=== PATIENT | male | born 1960 | race Two or more races ===

== ENCOUNTER 2020-07-19 00:40 | Inpatient (IN) | payer BC ==
[~2020-07-19] VITALS: Ht 182.9 cm; Wt 126.1 kg
[2020-07-19] VITALS (7 sets, daily range): BP systolic 131–151; BP diastolic 59–80
[2020-07-19] MEDS ORDERED: ONDANSETRON PF 4 MG/2 ML VIAL. IVP PRN (01:30)
[2020-07-19] MEDS ORDERED: DEXTROSE 50% 25 GM / 50ML DISP.SYRIN. IV PRN (01:30)
[2020-07-19] MEDS ORDERED: VANCOMYCIN PER PHARMACY MC PRN (01:30)
--- NOTE | 2020-07-19 01:30 | NUR ---
Pt to room 664 from [facility] via EMS at 0025. Pt alert and oriented but very forgetful and poor historian. Wound to left third toe pictured and dressed. Pt oriented to room, call light in reach, bed alarm set. Dr Moore paged for admission orders. Spoke with pt's daughter Samia ([phone]) and son German who answered admission questions and reviewed pt's home meds. Will continue with plan of care.
[2020-07-19] MEDS ORDERED: DIPH25TA64 PO (01:54)
[2020-07-19] MEDS ORDERED: METF10007 PO (01:54)
[2020-07-19] MEDS ORDERED: INSU100I13 SQ (01:54)
[2020-07-19] MEDS ORDERED: LOSA-73 PO (01:54)
[2020-07-19] MEDS ORDERED: CALC-515 PO (01:54)
[2020-07-19] MEDS ORDERED: LEVO100T5 PO (01:54)
[2020-07-19] MEDS ORDERED: PRED1TAB3 PO (01:54)
[2020-07-19] MEDS ORDERED: ATOR10TA60 PO (01:54)
[2020-07-19] MEDS ORDERED: DOXA2TAB PO (01:54)
[2020-07-19] MEDS ORDERED: LIRA0.6P2 SQ (01:54)
[2020-07-19] MEDS: IV NORMAL SALINE 1000ML BAG 1,000 ML IV SCH ×4 (02:07→21:26)
--- NOTE | 2020-07-19 03:43 | NUR ---
Pharmacy Vancomycin Dosing Note S:Consulted to monitor and dose vancomycin started 07/18/20. O:DASHAWN GOMEZ is a 60 year old M with Sepsis . Height: 6 feet, 0 inches Weight: 126.8 kg [place] Body Weight: 77.60 Adjusted Body Weight: 97.28 Dosing Weight: Actual Other Antibiotics: CEFTRIAXONE 1 GM Q24 LABS: Last BUN: 38 Last Creatinine: 2.1 Creatinine Clearance: 51 mL/min Last WBC: 18.7 Last Procalcitonin: Tmax (past 24 hours): Microbiology: I/O: Drug Levels: Last level: on at Last dose given 07/18/20 at 2130 Vancomycin Dosing: Loading Dose: 2000 mg x1 Dosing Weight: Actual Target Trough: 15-20 A: Based on: WT AND CRCL P: 1. Begin Vancomycin 2000 mg IV q24h 2. Follow up Trough level on 07/20/20 at 2030 3. Pharmacy will continue to monitor, follow and adjust therapy as needed. KATJA TENA RPH, 07/19/20 0343 Signed: 07/19/20 at 342 by KATJA TENA RPH PHA
[2020-07-19 04:55] LABS: BASO % 0 % (0-3); EOS % 0 % (0-3); HEMATOCRIT 31.9 % (39.0-53.0); HEMOGLOBIN 11.2 g/dL (13.0-17.5); LYMPH # 0.8 x10^3/uL (1.0-4.8); LYMPH % 5 % (24-48); MEAN CORPUSCULAR HEMOGLOBIN 32 pg (25-35); MEAN CORPUSCULAR HGB CONC 35 g/dL (31-37); MEAN CORPUSCULAR VOLUME 91 fL (79-100); MONO # 1.5 x10^3/uL (0.0-1.1); MONO % 9 % (0-9); NEUT # 13.7 x10^3/uL (1.8-7.7); NEUT % 86 % (31-73); PLATELET COUNT 330 x10^3/uL (140-400); RED BLOOD COUNT 3.49 x10^6/uL (4.30-5.70); RED CELL DISTRIBUTION WIDTH 12.5 % (11.5-14.5); WHITE BLOOD COUNT 15.9 x10^3/uL (4.0-11.0)
[2020-07-19 05:47] LABS: ALBUMIN 1.8 g/dL (3.4-5.0); ALBUMIN/GLOBULIN RATIO 0.4 (1.0-1.7); C-REACTIVE PROTEIN 191.4 mg/L (0-3.3); CALCIUM 8.7 mg/dL (8.5-10.1); CREATININE 1.7 mg/dL (0.7-1.3); GFR 41.2; TOTAL BILIRUBIN 0.5 mg/dL (0.2-1.0); TOTAL PROTEIN 6.5 g/dL (6.4-8.2)
[2020-07-19] MEDS: INSULIN LISPRO 300 UNITS/3 ML VIAL. SQ SCH ×5 (08:00→16:41)
--- NOTE | 2020-07-19 08:18 | NUR ---
Pt's morning FSBS 348 Addendum: 07/19/20 at 0820 by FARHEEN SWIFT RN Correction to previous: Pt's morning FSBS 386. Dr. Moore notified by telephone. Orders to give 20 units Humalog one time.
[2020-07-19] MEDS ORDERED: INSULIN LISPRO 300 UNITS/3 ML VIAL. SQ ONE (08:30)
[2020-07-19 10:26] LABS: % BANDS 18 % (0-9); % LYMPHS 10 % (24-48); % MONOS 7 % (0-10); % SEGS 65 % (35-66); PLT ESTIMATE ADEQUATE (ADEQUATE); TOXIC GRANULATION SLIGHT
[2020-07-19] MEDS ORDERED: diphenhydrAMINE HCL 25 MG CAPSULE PO PRN (10:45)
[2020-07-19] MEDS ORDERED: CALCIUM CARBONATE 500 MG TAB.CHEW PO PRN (10:45)
--- NOTE | 2020-07-19 10:55 | PDOC ---
Infectious Disease Note Vital Signs: Vital Signs Vital Signs Date Time Temp Pulse Resp B/P (MAP) Pulse Ox O2 Delivery O2 Flow Rate FiO2 07/19/20 08:30 Room Air 07/19/20 07:00 99.3 104 18 136/65 (88) 96 99.3 Medications: Inpatient Meds: Medications reviewed. Labs: Lab Laboratory Tests Test 07/19/20 02:45 07/19/20 04:15 07/19/20 07:23 Lactic Acid Level 1.5 mmol/L (0.4-2.0) White Blood Count 15.9 x10^3/uL (4.0-11.0) Red Blood Count 3.49 x10^6/uL (4.30-5.70) Hemoglobin 11.2 g/dL (13.0-17.5) Hematocrit 31.9 % (39.0-53.0) Mean Corpuscular Volume 91 fL (79-100) Mean Corpuscular Hemoglobin 32 pg (25-35) Mean Corpuscular Hemoglobin Concent 35 g/dL (31-37) Red Cell Distribution Width 12.5 % (11.5-14.5) Platelet Count 330 x10^3/uL (140-400) Neutrophils (%) (Auto) 86 % (31-73) Lymphocytes (%) (Auto) 5 % (24-48) Monocytes (%) (Auto) 9 % (0-9) Eosinophils (%) (Auto) 0 % (0-3) Basophils (%) (Auto) 0 % (0-3) Neutrophils # (Auto) 13.7 x10^3/uL (1.8-7.7) Lymphocytes # (Auto) 0.8 x10^3/uL (1.0-4.8) Monocytes # (Auto) 1.5 x10^3/uL (0.0-1.1) Eosinophils # (Auto) 0.0 x10^3/uL (0.0-0.7) Basophils # (Auto) 0.0 x10^3/uL (0.0-0.2) Segmented Neutrophils % 65 % (35-66) Band Neutrophils % 18 % (0-9) Lymphocytes % 10 % (24-48) Monocytes % 7 % (0-10) Toxic Granulation Slight Platelet Estimate Adequate (ADEQUATE) Sodium Level 124 mmol/L (136-145) Potassium Level 4.0 mmol/L (3.5-5.1) Chloride Level 92 mmol/L (98-107) Carbon Dioxide Level 22 mmol/L (21-32) Anion Gap 10 (6-14) Blood Urea Nitrogen 37 mg/dL (8-26) Creatinine 1.7 mg/dL (0.7-1.3) Estimated GFR (Cockcroft-Gault) 41.2 BUN/Creatinine Ratio 22 (6-20) Glucose Level 403 mg/dL (70-99) Calcium Level 8.7 mg/dL (8.5-10.1) Total Bilirubin 0.5 mg/dL (0.2-1.0) Aspartate Amino Transf (AST/SGOT) 32 U/L (15-37) Alanine Aminotransferase (ALT/SGPT) 24 U/L (16-63) Alkaline Phosphatase 84 U/L (46-116) C-Reactive Protein, Quantitative 191.4 mg/L (0-3.3) Total Protein 6.5 g/dL (6.4-8.2) Albumin 1.8 g/dL (3.4-5.0) Albumin/Globulin Ratio 0.4 (1.0-1.7) Glucose (Fingerstick) 386 mg/dL (70-99) Objective: Assessment: Pt seen and examined ID consult to follow Plan: Plan of Care see orders ortho consulted wound team consulted Thank you JAMA HERNANDEZ MD July 19, 2020 10:55
--- NOTE | 2020-07-19 11:03 | NUR ---
SW following. Discussed with RN, pt from home with son, room air, ada diet. ID following. RN advised no SW needs at this time. SW will continue to follow.
[2020-07-19] MEDS: LOSARTAN POTASSIUM 50 MG TABLET. PO SCH (12:34)
[2020-07-19] MEDS: predniSONE 1 MG TABLET PO SCH (12:35)
[2020-07-19] MEDS: DOXAZOSIN MESYLATE 1 MG TABLET. PO SCH (12:35)
[2020-07-19] MEDS: DAPTOmycin (GENERIC) IVPB 600 MG in IV NORMAL SALINE 50ML 50 ML IV SCH (12:36)
--- NOTE | 2020-07-19 13:00 | HP ---
ADMIT DATE: 07/19/2020 HISTORY OF PRESENT ILLNESS: The patient is a 60-year-old male patient who presented to the emergency room with altered mental status. Apparently, he has had an infection of his left middle toe. Apparently he was advised to be admitted, but he refused. However, his family apparently brought him to the emergency room where he was extensively evaluated. Apparently, his blood sugar was too high to measure at home and has left foot diabetic ulcer. He also having right foot pain and swelling. The patient was seen by Dr. Marcano who wanted him to be admitted earlier, he refused at that time. The son brought him last night because he was more confused and with markedly elevated blood sugar. Has had a history of elevated uric acid. His sed rate was 339 and his creatinine has risen from 1.3-[address] Dennis's report. The patient has history of noncompliance with diet and medication, has been a longstanding diabetic and had had also peripheral neuropathy. The patient was extensively investigated in the emergency room and has had lab work and imaging studies: White cell count was high at 18,700. His blood gases showed that he is not in diabetic ketoacidosis. In fact, his pH was 7.46, pCO2 of 26. His chemistry showed that he has lactic acidosis and blood sugar was extremely high to 512 on arrival. His toxic screen was positive for cannabinoid and opiate. The x-ray of his foot showed that there is no acute fracture, alignment is normal. There is joint space narrowing with subchondral cysts at the second transmetatarsal joint and navicular cuneiform joint. There is diffuse soft tissue swelling, probable ulcer at the tip of the third distal phalanx with possible cortical indistinction in the distal phalanx tuft. His right foot showed there is severe degenerative joint disease of the great toe metatarsophalangeal joint and subchondral cyst. There is degenerative joint disease throughout the mid foot with dorsal osteophytes. No acute fracture. Alignment is normal. There is no definite osseous junction. There is diffuse soft tissue swelling greater along the dorsum of the midfoot with the impression is that the patient had soft tissue ulcer at the tip of the third distal phalanx with possible erosion in the underlying distal phalanx, which could indicate osteomyelitis. MRI could be obtained for further evaluation and therefore, the patient was treated with IV antibiotic in the form of vancomycin as well as ceftriaxone and was transferred to [facility] for further evaluation and to consult Infectious Disease as well as the orthopedic surgeon. PAST MEDICAL HISTORY: Significant for hypertension, hyperlipidemia, type 2 diabetes mellitus with diabetic peripheral neuropathy. He is known to have hypothyroidism. He apparently was seen by the vascular surgeon about 3 weeks ago at [facility]. Arterial Doppler ultrasound showed no evidence of any significant peripheral vascular disease. PAST SURGICAL HISTORY: According to him, his past surgical history is significant for tonsillectomy. He apparently has also esophageal stricture that was dilated about 2 years ago. He has underwent esophagogastroduodenoscopy as well as colonoscopy. ALLERGIES: He has no known drug allergies. MEDICATIONS: He is currently on the following medication: He is on diphenhydramine 25 mg daily as needed, atorvastatin calcium 10 mg at bedtime, doxazosin for Cardura 2 mg daily, losartan potassium 50 mg daily, calcium carbonate with magnesium hydroxide one tablet daily as needed for heartburn, prednisone 4 mg daily, metformin 1000 mg twice a day, Victoza 1.8 mg subq daily. He is on Lantus insulin 25 units subQ at bedtime and levothyroxine sodium 300 mcg daily. FAMILY HISTORY: Has one brother in 1990 of AIDS. Another brother is still alive and has thyroid disease. Has one older and one younger sister, both alive and both have thyroid disease. His father at age of 93 due to mouth cancer. His mother at the age of 98. SOCIAL HISTORY: He is , has 3 daughters and 1 son. He claimed that he has never smoked; however, he admitted to the ER physician at [facility] that he is a smoker and also smokes marijuana. He stated he does not drink any alcohol or use any drugs. 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 REVIEW OF SYSTEMS: The patient denied any blurring of vision, cataracts, glaucoma or macular degeneration. Denied any earache, tinnitus or sensory deafness. Denied nosebleed, stuffy nose or postnasal drip. Denied any sore throat, sore tongue, toothache, hoarseness of voice or difficulty swallowing. Denied any nausea, vomiting, diarrhea or constipation. Denied any hematemesis, melena or hematochezia. Denies any dysuria, frequency or hematuria. Denied any chest pain, shortness of breath, orthopnea, paroxysmal nocturnal dyspnea. Denied any cough, phlegm or hemoptysis. PHYSICAL EXAMINATION: GENERAL: On arrival to the emergency room, he looked well and was clearly in no apparent respiratory distress. No pallor, jaundice, cyanosis, or thyromegaly. No jugular distention. No lower limb edema. VITAL SIGNS: His heart rate was 116, blood pressure is 129/80, temperature was 98.7, respiratory rate was 34 and oxygen saturation was 94% on room air. HEAD, EYES, EARS, NOSE AND THROAT: Showed normocephalic, atraumatic. NECK: Supple. HEART: Showed normal first and second heart sounds. No gallop or murmur. CHEST: Clear to auscultation. No crepitation or rhonchi. ABDOMEN: Distended, soft, nontender. NEUROLOGIC: He is awake, alert, responding appropriately. All his cranial nerves are intact. He moves extremities without difficulty. He has definitely soft tissue swelling and tenderness in both right and left foot. He has an ulcer on the tip of the left third toe, covered with dressing. The dorsalis pedis in both feet is easily palpable. LABORATORY DATA: His lab work on arrival showed a white cell count of 18,700, hemoglobin 12, hematocrit 36, MCV 94 and platelet count of 389,000 with normal manual differential showed 84% polymorphs, 6% lymphocytes and 10% monocytes. His chemistry showed that his serum sodium is down to 124, potassium 4.5, chloride 88, bicarbonate 21, anion gap of 15, BUN 38, creatinine 2.1. Estimated GFR was 32 mL per minute. His glucose was 512, calcium was 9.2, magnesium was 1.7. CK was 360 and beta natriuretic peptide was 1481. His prothrombin time/INR and APTT are normal. Blood gases showed a pH of 7.46, pCO2 of 26, pO2 of 91, bicarbonate 19 and oxygen saturation was 98% on FiO2 of 21%. His urinalysis showed the urine was yellow, clear with a pH of 5.5, specific gravity of 1.015. There is large amount of protein, large amount of glucose, trace of ketones, large amount of blood, small amount of bilirubin, leukocyte esterase was negative. Has 11-20 rbc's, rare wbc's and no bacteria. His toxic screen was positive for opiates and cannabinoids. His chest x-ray showed the heart and mediastinum are normal. Lungs are hyperexpanded. No consolidation, pleural effusion, or pneumothorax. Pulmonary vascularity is normal. The thoracic skeleton is intact. CT scan of the head without contrast showed no intracranial hemorrhage, acute infarct or mass lesion. The ventricles and sulci are moderately enlarged. Teresa-white matter differentiation is maintained. The calvarium is intact. Visualized paranasal sinuses and mastoid air cells are clear. Globes and orbits are intact. X-ray of his left foot showed that no acute fracture. Alignment is normal. There is joint space narrowing with subchondral cyst at the second transmetatarsal joint. He has also dorsal osteophyte at the transmetatarsal joint and navicular cuneiform joint. There is diffuse soft tissue swelling, probable ulcer at the tip of the third distal phalanx with possible cortical indistinctness in the distal phalanx tuft. His right foot showed severe degenerative joint disease of the great toe metatarsophalangeal joint with subchondral cyst. There is degenerative joint disease throughout the mid foot and dorsal osteophytes. No acute fracture. Alignment is normal. There is no definite osseous junction. There is diffuse soft tissue swelling, greatest along the dorsum of the midfoot. Therefore, the patient was transferred to [facility] and was treated with IV vancomycin as well as Rocephin. We did consult the Infectious Disease specialist as well as the orthopedic surgeon. We did reconcile all his medication. We will monitor his blood sugar and adjust his insulin as needed. KENIA/LUCIA/NICKOLAS DR: Sarahy TID: [id number]
[2020-07-19] MEDS: PIPERACILLIN/TAZOBACTAM 3.375 GM in IV NORMAL SALINE 50ML 50 ML IV SCH ×3 (13:21→23:32)
--- NOTE | 2020-07-19 15:33 | NUR ---
IV fluids nonadministered by this RN, previous bag still infusing. Refer to EMAR for further details.
--- NOTE | 2020-07-19 16:00 | NUR ---
Wound Care Wound Type/Assessment: Pt seen for wound care consultation re: L 3rd toe DFU. Pt's daughter stated pt has been getting treatment for this wound in [place] for almost 1 year, and has not had any infection in the toe that they know of. Pt also has a R dorsolateral foot serous filled, intact blister, measurements and photo taken at this time. Per pt's daughter, blister has increased in size just since this morning. Bilateral dorsal feet are bright red and hot to the touch, no fluctuance noted, but pt's daughter did say pt is being treated for gout with steroids. Treatment Recommendations/Plan: Recommend Iodoflex john to L 3rd toe until pt is seen by Dr. Vazquez, then per his recommendations. R dorsal foot blister covered with a foam dressing for protection, and [employer]el[employer] boots ordered for off-loading, as pt is restless and tossing/turning constantly. Education provided: to pt's family re: POC. Offloading surface/device: [employer] boots, pillows Recommended Referrals/Tests: Defer to Dr. Vazquez Discharge Recommendations for dressings: will continue to follow for changes.
--- NOTE | 2020-07-19 16:30 | RAD ---
EXAMINATION: CT LOWER EXTREMITY WITHOUT CONTRAST, 07/19/2020 11:50 AM CLINICAL INDICATION: Bilateral lower extremity deep tissue infection COMPARISON: Bilateral foot radiograph 07/18/2020 TECHNIQUE: Helical CT imaging performed of the bilateral feet without the use of intravenous contrast . Sagittal and coronal reformats were obtained. One or more of the following individualized dose reduction techniques were utilized for this examinat ion: 1. Automated exposure control 2. Adjustment of the mA and/or kV according to patient size 3. Use of iterative reconstruction technique. FINDINGS: Exam is limited by motion artifact. The tip of the first through third toes and lateral asp ect of the fifth toe and fifth metatarsal in the left but are incompletely imaged. Almost the entire fifth metatarsal and fifth toe in the right foot are incompletely imaged. Left foot: There is diffuse subcutaneous edema. There is a small amount of fluid and scattered gas al kandi the dorsum of the midfoot at the TMT joints and extensor tendons. Additional soft tissue gas and fluid extending throughout the first intermetatarsal space. There is multifocal degenerative joint di sease with subchondral cysts and osteophytes, greatest at the second MTP joint, and second and third TMT joints. No definite osseous destruction to suggest osteomyelitis although the first through third distal phalanges and part of the fifth toe and metatarsal are incompletely imaged. Right foot: There is diffuse subcutaneous edema. There is a fluid collection with some foci of gas al kandi the dorsal lateral mid foot at the level of the cuboid. This measures approximately 2.2 x 1.7 x 3 .8 cm. No definite other fluid collection. There is degenerative joint disease of the great toe MTP j oint with subchondral cysts and osteophytes. There are subchondral cysts versus erosions at the secon d MTP joint with fragmentation of the medial cuneiform, which could be degenerative although septic a rthritis/osteomyelitis is possible. There is degenerative joint disease of the third MTP joint with s mall subchondral cysts. IMPRESSION: 1. Limited exam due to patient difficulty holding still resulting in extensive motion artifact and in complete imaging of the feet. Specifically, the left first through third distal phalanges, left fifth metatarsal and fifth toe are incompletely imaged. The right right fifth metatarsal and fifth toe are almost entirely excluded from the [id number]. 2. Left foot: Diffuse subcutaneous edema with small amount of fluid and gas along the dorsal midfoot, greatest along the TMT joints and extensor tendons, and in the first intermetatarsal space. There is no large fluid collection or definite osteomyelitis. 3. Right foot: Diffuse subcutaneous edema with a 3.8 cm fluid collection and foci of gas along the do rsal lateral aspect of the cuboid. Cystic changes at the second MTP joint with fragmentation of the m edial cuneiform could be degenerative although septic arthritis/osteomyelitis is possible. 4. Recommend MRI of the feet to further evaluate if possible. Electronically signed by: Ernestine Chung MD (07/19/2020 4:28 PM) [id number]
[2020-07-19] MEDS: metFORMIN 500 MG TABLET PO SCH (16:41)
[2020-07-19] MEDS: fentaNYL PF VIAL 100 MCG/2 ML VIAL IVP PRN (18:11)
[2020-07-19] MEDS ORDERED: VANCOMYCIN 2 GM in IV NORMAL SALINE 500ML BAG 500 ML IV SCH (21:00)
[2020-07-19] MEDS ORDERED: cefTRIAXone IV Push 1 GM VIAL. IVP SCH (21:00)
[2020-07-19] MEDS: ATORVASTATIN CALCIUM 10 MG TABLET. PO SCH (21:26)
[2020-07-19] MEDS: INSULIN GLARGINE SYRINGE. SQ SCH (21:29)
--- NOTE | 2020-07-19 22:46 | NUR ---
At start of shift - pt confused as to time - thought it was morning despite RN telling him several times it was 8 pm. Seeming to have difficulty comprehending directions as well. Pt up to bedside to use urinal. Voided all down front of self and on floor despite urinal being right in front. Pt refused to let pants be changed - RN encouraged it three times. 20g started LFA with one attempt - good blood return, flushed easily. RN informed pt bed alarm on to remind him to call before going to bathroom. Pt verbalized understanding.
[2020-07-19] MEDS ORDERED: ACETAMINOPHEN 500 MG TABLET PO PRN (23:45)
--- NOTE | 2020-07-20 01:30 | CONS ---
DATE OF CONSULTATION: 07/19/2020 REFERRING PHYSICIAN: Candida Moore MD REASON FOR CONSULTATION: Left toe osteomyelitis, antibiotic management. HISTORY OF PRESENT ILLNESS: A 60-year-old male with history of diabetes with neuropathy with nonhealing left foot diabetic ulcer for about six weeks, presented to [facility] on 07/18/2020 after he was brought in by his son as he was confused. The patient also had swelling over both the lower extremities, which is going on for a couple of days prior to admission. The patient is not a good historian. Son is at bedside who filled up most of the information. The patient was more confused. He was found to have elevated white count, glucose, creatinine of 2.0. The patient has been noncompliant with his diet and medication. He was told to be admitted to the hospital by his primary care physician, but the patient has refused at that time. The patient has history of smoking tobacco and marijuana. His white count was elevated at 18,000 with a lactic acidosis, STEVE, hyponatremia. He was started on vancomycin and ceftriaxone. CK was 360. Ammonia 14. Uric acid of 6.1. BNP of 1461. The patient was transferred to [facility] for evaluation by orthopedics. He is currently on IV vancomycin and ceftriaxone and today says he feels a little better though his both lower extremities feel like they are on" fire." PAST MEDICAL HISTORY: Diabetes, hypertension, neuropathy, chronic nonhealing left third toe wound, possible osteo, history of noncompliance. CURRENT MEDICATIONS: IV vancomycin, ceftriaxone, also got tetanus shot at [facility]. ALLERGIES: No known drug allergies. SOCIAL HISTORY: Positive for smoking. Also, marijuana use. No IVDU. No alcohol. 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 Son at bedside. , lives at home. PHYSICAL EXAMINATION: VITAL SIGNS: Temperature 99.3, pulse 104, respiratory rate 18, blood pressure 136/65, oxygen saturation 96% on room air. GENERAL: Sleepy, but arousable male, answers few questions, appears comfortable. HEENT: Normocephalic, atraumatic. Anicteric. No thrush. NECK: Supple. No JVD. LUNGS: Clear bilaterally. HEART: S1, S2 heard. No murmurs. ABDOMEN: Soft, obese. Bowel sounds present. GENITOURINARY: No Santana, Briefs in place. EXTREMITIES: Bilateral lower extremity erythema; swelling present over the dorsum of both feet; left third toe ulcer, nonhealing; blister formation over the dorsum of the right foot. NEUROLOGIC: Sleepy, but arousable, moves all 4 extremities. PSYCHIATRIC: Calm and cooperative. PIV looks clean. LABORATORY DATA: WBC 15.9, hemoglobin 11.2, hematocrit 31.9, platelets 330. Sodium 124, potassium 4.0, chloride 92, bicarbonate 22, BUN 37, creatinine 1.7, glucose 403. Lactate 1.5, was 2.9. CRP 191.4, albumin 1.8, bands 18. DIAGNOSTIC DATA: X-ray of the foot noted from outside hospital. IMPRESSION: 1. Febrile illness. Source BLE deep tissue infection 2. Leukocytosis and lactic acidosis. 3. Bilateral lower extremity cellulitis,deep tissue infection of both feet. 4. Left toe osteomyelitis, chronic nonhealing diabetic toe ulcer. 5. Diabetes with neuropathy, poorly controlled. 6. Noncompliance. 7. Acute kidney injury. High CPK 8. Hematuria. 9. Hyponatremia. 10. Hypertension. 11. Bandemia. 12. Encephalopathy, likely metabolic. RECOMMENDATIONS: 1. Discontinue ceftriaxone, start Zosyn may need renal dosing. 2. Start daptomycin. Monitor CPK closely 3. Check CK. 4. Obtain MRI of both lower extremities. 5. Orthopedics has been consulted. 6. Wound team has been consulted. 7. Follow up labs and cultures. 8. Continue supportive care. 9. Continue wound care as directed. 10. Maintain aspiration precautions Thank you Dr. Moore for allowing me to participate in this patient's care. If you have any questions, do not hesitate to contact me. Discussed with son at bedside ROLAND/BRANDON/DOMINIQUE DR: My TID: [id number] MTDD
[2020-07-20 03:00] VITALS: BP 146/81
[2020-07-20] MEDS: PIPERACILLIN/TAZOBACTAM 3.375 GM in IV NORMAL SALINE 50ML 50 ML IV SCH ×3 (05:57→17:30)
[2020-07-20] MEDS: IV NORMAL SALINE 1000ML BAG 1,000 ML IV SCH ×4 (05:59→21:42)
[2020-07-20 06:43] LABS: BASO % 0 % (0-3); EOS % 0 % (0-3); HEMATOCRIT 31.6 % (39.0-53.0); HEMOGLOBIN 10.8 g/dL (13.0-17.5); LYMPH # 0.9 x10^3/uL (1.0-4.8); LYMPH % 4 % (24-48); MEAN CORPUSCULAR HEMOGLOBIN 32 pg (25-35); MEAN CORPUSCULAR HGB CONC 34 g/dL (31-37); MEAN CORPUSCULAR VOLUME 92 fL (79-100); MONO # 1.3 x10^3/uL (0.0-1.1); MONO % 6 % (0-9); NEUT # 18.9 x10^3/uL (1.8-7.7); NEUT % 89 % (31-73); PLATELET COUNT 366 x10^3/uL (140-400); RED BLOOD COUNT 3.43 x10^6/uL (4.30-5.70); RED CELL DISTRIBUTION WIDTH 12.5 % (11.5-14.5); WHITE BLOOD COUNT 21.2 x10^3/uL (4.0-11.0)
[2020-07-20 06:58] LABS: CALCIUM 8.8 mg/dL (8.5-10.1); CREATININE 1.5 mg/dL (0.7-1.3); GFR 47.6; POTASSIUM 3.6 mmol/L (3.5-5.1)
[2020-07-20 07:13] LABS: C-REACTIVE PROTEIN 291.2 mg/L (0-3.3)
[2020-07-20 07:15] VITALS: BP 136/71
[2020-07-20] MEDS: metFORMIN 500 MG TABLET PO SCH ×2 (07:53→17:12)
[2020-07-20] MEDS: LEVOTHYROXINE 100 MCG TABLET PO SCH (07:53)
[2020-07-20] MEDS: INSULIN LISPRO 300 UNITS/3 ML VIAL. SQ SCH ×6 (07:59→17:15)
[2020-07-20] MEDS: LOSARTAN POTASSIUM 50 MG TABLET. PO SCH (09:14)
[2020-07-20] MEDS: DOXAZOSIN MESYLATE 1 MG TABLET. PO SCH (09:15)
[2020-07-20] MEDS: predniSONE 1 MG TABLET PO SCH (09:15)
--- NOTE | 2020-07-20 09:25 | NUR ---
RN notified of +bc
--- NOTE | 2020-07-20 09:44 | PDOC ---
Infectious Disease Note Subjective: Subjective Patient sleepy but arousable Daughter at bedside Continues to have pain redness and swelling in both lower extremities right greater than left Denies any fever, chills, nausea, vomiting, diarrhea, abdominal pain or symptoms Vital Signs: Vital Signs Vital Signs Date Time Temp Pulse Resp B/P (MAP) Pulse Ox O2 Delivery O2 Flow Rate FiO2 07/20/20 09:15 90 136/71 07/20/20 08:09 Room Air 07/20/20 07:15 98.6 20 97 98.6 Physical Exam: PHYSICAL EXAM GENERAL: Sleepy, but arousable male, answers few questions, appears comfortable. HEENT: Normocephalic, atraumatic. Anicteric. No thrush. NECK: Supple. No JVD. LUNGS: Clear bilaterally. HEART: S1, S2 heard. No murmurs. ABDOMEN: Soft, obese. Bowel sounds present. GENITOURINARY: No Santana, Briefs in place. EXTREMITIES: Bilateral lower extremity erythema; swelling present over the dorsum of both feet; left third toe ulcer, nonhealing; blister formation over the dorsum of the right foot. Induration present, tender NEUROLOGIC: Sleepy, but arousable, moves all 4 extremities. PSYCHIATRIC: Calm and cooperative. PIV looks clean. Medications: Inpatient Meds: Medications reviewed. Labs: Lab Laboratory Tests Test 07/19/20 11:51 07/19/20 16:36 07/19/20 21:12 07/20/20 05:50 Glucose (Fingerstick) 295 mg/dL (70-99) 126 mg/dL (70-99) 312 mg/dL (70-99) Sodium Level 131 mmol/L (136-145) Potassium Level 3.6 mmol/L (3.5-5.1) Chloride Level 99 mmol/L (98-107) Carbon Dioxide Level 25 mmol/L (21-32) Anion Gap 7 (6-14) Blood Urea Nitrogen 28 mg/dL (8-26) Creatinine 1.5 mg/dL (0.7-1.3) Estimated GFR (Cockcroft-Gault) 47.6 Glucose Level 296 mg/dL (70-99) Calcium Level 8.8 mg/dL (8.5-10.1) Creatine Kinase 309 U/L (39-308) C-Reactive Protein, Quantitative 291.2 mg/L (0-3.3) Test 07/20/20 05:55 07/20/20 07:26 White Blood Count 21.2 x10^3/uL (4.0-11.0) Red Blood Count 3.43 x10^6/uL (4.30-5.70) Hemoglobin 10.8 g/dL (13.0-17.5) Hematocrit 31.6 % (39.0-53.0) Mean Corpuscular Volume 92 fL (79-100) Mean Corpuscular Hemoglobin 32 pg (25-35) Mean Corpuscular Hemoglobin Concent 34 g/dL (31-37) Red Cell Distribution Width 12.5 % (11.5-14.5) Platelet Count 366 x10^3/uL (140-400) Neutrophils (%) (Auto) 89 % (31-73) Lymphocytes (%) (Auto) 4 % (24-48) Monocytes (%) (Auto) 6 % (0-9) Eosinophils (%) (Auto) 0 % (0-3) Basophils (%) (Auto) 0 % (0-3) Neutrophils # (Auto) 18.9 x10^3/uL (1.8-7.7) Lymphocytes # (Auto) 0.9 x10^3/uL (1.0-4.8) Monocytes # (Auto) 1.3 x10^3/uL (0.0-1.1) Eosinophils # (Auto) 0.0 x10^3/uL (0.0-0.7) Basophils # (Auto) 0.0 x10^3/uL (0.0-0.2) Erythrocyte Sedimentation Rate 136 (0-15) Glucose (Fingerstick) 275 mg/dL (70-99) Micro RUN DATE: 07/20/20 [facility] LAB *LIVE* PAGE 1 RUN TIME: 922 Specimen Inquiry PATIENT: DASHAWN GOMEZ ACCT: [id number] LOC: SIOBHAN U: [id number] AGE/SX: 60/M ROOM: RE07/18/[address]: CAROLEE ZHOU MD : 1960 BED: DIS: STATUS: IVORY MCCANN TLOC: SPEC #: [id number] SANDOR: 07/18/20 STATUS: COMP REQ #: [id number] RECD: 07/18/[address]: CAROLEE ZHOU MD SOURCE: BLOOD ENTR: 07/18/20-[address]: JERONIMO KO MD SPDESC: ORDERED: BCULT Procedure Result BLOOD CULTURE Final GRAM POSITVE COCC IN CLUSTERS, SUGGESTIVE OF STAPH, IN 2 OF 4 BOTTLES, TWO SETS DRAWN, BOTH SETS ARE POSITIVE. [facility]SFERR[facility] FROM [facility] TO [facility] ROOM 664. CALLED TO KATHLEEN COELHO RN ON AT 15:10 ON 07/19/20 DW MT SENT TO [facility] FOR FURTHER WORKUP. GRAM POSITIVE COCCI IN 4 OF 4 BOTTLES OF 2 SETS PATIENT TRANSFERRED TO [facility], CALLED TO ROBERT THOMPSON 07-20-20 AT 0900 BY [facility], CULTURES SENT TO [facility] FOR FURTHER WORKUP Objective: Assessment: Sepsis from gram-positive bacteremia Gram-positive cocci bacteremia 4 out of 4 bottles at [facility] 1. Febrile illness. Source BLE deep tissue infection 2. Leukocytosis and lactic acidosis. 3. Bilateral lower extremity cellulitis,deep tissue infection of both feet. Right greater than left 4. Left toe osteomyelitis, chronic nonhealing diabetic toe ulcer. CRP 291.2 ESR 136 5. Diabetes with neuropathy, poorly controlled. 6. Noncompliance. 7. Acute kidney injury. High CPK 8. Hematuria. 9. Hyponatremia. 10. Hypertension. 11. Bandemia. 12. Encephalopathy, likely metabolic. Plan: Plan of Care Continue daptomycin and Zosyn. Monitor CPK closely, improved since yesterday Follow-up blood culture from [facility] Obtain blood cultures today Lab pending from this a.m. Orthopedics has been consulted.Will likely need surgical intervention May need MRI Wound team has been consulted. Follow up labs and cultures. Continue wound care as directed. Maintain aspiration precautions Continue supportive care Discussed with daughter, girlfriend, sister, [id number] at bedside JAMA HERNANDEZ MD July 20, 2020 09:44
--- NOTE | 2020-07-20 10:39 | NUR ---
SW following. Discussed with RN, pt from home with son, room air, ada diet. ID following - currently on IV abx. Ortho consulted. RN advised no SW needs at this time. SW will continue to follow.
[2020-07-20 11:22] VITALS: BP 129/78
[2020-07-20] MEDS: oxyCODONE IR 5 MG TABLET PO PRN (11:22)
--- NOTE | 2020-07-20 12:01 | NUR ---
IV fluids nonadministered by this RN. Previous bag still infusing. Refer to EMAR for further details.
[2020-07-20] MEDS: DAPTOmycin (GENERIC) IVPB 600 MG in IV NORMAL SALINE 50ML 50 ML IV SCH (13:33)
[2020-07-20 15:01] VITALS: BP 131/62
--- NOTE | 2020-07-20 15:20 | NUR ---
Wound Care Pt seen to reassess redness to bilateral dorsal feet. Redness has slightly improved and areas are not as hot as yesterday. Pt would benefit from bedside debridement of L 3rd toe callused wound, as possibly deroofing of R foot blister, pt amenable to Wound physician evaluating pt tomorrow. Will f/u with JAMES Young tomorrow afternoon.
[2020-07-20 19:43] VITALS: BP 158/67
[2020-07-20] MEDS: ATORVASTATIN CALCIUM 10 MG TABLET. PO SCH (21:41)
[2020-07-20] MEDS: INSULIN GLARGINE SYRINGE. SQ SCH (21:46)
--- NOTE | 2020-07-20 22:57 | PN ---
DATE: 07/20/2020 SUBJECTIVE: The patient is sitting at the edge of the bed, eating his lunch comfortably in no apparent distress, complaining of pain in his right shoulder and denied any other complaint. PHYSICAL EXAMINATION: GENERAL: When I examined him, he looked well and was clearly in no apparent respiratory distress. No pallor, jaundice, cyanosis or thyromegaly. No jugular venous distention. No lower limb edema. VITAL SIGNS: His heart rate was 87, blood pressure is 129/78, temperature was 98, respiratory rate was 20, and oxygen saturation was 95%. The rest of the examination is stable. ASSESSMENT: Sepsis, gram-positive bacteremia, the patient has bilateral lower extremity cellulitis, deep tissue infection of both feet, right greater than left, left middle toe osteomyelitis, chronic nonhealing diabetic toe ulcer, diabetes with diabetic peripheral neuropathy, poorly controlled; acute kidney injury; hematuria; hyponatremia; hypertension; encephalopathy. PLAN: To continue with IV antibiotic in the form of daptomycin and Zosyn. Orthopedic surgeon was consulted as he will likely need a surgical intervention. Continue with pain management. ELTON/DOMINIQUE DR: KENIA/sherley TID: [id number]
[2020-07-20 23:54] VITALS: BP 176/78
[2020-07-21] VITALS (13 sets, daily range): BP systolic 111–168; BP diastolic 63–109
[2020-07-21] MEDS ORDERED: ACETAMINOPHEN 325 MG TABLET. PO PRN
[2020-07-21] MEDS: PIPERACILLIN/TAZOBACTAM 3.375 GM in IV NORMAL SALINE 50ML 50 ML IV SCH ×4 (00:24→17:15)
[2020-07-21] MEDS: IV NORMAL SALINE 1000ML BAG 1,000 ML IV SCH ×3 (05:49→22:15)
[2020-07-21 07:03] LABS: BASO % 0 % (0-3); EOS # 0.2 x10^3/uL (0.0-0.7); EOS % 1 % (0-3); HEMATOCRIT 31.9 % (39.0-53.0); HEMOGLOBIN 10.9 g/dL (13.0-17.5); LYMPH # 1.5 x10^3/uL (1.0-4.8); LYMPH % 7 % (24-48); MEAN CORPUSCULAR HEMOGLOBIN 32 pg (25-35); MEAN CORPUSCULAR HGB CONC 34 g/dL (31-37); MEAN CORPUSCULAR VOLUME 93 fL (79-100); MONO # 1.5 x10^3/uL (0.0-1.1); MONO % 7 % (0-9); NEUT % 85 % (31-73); PLATELET COUNT 409 x10^3/uL (140-400); RED BLOOD COUNT 3.44 x10^6/uL (4.30-5.70); RED CELL DISTRIBUTION WIDTH 12.7 % (11.5-14.5); WHITE BLOOD COUNT 22.2 x10^3/uL (4.0-11.0)
[2020-07-21 07:28] LABS: ALBUMIN 1.5 g/dL (3.4-5.0); ALBUMIN/GLOBULIN RATIO 0.3 (1.0-1.7); CALCIUM 9.1 mg/dL (8.5-10.1); CREATININE 1.5 mg/dL (0.7-1.3); GFR 47.6; POTASSIUM 3.6 mmol/L (3.5-5.1); TOTAL BILIRUBIN 0.4 mg/dL (0.2-1.0); TOTAL PROTEIN 6.5 g/dL (6.4-8.2)
[2020-07-21] MEDS: INSULIN LISPRO 300 UNITS/3 ML VIAL. SQ SCH ×6 (08:00→17:25)
[2020-07-21] MEDS: LEVOTHYROXINE 100 MCG TABLET PO SCH (08:22)
[2020-07-21] MEDS: LOSARTAN POTASSIUM 50 MG TABLET. PO SCH (08:23)
[2020-07-21] MEDS: metFORMIN 500 MG TABLET PO SCH ×2 (08:23→17:15)
[2020-07-21] MEDS: DOXAZOSIN MESYLATE 1 MG TABLET. PO SCH (08:23)
--- NOTE | 2020-07-21 08:40 | PDOC ---
Infectious Disease Note Subjective: Subjective Patient cont to remain febrile Daughter at bedside Continues to have pain redness and swelling in both lower extremities right greater than left Denies any fever, chills, nausea, vomiting, diarrhea, abdominal pain or symptoms Vital Signs: Vital Signs Vital Signs Date Time Temp Pulse Resp B/P (MAP) Pulse Ox O2 Delivery O2 Flow Rate FiO2 07/21/20 08:23 79 160/82 07/21/20 07:00 98.4 17 96 Room Air 98.4 Physical Exam: PHYSICAL EXAM GENERAL: Sleepy, but arousable male, answers few questions, appears comfortable. HEENT: Normocephalic, atraumatic. Anicteric. No thrush. NECK: Supple. No JVD. LUNGS: Clear bilaterally. HEART: S1, S2 heard. No murmurs. ABDOMEN: Soft, obese. Bowel sounds present. GENITOURINARY: No Santana, Briefs in place. EXTREMITIES: Bilateral lower extremity erythema; swelling present over the dorsum of both feet; left third toe ulcer, no bone exposure, blister formation over the dorsum of the right foot. Induration and possible fluctuation present, tender NEUROLOGIC: Sleepy, but arousable, moves all 4 extremities. PSYCHIATRIC: Calm and cooperative. PIV looks clean. Medications: Inpatient Meds: Medications reviewed. Labs: Lab Laboratory Tests Test 07/20/20 11:29 07/20/20 16:54 07/20/20 20:03 07/21/20 06:10 Glucose (Fingerstick) 176 mg/dL (70-99) 121 mg/dL (70-99) 106 mg/dL (70-99) White Blood Count 22.2 x10^3/uL (4.0-11.0) Red Blood Count 3.44 x10^6/uL (4.30-5.70) Hemoglobin 10.9 g/dL (13.0-17.5) Hematocrit 31.9 % (39.0-53.0) Mean Corpuscular Volume 93 fL (79-100) Mean Corpuscular Hemoglobin 32 pg (25-35) Mean Corpuscular Hemoglobin Concent 34 g/dL (31-37) Red Cell Distribution Width 12.7 % (11.5-14.5) Platelet Count 409 x10^3/uL (140-400) Neutrophils (%) (Auto) 85 % (31-73) Lymphocytes (%) (Auto) 7 % (24-48) Monocytes (%) (Auto) 7 % (0-9) Eosinophils (%) (Auto) 1 % (0-3) Basophils (%) (Auto) 0 % (0-3) Neutrophils # (Auto) 19.0 x10^3/uL (1.8-7.7) Lymphocytes # (Auto) 1.5 x10^3/uL (1.0-4.8) Monocytes # (Auto) 1.5 x10^3/uL (0.0-1.1) Eosinophils # (Auto) 0.2 x10^3/uL (0.0-0.7) Basophils # (Auto) 0.0 x10^3/uL (0.0-0.2) Sodium Level 136 mmol/L (136-145) Potassium Level 3.6 mmol/L (3.5-5.1) Chloride Level 102 mmol/L (98-107) Carbon Dioxide Level 26 mmol/L (21-32) Anion Gap 8 (6-14) Blood Urea Nitrogen 24 mg/dL (8-26) Creatinine 1.5 mg/dL (0.7-1.3) Estimated GFR (Cockcroft-Gault) 47.6 BUN/Creatinine Ratio 16 (6-20) Glucose Level 158 mg/dL (70-99) Calcium Level 9.1 mg/dL (8.5-10.1) Total Bilirubin 0.4 mg/dL (0.2-1.0) Aspartate Amino Transf (AST/SGOT) 48 U/L (15-37) Alanine Aminotransferase (ALT/SGPT) 30 U/L (16-63) Alkaline Phosphatase 122 U/L (46-116) Creatine Kinase 203 U/L (39-308) Total Protein 6.5 g/dL (6.4-8.2) Albumin 1.5 g/dL (3.4-5.0) Albumin/Globulin Ratio 0.3 (1.0-1.7) Test 07/21/20 07:20 Glucose (Fingerstick) 162 mg/dL (70-99) Micro RUN DATE: 07/20/20 [facility] LAB *LIVE* PAGE 1 RUN TIME: 922 Specimen Inquiry PATIENT: DASHAWN GOMEZ ACCT: [id number] LOC: SIOBHAN U: [id number] AGE/SX: 60/M ROOM: RE07/18/[address]: CAROLEE ZHOU MD : 1960 BED: DIS: STATUS: DEP SIOBHAN TLOC: SPEC #: [id number] SANDOR: 07/18/20 STATUS: COMP REQ #: [id number] RECD: 07/18/[address]: CAROLEE ZHOU MD SOURCE: BLOOD ENTR: 07/18/20-[address] [facility] [address]: JERONIMO KO MD [facility]: ORDERED: BCULT -------- ---- Procedure Result BLOOD CULTURE Final GRAM POSITVE COCC IN CLUSTERS, SUGGESTIVE OF STAPH, IN 2 OF 4 BOTTLES, TWO SETS DRAWN, BOTH SETS ARE POSITIVE. TRANSFERRED FROM [facility] TO [facility] ROOM 664. CALLED TO KATHLEEN COELHO RN ON AT 15:10 ON 07/19/20 DW MT SENT TO [facility] FOR FURTHER WORKUP. GRAM POSITIVE COCCI IN 4 OF 4 BOTTLES OF 2 SETS PATIENT TRANSFERRED TO [facility], CALLED TO ROBERT THOMPSON 07-20-20 AT 0900 BY [facility], CULTURES SENT TO [facility] FOR FURTHER WORKUP Objective: Assessment: Severe sepsis from gram-positive bacteremia Gram-positive cocci bacteremia 4 out of 4 bottles at [facility] Gram-positive bacteremia here July 20, 2020 1. Fever Source BLE deep tissue infection 2. Leukocytosis and lactic acidosis.Bandemia. 3. Bilateral lower extremity cellulitis,deep tissue infection of both feet. Right greater than left CRP 291.2 ESR 136 4. 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 Possible osteo 5. Diabetes with neuropathy, poorly controlled. 6. Noncompliance. 7. Acute kidney injury. High CPK 8. Hematuria. 9. Hyponatremia. 10. Hypertension. 11. Encephalopathy, likely metabolic. Plan: Plan of Care Continue daptomycin and Zosyn. Monitor CPK closely, improved since yesterday Add Zyvox Follow-up blood culture from [facility] and here Repeat blood cultures in a.m. Orthopedics has been consulted.Will likely need surgical intervention, evaluation still pending.... May need MRI, Agree with vascular team consultation Wound team has been consulted. Follow up labs and cultures. Continue wound care as directed. Maintain aspiration precautions Continue supportive care Discussed with daughter, girlfriend, sister at bedside Discussed with Dr. Moore D/W vascular team JAMA HERNANDEZ MD July 21, 2020 08:40
[2020-07-21] MEDS: predniSONE 1 MG TABLET PO SCH (09:18)
[2020-07-21] MEDS: DAPTOMYCIN IV SCH (11:12)
[2020-07-21] MEDS: NORMAL SALINE IV SCH (11:12)
[2020-07-21] MEDS ORDERED: PROPOFOL 10 MG/ML (20ML) VIAL. IV ONE (11:16)
[2020-07-21] MEDS ORDERED: DEXAMETHASONE SOD PHOS 20 MG/5 ML VIAL. ONE (11:16)
[2020-07-21] MEDS ORDERED: LIDOCAINE 2% PF 5 ML VIAL. ONE ×2 (11:16→13:16)
[2020-07-21] MEDS ORDERED: ONDANSETRON PF 4 MG/2 ML VIAL. ONE ×2 (11:17→13:00)
--- NOTE | 2020-07-21 11:48 | PDOC2 ---
CONSULT Date of Service Date of Service DATE: 07/21/20 TIME: 11:38 Reason for Consult Reason for Consult: Bilateral lower extremity cellulitis, left third toe ulcer. Referring Physician Referring Physician: Dr. Moore Identification/Chief Complaint Chief Complaint Altered mental status Source Source: Chart review, Patient History of Present Illness Reason for Visit: This is a 60-year-old male who presented to the emergency room at [facility] with altered mental status on 07/18/2020 he was transferred to [facility] on 07/19/2020. According to the family the patient has been treated for a non-healing diabetic ulceration on his left third toe for several weeks. The rafa benítez is not a good historian and his family is at bedside providing information. According to the chart the patient has a history of noncompliance with diet and medication with longstanding diabetes and peripheral neuropathy. His white blood cell count is 22,000, he has positive blood cultures. There is diffuse soft tissue swelling in the dorsum of both feet with a large fluid collection on the lateral aspect of his right foot. He does have a small ulceration with callus on the tip of his left third toe. The erythema in his feet extend up into his calves. He has palpable distal pulses. Intravenous antibiotics have been initiated. Patient complains of fever and chills. CT scan: Left foot: Diffuse subcutaneous edema with small amount of fluid and gas along the dorsal midfoot, greatest along the TMT joints and extensor tendons, and in the first intermetatarsal space. There is no large fluid collection or definite osteomyelitis. Right foot: Diffuse subcutaneous edema with a 3.8 cm fluid collection and foci of gas along the dorsal lateral aspect of the cuboid. Cystic changes at the second MTP joint with fragmentation of the medial cuneiform could be degenerative although septic arthritis/osteomyelitis is possible. X-ray of left foot at [facility] suggests Left foot soft tissue ulcer at the tip of the third distal phalanx with possible erosion in the underlying distal phalanx, which could indicate osteomyelitis. According to chart records patient was seen at 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 Current Medications Current Medications Current Medications Insulin Human Lispro (HumaLOG) 0-9 UNITS TIDWMEALS SQ Last administered on 07/20/20at 11:51; Start 07/19/20 at 08:00 Dextrose (Dextrose 50%-Water Syringe) 12.5 gm PRN Q15MIN PRN IV SEE COMMENTS; Start 07/19/20 at 01:30 Sodium Chloride 1,000 ml @ 150 mls/hr Q6H40M IV Last administered on 07/21/20at 05:49; Start 07/19/20 at 02:00 Fentanyl Citrate (Fentanyl 2ml Vial) 50 mcg PRN Q3HRS PRN IVP SEVERE PAIN 7-10 Last administered on 07/19/20at 18:11; Start 07/19/20 at 01:30 Ondansetron HCl (Zofran) 4 mg PRN Q6HRS PRN IVP NAUSEA/VOMITING 1ST CHOICE; Start 07/19/20 at 01:30 Vancomycin HCl (Vanco Per Pharmacy) 1 each PRN DAILY PRN MC SEE COMMENTS Last administered on 07/19/20at 03:43; Start 07/19/20 at 01:30; Stop 07/19/20 at 10:57; Status DC Ceftriaxone Sodium (Rocephin) 1 gm Q24H IVP ; Start 07/19/20 at 21:00; Stop 07/19/20 at 10:56; Status DC Vancomycin HCl 2 gm/Sodium Chloride 500 ml @ 250 mls/hr Q24H IV ; Start 07/19/20 at 21:00; Stop 07/19/20 at 10:57; Status DC Vancomycin HCl (Vancomycin Trough Level) 1 each 1X ONCE MC ; Start 07/20/20 at 20:30; Stop 07/19/20 at 10:57; Status DC Insulin Human Lispro (HumaLOG) 20 units 1X ONCE SQ Last administered on 07/19/20at 08:49; Start 07/19/20 at 08:30; Stop 07/19/20 at 08:31; Status DC Atorvastatin Calcium (Lipitor) 10 mg HS PO Last administered on 07/20/20at 21:41; Start 07/19/20 at 21:00 Levothyroxine Sodium (Synthroid) 300 mcg DAILYAC PO Last administered on 07/21/20 08:22; Start 07/20/20 at 07:30 Losartan Potassium (Cozaar) 50 mg DAILY PO Last administered on 07/21/20 08:23; Start 07/19/20 at 11:00 Prednisone (Prednisone) 4 mg DAILY PO Last administered on 07/21/20at 09:18; Start 07/19/20 at 11:00 Calcium Carbonate/ Glycine (Tums) 500 mg PRN AFTMEALHC PRN PO INDIGESTION; Start 07/19/20 at 10:45 Diphenhydramine HCl (Benadryl) 25 mg PRN DAILY PRN PO ITCHING; Start 07/19/20 at 10:45 Doxazosin Mesylate (Cardura) 2 mg DAILY PO Last administered on 07/21/20at 08:23; Start 07/19/20 at 11:00 Insulin Glargine (Lantus Syringe) 25 unit QHS SQ Last administered on 07/20/20at 21:46; Start 07/19/20 at 21:00 Metformin HCl (Glucophage) 1,000 mg BIDWMEALS PO Last administered on 07/21/20at 08:23; Start 07/19/20 at 17:00 Insulin Human Lispro (HumaLOG) 20 units TIDAC SQ Last administered on 07/21/20at 08:33; Start 07/19/20 at 11:30 Piperacillin Sod/ Tazobactam Sod 3.375 gm/Sodium Chloride 50 ml @ 100 mls/hr Q6HRS IV Last administered on 07/21/20at 05:50; Start 07/19/20 at 12:00 Daptomycin 600 mg/ Sodium Chloride 50 ml @ 100 mls/hr Q24H IV Last administered on 07/20/20at 13:33; Start 07/19/20 at 11:00; Stop 07/21/20 at 10:39; Status DC Acetaminophen (Tylenol) 650 mg PRN Q4HRS PRN PO MILD PAIN / TEMP > 100.3'F; Start 07/19/20 at 23:45; Status Cancel Oxycodone HCl (Roxicodone) 5 mg PRN Q4HRS PRN PO PAIN Last administered on 07/20/20at 11:22; Start 07/20/20 at 11:30 Acetaminophen (Tylenol) 650 mg PRN Q4HRS PRN PO MILD PAIN / TEMP > 100.3'F Last administered on 07/21/20at 00:23; Start 07/21/20 at 00:00 Linezolid/Dextrose 300 ml @ 300 mls/hr Q12HR IV ; Start 07/21/20 at 12:00 Daptomycin 970 mg/ Sodium Chloride 50 ml @ 100 mls/hr Q24H IV Last administered on 07/21/20at 11:12; Start 07/21/20 at 12:00 Active Scripts Active Reported Prednisone 1 Mg Tablet 4 Mg PO DAILY Benadryl Allergy (Diphenhydramine Hcl) 25 Mg Tablet 25 Mg PO PRN DAILY PRN Rolaids Chewable Tablet (Calcium Carb/Magnesium Hydrox) 1 Each Tab.chew 1 Each PO PRN PRN Cardura (Doxazosin Mesylate) 2 Mg Tablet 2 Mg PO DAILY Levothyroxine Sodium 100 Mcg Tablet 300 Mcg PO DAILYAC Victoza 3-Mundo (Liraglutide) 0.6 Mg/0.1 Ml Pen.injctr 1.8 Mg SQ DAILY Lantus Solostar (Insulin Glargine,Hum.rec.anlog) 100 Unit/1 Ml Insuln.pen 25 Unit SQ HS Losartan Potassium 50 Mg Tablet 50 Mg PO DAILY Atorvastatin Calcium 10 Mg Tablet 10 Mg PO HS Allergies Allergies: Coded Allergies: No Known Drug Allergies (Unverified , 07/19/20) ROS Review of System Constitutional: Positive for fever and chills Eyes: Denies any visual disturbances HENT: Denies nasal congestion or sore throat Respiratory: Denies cough or shortness of breath Cardiovascular: Denies any palpitations or chest pain GI: Denies abdominal pain, nausea, vomiting, bloody stools or diarrhea : Denies dysuria or hematuria Musculoskeletal: As per HPI Integument: As per HPI Neurologic: No gross deficits, peripheral neuropathy Endocrine: Diabetes Physical Exam Physical Exam General: Alert and oriented X3 HEENT: Atraumatic, Pupils equal, round. Mucous membranes moist. Neck: Supple, no lymphadenopathy Cardiac: Heart rate regular. Normal carotid pulses. Lungs: CTA, non-labored respirations. Abdomen: Obese, Soft, nontender, nondistended, no palpable masses. Extremities: 2+ palpable DP pulses, 2+ radial pulses Musculoskeletal: Moving all extremities Skin: Bilateral lower extremity erythema; swelling present over the dorsum of both feet; left third toe ulcer, no bone exposure, blister formation over the dorsum of the right foot. Induration and possible fluctuation present, tender Neurological: Motor and sensation intact. Psychiatry: No depression or anxiety Vitals VITALS Vital Signs Date Time Temp Pulse Resp B/P (MAP) Pulse Ox O2 Delivery O2 Flow Rate FiO2 07/21/20 08:23 79 160/82 07/21/20 07:00 98.4 17 96 Room Air 98.4 Labs Labs Laboratory Tests Test 07/19/20 11:51 07/19/20 16:36 07/19/20 21:12 07/20/20 05:50 Glucose (Fingerstick) 295 mg/dL (70-99) 126 mg/dL (70-99) 312 mg/dL (70-99) Sodium Level 131 mmol/L (136-145) Potassium Level 3.6 mmol/L (3.5-5.1) Chloride Level 99 mmol/L (98-107) Carbon Dioxide Level 25 mmol/L (21-32) Anion Gap 7 (6-14) Blood Urea Nitrogen 28 mg/dL (8-26) Creatinine 1.5 mg/dL (0.7-1.3) Estimated GFR (Cockcroft-Gault) 47.6 Glucose Level 296 mg/dL (70-99) Calcium Level 8.8 mg/dL (8.5-10.1) Creatine Kinase 309 U/L (39-308) C-Reactive Protein, Quantitative 291.2 mg/L (0-3.3) Test 07/20/20 05:55 07/20/20 07:26 07/20/20 11:29 07/20/20 16:54 White Blood Count 21.2 x10^3/uL (4.0-11.0) Red Blood Count 3.43 x10^6/uL (4.30-5.70) Hemoglobin 10.8 g/dL (13.0-17.5) Hematocrit 31.6 % (39.0-53.0) Mean Corpuscular Volume 92 fL (79-100) Mean Corpuscular Hemoglobin 32 pg (25-35) Mean Corpuscular Hemoglobin Concent 34 g/dL (31-37) Red Cell Distribution Width 12.5 % (11.5-14.5) Platelet Count 366 x10^3/uL (140-400) Neutrophils (%) (Auto) 89 % (31-73) Lymphocytes (%) (Auto) 4 % (24-48) Monocytes (%) (Auto) 6 % (0-9) Eosinophils (%) (Auto) 0 % (0-3) Basophils (%) (Auto) 0 % (0-3) Neutrophils # (Auto) 18.9 x10^3/uL (1.8-7.7) Lymphocytes # (Auto) 0.9 x10^3/uL (1.0-4.8) Monocytes # (Auto) 1.3 x10^3/uL (0.0-1.1) Eosinophils # (Auto) 0.0 x10^3/uL (0.0-0.7) Basophils # (Auto) 0.0 x10^3/uL (0.0-0.2) Erythrocyte Sedimentation Rate 136 (0-15) Glucose (Fingerstick) 275 mg/dL (70-99) 176 mg/dL (70-99) 121 mg/dL (70-99) Test 07/20/20 20:03 07/21/20 06:10 07/21/20 07:20 Glucose (Fingerstick) 106 mg/dL (70-99) 162 mg/dL (70-99) White Blood Count 22.2 x10^3/uL (4.0-11.0) Red Blood Count 3.44 x10^6/uL (4.30-5.70) Hemoglobin 10.9 g/dL (13.0-17.5) Hematocrit 31.9 % (39.0-53.0) Mean Corpuscular Volume 93 fL (79-100) Mean Corpuscular Hemoglobin 32 pg (25-35) Mean Corpuscular Hemoglobin Concent 34 g/dL (31-37) Red Cell Distribution Width 12.7 % (11.5-14.5) Platelet Count 409 x10^3/uL (140-400) Neutrophils (%) (Auto) 85 % (31-73) Lymphocytes (%) (Auto) 7 % (24-48) Monocytes (%) (Auto) 7 % (0-9) Eosinophils (%) (Auto) 1 % (0-3) Basophils (%) (Auto) 0 % (0-3) Neutrophils # (Auto) 19.0 x10^3/uL (1.8-7.7) Lymphocytes # (Auto) 1.5 x10^3/uL (1.0-4.8) Monocytes # (Auto) 1.5 x10^3/uL (0.0-1.1) Eosinophils # (Auto) 0.2 x10^3/uL (0.0-0.7) Basophils # (Auto) 0.0 x10^3/uL (0.0-0.2) Sodium Level 136 mmol/L (136-145) Potassium Level 3.6 mmol/L (3.5-5.1) Chloride Level 102 mmol/L (98-107) Carbon Dioxide Level 26 mmol/L (21-32) Anion Gap 8 (6-14) Blood Urea Nitrogen 24 mg/dL (8-26) Creatinine 1.5 mg/dL (0.7-1.3) Estimated GFR (Cockcroft-Gault) 47.6 BUN/Creatinine Ratio 16 (6-20) Glucose Level 158 mg/dL (70-99) Calcium Level 9.1 mg/dL (8.5-10.1) Total Bilirubin 0.4 mg/dL (0.2-1.0) Aspartate Amino Transf (AST/SGOT) 48 U/L (15-37) Alanine Aminotransferase (ALT/SGPT) 30 U/L (16-63) Alkaline Phosphatase 122 U/L (46-116) Creatine Kinase 203 U/L (39-308) Total Protein 6.5 g/dL (6.4-8.2) Albumin 1.5 g/dL (3.4-5.0) Albumin/Globulin Ratio 0.3 (1.0-1.7) Laboratory Tests Test 07/20/20 16:54 07/20/20 20:03 07/21/20 06:10 07/21/20 07:20 Glucose (Fingerstick) 121 mg/dL (70-99) 106 mg/dL (70-99) 162 mg/dL (70-99) White Blood Count 22.2 x10^3/uL (4.0-11.0) Red Blood Count 3.44 x10^6/uL (4.30-5.70) Hemoglobin 10.9 g/dL (13.0-17.5) Hematocrit 31.9 % (39.0-53.0) Mean Corpuscular Volume 93 fL (79-100) Mean Corpuscular Hemoglobin 32 pg (25-35) Mean Corpuscular Hemoglobin Concent 34 g/dL (31-37) Red Cell Distribution Width 12.7 % (11.5-14.5) Platelet Count 409 x10^3/uL (140-400) Neutrophils (%) (Auto) 85 % (31-73) Lymphocytes (%) (Auto) 7 % (24-48) Monocytes (%) (Auto) 7 % (0-9) Eosinophils (%) (Auto) 1 % (0-3) Basophils (%) (Auto) 0 % (0-3) Neutrophils # (Auto) 19.0 x10^3/uL (1.8-7.7) Lymphocytes # (Auto) 1.5 x10^3/uL (1.0-4.8) Monocytes # (Auto) 1.5 x10^3/uL (0.0-1.1) Eosinophils # (Auto) 0.2 x10^3/uL (0.0-0.7) Basophils # (Auto) 0.0 x10^3/uL (0.0-0.2) Sodium Level 136 mmol/L (136-145) Potassium Level 3.6 mmol/L (3.5-5.1) Chloride Level 102 mmol/L (98-107) Carbon Dioxide Level 26 mmol/L (21-32) Anion Gap 8 (6-14) Blood Urea Nitrogen 24 mg/dL (8-26) Creatinine 1.5 mg/dL (0.7-1.3) Estimated GFR (Cockcroft-Gault) 47.6 BUN/Creatinine Ratio 16 (6-20) Glucose Level 158 mg/dL (70-99) Calcium Level 9.1 mg/dL (8.5-10.1) Total Bilirubin 0.4 mg/dL (0.2-1.0) Aspartate Amino Transf (AST/SGOT) 48 U/L (15-37) Alanine Aminotransferase (ALT/SGPT) 30 U/L (16-63) Alkaline Phosphatase 122 U/L (46-116) Creatine Kinase 203 U/L (39-308) Total Protein 6.5 g/dL (6.4-8.2) Albumin 1.5 g/dL (3.4-5.0) Albumin/Globulin Ratio 0.3 (1.0-1.7) Assessment/Plan Assessment/Plan 60-year-old with sepsis and bacteremia. Bilateral lower extremity cellulitis with possible right foot abscess. Left third toe ulceration, questionable osteomyelitis. Recommend emergent incision and drainage of right foot abscess, possible left foot debridement and possible left 3rd toe debridement. Patient did eat breakfast earlier this morning but due to the patient's clinical status recommend urgent intervention. Discussed history physical examination with Dr. Heard will plan emergent surgery. Recommend continued antibiotics. Discussed plan of care with the patient and he is agreeable to proceed with surgery. 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 Patient will need aggressive diabetes management, recommend Endocrine and Nutritional consultation. ABBI ELLINGTON MANAGER DIGITAL July 21, 2020 11:48
[2020-07-21] MEDS ORDERED: SEVOFLURANE 31 TO 60 MINUTES. IH ONE (11:51)
[2020-07-21] MEDS ORDERED: SUCCINYLCHOLINE 200 MG/10 ML VIAL. ONE (11:51)
[2020-07-21] MEDS ORDERED: ETOMIDATE 20 MG/10 ML VIAL. IV ONE (11:53)
[2020-07-21] MEDS ORDERED: HYDROmorphone 2 MG/ML VIAL IVP PRN (12:15)
[2020-07-21] MEDS ORDERED: fentaNYL PF VIAL 100 MCG/2 ML VIAL IVP PRN ×2 (12:15)
[2020-07-21] MEDS ORDERED: IV RINGERS,LACTATED 1000ML 1,000 ML IV SCH (12:15)
[2020-07-21] MEDS ORDERED: MORPHINE SULFATE 2 MG/ML VIAL. IVP PRN (12:15)
[2020-07-21] MEDS ORDERED: PROCHLORPERAZINE 10 MG/2 ML VIAL. IVP PRN (12:15)
--- NOTE | 2020-07-21 12:16 | NUR ---
SS following up with discharge planning. SS reviewed pt chart and discussed with pt RN. Pt is currently on room air. Pt is currently on IV Zyvox, IV Zosyn, and IV Daptomycin. Pt having debridement of bilateral feet today. SS will continue to follow for discharge planning.
[2020-07-21] MEDS ORDERED: LIDOCAINE 1% Multi-Dose 20 ML VIAL. ONE (12:25)
[2020-07-21] MEDS ORDERED: BUPIVACAINE MPF 0.25% 30 ML VIAL. ONE (12:25)
[2020-07-21] MEDS ORDERED: silver sulfADIAZINE 1% CREAM 25GM TUBE. TP ONE (12:25)
[2020-07-21] MEDS ORDERED: ROCURONIUM 50 MG/5 ML VIAL. ONE (12:54)
[2020-07-21] MEDS ORDERED: DEXAMETHASONE SOD PHOS 4 MG/ML VIAL ONE (13:00)
[2020-07-21] MEDS ORDERED: fentaNYL PF VIAL 100 MCG/2 ML VIAL ONE (13:16)
[2020-07-21] MEDS ORDERED: PHENYLEPHRINE in 0.9% NACL PF 1 MG/10 ML SYRINGE. IV ONE (13:23)
--- NOTE | 2020-07-21 13:47 | PDOC ---
BRIEF OPERATIVE NOTE Date: July 21, 2020 Pre-Op Diagnosis Sepsis, bilateral lower extremity cellulitis Right foot abscess Left 3rd toe ulceration Post-Op Diagnosis same Procedure Performed Left 3rd toe partial amputation, closed Right lateral foot incision and drainage Surgeon Dr. [facility] Case Manager Abbi Ellington NP Anesthesia Type: General Blood Loss minimal Specimens Obtained cultures left 3rd toe and right foot Findings purulent drainage right foot Complications none Operative Note see dictated note ABBI ELLINGTON CAR LOT ATTENDANT July 21, 2020 13:47
[2020-07-21] MEDS: oxyCODONE/APAP 5/325 1 TAB TABLET PO PRN ×2 (15:47→20:20)
--- NOTE | 2020-07-21 15:50 | OP ---
DATE OF SURGERY: 07/21/2020 PREOPERATIVE DIAGNOSES: 1. Right dorsal foot abscess. 2. Ulcer of the left third toe tip with probable osteomyelitis of the distal phalanx. 3. Diabetes. 4. Obesity. POSTOPERATIVE DIAGNOSES: 1. Right dorsal foot abscess. 2. Ulcer of the left third toe tip with probable osteomyelitis of the distal phalanx. 3. Diabetes. 4. Obesity. OPERATIONS PERFORMED: 1. Partial amputation of the left third toe with primary closure. 2. Incision and drainage with cultures and packing of right dorsal foot abscess measuring 7 cm. SURGEON: Josesito Alcantara MD. LOSS PREVENTION MANAGER: Darby Cantor NP. ANESTHESIA: General. INDICATIONS FOR SURGERY: This is a 60-year-old diabetic who presents to the hospital with complaints of pain, redness and swelling of the right foot. The patient underwent studies, which demonstrate a probable abscess on the dorsum of the right foot with gas. He has excellent pulses. He has ulceration of the left third toe tip with probable osteomyelitis of that as well. There is some erythema involving the dorsum of the left foot, which may be related. DESCRIPTION OF PROCEDURE: The patient was placed in the supine position and a general anesthetic was administered by Anesthesia. A time-out was called and the correct patient, correct operation and correct operative site were all verified. The eschar was removed from the tip of the left third toe and it appeared that the distal phalanx was probably involved in the wound. For this reason, a fishmouth incision was made at the distal phalanx and amputation of the distal phalanx and a portion of the proximal phalanx was done. Bleeding was excellent. A portion of the proximal phalanx was sent for culture. The wound was irrigated and closed primarily with 4-0 nylon. Next, an incision was made along the dorsal aspect of the right foot overlying the fluctuant abscess. A large amount of copious purulent material was obtained. A hemostat was placed within the wound and all undermining was unroofed with a scalpel. Bleeding was excellent. A large amount of pus was extracted from the wound with manual compression surrounding the incision. It did not appear to involve the deep dorsal or plantar space. Wound was then irrigated with full-strength peroxide and then packed with peroxide moistened strip gauze. A padded dressing was applied. The patient tolerated all procedures well and was taken to the recovery room in satisfactory condition. All sponge and needle counts were reported as correct. AMERICO/MINA/FRANSISCO DR: AMERICO/sherley TID: [id number]
--- NOTE | 2020-07-21 17:07 | PN ---
DATE: 07/21/2020 SUBJECTIVE: The patient is resting, slightly propped up in bed, in no apparent respiratory distress. The patient continued to spike his temperature up to 101.2, complaining of pain in his left foot. PHYSICAL EXAMINATION: GENERAL: When I examined him, he looked pale, but no jaundice, cyanosis or thyromegaly. No jugular venous distention, no lower limb edema. VITAL SIGNS: His heart rate was 79, blood pressure is 160/82, temperature was 98.4, respiratory rate was 17 and oxygen saturation was 96%. HEAD, EYES, EARS, NOSE AND THROAT: Normocephalic, atraumatic. NECK: Supple. HEART: Showed normal first and second sounds. No gallop or murmur. CHEST: Clear to auscultation. No crepitation or rhonchi. ABDOMEN: Distended, soft, nontender. NEUROLOGIC: He is awake, alert, responding appropriately. Cranial nerves intact. He moves extremities without difficulty. His intake over the last 24 hours was 4068, output was 1175. LABORATORY DATA: This morning showed a white cell count 22,000, hemoglobin 11, hematocrit 32, MCV 93 and platelet count 409,000. His sedimentation rate was 136 mmHg. C-reactive protein was 6.5 mg/dL. His white cell count was 22,000, hemoglobin 11, hematocrit 32, MCV 93 and platelet count 409,000. His chemistry showed a serum sodium 136, potassium 3.6, chloride 102, bicarbonate 26, anion gap of 8, BUN 24, creatinine 1.5. Estimated GFR was 47 mL per minute. His glucose 158, calcium 9.1. Total bilirubin, AST, ALT, alkaline phosphatase slightly elevated. CK was 203. Total protein 6.5, albumin was 1.5. ASSESSMENT: Bilateral lower extremity cellulitis, deep tissue infection, right greater than left toe osteomyelitis and chronic nonhealing diabetic toe ulcer, type 2 diabetes mellitus with diabetic peripheral neuropathy; acute kidney injury, resolved; hyponatremia, resolved; hypertension. I did consult the Vascular surgeon as well as Orthopedic surgeon. Meanwhile, we will continue to monitor the blood sugar and adjust insulin as needed. Continue with Zosyn and daptomycin. GILL DR: Sarahy TID: [id number]
[2020-07-21] MEDS: ATORVASTATIN CALCIUM 10 MG TABLET. PO SCH (20:19)
[2020-07-21] MEDS: INSULIN GLARGINE SYRINGE. SQ SCH (20:27)
[2020-07-22] MEDS: PIPERACILLIN/TAZOBACTAM 3.375 GM in IV NORMAL SALINE 50ML 50 ML IV SCH ×4 (00:57→17:42)
[2020-07-22 03:00] VITALS: BP 169/94
[2020-07-22] MEDS: oxyCODONE/APAP 5/325 1 TAB TABLET PO PRN ×3 (03:46→19:20)
[2020-07-22] MEDS: IV NORMAL SALINE 1000ML BAG 1,000 ML IV SCH ×4 (03:46→23:20)
[2020-07-22 05:17] LABS: BASO % 0 % (0-3); EOS % 0 % (0-3); HEMATOCRIT 35.7 % (39.0-53.0); HEMOGLOBIN 11.9 g/dL (13.0-17.5); LYMPH # 0.9 x10^3/uL (1.0-4.8); LYMPH % 5 % (24-48); MEAN CORPUSCULAR HEMOGLOBIN 32 pg (25-35); MEAN CORPUSCULAR HGB CONC 33 g/dL (31-37); MEAN CORPUSCULAR VOLUME 95 fL (79-100); MONO # 0.9 x10^3/uL (0.0-1.1); MONO % 5 % (0-9); NEUT # 17.2 x10^3/uL (1.8-7.7); NEUT % 90 % (31-73); PLATELET COUNT 401 x10^3/uL (140-400); RED BLOOD COUNT 3.78 x10^6/uL (4.30-5.70); RED CELL DISTRIBUTION WIDTH 12.6 % (11.5-14.5); WHITE BLOOD COUNT 19.1 x10^3/uL (4.0-11.0)
[2020-07-22 05:45] LABS: ALBUMIN 1.5 g/dL (3.4-5.0); ALBUMIN/GLOBULIN RATIO 0.3 (1.0-1.7); CALCIUM 9.2 mg/dL (8.5-10.1); CREATININE 1.3 mg/dL (0.7-1.3); GFR 56.1; POTASSIUM 3.7 mmol/L (3.5-5.1); TOTAL BILIRUBIN 0.3 mg/dL (0.2-1.0); TOTAL PROTEIN 6.7 g/dL (6.4-8.2)
[2020-07-22] MEDS: LEVOTHYROXINE 100 MCG TABLET PO SCH (06:18)
[2020-07-22] MEDS: predniSONE 1 MG TABLET PO SCH (08:25)
[2020-07-22] MEDS: metFORMIN 500 MG TABLET PO SCH ×2 (08:25→17:42)
[2020-07-22] MEDS: LOSARTAN POTASSIUM 50 MG TABLET. PO SCH (08:28)
[2020-07-22] MEDS: DOXAZOSIN MESYLATE 1 MG TABLET. PO SCH (08:29)
--- NOTE | 2020-07-22 08:30 | PDOC ---
Infectious Disease Note Subjective: Subjective Patient feels better Underwent surgery yesterday Postop pain is under control Daughter and son at bedside Denies any fever, chills, nausea, vomiting, diarrhea, abdominal pain or symptoms Vital Signs: Vital Signs Vital Signs Date Time Temp Pulse Resp B/P (MAP) Pulse Ox O2 Delivery O2 Flow Rate FiO2 07/22/20 06:26 97.4 97.4 07/22/20 03:46 20 98 Room Air 07/22/20 03:00 57 169/94 (119) 07/21/20 14:00 6 Physical Exam: PHYSICAL EXAM GENERAL: Alert awake oriented x3 male in no acute distress HEENT: Normocephalic, atraumatic. Anicteric. No thrush. NECK: Supple. No JVD. LUNGS: Clear bilaterally. HEART: S1, S2 heard. No murmurs. ABDOMEN: Soft, obese. Bowel sounds present. GENITOURINARY: No Santana, Briefs in place. EXTREMITIES: Right foot dressing in place not taken down, left third toe dressing in place with sutures Erythema on the left lower extremity improving NEUROLOGIC: Alert oriented x3 moves all 4 extremities. PSYCHIATRIC: Calm and cooperative. PIV looks clean. Medications: Inpatient Meds: Medications reviewed. Labs: Lab Laboratory Tests Test 07/21/20 11:08 07/21/20 11:41 07/21/20 13:57 07/21/20 16:56 SARS-CoV-2 Antigen (Rapid) Negative (NEGATIVE) Glucose (Fingerstick) 177 mg/dL (70-99) 124 mg/dL (70-99) 208 mg/dL (70-99) Test 07/21/20 20:23 07/22/20 04:30 07/22/20 07:32 Glucose (Fingerstick) 163 mg/dL (70-99) 236 mg/dL (70-99) White Blood Count 19.1 x10^3/uL (4.0-11.0) Red Blood Count 3.78 x10^6/uL (4.30-5.70) Hemoglobin 11.9 g/dL (13.0-17.5) Hematocrit 35.7 % (39.0-53.0) Mean Corpuscular Volume 95 fL (79-100) Mean Corpuscular Hemoglobin 32 pg (25-35) Mean Corpuscular Hemoglobin Concent 33 g/dL (31-37) Red Cell Distribution Width 12.6 % (11.5-14.5) Platelet Count 401 x10^3/uL (140-400) Neutrophils (%) (Auto) 90 % (31-73) Lymphocytes (%) (Auto) 5 % (24-48) Monocytes (%) (Auto) 5 % (0-9) Eosinophils (%) (Auto) 0 % (0-3) Basophils (%) (Auto) 0 % (0-3) Neutrophils # (Auto) 17.2 x10^3/uL (1.8-7.7) Lymphocytes # (Auto) 0.9 x10^3/uL (1.0-4.8) Monocytes # (Auto) 0.9 x10^3/uL (0.0-1.1) Eosinophils # (Auto) 0.0 x10^3/uL (0.0-0.7) Basophils # (Auto) 0.0 x10^3/uL (0.0-0.2) Sodium Level 140 mmol/L (136-145) Potassium Level 3.7 mmol/L (3.5-5.1) Chloride Level 105 mmol/L (98-107) Carbon Dioxide Level 25 mmol/L (21-32) Anion Gap 10 (6-14) Blood Urea Nitrogen 22 mg/dL (8-26) Creatinine 1.3 mg/dL (0.7-1.3) Estimated GFR (Cockcroft-Gault) 56.1 BUN/Creatinine Ratio 17 (6-20) Glucose Level 227 mg/dL (70-99) Calcium Level 9.2 mg/dL (8.5-10.1) Total Bilirubin 0.3 mg/dL (0.2-1.0) Aspartate Amino Transf (AST/SGOT) 46 U/L (15-37) Alanine Aminotransferase (ALT/SGPT) 35 U/L (16-63) Alkaline Phosphatase 116 U/L (46-116) Creatine Kinase 140 U/L (39-308) Total Protein 6.7 g/dL (6.4-8.2) Albumin 1.5 g/dL (3.4-5.0) Albumin/Globulin Ratio 0.3 (1.0-1.7) Micro --- --------- RUN DATE: 07/20/20 [facility] LAB *LIVE* PAGE 1 RUN TIME: 922 Specimen Inquiry PATIENT: DASHAWN GOMEZ ACCT: [id number] LOC: SIOBHAN U: [id number] AGE/SX: 60/M ROOM: RE07/18/[address]: CAROLEE ZHOU MD : 1960 BED: DIS: STATUS: DEP ER TLOC: SPEC #: [id number] SANDOR: 07/18/20 STATUS: COMP REQ #: [id number] RECD: 07/18/[address]: CAROLEE ZHOU MD SOURCE: BLOOD ENTR: 07/18/20-[address]: JERONIMO KO [facility] ORDERED: BCULT Procedure Result BLOOD CULTURE Final GRAM POSITVE COCC IN CLUSTERS, SUGGESTIVE OF STAPH, IN 2 OF 4 BOTTLES, TWO SETS DRAWN, BOTH SETS ARE POSITIVE. TRANSFERRED FROM [facility] TO [facility] ROOM 664. CALLED TO KATHLEEN COELHO RN ON AT 15:10 ON 07/19/20 DW MT SENT TO [facility] FOR FURTHER WORKUP. GRAM POSITIVE COCCI IN 4 OF 4 BOTTLES OF 2 SETS PATIENT TRANSFERRED TO [facility], CALLED TO ROBERT THOMPSON 07-20-20 AT 0900 BY MOSES, CULTURES SENT TO [facility] FOR FURTHER WORKUP Objective: Assessment: Severe sepsis from Staph aureus bacteremia present on admission at [facility] Staph aureus bacteremia 4 out of 4 bottles at [facility] 07/18/20 Gram-positive bacteremia here July 20, 2020 1. Fever Source Rt foot dorsal abscess 2. Leukocytosis and lactic acidosis.Bandemia. 3. Bilateral lower extremity cellulitis,deep tissue infection of both feet. Right greater than left with abscess. s/p I and D on 07/22 CRP 291.2 ESR 136 4. 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 Diabetes with neuropathy, poorly controlled. 6. Noncompliance. 7. Acute kidney injury. Rhabdo 8. Hematuria. 9. Hyponatremia. 10. Hypertension. 11. Encephalopathy, likely metabolic. Plan: Plan of Care Continue daptomycin and Zosyn. CPK, down to 140 Cont Zyvox 07/21 for now Will need BRYAN Follow-up blood culture from [facility] and here f/u Repeat blood cultures 07/22 Local wound care as directed Follow up labs and cultures. Maintain aspiration precautions Continue supportive care Probiotics Discussed at length with son and daughter at bedside Discussed with JAMA LAU MD July 22, 2020 08:30
[2020-07-22] MEDS: INSULIN LISPRO 300 UNITS/3 ML VIAL. SQ SCH ×6 (08:36→17:00)
[2020-07-22 08:45] VITALS: BP 121/67
[2020-07-22 11:00] VITALS: BP 118/68
--- NOTE | 2020-07-22 11:46 | NUR ---
SS following up with discharge planning. SS reviewed pt chart and discussed with pt RN. Pt is currently on room air. Pt is currently on IV Zyvox, IV Zosyn, and IV Daptomycin. Pt had debridement of bilateral feet on 07/21/2020. Dr. Moore requesting referral be sent to LTACH for jail IV antibiotics and wound care. SS met with pt and daughter in room to discuss LTACH and discharge planning. Options for LTACH discussed. Pt reporting that he wants benefits run for in home infusions and would prefer to return to home with home healthcare. Pt reporting that he has strong family support. Pt's daughter requested benefits for in home infusions be ran as well. SS phoned and faxed demographics and ID note to [facility], ; fax [phone]. SS will continue to follow for discharge planning.
[2020-07-22] MEDS: ENOXAPARIN 40 MG/0.4 ML SYRINGE. SQ SCH (11:48)
--- NOTE | 2020-07-22 12:37 | PN ---
DATE: 07/22/2020 SUBJECTIVE: The patient is resting slightly propped up in bed, in no apparent respiratory distress. On questioning him, he denied any complaint. He apparently underwent incision and drainage of his right dorsal foot abscess and therefore, he underwent partial amputation of the left third toe with primary closure and incision and drainage, culture and packing of the right dorsal foot abscess. PHYSICAL EXAMINATION: GENERAL: When I examined him this morning, he looked well and was clearly in no apparent respiratory distress. No pallor, jaundice, cyanosis or thyromegaly. No Jugular venous distention or limb edema. VITAL SIGNS: Heart rate was 87, blood pressure was 121/67, temperature 97.4, respiratory rate was 17, and oxygen saturation 100% on room air. HEAD, EYES, EARS, NOSE AND THROAT: Normocephalic, atraumatic. NECK: Supple. HEART: Showed normal first and second heart sounds, no gallop, rub or murmur. CHEST: Clear to auscultation, no crepitation or rhonchi. ABDOMEN: Distended, soft, nontender. NEUROLOGIC: He was grossly intact. EXTREMITIES: His surgical wound on the dorsal aspect of the right foot is covered with dressing that is dry and intact. His intake was 2900, output was 3100. LABORATORY DATA: This morning showed a serum sodium 140, potassium 3.7, chloride 105, bicarbonate 25, anion gap of 10, BUN 22, creatinine 1.3, estimated GFR was 56 mL per minute. His glucose was 227, calcium was 9.2. Total bilirubin, AST, ALT, alkaline phosphatase were normal. CK was 140, total protein 6.7, albumin was 1.5. His white cell count is down to 19,000, hemoglobin 12, hematocrit 36, MCV 95 and platelet count of 401,000. ASSESSMENT: 1. Bilateral lower extremity cellulitis. 2. Abscess in the dorsum of the right foot. 3. Nonhealing diabetic toe ulcer. 4. Left third toe osteomyelitis. 5. Type 2 diabetes mellitus, diabetic peripheral neuropathy. 6. Acute kidney injury, is improving. 7. Hyponatremia, resolved. 8. Hypertension. The patient was seen yesterday by the vascular surgeon and underwent incision and drainage of the right foot dorsal abscess and partial amputation of the left third toe. PLAN: To continue obviously with IV antibiotic in the form of daptomycin, linezolid and Zosyn. Continue with pain management. Continue with wound care. I will start him on Lovenox for DVT prophylaxis. [facility] DR: Sarahy TID: [id number]
[2020-07-22] MEDS: DAPTOMYCIN IV SCH (13:32)
[2020-07-22] MEDS: NORMAL SALINE IV SCH (13:32)
--- NOTE | 2020-07-22 14:35 | PDOC ---
Provider Note Date of Service: DATE: 07/22/20 TIME: 14:27 Provider Note Provider Note Vascular surgery S: Patient seen in room, daughter bedside. He has no specific complaints. WBC improved at 19. Pt reports he had ASTRID's and US of legs done 1-2 weeks ago at [facility] and he was told his circulation was normal. O: Vital signs stable, afebrile Awake, alert, no apparent distress Respirations nonlabored, room air Right foot dressing intact toes warm Left foot dressing removed, toe amputation incision clean, dry, intact without drainage. His foot has mild erythema diffusely, there is a small area in the dorsal midfoot with minimal fluctuance, no crepitus, no wounds over this area. A/P: Sepsis, bilateral lower extremity cellulitis Right foot abscess Left 3rd toe ulceration Postop day 1 of right foot incision and drainage, debridement, left partial third toe amputation, closed - Pt doing well post operatively - We will need to watch the left dorsal midfoot, localized swelling vs fluid collection, no urgent indications for I&D at this time. Will monitor. - continue dressing changes per Darby Sanchezs order. TID on right foot with saline moistened Nugauze. Dry dressings to left. Discussed with nurse. - post op shoe for left foot. No weight bearing restrictions - Cont abx per ID, Or cultures taken, pending Justicifation of Admission Dx: Justifications for Admission: Justification of Admission Dx: Yes Comments: post operative, foot infections NABIL MCGHEE July 22, 2020 14:35
[2020-07-22 15:00] VITALS: BP 141/85
--- NOTE | 2020-07-22 17:05 | NUR ---
Wound Care: Dressings changed by pt's nurse prior to attempted assessment. Will reevaluate on 07/26/20
[2020-07-22 19:00] VITALS: BP 168/90
[2020-07-22] MEDS: ATORVASTATIN CALCIUM 10 MG TABLET. PO SCH (20:22)
[2020-07-22] MEDS: oxyCODONE IR 5 MG TABLET PO PRN (20:23)
[2020-07-22] MEDS: INSULIN GLARGINE SYRINGE. SQ SCH (20:32)
[2020-07-22] MEDS: LACTOBACILLUS RHAMNOSUS GG 1 CAPSULE. PO SCH (21:00)
[2020-07-22 23:00] VITALS: BP 144/81
[2020-07-23] MEDS: PIPERACILLIN/TAZOBACTAM 3.375 GM in IV NORMAL SALINE 50ML 50 ML IV SCH ×2 (00:01→05:58)
[2020-07-23] MEDS: oxyCODONE/APAP 5/325 1 TAB TABLET PO PRN (00:10)
[2020-07-23] MEDS: oxyCODONE IR 5 MG TABLET PO PRN ×3 (00:10→18:39)
[2020-07-23 03:25] VITALS: BP 160/90
[2020-07-23] MEDS: IV NORMAL SALINE 1000ML BAG 1,000 ML IV SCH ×3 (03:50→20:23)
[2020-07-23 04:23] LABS: HEMATOCRIT 32.7 % (39.0-53.0); HEMOGLOBIN 10.9 g/dL (13.0-17.5); RED BLOOD COUNT 3.45 x10^6/uL (4.30-5.70); RED CELL DISTRIBUTION WIDTH 13.1 % (11.5-14.5); WHITE BLOOD COUNT 16.2 x10^3/uL (4.0-11.0)
[2020-07-23 04:38] LABS: CALCIUM 8.1 mg/dL (8.5-10.1); CREATININE 1.4 mg/dL (0.7-1.3); GFR 51.5; POTASSIUM 3.3 mmol/L (3.5-5.1)
[2020-07-23 07:00] VITALS: BP 168/48
--- NOTE | 2020-07-23 07:35 | PDOC ---
Infectious Disease Note Subjective: Subjective Patient feels better Postop pain is under control Girlfriend and friend at bedside Denies any fever, chills, nausea, vomiting, diarrhea, abdominal pain or symp toms Vital Signs: Vital Signs Vital Signs Date Time Temp Pulse Resp B/P (MAP) Pulse Ox O2 Delivery O2 Flow Rate FiO2 07/23/20 03:25 97.5 79 20 160/90 (113) 96 Room Air 97.5 07/22/20 11:00 6.0 Physical Exam: PHYSICAL EXAM GENERAL: Alert awake oriented x3 male in no acute distress HEENT: Normocephalic, atraumatic. Anicteric. No thrush. NECK: Supple. No JVD. LUNGS: Clear bilaterally. HEART: S1, S2 heard. No murmurs. ABDOMEN: Soft, obese. Bowel sounds present. GENITOURINARY: No Santana, Briefs in place. EXTREMITIES: Right foot dressing in place not taken down, left foot dressing in place dry not taken NEUROLOGIC: Alert oriented x3 moves all 4 extremities. PSYCHIATRIC: Calm and cooperative. PIV looks clean. Medications: Inpatient Meds: Medications reviewed. Labs: Lab Laboratory Tests Test 07/22/20 11:48 07/22/20 16:58 07/22/20 20:28 07/23/20 03:40 Glucose (Fingerstick) 209 mg/dL (70-99) 106 mg/dL (70-99) 177 mg/dL (70-99) White Blood Count 16.2 x10^3/uL (4.0-11.0) Red Blood Count 3.45 x10^6/uL (4.30-5.70) Hemoglobin 10.9 g/dL (13.0-17.5) Hematocrit 32.7 % (39.0-53.0) Mean Corpuscular Volume 95 fL (79-100) Mean Corpuscular Hemoglobin 32 pg (25-35) Mean Corpuscular Hemoglobin Concent 34 g/dL (31-37) Red Cell Distribution Width 13.1 % (11.5-14.5) Platelet Count 426 x10^3/uL (140-400) Sodium Level 140 mmol/L (136-145) Potassium Level 3.3 mmol/L (3.5-5.1) Chloride Level 107 mmol/L (98-107) Carbon Dioxide Level 27 mmol/L (21-32) Anion Gap 6 (6-14) Blood Urea Nitrogen 22 mg/dL (8-26) Creatinine 1.4 mg/dL (0.7-1.3) Estimated GFR (Cockcroft-Gault) 51.5 Glucose Level 218 mg/dL (70-99) Calcium Level 8.1 mg/dL (8.5-10.1) Micro RUN DATE: 07/22/20 [facility] LAB *LIVE* PAGE 1 RUN TIME: 929 Specimen Inquiry ------ ------ PATIENT: DASHAWN GOMEZ Sheri ACCT: [id number] LOC: SIOBHAN U: [id number] AGE/SX: 60/M ROOM: RE07/18/[address]: CAROLEE ZHOU MD : 1960 BED: DIS: STATUS: IVORY MCCANN TLOC: SPEC #: [id number] SANDOR: 07/18/20 STATUS: CUCA SPEAR #: [id number] RECD: 07/18/20 [facility] DR: CAROLEE ZHOU MD SOURCE: BLOOD ENTR: 07/19/20 [facility] DR: JERONIMO KO MD [facility]: ORDERED: BLOOD CULT-LC Procedure Result BLOOD CULTURE LC Final Final GROWTH OF GRAM POSITIVE COCCI FINAL ID= [STAPHYLOCOCCUS AUREUS] STAPHYLOCOCCUS AUREUS ANTIMICROBIAL SUSCEPTIBILITY Final Comment POS PRESTON TYPE 38 STAPHYLOCOCCUS AUREUS ANTIBIOTIC RESULT INTERPRETATION AZITHROMYCIN <=2 S CLINDAMYCIN <=0.25 S CEFOXITIN SCREEN <=4 NEG CIPROFLOXACIN <=1 S CEFTAROLINE <=0.5 S DAPTOMYCIN <=0.5 S ERYTHROMYCIN <=0.25 S GENTAMICIN <=4 S LINEZOLID <=1 S LEVOFLOXACIN <=1 S OXACILLIN 0.5 S PENICILLIN >2 Anton RIFAMPIN <=1 S TRIMETHOPRIM/SULFAMETHOXAZOLE <=0.5/9.5 S TETRACYCLINE <=4 S VANCOMYCIN 1 S Unless otherwise specified, Testing Performed by: [address] [address] For Inquires, the Physician may contact the Microbiology department at [phone] BC staph aureus here wound cult gpc Objective: Assessment: Severe sepsis from Staph aureus bacteremia present on admission at [facility] Methicillin Staph aureus bacteremia 4 out of 4 bottles at [facility] 07/18/20 Staph aureus bacteremia here July 20, 2020 1. Fever Source Rt foot dorsal abscess 2. Leukocytosis and lactic acidosis.Bandemia. 3. Bilateral lower extremity cellulitis,deep tissue infection of both feet. Right greater than left with Rt foot abscess. s/p I and D on 07/22 CRP 291.2 ESR 136 Cult gpc 4. 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 Diabetes with neuropathy, poorly controlled. 6. Noncompliance. 7. Acute kidney injury. Rhabdo 8. Hematuria. 9. Hyponatremia. 10. Hypertension. 11. Encephalopathy, likely metabolic. Plan: Plan of Care Continue daptomycin and Zyvox for now pending BC results CPK, down to 140 DC Zosyn Will need BRYAN f/u Repeat blood cultures 07/22 Local wound care as directed Follow up labs and cultures. Probiotics Continue supportive care Discussed with JAMA LAU MD July 23, 2020 07:35
[2020-07-23] MEDS: LEVOTHYROXINE 100 MCG TABLET PO SCH (08:16)
[2020-07-23] MEDS: ENOXAPARIN 40 MG/0.4 ML SYRINGE. SQ SCH (08:16)
[2020-07-23] MEDS: predniSONE 1 MG TABLET PO SCH (08:16)
[2020-07-23] MEDS: LACTOBACILLUS RHAMNOSUS GG 1 CAPSULE. PO SCH ×2 (08:17→20:21)
[2020-07-23] MEDS: metFORMIN 500 MG TABLET PO SCH ×2 (08:17→16:19)
[2020-07-23] MEDS: DOXAZOSIN MESYLATE 1 MG TABLET. PO SCH (08:17)
[2020-07-23] MEDS: LOSARTAN POTASSIUM 50 MG TABLET. PO SCH (08:17)
[2020-07-23] MEDS: fentaNYL PF VIAL 100 MCG/2 ML VIAL IVP PRN ×3 (08:20→20:49)
[2020-07-23] MEDS: INSULIN LISPRO 300 UNITS/3 ML VIAL. SQ SCH ×6 (08:29→16:19)
--- NOTE | 2020-07-23 09:28 | PN ---
DATE: 07/23/2020 SUBJECTIVE: The patient is resting, slightly propped up in bed, in no apparent respiratory distress. He is sleepy, but arousable. On questioning him, he said that his pain was not well controlled. PHYSICAL EXAMINATION: GENERAL: When I examined him, he looked pale, but no jaundice, cyanosis or thyromegaly. No jugular venous distention, no lower limb edema. VITAL SIGNS: His heart rate was 87, blood pressure is 168/48, temperature 97.7, respiratory rate was 20 and oxygen saturation was 96%. HEAD, EYES, EARS, NOSE AND THROAT: Normocephalic, atraumatic. NECK: Supple. HEART: Showed normal first and second heart sounds, no gallop, murmur. CHEST: Clear to auscultation, no crepitation or rhonchi. ABDOMEN: Distended, soft, nontender. NEUROLOGIC: He is awake, alert, responding appropriately. All his cranial nerves are intact. He moves extremities without difficulty. He has wounds on the dorsal aspect of the right foot in the left third toe. His intake over the last 24 hours was 1350, output was 2000. LABORATORY DATA: His lab work this morning showed a serum sodium 140, potassium 3.3, chloride 107, bicarbonate 27, anion gap of 6, BUN of 22, creatinine 1.4. Estimated GFR was 51 mL per minute. His glucose was 218 and calcium was 8.1. His white cell count was 16,000, hemoglobin 11, hematocrit 33, MCV 95 and platelet count 426,000. ASSESSMENT: 1. Bilateral lower extremity cellulitis. 2. Abscess of the dorsum of the right foot, status post incision and drainage. 3. Nonhealing diabetic third toe ulcer. 4. Left third toe osteomyelitis. 5. Type 2 diabetes mellitus, diabetic peripheral neuropathy. 6. Acute kidney injury, improving. 7. Hyponatremia, resolved. 8. Hypertension. PLAN: To continue with IV antibiotic in the form of daptomycin, linezolid. His blood culture has grown methicillin-sensitive Staphylococcus aureus and his Zosyn was discontinued. The patient apparently will need transesophageal echocardiogram. Continue with Wound Care. HOLLIS DR: Sarahy TID: [id number]
[2020-07-23 10:41] VITALS: BP 178/87
[2020-07-23] MEDS ORDERED: [UNRECOGNIZED DRUG - OTHER] IRR ONE (10:45)
[2020-07-23] MEDS ORDERED: BUPIVACAINE-EPI 0.25%-1:200000 MPF 30 ML VIAL. INJ ONE (11:00)
--- NOTE | 2020-07-23 11:23 | PDOC ---
PROGRESS NOTES Date of Service DATE: 07/23/20 TIME: 11:21 Subjective Subjective Pt seen and examined, labs and imaging reviewed His CT scan was concerning for some inflammation on the LEFT dorsum of the foot. this area did bertha and had some fluctuance on palpation but no clear fluid collection / no obviously an abscess I gave local anesthetic to top of foot and attempted to aspirate several areas with an 18g needle -- no purulent drainage given this would not I&D further at this time -- will perform exam, follow WBC, perhaps MRI if does not improve remainder of the feet look good Objective Objective Vital Signs Date Time Temp Pulse Resp B/P (MAP) Pulse Ox O2 Delivery O2 Flow Rate FiO2 07/23/20 10:41 97.7 87 20 178/87 (117) 98 Room Air 97.7 07/22/20 11:00 6.0 Intake and Output 07/23/20 07:00 Intake Total 2255 ml Output Total 500 ml Balance 1755 ml Intake Oral 900 ml IV Total 1355 ml Output Urine Total 500 ml # Voids 1 Comment Review of Relevant I have reviewed the following items stefan (where applicable) has been applied. Labs Laboratory Tests Test 07/21/20 11:41 07/21/20 13:57 07/21/20 16:56 07/21/20 20:23 Glucose (Fingerstick) 177 mg/dL (70-99) 124 mg/dL (70-99) 208 mg/dL (70-99) 163 mg/dL (70-99) Test 07/22/20 04:30 07/22/20 07:32 07/22/20 11:48 07/22/20 16:58 White Blood Count 19.1 x10^3/uL (4.0-11.0) Red Blood Count 3.78 x10^6/uL (4.30-5.70) Hemoglobin 11.9 g/dL (13.0-17.5) Hematocrit 35.7 % (39.0-53.0) Mean Corpuscular Volume 95 fL (79-100) Mean Corpuscular Hemoglobin 32 pg (25-35) Mean Corpuscular Hemoglobin Concent 33 g/dL (31-37) Red Cell Distribution Width 12.6 % (11.5-14.5) Platelet Count 401 x10^3/uL (140-400) Neutrophils (%) (Auto) 90 % (31-73) Lymphocytes (%) (Auto) 5 % (24-48) Monocytes (%) (Auto) 5 % (0-9) Eosinophils (%) (Auto) 0 % (0-3) Basophils (%) (Auto) 0 % (0-3) Neutrophils # (Auto) 17.2 x10^3/uL (1.8-7.7) Lymphocytes # (Auto) 0.9 x10^3/uL (1.0-4.8) Monocytes # (Auto) 0.9 x10^3/uL (0.0-1.1) Eosinophils # (Auto) 0.0 x10^3/uL (0.0-0.7) Basophils # (Auto) 0.0 x10^3/uL (0.0-0.2) Sodium Level 140 mmol/L (136-145) Potassium Level 3.7 mmol/L (3.5-5.1) Chloride Level 105 mmol/L (98-107) Carbon Dioxide Level 25 mmol/L (21-32) Anion Gap 10 (6-14) Blood Urea Nitrogen 22 mg/dL (8-26) Creatinine 1.3 mg/dL (0.7-1.3) Estimated GFR (Cockcroft-Gault) 56.1 BUN/Creatinine Ratio 17 (6-20) Glucose Level 227 mg/dL (70-99) Calcium Level 9.2 mg/dL (8.5-10.1) Total Bilirubin 0.3 mg/dL (0.2-1.0) Aspartate Amino Transf (AST/SGOT) 46 U/L (15-37) Alanine Aminotransferase (ALT/SGPT) 35 U/L (16-63) Alkaline Phosphatase 116 U/L (46-116) Creatine Kinase 140 U/L (39-308) Total Protein 6.7 g/dL (6.4-8.2) Albumin 1.5 g/dL (3.4-5.0) Albumin/Globulin Ratio 0.3 (1.0-1.7) Glucose (Fingerstick) 236 mg/dL (70-99) 209 mg/dL (70-99) 106 mg/dL (70-99) Test 07/22/20 20:28 07/23/20 03:40 07/23/20 07:46 07/23/20 10:36 Glucose (Fingerstick) 177 mg/dL (70-99) 171 mg/dL (70-99) 145 mg/dL (70-99) White Blood Count 16.2 x10^3/uL (4.0-11.0) Red Blood Count 3.45 x10^6/uL (4.30-5.70) Hemoglobin 10.9 g/dL (13.0-17.5) Hematocrit 32.7 % (39.0-53.0) Mean Corpuscular Volume 95 fL (79-100) Mean Corpuscular Hemoglobin 32 pg (25-35) Mean Corpuscular Hemoglobin Concent 34 g/dL (31-37) Red Cell Distribution Width 13.1 % (11.5-14.5) Platelet Count 426 x10^3/uL (140-400) Sodium Level 140 mmol/L (136-145) Potassium Level 3.3 mmol/L (3.5-5.1) Chloride Level 107 mmol/L (98-107) Carbon Dioxide Level 27 mmol/L (21-32) Anion Gap 6 (6-14) Blood Urea Nitrogen 22 mg/dL (8-26) Creatinine 1.4 mg/dL (0.7-1.3) Estimated GFR (Cockcroft-Gault) 51.5 Glucose Level 218 mg/dL (70-99) Calcium Level 8.1 mg/dL (8.5-10.1) Laboratory Tests Test 07/22/20 11:48 07/22/20 16:58 07/22/20 20:28 07/23/20 03:40 Glucose (Fingerstick) 209 mg/dL (70-99) 106 mg/dL (70-99) 177 mg/dL (70-99) White Blood Count 16.2 x10^3/uL (4.0-11.0) Red Blood Count 3.45 x10^6/uL (4.30-5.70) Hemoglobin 10.9 g/dL (13.0-17.5) Hematocrit 32.7 % (39.0-53.0) Mean Corpuscular Volume 95 fL (79-100) Mean Corpuscular Hemoglobin 32 pg (25-35) Mean Corpuscular Hemoglobin Concent 34 g/dL (31-37) Red Cell Distribution Width 13.1 % (11.5-14.5) Platelet Count 426 x10^3/uL (140-400) Sodium Level 140 mmol/L (136-145) Potassium Level 3.3 mmol/L (3.5-5.1) Chloride Level 107 mmol/L (98-107) Carbon Dioxide Level 27 mmol/L (21-32) Anion Gap 6 (6-14) Blood Urea Nitrogen 22 mg/dL (8-26) Creatinine 1.4 mg/dL (0.7-1.3) Estimated GFR (Cockcroft-Gault) 51.5 Glucose Level 218 mg/dL (70-99) Calcium Level 8.1 mg/dL (8.5-10.1) Test 07/23/20 07:46 07/23/20 10:36 Glucose (Fingerstick) 171 mg/dL (70-99) 145 mg/dL (70-99) Microbiology 07/21/20 Gram Stain - Final, Resulted 07/21/20 Aerobic and Anaerobic Culture, Resulted Pending 07/20/20 Blood Culture - Final, Complete Medications Current Medications Insulin Human Lispro (HumaLOG) 0-9 UNITS TIDWMEALS SQ Last administered on 07/23/20at 08:29; Start 07/19/20 at 08:00 Dextrose (Dextrose 50%-Water Syringe) 12.5 gm PRN Q15MIN PRN IV SEE COMMENTS; Start 07/19/20 at 01:30 Sodium Chloride 1,000 ml @ 150 mls/hr Q6H40M IV Last administered on 07/23/20at 03:50; Start 07/19/20 at 02:00 Fentanyl Citrate (Fentanyl 2ml Vial) 50 mcg PRN Q3HRS PRN IVP SEVERE PAIN 7-10 Last administered on 07/23/20at 08:20; Start 07/19/20 at 01:30 Ondansetron HCl (Zofran) 4 mg PRN Q6HRS PRN IVP NAUSEA/VOMITING 1ST CHOICE; Start 07/19/20 at 01:30 Vancomycin HCl (Vanco Per Pharmacy) 1 each PRN DAILY PRN MC SEE COMMENTS Last administered on 07/19/20at 03:43; Start 07/19/20 at 01:30; Stop 07/19/20 at 10:57; Status DC Ceftriaxone Sodium (Rocephin) 1 gm Q24H IVP ; Start 07/19/20 at 21:00; Stop 07/19/20 at 10:56; Status DC Vancomycin HCl 2 gm/Sodium Chloride 500 ml @ 250 mls/hr Q24H IV ; Start 07/19/20 at 21:00; Stop 07/19/20 at 10:57; Status DC Vancomycin HCl (Vancomycin Trough Level) 1 each 1X ONCE MC ; Start 07/20/20 at 20:30; Stop 07/19/20 at 10:57; Status DC Insulin Human Lispro (HumaLOG) 20 units 1X ONCE SQ Last administered on 07/19/20at 08:49; Start 07/19/20 at 08:30; Stop 07/19/20 at 08:31; Status DC Atorvastatin Calcium (Lipitor) 10 mg HS PO Last administered on 07/22/20at 20:22; Start 07/19/20 at 21:00 Levothyroxine Sodium (Synthroid) 300 mcg DAILYAC PO Last administered on 07/23/20at 08:16; Start 07/20/20 at 07:30 Losartan Potassium (Cozaar) 50 mg DAILY PO Last administered on 07/23/20at 08:17; Start 07/19/20 at 11:00 Prednisone (Prednisone) 4 mg DAILY PO Last administered on 07/23/20at 08:16; Start 07/19/20 at 11:00 Calcium Carbonate/ Glycine (Tums) 500 mg PRN AFTMEALHC PRN PO INDIGESTION; Start 07/19/20 at 10:45 Diphenhydramine HCl (Benadryl) 25 mg PRN DAILY PRN PO ITCHING; Start 07/19/20 at 10:45 Doxazosin Mesylate (Cardura) 2 mg DAILY PO Last administered on 07/23/20at 08:17; Start 07/19/20 at 11:00 Insulin Glargine (Lantus Syringe) 25 unit QHS SQ Last administered on 07/22/20at 20:32; Start 07/19/20 at 21:00 Metformin HCl (Glucophage) 1,000 mg BIDWMEALS PO Last administered on 07/23/20at 08:17; Start 07/19/20 at 17:00 Insulin Human Lispro (HumaLOG) 20 units TIDAC SQ Last administered on 07/23/20at 08:29; Start 07/19/20 at 11:30 Piperacillin Sod/ Tazobactam Sod 3.375 gm/Sodium Chloride 50 ml @ 100 mls/hr Q6HRS IV Last administered on 07/23/20at 05:58; Start 07/19/20 at 12:00; Stop 07/23/20 at 07:44; Status DC Daptomycin 600 mg/ Sodium Chloride 50 ml @ 100 mls/hr Q24H IV Last adminis tered on 07/20/20at 13:33; Start 07/19/20 at 11:00; Stop 07/21/20 at 10:39; Status DC Acetaminophen (Tylenol) 650 mg PRN Q4HRS PRN PO MILD PAIN / TEMP > 100.3'F; Start 07/19/20 at 23:45; Status Cancel Oxycodone HCl (Roxicodone) 5 mg PRN Q4HRS PRN PO BREAKTHROUGH PAIN Last administered on 07/23/20at 00:10; Start 07/20/20 at 11:30; Stop 07/23/20 at 09:06; Status DC Acetaminophen (Tylenol) 650 mg PRN Q4HRS PRN PO MILD PAIN / TEMP > 100.3'F Last administered on 07/21/20at 00:23; Start 07/21/20 at 00:00 Linezolid/Dextrose 300 ml @ 300 mls/hr Q12HR IV Last administered on 07/23/20at 08:17; Start 07/21/20 at 12:00; Stop 07/23/20 at 09:38; Status DC Daptomycin 970 mg/ Sodium Chloride 50 ml @ 100 mls/hr Q24H IV Last administered on 07/22/20at 13:32; Start 07/21/20 at 12:00; Stop 07/23/20 at 09:38; Status DC Fentanyl Citrate (Fentanyl 2ml Vial) 25 mcg PRN Q5MIN PRN IVP MILD PAIN 1-3; Start 07/21/20 at 12:15; Stop 07/21/20 at 16:01; Status DC Fentanyl Citrate (Fentanyl 2ml Vial) 50 mcg PRN Q5MIN PRN IVP MODERATE PAIN 4- 6; Start 07/21/20 at 12:15; Stop 07/21/20 at 16:01; Status DC Morphine Sulfate (Morphine Sulfate) 1 mg PRN Q10MIN PRN IVP SEVERE PAIN 7-10; Start 07/21/20 at 12:15; Stop 07/21/20 at 16:01; Status DC Ringer's Solution 1,000 ml @ 30 mls/hr Q24H IV Last administered on 07/21/20at 14:08; Start 07/21/20 at 12:15; Stop 07/22/20 at 00:14; Status DC Hydromorphone HCl (Dilaudid) 0.5 mg PRN Q10MIN PRN IVP SEVERE PAIN 7-10, 2nd CHOICE; Start 07/21/20 at 12:15; Stop 07/21/20 at 16:01; Status DC Prochlorperazine Edisylate (Compazine) 5 mg PACU PRN PRN IVP NAUSEA, MRX1; Start 07/21/20 at 12:15; Stop 07/21/20 at 16:01; Status DC Oxycodone/ Acetaminophen (Percocet 5/325) 1 tab PRN Q4HRS PRN PO MODERATE- SEVERE PAIN Last administered on 07/23/20at 00:10; Start 07/21/20 at 14:00; Stop 07/23/20 at 09:06; Status DC Propofol (Diprivan) 200 mg STK-MED ONCE IV ; Start 07/21/20 at 11:16; Stop 07/21/20 at 19:12; Status DC Lidocaine HCl (Lidocaine Pf 2% Vial) 5 ml STK-MED ONCE .ROUTE ; Start 07/21/20 at 11:16; Stop 07/21/20 at 19:12; Status DC Dexamethasone Sodium Phosphate (Decadron) 20 mg STK-MED ONCE .ROUTE ; Start 07/21/20 at 11:16; Stop 07/21/20 at 19:12; Status DC Ondansetron HCl (Zofran) 4 mg STK-MED ONCE .ROUTE ; Start 07/21/20 at 11:17; Stop 07/21/20 at 19:12; Status DC Succinylcholine Chloride (Anectine) 200 mg STK-MED ONCE .ROUTE ; Start 07/21/20 at 11:51; Stop 07/21/20 at 19:12; Status DC Sevoflurane (Ultane) 30 ml STK-MED ONCE IH ; Start 07/21/20 at 11:51; Stop 07/21/20 at 19:12; Status DC Etomidate (Amidate) 20 mg STK-MED ONCE IV ; Start 07/21/20 at 11:53; Stop 07/21/20 at 19:12; Status DC Lidocaine HCl (Lidocaine 1% 20ml Vial) 20 ml STK-MED ONCE .ROUTE ; Start 07/21/20 at 12:25; Stop 07/21/20 at 19:13; Status DC Silver Sulfadiazine (Silvadene) 25 milton STK-MED ONCE TP ; Start 07/21/20 at 12:25; Stop 07/21/20 at 19:13; Status DC Bupivacaine HCl (Sensorcaine Mpf 0.25%) 30 ml STK-MED ONCE .ROUTE ; Start 07/21/20 at 12:25; Stop 07/21/20 at 19:13; Status DC Rocuronium [place] (Zemuron) 50 mg STK-MED ONCE .ROUTE ; Start 07/21/20 at 12:54; Stop 07/21/20 at 19:13; Status DC Dexamethasone Sodium Phosphate (Decadron) 4 mg STK-MED ONCE .ROUTE ; Start 07/21/20 at 13:00; Stop 07/21/20 at 19:13; Status DC Ondansetron HCl (Zofran) 4 mg STK-MED ONCE .ROUTE ; Start 07/21/20 at 13:00; Stop 07/21/20 at 19:13; Status DC Lidocaine HCl (Lidocaine Pf 2% Vial) 5 ml STK-MED ONCE .ROUTE ; Start 07/21/20 at 13:16; Stop 07/21/20 at 19:13; Status DC Fentanyl Citrate (Fentanyl 2ml Vial) 100 mcg STK-MED ONCE .ROUTE ; Start at 13:16; Stop 07/21/20 at 19:13; Status DC Phenylephrine HCl (PHENYLEPHRINE in 0.9% NACL PF) 1 mg STK-MED ONCE IV ; Start 07/21/20 at 13:23; Stop 07/21/20 at 19:13; Status DC Enoxaparin Sodium (Lovenox 40mg Syringe) 40 mg Q24H SQ Last administered on 07/23/20at 08:16; Start 07/22/20 at 10:00 Lactobacillus Rhamnosus (Culturelle) 1 cap BID PO Last administered on 07/23/20at 08:17; Start 07/22/20 at 21:00 Oxycodone HCl (Roxicodone) 10 mg PRN Q4HRS PRN PO BREAKTHROUGH PAIN Last administered on 07/23/20at 09:43; Start 07/23/20 at 09:15 Nafcillin Sodium 2 gm/Dextrose 100 ml @ 200 mls/hr Q4HRS IV ; Start 07/23/20 at 12:00 Bupivacaine HCl/ Epinephrine Bitart 50 ml/ Sodium Chloride 250 ml @ 0 mls/hr 1X ONCE IRR ; Start 07/23/20 at 10:45; Stop 07/23/20 at 10:46; Status UNV Bupivacaine HCl/ Epinephrine Bitart (Sensorcaine-Epi 0.25%-1:[id number] Mpf) 30 ml 1X ONCE INJ ; Start 07/23/20 at 11:00; Stop 07/23/20 at 11:01; Status DC Active Scripts Active Reported Prednisone 1 Mg Tablet 4 Mg PO DAILY Benadryl Allergy (Diphenhydramine Hcl) 25 Mg Tablet 25 Mg PO PRN DAILY PRN Rolaids Chewable Tablet (Calcium Carb/Magnesium Hydrox) 1 Each Tab.chew 1 Each PO PRN PRN Cardura (Doxazosin Mesylate) 2 Mg Tablet 2 Mg PO DAILY Levothyroxine Sodium 100 Mcg Tablet 300 Mcg PO DAILYAC Victoza 3-Mundo (Liraglutide) 0.6 Mg/0.1 Ml Pen.injctr 1.8 Mg SQ DAILY Lantus Solostar (Insulin Glargine,Hum.rec.anlog) 100 Unit/1 Ml Insuln.pen 25 Unit SQ HS Losartan Potassium 50 Mg Tablet 50 Mg PO DAILY Atorvastatin Calcium 10 Mg Tablet 10 Mg PO HS Vitals/I & O Vital Sign - Last 24 Hours 07/22/20 07/22/20 07/22/20 07/22/20 15:00 19:00 21:25 23:00 Temp 96.8 97.9 97.5 96.8 97.9 97.5 Pulse 65 68 57 Resp 17 20 18 B/P (MAP) 141/85 (103) 168/90 (116) 144/81 (102) Pulse Ox 100 99 98 O2 Delivery Room Air Room Air Room Air Room Air 07/23/20 07/23/20 07/23/20 07/23/20 03:25 07:00 08:17 08:17 Temp 97.5 97.7 97.5 97.7 Pulse 79 87 87 87 Resp 20 20 B/P (MAP) 160/90 (113) 168/48 (88) 168/48 168/48 Pulse Ox 96 96 O2 Delivery Room Air Room Air 07/23/20 07/23/20 07/23/20 07/23/20 08:20 09:27 09:43 10:41 Temp 97.7 97.7 Pulse 87 Resp 20 B/P (MAP) 178/87 (117) Pulse Ox 98 O2 Delivery Room Air Room Air Room Air Room Air Intake and Output 07/22/20 07/22/20 07/23/20 15:00 23:00 07:00 Intake Total 600 ml 600 ml 1055 ml Output Total 500 ml Balance 600 ml 600 ml 555 ml Justifications for Admission Other Justification RAVIN,POLO Lopez MD July 23, 2020 11:23
[2020-07-23] MEDS: NAFCILLIN 2 GM in IV DEXTROSE 5% 100ML 100 ML IV SCH ×3 (12:12→20:22)
[2020-07-23 15:10] VITALS: BP 115/47
[2020-07-23] MEDS: ATORVASTATIN CALCIUM 10 MG TABLET. PO SCH (20:21)
[2020-07-23 20:40] VITALS: BP 176/88
[2020-07-23] MEDS: INSULIN GLARGINE SYRINGE. SQ SCH (21:00)
[2020-07-23 23:22] VITALS: BP 173/86
[2020-07-24] VITALS (7 sets, daily range): BP systolic 147–188; BP diastolic 75–99
[2020-07-24] MEDS: oxyCODONE IR 5 MG TABLET PO PRN ×5 (00:55→19:33)
[2020-07-24] MEDS: NAFCILLIN 2 GM in IV DEXTROSE 5% 100ML 100 ML IV SCH ×6 (00:56→21:30)
[2020-07-24] MEDS: fentaNYL PF VIAL 100 MCG/2 ML VIAL IVP PRN ×4 (04:40→21:31)
[2020-07-24] MEDS: IV NORMAL SALINE 1000ML BAG 1,000 ML IV SCH (04:40)
[2020-07-24 04:50] LABS: HEMATOCRIT 29.7 % (39.0-53.0); HEMOGLOBIN 10.1 g/dL (13.0-17.5); RED BLOOD COUNT 3.16 x10^6/uL (4.30-5.70); RED CELL DISTRIBUTION WIDTH 13.1 % (11.5-14.5); WHITE BLOOD COUNT 16.3 x10^3/uL (4.0-11.0)
[2020-07-24 05:04] LABS: ALBUMIN 1.4 g/dL (3.4-5.0); ALBUMIN/GLOBULIN RATIO 0.3 (1.0-1.7); CALCIUM 8.5 mg/dL (8.5-10.1); CREATININE 1.1 mg/dL (0.7-1.3); GFR 68.1; TOTAL BILIRUBIN 0.4 mg/dL (0.2-1.0); TOTAL PROTEIN 5.7 g/dL (6.4-8.2)
[2020-07-24 05:26] LABS: POTASSIUM 2.7 mmol/L (3.5-5.1)
[2020-07-24] MEDS ORDERED: POTASSIUM BICARB 10 MEQ EFFERVESCENT TABLET. PO ONE (05:45)
[2020-07-24] MEDS ORDERED: POTASSIUM CHLORIDE 20 MEQ TABLET.ER. PO ONE ×4 (06:00→17:00)
[2020-07-24] MEDS ORDERED: POTASSIUM BICARB 20 MEQ EFFERVESCENT TABLET. PO ONE ×2 (06:00→07:45)
[2020-07-24] MEDS: INSULIN LISPRO 300 UNITS/3 ML VIAL. SQ SCH ×6 (08:00→17:12)
[2020-07-24] MEDS: LEVOTHYROXINE 100 MCG TABLET PO SCH (08:15)
[2020-07-24] MEDS: predniSONE 1 MG TABLET PO SCH (08:16)
[2020-07-24] MEDS: ENOXAPARIN 40 MG/0.4 ML SYRINGE. SQ SCH (08:16)
[2020-07-24] MEDS: DOXAZOSIN MESYLATE 1 MG TABLET. PO SCH (08:17)
[2020-07-24] MEDS: LOSARTAN POTASSIUM 50 MG TABLET. PO SCH (08:17)
[2020-07-24] MEDS: metFORMIN 500 MG TABLET PO SCH ×2 (08:18→17:07)
[2020-07-24] MEDS: LACTOBACILLUS RHAMNOSUS GG 1 CAPSULE. PO SCH ×2 (08:18→21:30)
--- NOTE | 2020-07-24 08:34 | PDOC ---
Infectious Disease Note Subjective: Subjective Patient feels better Postop pain is under control Denies any fever, chills, nausea, vomiting, diarrhea, abdominal pain or symptoms Vital Signs: Vital Signs Vital Signs Date Time Temp Pulse Resp B/P (MAP) Pulse Ox O2 Delivery O2 Flow Rate FiO2 07/24/20 08:17 79 188/99 07/24/20 07:30 Room Air 07/24/20 05:15 20 07/24/20 04:40 97 6.0 07/24/20 02:46 98.8 98.8 Physical Exam: PHYSICAL EXAM GENERAL: Alert awake oriented x3 male in no acute distress HEENT: Normocephalic, atraumatic. Anicteric. No thrush. NECK: Supple. No JVD. LUNGS: Clear bilaterally. HEART: S1, S2 heard. No murmurs. ABDOMEN: Soft, obese. Bowel sounds present. GENITOURINARY: No Santana, Briefs in place. EXTREMITIES: Bilateral foot dressing taken down, deep wound right dorsal foot, there is no gross purulence; left foot dorsal swelling, erythema, new swelling on the left lateral foot NEUROLOGIC: Alert oriented x3 moves all 4 extremities. PSYCHIATRIC: Calm and cooperative. PIV looks clean. Medications: Inpatient Meds: Medications reviewed. Labs: Lab Laboratory Tests Test 07/23/20 10:36 07/23/20 16:13 07/23/20 16:43 07/23/20 17:10 Glucose (Fingerstick) 145 mg/dL (70-99) 52 mg/dL (70-99) 64 mg/dL (70-99) 117 mg/dL (70-99) Test 07/23/20 19:08 07/24/20 04:00 07/24/20 04:21 07/24/20 08:02 Glucose (Fingerstick) 92 mg/dL (70-99) 103 mg/dL (70-99) 137 mg/dL (70-99) White Blood Count 16.3 x10^3/uL (4.0-11.0) Red Blood Count 3.16 x10^6/uL (4.30-5.70) Hemoglobin 10.1 g/dL (13.0-17.5) Hematocrit 29.7 % (39.0-53.0) Mean Corpuscular Volume 94 fL (79-100) Mean Corpuscular Hemoglobin 32 pg (25-35) Mean Corpuscular Hemoglobin Concent 34 g/dL (31-37) Red Cell Distribution Width 13.1 % (11.5-14.5) Platelet Count 411 x10^3/uL (140-400) Sodium Level 142 mmol/L (136-145) Potassium Level 2.7 mmol/L (3.5-5.1) Chloride Level 108 mmol/L (98-107) Carbon Dioxide Level 27 mmol/L (21-32) Anion Gap 7 (6-14) Blood Urea Nitrogen 12 mg/dL (8-26) Creatinine 1.1 mg/dL (0.7-1.3) Estimated GFR (Cockcroft-Gault) 68.1 BUN/Creatinine Ratio 11 (6-20) Glucose Level 106 mg/dL (70-99) Calcium Level 8.5 mg/dL (8.5-10.1) Total Bilirubin 0.4 mg/dL (0.2-1.0) Aspartate Amino Transf (AST/SGOT) 26 U/L (15-37) Alanine Aminotransferase (ALT/SGPT) 24 U/L (16-63) Alkaline Phosphatase 84 U/L (46-116) Creatine Kinase 70 U/L (39-308) Total Protein 5.7 g/dL (6.4-8.2) Albumin 1.4 g/dL (3.4-5.0) Albumin/Globulin Ratio 0.3 (1.0-1.7) Micro RUN DATE: 07/22/20 [facility] *LIVE* PAGE 1 RUN TIME: 929 Specimen Inquiry PATIENT: DASHAWN GOMEZ ACCT: [id number] LOC: SIOBHAN U: [id number] AGE/SX: 60/M ROOM: RE07/18/[address]: CAROLEE ZHOU MD : 1960 BED: DIS: STATUS: DEP ER TLOC: SPEC #: [id number] SANDOR: 07/18/20 STATUS: COMP REQ #: [id number] RECD: 07/18/20 [facility] DR: CAROLEE ZHOU MD SOURCE: BLOOD ENTR: 07/19/20-15[address] [facility] DR: JERONIMO KO [facility] ORDERED: BLOOD CULT-LC Procedure Result BLOOD CULTURE LC Final Final GROWTH OF GRAM POSITIVE COCCI FINAL ID= [STAPHYLOCOCCUS AUREUS] STAPHYLOCOCCUS AUREUS ANTIMICROBIAL SUSCEPTIBILITY Final Comment POS PRESTON TYPE 38 STAPHYLOCOCCUS AUREUS ANTIBIOTIC RESULT INTERPRETATION AZITHROMYCIN <=2 S CLINDAMYCIN <=0.25 S CEFOXITIN SCREEN <=4 NEG CIPROFLOXACIN <=1 S CEFTAROLINE <=0.5 S DAPTOMYCIN <=0.5 S ERYTHROMYCIN <=0.25 S GENTAMICIN <=4 S LINEZOLID <=1 S LEVOFLOXACIN <=1 S OXACILLIN 0.5 S PENICILLIN >2 Anton RIFAMPIN <=1 S TRIMETHOPRIM/SULFAMETHOXAZOLE <=0.5/9.5 S TETRACYCLINE <=4 S VANCOMYCIN 1 S Unless otherwise specified, Testing Performed by: [address] [address] For Inquires, the Physician may contact the Microbiology department at [phone] ------- ----- RUN DATE: 07/23/20 [facility] *LIVE* PAGE 1 RUN TIME: 6838 Specimen Inquiry PATIENT: DASHAWN GOMEZ ACCT: [id number] LOC: [address] [place] [address] U: [id number] AGE/SX: 60/M ROOM: 664 RE07/19/[address]: JOESPH BIRMINGHAM MD : 1960 BED: 1 DIS: STATUS: ADM IN TLOC: SPEC #: [id number] SANDRO: 07/20/20 STATUS: COMP REQ #: [id number] RECD: 07/20/[address]: JAMA HERNANDEZ MD SOURCE: BLOOD ENTR: 07/21/20 [facility] [address]: JERONIMO KO MD [facility]: CRISTIAN NG AHMED M MD MONAHAN, TIMOTHY J MD ORDERED: BRII CULT - LC Procedure Result BLOOD CULTURE LC Final Final GRAM POSITIVE COCCI FINAL ID= [STAPHYLOCOCCUS AUREUS] STAPHYLOCOCCUS AUREUS ANTIMICROBIAL SUSCEPTIBILITY Final Comment POS PRESTON TYPE 38 STAPHYLOCOCCUS AUREUS ANTIBIOTIC RESULT INTERPRETATION AZITHROMYCIN <=2 S CLINDAMYCIN <=0.25 S CEFOXITIN SCREEN <=4 NEG CIPROFLOXACIN <=1 S CEFTAROLINE <=0.5 S DAPTOMYCIN <=0.5 S ERYTHROMYCIN <=0.25 S GENTAMICIN <=4 S LINEZOLID <=1 S LEVOFLOXACIN <=1 S OXACILLIN 0.5 S PENICILLIN >2 Anton RIFAMPIN <=1 S TRIMETHOPRIM/SULFAMETHOXAZOLE <=0.5/9.5 S TETRACYCLINE <=4 S VANCOMYCIN 1 S Unless otherwise specified, Testing Performed by: [address] [address] For Inquires, the Physician may contact the Microbiology department at [phone] wound cult Staph aureus Objective: Assessment: Severe sepsis from Staph aureus bacteremia present on admission at [facility] Methicillin Staph aureus bacteremia 4 out of 4 bottles at [facility] 07/18/20 Staph aureus bacteremia here July 20, 2020 1. Fever Source Rt foot dorsal abscess 2. Leukocytosis and lactic acidosis.Bandemia. 3. Bilateral lower extremity cellulitis,deep tissue infection of both feet. Right greater than left with Rt foot abscess. s/p I and D on 07/22 CRP 291.2 ESR 136 Cult gpc 4. 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 Diabetes with neuropathy, poorly controlled. 6. Noncompliance. 7. Acute kidney injury. Rhabdo 8. Hematuria. 9. Hyponatremia. 10. Hypertension. 11. Encephalopathy, likely metabolic. Plan: Plan of Care Continue Nafcillin Restart daptomycin BRYAN on 07/26 f/u Repeat blood cultures 07/22 neg so far F/U Wound cult Local wound care as directed Follow up labs Vascular surgery attempted aspiration of the left dorsal foot swelling, no purulence May need MRI Probiotics Continue supportive care Discussed with JAMA LAU MD July 24, 2020 08:34
--- NOTE | 2020-07-24 09:14 | PN ---
DATE: 07/24/2020 SUBJECTIVE: The patient is resting flat in bed, in no apparent distress. He denied any complaint except that he has had some wheezing last night. His pain is well controlled. His lab work however, this morning showed his potassium is low at 2.7 mEq/L. PHYSICAL EXAMINATION: GENERAL: When I examined him, he looked pale, not jaundiced, cyanosed or thyromegaly. No jugular venous distention. Mild bilateral lower limb edema. VITAL SIGNS: His heart rate was 82, blood pressure was 168/89, temperature was 98.8, respiratory rate 20, and oxygen saturation was 97% on room air. HEAD, EYES, EARS, NOSE AND THROAT: Normocephalic, atraumatic. NECK: Supple. HEART: Showed normal first and second heart sounds. No gallop or murmur. CHEST: Clear to auscultation. No crepitation or rhonchi. ABDOMEN: Distended, soft, nontender. NEUROLOGIC: He is awake, alert, responding appropriately. All cranial nerves intact. He moves extremities without difficulty. Has wounds on the dorsal aspect of his right foot and left third toe covered with dressing. His intake over the last 24 hours was 2250, output was 500. LABORATORY DATA: As of this morning, his white cell count was 16,300, hemoglobin 10, hematocrit 30, MCV 94 and platelet count of 411,000. His chemistry this morning showed a serum sodium 142, potassium 2.7, chloride 108, bicarbonate 27, anion gap of 7, BUN 12, creatinine 1.1. Estimated GFR was 68 mL per minute. His glucose 106, calcium was 8.5. Total bilirubin, AST, ALT, alkaline phosphatase were normal. His CK was 7. Total protein 5.7, albumin was 1.4. ASSESSMENT: 1. Bilateral lower extremity cellulitis. 2. Abscess of the dorsum of the right foot, status post incision and drainage. 3. Nonhealing diabetic third toe ulcer. 4. Left third toe osteomyelitis. 5. Type 2 diabetes mellitus with diabetic peripheral neuropathy. 6. Acute kidney injury, improving. His creatinine is down to 1.1. 7. Hyponatremia, resolved. 8. Hypokalemia with a potassium 2.7. 9. Hypertension. PLAN: To continue with IV antibiotic in the form of daptomycin and linezolid. His blood culture has grown methicillin-sensitive Staphylococcus aureus. His Zosyn was discontinued. We will discontinue the IV fluid, replenish the potassium. Continue with wound care. The patient will need a BRYAN. LEEANNA DR: Sarahy TID: [id number]
[2020-07-24] MEDS ORDERED: LOSARTAN POTASSIUM 50 MG TABLET. PO ONE (10:00)
[2020-07-24] MEDS: DAPTOmycin (GENERIC) IVPB 580 MG in IV NORMAL SALINE 50ML 50 ML IV SCH (11:00)
[2020-07-24] MEDS: IPRATRPIUM/ALBUTEROL 0.5/2.5MG 3 ML NEBU. NEB SCH ×3 (12:10→20:00)
--- NOTE | 2020-07-24 12:35 | PDOC ---
PROGRESS NOTES Date of Service DATE: 07/24/20 TIME: 12:34 Subjective Subjective Pt seen and examined foot does not appear any different to me -- ID apparently concerned about increased edema WBC unchaged about 16k no fluid on aspiration yesterday will order MRI foot to better define if drainage needed Objective Objective Vital Signs Date Time Temp Pulse Resp B/P (MAP) Pulse Ox O2 Delivery O2 Flow Rate FiO2 07/24/20 12:11 97 Room Air 07/24/20 10:54 98.5 83 18 147/75 (99) 98.5 07/24/20 04:40 6.0 Intake and Output 07/24/20 07:00 Intake Total 1070 ml Output Total 3100 ml Balance -2030 ml Intake Oral 1070 ml Output Urine Total 3100 ml Comment Review of Relevant I have reviewed the following items stefan (where applicable) has been applied. Labs Laboratory Tests Test 07/22/20 16:58 07/22/20 20:28 07/23/20 03:40 07/23/20 07:46 Glucose (Fingerstick) 106 mg/dL (70-99) 177 mg/dL (70-99) 171 mg/dL (70-99) White Blood Count 16.2 x10^3/uL (4.0-11.0) Red Blood Count 3.45 x10^6/uL (4.30-5.70) Hemoglobin 10.9 g/dL (13.0-17.5) Hematocrit 32.7 % (39.0-53.0) Mean Corpuscular Volume 95 fL (79-100) Mean Corpuscular Hemoglobin 32 pg (25-35) Mean Corpuscular Hemoglobin Concent 34 g/dL (31-37) Red Cell Distribution Width 13.1 % (11.5-14.5) Platelet Count 426 x10^3/uL (140-400) Sodium Level 140 mmol/L (136-145) Potassium Level 3.3 mmol/L (3.5-5.1) Chloride Level 107 mmol/L (98-107) Carbon Dioxide Level 27 mmol/L (21-32) Anion Gap 6 (6-14) Blood Urea Nitrogen 22 mg/dL (8-26) Creatinine 1.4 mg/dL (0.7-1.3) Estimated GFR (Cockcroft-Gault) 51.5 Glucose Level 218 mg/dL (70-99) Calcium Level 8.1 mg/dL (8.5-10.1) Test 07/23/20 10:36 07/23/20 16:13 07/23/20 16:43 07/23/20 17:10 Glucose (Fingerstick) 145 mg/dL (70-99) 52 mg/dL (70-99) 64 mg/dL (70-99) 117 mg/dL (70-99) Test 07/23/20 19:08 07/24/20 04:00 07/24/20 04:21 07/24/20 08:02 Glucose (Fingerstick) 92 mg/dL (70-99) 103 mg/dL (70-99) 137 mg/dL (70-99) White Blood Count 16.3 x10^3/uL (4.0-11.0) Red Blood Count 3.16 x10^6/uL (4.30-5.70) Hemoglobin 10.1 g/dL (13.0-17.5) Hematocrit 29.7 % (39.0-53.0) Mean Corpuscular Volume 94 fL (79-100) Mean Corpuscular Hemoglobin 32 pg (25-35) Mean Corpuscular Hemoglobin Concent 34 g/dL (31-37) Red Cell Distribution Width 13.1 % (11.5-14.5) Platelet Count 411 x10^3/uL (140-400) Sodium Level 142 mmol/L (136-145) Potassium Level 2.7 mmol/L (3.5-5.1) Chloride Level 108 mmol/L (98-107) Carbon Dioxide Level 27 mmol/L (21-32) Anion Gap 7 (6-14) Blood Urea Nitrogen 12 mg/dL (8-26) Creatinine 1.1 mg/dL (0.7-1.3) Estimated GFR (Cockcroft-Gault) 68.1 BUN/Creatinine Ratio 11 (6-20) Glucose Level 106 mg/dL (70-99) Calcium Level 8.5 mg/dL (8.5-10.1) Total Bilirubin 0.4 mg/dL (0.2-1.0) Aspartate Amino Transf (AST/SGOT) 26 U/L (15-37) Alanine Aminotransferase (ALT/SGPT) 24 U/L (16-63) Alkaline Phosphatase 84 U/L (46-116) Creatine Kinase 70 U/L (39-308) Total Protein 5.7 g/dL (6.4-8.2) Albumin 1.4 g/dL (3.4-5.0) Albumin/Globulin Ratio 0.3 (1.0-1.7) Test 07/24/20 11:49 Glucose (Fingerstick) 75 mg/dL (70-99) Laboratory Tests Test 07/23/20 16:13 07/23/20 16:43 07/23/20 17:10 07/23/20 19:08 Glucose (Fingerstick) 52 mg/dL (70-99) 64 mg/dL (70-99) 117 mg/dL (70-99) 92 mg/dL (70-99) Test 07/24/20 04:00 07/24/20 04:21 07/24/20 08:02 07/24/20 11:49 White Blood Count 16.3 x10^3/uL (4.0-11.0) Red Blood Count 3.16 x10^6/uL (4.30-5.70) Hemoglobin 10.1 g/dL (13.0-17.5) Hematocrit 29.7 % (39.0-53.0) Mean Corpuscular Volume 94 fL (79-100) Mean Corpuscular Hemoglobin 32 pg (25-35) Mean Corpuscular Hemoglobin Concent 34 g/dL (31-37) Red Cell Distribution Width 13.1 % (11.5-14.5) Platelet Count 411 x10^3/uL (140-400) Sodium Level 142 mmol/L (136-145) Potassium Level 2.7 mmol/L (3.5-5.1) Chloride Level 108 mmol/L (98-107) Carbon Dioxide Level 27 mmol/L (21-32) Anion Gap 7 (6-14) Blood Urea Nitrogen 12 mg/dL (8-26) Creatinine 1.1 mg/dL (0.7-1.3) Estimated GFR (Cockcroft-Gault) 68.1 BUN/Creatinine Ratio 11 (6-20) Glucose Level 106 mg/dL (70-99) Calcium Level 8.5 mg/dL (8.5-10.1) Total Bilirubin 0.4 mg/dL (0.2-1.0) Aspartate Amino Transf (AST/SGOT) 26 U/L (15-37) Alanine Aminotransferase (ALT/SGPT) 24 U/L (16-63) Alkaline Phosphatase 84 U/L (46-116) Creatine Kinase 70 U/L (39-308) Total Protein 5.7 g/dL (6.4-8.2) Albumin 1.4 g/dL (3.4-5.0) Albumin/Globulin Ratio 0.3 (1.0-1.7) Glucose (Fingerstick) 103 mg/dL (70-99) 137 mg/dL (70-99) 75 mg/dL (70-99) Microbiology 07/23/20 Blood Culture - Preliminary, Resulted NO GROWTH AFTER 1 DAY 07/21/20 Gram Stain - Final, Resulted 07/21/20 Aerobic and Anaerobic Culture - Preliminary, Resulted 07/21/20 Antimicrobic Susceptibility - Preliminary, Resulted Medications Current Medications Insulin Human Lispro (HumaLOG) 0-9 UNITS TIDWMEALS SQ Last administered on 07/23/20at 08:29; Start 07/19/20 at 08:00 Dextrose (Dextrose 50%-Water Syringe) 12.5 gm PRN Q15MIN PRN IV SEE COMMENTS Last administered on 07/23/20at 16:44; Start 07/19/20 at 01:30 Sodium Chloride 1,000 ml @ 150 mls/hr Q6H40M IV Last administered on 07/24/20at 04:40; Start 07/19/20 at 02:00; Stop 07/24/20 at 08:32; Status DC Fentanyl Citrate (Fentanyl 2ml Vial) 50 mcg PRN Q3HRS PRN IVP SEVERE PAIN 7-10 Last administered on 07/24/20at 09:00; Start 07/19/20 at 01:30 Ondansetron HCl (Zofran) 4 mg PRN Q6HRS PRN IVP NAUSEA/VOMITING 1ST CHOICE; Start 07/19/20 at 01:30 Vancomycin HCl (Vanco Per Pharmacy) 1 each PRN DAILY PRN MC SEE COMMENTS Last administered on 07/19/20at 03:43; Start 07/19/20 at 01:30; Stop 07/19/20 at 10:57; Status DC Ceftriaxone Sodium (Rocephin) 1 gm Q24H IVP ; Start 07/19/20 at 21:00; Stop 07/19/20 at 10:56; Status DC Vancomycin HCl 2 gm/Sodium Chloride 500 ml @ 250 mls/hr Q24H IV ; Start 07/19/20 at 21:00; Stop 07/19/20 at 10:57; Status DC Vancomycin HCl (Vancomycin Trough Level) 1 each 1X ONCE MC ; Start 07/20/20 at 20:30; Stop 07/19/20 at 10:57; Status DC Insulin Human Lispro (HumaLOG) 20 units 1X ONCE SQ Last administered on 07/19/20at 08:49; Start 07/19/20 at 08:30; Stop 07/19/20 at 08:31; Status DC Atorvastatin Calcium (Lipitor) 10 mg HS PO Last administered on 07/23/20at 20:21; Start 07/19/20 at 21:00 Levothyroxine Sodium (Synthroid) 300 mcg DAILYAC PO Last administered on 07/24/20at 08:15; Start 07/20/20 at 07:30 Losartan Potassium (Cozaar) 50 mg DAILY PO Last administered on 07/24/20at 08:17; Start 07/19/20 at 11:00; Stop 07/24/20 at 09:23; Status DC Prednisone (Prednisone) 4 mg DAILY PO Last administered on 07/24/20at 08:16; Start 07/19/20 at 11:00 Calcium Carbonate/ Glycine (Tums) 500 mg PRN AFTMEALHC PRN PO INDIGESTION; Start 07/19/20 at 10:45 Diphenhydramine HCl (Benadryl) 25 mg PRN DAILY PRN PO ITCHING; Start 07/19/20 at 10:45 Doxazosin Mesylate (Cardura) 2 mg DAILY PO Last administered on 07/24/20at 08:17; Start 07/19/20 at 11:00 Insulin Glargine (Lantus Syringe) 25 unit QHS SQ Last administered on 07/22/20at 20:32; Start 07/19/20 at 21:00 Metformin HCl (Glucophage) 1,000 mg BIDWMEALS PO Last administered on 07/24/20at 08:18; Start 07/19/20 at 17:00 Insulin Human Lispro (HumaLOG) 20 units TIDAC SQ Last administered on 07/24/20at 08:26; Start 07/19/20 at 11:30 Piperacillin Sod/ Tazobactam Sod 3.375 gm/Sodium Chloride 50 ml @ 100 mls/hr Q6HRS IV Last administered on 07/23/20at 05:58; Start 07/19/20 at 12:00; Stop 07/23/20 at 07:44; Status DC Daptomycin 600 mg/ Sodium Chloride 50 ml @ 100 mls/hr Q24H IV Last administered on 07/20/20at 13:33; Start 07/19/20 at 11:00; Stop 07/21/20 at 10:39; Status DC Acetaminophen (Tylenol) 650 mg PRN Q4HRS PRN PO MILD PAIN / TEMP > 100.3'F; Start 07/19/20 at 23:45; Status Cancel Oxycodone HCl (Roxicodone) 5 mg PRN Q4HRS PRN PO BREAKTHROUGH PAIN Last administered on 07/23/20at 00:10; Start 07/20/20 at 11:30; Stop 07/23/20 at 09:06; Status DC Acetaminophen (Tylenol) 650 mg PRN Q4HRS PRN PO MILD PAIN / TEMP > 100.3'F Last administered on 07/21/20at 00:23; Start 07/21/20 at 00:00 Linezolid/Dextrose 300 ml @ 300 mls/hr Q12HR IV Last administered on 07/23/20at 08:17; Start 07/21/20 at 12:00; Stop 07/23/20 at 09:38; Status DC Daptomycin 970 mg/ Sodium Chloride 50 ml @ 100 mls/hr Q24H IV Last administered on 07/22/20at 13:32; Start 07/21/20 at 12:00; Stop 07/23/20 at 09:38; Status DC Fentanyl Citrate (Fentanyl 2ml Vial) 25 mcg PRN Q5MIN PRN IVP MILD PAIN 1-3; Start 07/21/20 at 12:15; Stop 07/21/20 at 16:01; Status DC Fentanyl Citrate (Fentanyl 2ml Vial) 50 mcg PRN Q5MIN PRN IVP MODERATE PAIN 4- 6; Start 07/21/20 at 12:15; Stop 07/21/20 at 16:01; Status DC Morphine Sulfate (Morphine Sulfate) 1 mg PRN Q10MIN PRN IVP SEVERE PAIN 7-10; Start 07/21/20 at 12:15; Stop 07/21/20 at 16:01; Status DC Ringer's Solution 1,000 ml @ 30 mls/hr Q24H IV Last administered on 07/21/20at 14:08; Start 07/21/20 at 12:15; Stop 07/22/20 at 00:14; Status DC Hydromorphone HCl (Dilaudid) 0.5 mg PRN Q10MIN PRN IVP SEVERE PAIN 7-10, 2nd CHOICE; Start 07/21/20 at 12:15; Stop 07/21/20 at 16:01; Status DC Prochlorperazine Edisylate (Compazine) 5 mg PACU PRN PRN IVP NAUSEA, MRX1; Start 07/21/20 at 12:15; Stop 07/21/20 at 16:01; Status DC Oxycodone/ Acetaminophen (Percocet 5/325) 1 tab PRN Q4HRS PRN PO MODERATE- SEVERE PAIN Last administered on 07/23/20at 00:10; Start 07/21/20 at 14:00; Stop 07/23/20 at 09:06; Status DC Propofol (Diprivan) 200 mg STK-MED ONCE IV ; Start 07/21/20 at 11:16; Stop 07/21/20 at 19:12; Status DC Lidocaine HCl (Lidocaine Pf 2% Vial) 5 ml STK-MED ONCE .ROUTE ; Start 07/21/20 at 11:16; Stop 07/21/20 at 19:12; Status DC Dexamethasone Sodium Phosphate (Decadron) 20 mg STK-MED ONCE .ROUTE ; Start 07/21/20 at 11:16; Stop 07/21/20 at 19:12; Status DC Ondansetron HCl (Zofran) 4 mg STK-MED ONCE .ROUTE ; Start 07/21/20 at 11:17; Stop 07/21/20 at 19:12; Status DC Succinylcholine Chloride (Anectine) 200 mg STK-MED ONCE .ROUTE ; Start 07/21/20 at 11:51; Stop 07/21/20 at 19:12; Status DC Sevoflurane (Ultane) 30 ml STK-MED ONCE IH ; Start 07/21/20 at 11:51; Stop 07/21/20 at 19:12; Status DC Etomidate (Amidate) 20 mg STK-MED ONCE IV ; Start 07/21/20 at 11:53; Stop 07/21/20 at 19:12; Status DC Lidocaine HCl (Lidocaine 1% 20ml Vial) 20 ml STK-MED ONCE .ROUTE ; Start 07/21/20 at 12:25; Stop 07/21/20 at 19:13; Status DC Silver Sulfadiazine (Silvadene) 25 milton STK-MED ONCE TP ; Start 07/21/20 at 12:25; Stop 07/21/20 at 19:13; Status DC Bupivacaine HCl (Sensorcaine Mpf 0.25%) 30 ml STK-MED ONCE .ROUTE ; Start 07/21/20 at 12:25; Stop 07/21/20 at 19:13; Status DC Rocuronium Merkel (Zemuron) 50 mg STK-MED ONCE .ROUTE ; Start 07/21/20 at 12:54; Stop 07/21/20 at 19:13; Status DC Dexamethasone Sodium Phosphate (Decadron) 4 mg STK-MED ONCE .ROUTE ; Start 07/21/20 at 13:00; Stop 07/21/20 at 19:13; Status DC Ondansetron HCl (Zofran) 4 mg STK-MED ONCE .ROUTE ; Start 07/21/20 at 13:00; Stop 07/21/20 at 19:13; Status DC Lidocaine HCl (Lidocaine Pf 2% Vial) 5 ml STK-MED ONCE .ROUTE ; Start 07/21/20 at 13:16; Stop 07/21/20 at 19:13; Status DC Fentanyl Citrate (Fentanyl 2ml Vial) 100 mcg STK-MED ONCE .ROUTE ; Start 1 at 13:16; Stop 07/21/20 at 19:13; Status DC Phenylephrine HCl (PHENYLEPHRINE in 0.9% NACL PF) 1 mg STK-MED ONCE IV ; Start 07/21/20 at 13:23; Stop 07/21/20 at 19:13; Status DC Enoxaparin Sodium (Lovenox 40mg Syringe) 40 mg Q24H SQ Last administered on 07/24/20at 08:16; Start 07/22/20 at 10:00 Lactobacillus Rhamnosus (Culturelle) 1 cap BID PO Last administered on 07/24/20at 08:18; Start 07/22/20 at 21:00 Oxycodone HCl (Roxicodone) 10 mg PRN Q4HRS PRN PO BREAKTHROUGH PAIN Last administered on 07/24/20at 11:01; Start 07/23/20 at 09:15 Nafcillin Sodium 2 gm/Dextrose 100 ml @ 200 mls/hr Q4HRS IV Last administered on 07/24/20at 11:51; Start 07/23/20 at 12:00 Bupivacaine HCl/ Epinephrine Bitart 50 ml/ Sodium Chloride 250 ml @ 0 mls/hr 1X ONCE IRR ; Start 07/23/20 at 10:45; Stop 07/23/20 at 10:46; Status UNV Bupivacaine HCl/ Epinephrine Bitart (Sensorcaine-Epi 0.25%-1:[id number] Mpf) 30 ml 1X ONCE INJ Last administered on 07/23/20at 11:15; Start 07/23/20 at 11:00; Stop 07/23/20 at 11:01; Status DC Potassium Bicarbonate (Potassium Effervescent Tablet) 40 meq 1X ONCE PO ; Start 07/24/20 at 05:45; Stop 07/24/20 at 05:46; Status Cancel Potassium Chloride (Klor-Con) 40 meq 1X ONCE PO Last administered on 07/24/20at 08:17; Start 07/24/20 at 06:45; Stop 07/24/20 at 06:46; Status DC Potassium Bicarbonate (Potassium Effervescent Tablet) 40 meq 1X ONCE PO ; Start 07/24/20 at 07:45; Stop 07/24/20 at 07:46; Status Cancel Potassium Bicarbonate (Potassium Effervescent Tablet) 40 meq 1X ONCE PO ; Start 07/24/20 at 06:00; Stop 07/24/20 at 06:01; Status Cancel Potassium Chloride (Klor-Con) 40 meq 1X ONCE PO Last administered on 07/24/20at 06:15; Start 07/24/20 at 06:00; Stop 07/24/20 at 06:08; Status DC Potassium Chloride (Klor-Con) 40 meq 1X ONCE PO Last administered on 07/24/20at 09:55; Start 07/24/20 at 07:45; Stop 07/24/20 at 07:46; Status DC Albuterol/ Ipratropium (Duoneb) 3 ml RTQID NEB Last administered on 07/24/20at 12:10; Start 07/24/20 at 12:00 Daptomycin 580 mg/ Sodium Chloride 50 ml @ 100 mls/hr Q24H IV Last administered on 07/24/20at 11:00; Start 07/24/20 at 10:00 Losartan Potassium (Cozaar) 100 mg DAILY PO ; Start 07/25/20 at 09:00 Losartan Potassium (Cozaar) 50 mg 1X ONCE PO Last administered on 07/24/20at 09:55; Start 07/24/20 at 10:00; Stop 07/24/20 at 10:01; Status DC Active Scripts Active Reported Prednisone 1 Mg Tablet 4 Mg PO DAILY Benadryl Allergy (Diphenhydramine Hcl) 25 Mg Tablet 25 Mg PO PRN DAILY PRN Rolaids Chewable Tablet (Calcium Carb/Magnesium Hydrox) 1 Each Tab.chew 1 Each PO PRN PRN Cardura (Doxazosin Mesylate) 2 Mg Tablet 2 Mg PO DAILY Levothyroxine Sodium 100 Mcg Tablet 300 Mcg PO DAILYAC Victoza 3-Mundo (Liraglutide) 0.6 Mg/0.1 Ml Pen.injctr 1.8 Mg SQ DAILY Lantus Solostar (Insulin Glargine,Hum.rec.anlog) 100 Unit/1 Ml Insuln.pen 25 Unit SQ HS Losartan Potassium 50 Mg Tablet 50 Mg PO DAILY Atorvastatin Calcium 10 Mg Tablet 10 Mg PO HS Vitals/I & O Vital Sign - Last 24 Hours 07/23/20 07/23/20 07/23/20 07/23/20 15:10 16:51 17:25 18:39 Temp 97.7 97.7 Pulse 80 Resp 20 B/P (MAP) 115/47 (69) Pulse Ox 97 O2 Delivery Room Air Room Air Room Air Room Air 07/23/20 07/23/20 07/23/20 07/23/20 19:00 19:32 20:00 20:40 Temp 98.3 98.8 98.3 98.8 Pulse 71 97 Resp 18 20 B/P (MAP) 176/88 (117) Pulse Ox 97 97 O2 Delivery Room Air Room Air Room Air O2 Flow Rate 6.0 07/23/20 07/23/20 07/23/20 07/24/20 20:49 21:19 23:22 00:55 Temp 98.0 98.0 Pulse 74 Resp 20 18 B/P (MAP) 173/86 (115) Pulse Ox 96 96 O2 Delivery Room Air Room Air Room Air O2 Flow Rate 6.0 07/24/20 07/24/20 07/24/20 07/24/20 01:25 02:46 04:40 05:15 Temp 98.8 98.8 Pulse 77 82 Resp 18 20 B/P (MAP) 178/92 (120) 168/89 (115) Pulse Ox 96 97 97 O2 Delivery Room Air Room Air Room Air O2 Flow Rate 6.0 6.0 07/24/20 07/24/20 07/24/20 07/24/20 07:00 07:30 07:30 07:50 Temp 98.8 98.8 Pulse 79 Resp 18 B/P (MAP) 188/99 (128) Pulse Ox 97 O2 Delivery Room Air Room Air Room Air Room Air 07/24/20 07/24/20 07/24/20 07/24/20 08:17 08:17 09:00 09:45 Pulse 79 79 B/P (MAP) 188/99 188/99 O2 Delivery Room Air Room Air 07/24/20 07/24/20 07/24/20 07/24/20 09:55 10:54 11:01 11:54 Temp 98.5 98.5 Pulse 79 83 Resp 18 B/P (MAP) 188/99 147/75 (99) Pulse Ox 98 O2 Delivery Room Air Room Air Room Air 07/24/20 12:11 Pulse Ox 97 O2 Delivery Room Air Intake and Output 07/23/20 07/23/20 07/24/20 15:00 23:00 07:00 Intake Total 450 ml 420 ml 200 ml Output Total 1000 ml 1600 ml 500 ml Balance -550 ml -1180 ml -300 ml Justifications for Admission Other Justification POLO ALICIA MD July 24, 2020 12:35
[2020-07-24] MEDS: INSULIN GLARGINE SYRINGE. SQ SCH (21:00)
[2020-07-24] MEDS: ATORVASTATIN CALCIUM 10 MG TABLET. PO SCH (21:30)
[2020-07-25] MEDS: NAFCILLIN 2 GM in IV DEXTROSE 5% 100ML 100 ML IV SCH ×7 (00:50→23:44)
[2020-07-25] MEDS: fentaNYL PF VIAL 100 MCG/2 ML VIAL IVP PRN ×7 (00:54→23:44)
[2020-07-25] MEDS: oxyCODONE IR 5 MG TABLET PO PRN ×3 (01:57→15:41)
[2020-07-25 02:36] VITALS: BP 182/91
[2020-07-25 06:38] LABS: BASO # 0.1 x10^3/uL (0.0-0.2); BASO % 0 % (0-3); EOS # 0.3 x10^3/uL (0.0-0.7); EOS % 2 % (0-3); HEMATOCRIT 30.6 % (39.0-53.0); HEMOGLOBIN 10.3 g/dL (13.0-17.5); LYMPH # 1.7 x10^3/uL (1.0-4.8); LYMPH % 10 % (24-48); MEAN CORPUSCULAR HEMOGLOBIN 31 pg (25-35); MEAN CORPUSCULAR HGB CONC 34 g/dL (31-37); MEAN CORPUSCULAR VOLUME 93 fL (79-100); MONO # 0.7 x10^3/uL (0.0-1.1); MONO % 5 % (0-9); NEUT # 13.6 x10^3/uL (1.8-7.7); NEUT % 83 % (31-73); PLATELET COUNT 433 x10^3/uL (140-400); RED CELL DISTRIBUTION WIDTH 12.8 % (11.5-14.5); WHITE BLOOD COUNT 16.3 x10^3/uL (4.0-11.0)
[2020-07-25 06:51] LABS: POTASSIUM 3.5 mmol/L (3.5-5.1)
[2020-07-25 07:00] VITALS: BP 174/82
--- NOTE | 2020-07-25 07:35 | NUR ---
Pt wanted dressing change but not really because in too much pain and didn't want me to touch when dressing change attempted. Pain meds given back to back. Dr. Moore was called for elevated Blood pressures and Hydralazine 50 mg ordered TID. Will continue to monitor.
[2020-07-25] MEDS: IPRATRPIUM/ALBUTEROL 0.5/2.5MG 3 ML NEBU. NEB SCH ×4 (07:48→20:00)
[2020-07-25] MEDS: LEVOTHYROXINE 100 MCG TABLET PO SCH (08:01)
[2020-07-25] MEDS: metFORMIN 500 MG TABLET PO SCH ×2 (08:03→16:49)
[2020-07-25] MEDS: POTASSIUM CHLORIDE 20 MEQ TABLET.ER. PO SCH ×3 (08:04→16:49)
--- NOTE | 2020-07-25 08:08 | PDOC ---
PROGRESS NOTES Date of Service DATE: 07/25/20 TIME: 08:07 Subjective Subjective MRI foot pending (ordered yesterday) further recommendations once this is done continue Abx Objective Objective Vital Signs Date Time Temp Pulse Resp B/P (MAP) Pulse Ox O2 Delivery O2 Flow Rate FiO2 07/25/20 07:48 98 Room Air 07/25/20 02:36 98.6 84 18 182/91 (121) 98.6 07/24/20 22:01 6.0 Intake and Output 07/25/20 07:00 Intake Total 830 ml Output Total 2600 ml Balance -1770 ml Intake Oral 580 ml IV Total 250 ml Output Urine Total 2600 ml # Bowel Movements 1 Comment Review of Relevant I have reviewed the following items stefan (where applicable) has been applied. Labs Laboratory Tests Test 07/23/20 10:36 07/23/20 16:13 07/23/20 16:43 07/23/20 17:10 Glucose (Fingerstick) 145 mg/dL (70-99) 52 mg/dL (70-99) 64 mg/dL (70-99) 117 mg/dL (70-99) Test 07/23/20 19:08 07/24/20 04:00 07/24/20 04:21 07/24/20 08:02 Glucose (Fingerstick) 92 mg/dL (70-99) 103 mg/dL (70-99) 137 mg/dL (70-99) White Blood Count 16.3 x10^3/uL (4.0-11.0) Red Blood Count 3.16 x10^6/uL (4.30-5.70) Hemoglobin 10.1 g/dL (13.0-17.5) Hematocrit 29.7 % (39.0-53.0) Mean Corpuscular Volume 94 fL (79-100) Mean Corpuscular Hemoglobin 32 pg (25-35) Mean Corpuscular Hemoglobin Concent 34 g/dL (31-37) Red Cell Distribution Width 13.1 % (11.5-14.5) Platelet Count 411 x10^3/uL (140-400) Sodium Level 142 mmol/L (136-145) Potassium Level 2.7 mmol/L (3.5-5.1) Chloride Level 108 mmol/L (98-107) Carbon Dioxide Level 27 mmol/L (21-32) Anion Gap 7 (6-14) Blood Urea Nitrogen 12 mg/dL (8-26) Creatinine 1.1 mg/dL (0.7-1.3) Estimated GFR (Cockcroft-Gault) 68.1 BUN/Creatinine Ratio 11 (6-20) Glucose Level 106 mg/dL (70-99) Calcium Level 8.5 mg/dL (8.5-10.1) Total Bilirubin 0.4 mg/dL (0.2-1.0) Aspartate Amino Transf (AST/SGOT) 26 U/L (15-37) Alanine Aminotransferase (ALT/SGPT) 24 U/L (16-63) Alkaline Phosphatase 84 U/L (46-116) Creatine Kinase 70 U/L (39-308) Total Protein 5.7 g/dL (6.4-8.2) Albumin 1.4 g/dL (3.4-5.0) Albumin/Globulin Ratio 0.3 (1.0-1.7) Test 07/24/20 11:30 07/24/20 11:49 07/24/20 16:37 07/24/20 19:42 Potassium Level 3.3 mmol/L (3.5-5.1) Glucose (Fingerstick) 75 mg/dL (70-99) 131 mg/dL (70-99) 101 mg/dL (70-99) Test 07/25/20 06:00 07/25/20 07:44 White Blood Count 16.3 x10^3/uL (4.0-11.0) Red Blood Count 3.30 x10^6/uL (4.30-5.70) Hemoglobin 10.3 g/dL (13.0-17.5) Hematocrit 30.6 % (39.0-53.0) Mean Corpuscular Volume 93 fL (79-100) Mean Corpuscular Hemoglobin 31 pg (25-35) Mean Corpuscular Hemoglobin Concent 34 g/dL (31-37) Red Cell Distribution Width 12.8 % (11.5-14.5) Platelet Count 433 x10^3/uL (140-400) Neutrophils (%) (Auto) 83 % (31-73) Lymphocytes (%) (Auto) 10 % (24-48) Monocytes (%) (Auto) 5 % (0-9) Eosinophils (%) (Auto) 2 % (0-3) Basophils (%) (Auto) 0 % (0-3) Neutrophils # (Auto) 13.6 x10^3/uL (1.8-7.7) Lymphocytes # (Auto) 1.7 x10^3/uL (1.0-4.8) Monocytes # (Auto) 0.7 x10^3/uL (0.0-1.1) Eosinophils # (Auto) 0.3 x10^3/uL (0.0-0.7) Basophils # (Auto) 0.1 x10^3/uL (0.0-0.2) Sodium Level 138 mmol/L (136-145) Potassium Level 3.5 mmol/L (3.5-5.1) Chloride Level 104 mmol/L (98-107) Carbon Dioxide Level 28 mmol/L (21-32) Anion Gap 6 (6-14) Blood Urea Nitrogen 10 mg/dL (8-26) Creatinine 1.0 mg/dL (0.7-1.3) Estimated GFR (Cockcroft-Gault) 76.0 Glucose Level 149 mg/dL (70-99) Calcium Level 9.0 mg/dL (8.5-10.1) Glucose (Fingerstick) 153 mg/dL (70-99) Laboratory Tests Test 07/24/20 11:30 07/24/20 11:49 07/24/20 16:37 07/24/20 19:42 Potassium Level 3.3 mmol/L (3.5-5.1) Glucose (Fingerstick) 75 mg/dL (70-99) 131 mg/dL (70-99) 101 mg/dL (70-99) Test 07/25/20 06:00 07/25/20 07:44 White Blood Count 16.3 x10^3/uL (4.0-11.0) Red Blood Count 3.30 x10^6/uL (4.30-5.70) Hemoglobin 10.3 g/dL (13.0-17.5) Hematocrit 30.6 % (39.0-53.0) Mean Corpuscular Volume 93 fL (79-100) Mean Corpuscular Hemoglobin 31 pg (25-35) Mean Corpuscular Hemoglobin Concent 34 g/dL (31-37) Red Cell Distribution Width 12.8 % (11.5-14.5) Platelet Count 433 x10^3/uL (140-400) Neutrophils (%) (Auto) 83 % (31-73) Lymphocytes (%) (Auto) 10 % (24-48) Monocytes (%) (Auto) 5 % (0-9) Eosinophils (%) (Auto) 2 % (0-3) Basophils (%) (Auto) 0 % (0-3) Neutrophils # (Auto) 13.6 x10^3/uL (1.8-7.7) Lymphocytes # (Auto) 1.7 x10^3/uL (1.0-4.8) Monocytes # (Auto) 0.7 x10^3/uL (0.0-1.1) Eosinophils # (Auto) 0.3 x10^3/uL (0.0-0.7) Basophils # (Auto) 0.1 x10^3/uL (0.0-0.2) Sodium Level 138 mmol/L (136-145) Potassium Level 3.5 mmol/L (3.5-5.1) Chloride Level 104 mmol/L (98-107) Carbon Dioxide Level 28 mmol/L (21-32) Anion Gap 6 (6-14) Blood Urea Nitrogen 10 mg/dL (8-26) Creatinine 1.0 mg/dL (0.7-1.3) Estimated GFR (Cockcroft-Gault) 76.0 Glucose Level 149 mg/dL (70-99) Calcium Level 9.0 mg/dL (8.5-10.1) Glucose (Fingerstick) 153 mg/dL (70-99) Microbiology 07/23/20 Blood Culture - Preliminary, Resulted NO GROWTH AFTER 2 DAYS 07/21/20 Gram Stain - Final, Resulted 07/21/20 Aerobic and Anaerobic Culture - Preliminary, Resulted 07/21/20 Antimicrobic Susceptibility - Preliminary, Resulted Medications Current Medications Insulin Human Lispro (HumaLOG) 0-9 UNITS TIDWMEALS SQ Last administered on 07/23/20at 08:29; Start 07/19/20 at 08:00 Dextrose (Dextrose 50%-Water Syringe) 12.5 gm PRN Q15MIN PRN IV SEE COMMENTS Last administered on 07/23/20at 16:44; Start 07/19/20 at 01:30 Sodium Chloride 1,000 ml @ 150 mls/hr Q6H40M IV Last administered on 07/24/20at 04:40; Start 07/19/20 at 02:00; Stop 07/24/20 at 08:32; Status DC Fentanyl Citrate (Fentanyl 2ml Vial) 50 mcg PRN Q3HRS PRN IVP SEVERE PAIN 7-10 Last administered on 07/25/20at 04:41; Start 07/19/20 at 01:30 Ondansetron HCl (Zofran) 4 mg PRN Q6HRS PRN IVP NAUSEA/VOMITING 1ST CHOICE; Start 07/19/20 at 01:30 Vancomycin HCl (Vanco Per Pharmacy) 1 each PRN DAILY PRN MC SEE COMMENTS Last administered on 07/19/20at 03:43; Start 07/19/20 at 01:30; Stop 07/19/20 at 10:57; Status DC Ceftriaxone Sodium (Rocephin) 1 gm Q24H IVP ; Start 07/19/20 at 21:00; Stop 07/19/20 at 10:56; Status DC Vancomycin HCl 2 gm/Sodium Chloride 500 ml @ 250 mls/hr Q24H IV ; Start 07/19/20 at 21:00; Stop 07/19/20 at 10:57; Status DC Vancomycin HCl (Vancomycin Trough Level) 1 each 1X ONCE MC ; Start 07/20/20 at 20:30; Stop 07/19/20 at 10:57; Status DC Insulin Human Lispro (HumaLOG) 20 units 1X ONCE SQ Last administered on 07/19/20at 08:49; Start 07/19/20 at 08:30; Stop 07/19/20 at 08:31; Status DC Atorvastatin Calcium (Lipitor) 10 mg HS PO Last administered on 07/24/20at 21:30; Start 07/19/20 at 21:00 Levothyroxine Sodium (Synthroid) 300 mcg DAILYAC PO Last administered on 07/25/20at 08:01; Start 07/20/20 at 07:30 Losartan Potassium (Cozaar) 50 mg DAILY PO Last administered on 07/24/20at 08:17; Start 07/19/20 at 11:00; Stop 07/24/20 at 09:23; Status DC Prednisone (Prednisone) 4 mg DAILY PO Last administered on 07/24/20at 08:16; Start 07/19/20 at 11:00 Calcium Carbonate/ Glycine (Tums) 500 mg PRN AFTMEALHC PRN PO INDIGESTION; Start 07/19/20 at 10:45 Diphenhydramine HCl (Benadryl) 25 mg PRN DAILY PRN PO ITCHING; Start 07/19/20 at 10:45 Doxazosin Mesylate (Cardura) 2 mg DAILY PO Last administered on 07/24/20at 08:17; Start 07/19/20 at 11:00 Insulin Glargine (Lantus Syringe) 25 unit QHS SQ Last administered on 07/22/20at 20:32; Start 07/19/20 at 21:00 Metformin HCl (Glucophage) 1,000 mg BIDWMEALS PO Last administered on 07/25/20at 08:03; Start 07/19/20 at 17:00 Insulin Human Lispro (HumaLOG) 20 units TIDAC SQ Last administered on 07/24/20at 17:12; Start 07/19/20 at 11:30 Piperacillin Sod/ Tazobactam Sod 3.375 gm/Sodium Chloride 50 ml @ 100 mls/hr Q6HRS IV Last administered on 07/23/20at 05:58; Start 07/19/20 at 12:00; Stop 07/23/20 at 07:44; Status DC Daptomycin 600 mg/ Sodium Chloride 50 ml @ 100 mls/hr Q24H IV Last administered on 07/20/20at 13:33; Start 07/19/20 at 11:00; Stop 07/21/20 at 10:39; Status DC Acetaminophen (Tylenol) 650 mg PRN Q4HRS PRN PO MILD PAIN / TEMP > 100.3'F; Start 07/19/20 at 23:45; Status Cancel Oxycodone HCl (Roxicodone) 5 mg PRN Q4HRS PRN PO BREAKTHROUGH PAIN Last administered on 07/23/20at 00:10; Start 07/20/20 at 11:30; Stop 07/23/20 at 09:06; Status DC Acetaminophen (Tylenol) 650 mg PRN Q4HRS PRN PO MILD PAIN / TEMP > 100.3'F Last administered on 07/21/20at 00:23; Start 07/21/20 at 00:00 Linezolid/Dextrose 300 ml @ 300 mls/hr Q12HR IV Last administered on 07/23/20at 08:17; Start 07/21/20 at 12:00; Stop 07/23/20 at 09:38; Status DC Daptomycin 970 mg/ Sodium Chloride 50 ml @ 100 mls/hr Q24H IV Last administered on 07/22/20at 13:32; Start 07/21/20 at 12:00; Stop 07/23/20 at 09:38; Status DC Fentanyl Citrate (Fentanyl 2ml Vial) 25 mcg PRN Q5MIN PRN IVP MILD PAIN 1-3; Start 07/21/20 at 12:15; Stop 07/21/20 at 16:01; Status DC Fentanyl Citrate (Fentanyl 2ml Vial) 50 mcg PRN Q5MIN PRN IVP MODERATE PAIN 4- 6; Start 07/21/20 at 12:15; Stop 07/21/20 at 16:01; Status DC Morphine Sulfate (Morphine Sulfate) 1 mg PRN Q10MIN PRN IVP SEVERE PAIN 7-10; Start 07/21/20 at 12:15; Stop 07/21/20 at 16:01; Status DC Ringer's Solution 1,000 ml @ 30 mls/hr Q24H IV Last administered on 07/21/20at 14:08; Start 07/21/20 at 12:15; Stop 07/22/20 at 00:14; Status DC Hydromorphone HCl (Dilaudid) 0.5 mg PRN Q10MIN PRN IVP SEVERE PAIN 7-10, 2nd CHOICE; Start 07/21/20 at 12:15; Stop 07/21/20 at 16:01; Status DC Prochlorperazine Edisylate (Compazine) 5 mg PACU PRN PRN IVP NAUSEA, MRX1; Start 07/21/20 at 12:15; Stop 07/21/20 at 16:01; Status DC Oxycodone/ Acetaminophen (Percocet 5/325) 1 tab PRN Q4HRS PRN PO MODERATE- SEVERE PAIN Last administered on 07/23/20at 00:10; Start 07/21/20 at 14:00; Stop 07/23/20 at 09:06; Status DC Propofol (Diprivan) 200 mg STK-MED ONCE IV ; Start 07/21/20 at 11:16; Stop 07/21/20 at 19:12; Status DC Lidocaine HCl (Lidocaine Pf 2% Vial) 5 ml STK-MED ONCE .ROUTE ; Start 07/21/20 at 11:16; Stop 07/21/20 at 19:12; Status DC Dexamethasone Sodium Phosphate (Decadron) 20 mg STK-MED ONCE .ROUTE ; Start 07/21/20 at 11:16; Stop 07/21/20 at 19:12; Status DC Ondansetron HCl (Zofran) 4 mg STK-MED ONCE .ROUTE ; Start 07/21/20 at 11:17; Stop 07/21/20 at 19:12; Status DC Succinylcholine Chloride (Anectine) 200 mg STK-MED ONCE .ROUTE ; Start 07/21/20 at 11:51; Stop 07/21/20 at 19:12; Status DC Sevoflurane (Ultane) 30 ml STK-MED ONCE IH ; Start 07/21/20 at 11:51; Stop 07/21/20 at 19:12; Status DC Etomidate (Amidate) 20 mg STK-MED ONCE IV ; Start 07/21/20 at 11:53; Stop 07/21/20 at 19:12; Status DC Lidocaine HCl (Lidocaine 1% 20ml Vial) 20 ml STK-MED ONCE .ROUTE ; Start 07/21/20 at 12:25; Stop 07/21/20 at 19:13; Status DC Silver Sulfadiazine (Silvadene) 25 [place] STK-MED ONCE TP ; Start 07/21/20 at 12:25; Stop 07/21/20 at 19:13; Status DC Bupivacaine HCl (Sensorcaine Mpf 0.25%) 30 ml STK-MED ONCE .ROUTE ; Start 07/21/20 at 12:25; Stop 07/21/20 at 19:13; Status DC Rocuronium [place] (Zemuron) 50 mg STK-MED ONCE .ROUTE ; Start 07/21/20 at 12:54; Stop 07/21/20 at 19:13; Status DC Dexamethasone Sodium Phosphate (Decadron) 4 mg STK-MED ONCE .ROUTE ; Start 07/21/20 at 13:00; Stop 07/21/20 at 19:13; Status DC Ondansetron HCl (Zofran) 4 mg STK-MED ONCE .ROUTE ; Start 07/21/20 at 13:00; Stop 07/21/20 at 19:13; Status DC Lidocaine HCl (Lidocaine Pf 2% Vial) 5 ml STK-MED ONCE .ROUTE ; Start 07/21/20 at 13:16; Stop 07/21/20 at 19:13; Status DC Fentanyl Citrate (Fentanyl 2ml Vial) 100 mcg STK-MED ONCE .ROUTE ; Start 07/21/20 at 13:16; Stop 07/21/20 at 19:13; Status DC Phenylephrine HCl (PHENYLEPHRINE in 0.9% NACL PF) 1 mg STK-MED ONCE IV ; Start 07/21/20 at 13:23; Stop 07/21/20 at 19:13; Status DC Enoxaparin Sodium (Lovenox 40mg Syringe) 40 mg Q24H SQ Last administered on 07/24/20at 08:16; Start 07/22/20 at 10:00 Lactobacillus Rhamnosus (Culturelle) 1 cap BID PO Last administered on 07/24/20at 21:30; Start 07/22/20 at 21:00 Oxycodone HCl (Roxicodone) 10 mg PRN Q4HRS PRN PO BREAKTHROUGH PAIN Last administered on 07/25/20at 06:01; Start 07/23/20 at 09:15 Nafcillin Sodium 2 gm/Dextrose 100 ml @ 200 mls/hr Q4HRS IV Last administered on 07/25/20at 08:03; Start 07/23/20 at 12:00 Bupivacaine HCl/ Epinephrine Bitart 50 ml/ Sodium Chloride 250 ml @ 0 mls/hr 1X ONCE IRR ; Start 07/23/20 at 10:45; Stop 07/23/20 at 10:46; Status UNV Bupivacaine HCl/ Epinephrine Bitart (Sensorcaine-Epi 0.25%-1:[id number] Mpf) 30 ml 1X ONCE INJ Last administered on 07/23/20at 11:15; Start 07/23/20 at 11:00; Stop 07/23/20 at 11:01; Status DC Potassium Bicarbonate (Potassium Effervescent Tablet) 40 meq 1X ONCE PO ; Start 07/24/20 at 05:45; Stop 07/24/20 at 05:46; Status Cancel Potassium Chloride (Klor-Con) 40 meq 1X ONCE PO Last administered on 07/24/20at 08:17; Start 07/24/20 at 06:45; Stop 07/24/20 at 06:46; Status DC Potassium Bicarbonate (Potassium Effervescent Tablet) 40 meq 1X ONCE PO ; Start 07/24/20 at 07:45; Stop 07/24/20 at 07:46; Status Cancel Potassium Bicarbonate (Potassium Effervescent Tablet) 40 meq 1X ONCE PO ; Start 07/24/20 at 06:00; Stop 07/24/20 at 06:01; Status Cancel Potassium Chloride (Klor-Con) 40 meq 1X ONCE PO Last administered on 07/24/20at 06:15; Start 07/24/20 at 06:00; Stop 07/24/20 at 06:08; Status DC Potassium Chloride (Klor-Con) 40 meq 1X ONCE PO Last administered on 07/24/20at 09:55; Start 07/24/20 at 07:45; Stop 07/24/20 at 07:46; Status DC Albuterol/ Ipratropium (Duoneb) 3 ml RTQID NEB Last administered on 07/25/20at 07:48; Start 07/24/20 at 12:00 Daptomycin 580 mg/ Sodium Chloride 50 ml @ 100 mls/hr Q24H IV Last administered on 07/24/20at 11:00; Start 07/24/20 at 10:00 Losartan Potassium (Cozaar) 100 mg DAILY PO ; Start 07/25/20 at 09:00 Losartan Potassium (Cozaar) 50 mg 1X ONCE PO Last administered on 07/24/20at 09:55; Start 07/24/20 at 10:00; Stop 07/24/20 at 10:01; Status DC Potassium Chloride (Klor-Con) 40 meq 1X ONCE PO Last administered on 07/24/20at 17:07; Start 07/24/20 at 17:00; Stop 07/24/20 at 17:01; Status DC Potassium Chloride (Klor-Con) 20 meq TIDWMEALS PO Last administered on 07/25/20at 08:04; Start 07/25/20 at 08:00 Hydralazine HCl (Apresoline) 50 mg TID PO Last administered on 07/24/20at 21:29; Start 07/24/20 at 21:15 Active Scripts Active Reported Prednisone 1 Mg Tablet 4 Mg PO DAILY Benadryl Allergy (Diphenhydramine Hcl) 25 Mg Tablet 25 Mg PO PRN DAILY PRN Rolaids Chewable Tablet (Calcium Carb/Magnesium Hydrox) 1 Each Tab.chew 1 Each PO PRN PRN Cardura (Doxazosin Mesylate) 2 Mg Tablet 2 Mg PO DAILY Levothyroxine Sodium 100 Mcg Tablet 300 Mcg PO DAILYAC Victoza 3-Mundo (Liraglutide) 0.6 Mg/0.1 Ml Pen.injctr 1.8 Mg SQ DAILY Lantus Solostar (Insulin Glargine,Hum.rec.anlog) 100 Unit/1 Ml Insuln.pen 25 Unit SQ HS Losartan Potassium 50 Mg Tablet 50 Mg PO DAILY Atorvastatin Calcium 10 Mg Tablet 10 Mg PO HS Vitals/I & O Vital Sign - Last 24 Hours 07/24/20 07/24/20 07/24/20 07/24/20 08:17 08:17 09:00 09:45 Pulse 79 79 B/P (MAP) 188/99 188/99 O2 Delivery Room Air Room Air 07/24/20 07/24/20 07/24/20 07/24/20 09:55 10:54 11:01 11:54 Temp 98.5 98.5 Pulse 79 83 Resp 18 B/P (MAP) 188/99 147/75 (99) Pulse Ox 98 O2 Delivery Room Air Room Air Room Air 07/24/20 07/24/20 07/24/20 07/24/20 12:11 15:00 15:15 16:23 Temp 98.3 98.3 Pulse 85 Resp 18 B/P (MAP) 185/96 (125) Pulse Ox 97 97 O2 Delivery Room Air Room Air Room Air Room Air 07/24/20 07/24/20 07/24/20 07/24/20 16:23 17:07 19:00 20:03 Temp 98.8 98.8 Pulse 93 Resp 20 B/P (MAP) 176/93 (120) Pulse Ox 95 95 O2 Delivery Room Air Room Air Room Air Room Air O2 Flow Rate 6.0 07/24/20 07/24/20 07/24/20 07/24/20 20:11 21:29 22:01 22:44 Temp 99.7 99.7 Pulse 93 92 Resp 20 B/P (MAP) 176/93 164/80 (108) Pulse Ox 95 96 O2 Delivery Room Air Room Air Room Air O2 Flow Rate 6.0 07/25/20 07/25/20 07/25/20 07/25/20 01:57 02:36 04:41 07:48 Temp 98.6 98.6 Pulse 84 Resp 18 B/P (MAP) 182/91 (121) Pulse Ox 97 98 O2 Delivery Room Air Room Air Room Air Room Air Intake and Output 07/24/20 07/24/20 07/25/20 15:00 23:00 07:00 Intake Total 250 ml 480 ml 100 ml Output Total 600 ml 1400 ml 600 ml Balance -350 ml -920 ml -500 ml Justifications for Admission Other Justification POLO ALICIA MD July 25, 2020 08:08
[2020-07-25] MEDS: INSULIN LISPRO 300 UNITS/3 ML VIAL. SQ SCH ×6 (08:10→16:53)
--- NOTE | 2020-07-25 08:38 | PDOC ---
Infectious Disease Note Subjective: Subjective Patient feels the same Lt foot pain and swelling unchanged Denies any fever, chills, nausea, vomiting, diarrhea, abdominal pain or symptoms Vital Signs: Vital Signs Vital Signs Date Time Temp Pulse Resp B/P (MAP) Pulse Ox O2 Delivery O2 Flow Rate FiO2 07/25/20 08:22 Room Air 07/25/20 07:48 98 07/25/20 02:36 98.6 84 18 182/91 (121) 98.6 07/24/20 22:01 6.0 Physical Exam: PHYSICAL EXAM GENERAL: Alert awake oriented x3 male in no acute distress HEENT: Normocephalic, atraumatic. Anicteric. No thrush. NECK: Supple. No JVD. LUNGS: Clear bilaterally. HEART: S1, S2 heard. No murmurs. ABDOMEN: Soft, obese. Bowel sounds present. GENITOURINARY: No Santana, Briefs in place. EXTREMITIES: Bilateral foot dressing taken down, deep wound right dorsal foot, there is no gross purulence; left foot dorsal swelling, erythema, new swelling on the left lateral foot NEUROLOGIC: Alert oriented x3 moves all 4 extremities. PSYCHIATRIC: Calm and cooperative. PIV looks clean. Medications: Inpatient Meds: Medications reviewed. Labs: Lab Laboratory Tests Test 07/24/20 11:30 07/24/20 11:49 07/24/20 16:37 07/24/20 19:42 Potassium Level 3.3 mmol/L (3.5-5.1) Glucose (Fingerstick) 75 mg/dL (70-99) 131 mg/dL (70-99) 101 mg/dL (70-99) Test 07/25/20 06:00 07/25/20 07:44 White Blood Count 16.3 x10^3/uL (4.0-11.0) Red Blood Count 3.30 x10^6/uL (4.30-5.70) Hemoglobin 10.3 g/dL (13.0-17.5) Hematocrit 30.6 % (39.0-53.0) Mean Corpuscular Volume 93 fL (79-100) Mean Corpuscular Hemoglobin 31 pg (25-35) Mean Corpuscular Hemoglobin Concent 34 g/dL (31-37) Red Cell Distribution Width 12.8 % (11.5-14.5) Platelet Count 433 x10^3/uL (140-400) Neutrophils (%) (Auto) 83 % (31-73) Lymphocytes (%) (Auto) 10 % (24-48) Monocytes (%) (Auto) 5 % (0-9) Eosinophils (%) (Auto) 2 % (0-3) Basophils (%) (Auto) 0 % (0-3) Neutrophils # (Auto) 13.6 x10^3/uL (1.8-7.7) Lymphocytes # (Auto) 1.7 x10^3/uL (1.0-4.8) Monocytes # (Auto) 0.7 x10^3/uL (0.0-1.1) Eosinophils # (Auto) 0.3 x10^3/uL (0.0-0.7) Basophils # (Auto) 0.1 x10^3/uL (0.0-0.2) Sodium Level 138 mmol/L (136-145) Potassium Level 3.5 mmol/L (3.5-5.1) Chloride Level 104 mmol/L (98-107) Carbon Dioxide Level 28 mmol/L (21-32) Anion Gap 6 (6-14) Blood Urea Nitrogen 10 mg/dL (8-26) Creatinine 1.0 mg/dL (0.7-1.3) Estimated GFR (Cockcroft-Gault) 76.0 Glucose Level 149 mg/dL (70-99) Calcium Level 9.0 mg/dL (8.5-10.1) Glucose (Fingerstick) 153 mg/dL (70-99) Micro RUN DATE: 07/22/20 [facility] *LIVE* PAGE 1 RUN TIME: 0930 Specimen Inquiry PATIENT: DASHAWN GOMEZ ACCT: [id number] LOC: [facility] U: [id number] AGE/SX: 60/M ROOM: RE07/18/[address]: CAROLEE ZHOU MD : 1960 BED: DIS: STATUS: DEP ER TLOC: SPEC #: [id number] SANDOR: 07/18/20 STATUS: COMP REQ #: [id number] RECD: 07/18/[address]: CAROLEE ZHOU MD SOURCE: BLOOD ENTR: 07/19/20-[address]: [facility] ORDERED: BLOOD CULT-LC Procedure Result BLOOD CULTURE LC Final Final GROWTH OF GRAM POSITIVE COCCI FINAL ID= [STAPHYLOCOCCUS AUREUS] STAPHYLOCOCCUS AUREUS ANTIMICROBIAL SUSCEPTIBILITY Final Comment POS PRESTON TYPE 38 STAPHYLOCOCCUS AUREUS ANTIBIOTIC RESULT INTERPRETATION AZITHROMYCIN <=2 S CLINDAMYCIN <=0.25 S CEFOXITIN SCREEN <=4 NEG CIPROFLOXACIN <=1 S CEFTAROLINE <=0.5 S DAPTOMYCIN <=0.5 S ERYTHROMYCIN <=0.25 S GENTAMICIN <=4 S LINEZOLID <=1 S LEVOFLOXACIN <=1 S OXACILLIN 0.5 S PENICILLIN >2 Anton RIFAMPIN <=1 S TRIMETHOPRIM/SULFAMETHOXAZOLE <=0.5/9.5 S TETRACYCLINE <=4 S VANCOMYCIN 1 S Unless otherwise specified, Testing Performed by: [address] [id number] For Inquires, the Physician may contact the Microbiology department at [phone] RUN DATE: 07/23/20 [facility] *LIVE* PAGE 1 RUN TIME: 0851 Specimen Inquiry PATIENT: DASHAWN GOMEZ ACCT: [id number] LOC: [address] [place] [address] U: [id number] AGE/SX: 60/M ROOM: 4 RE07/19/[address]: JOESPH BIRMINGHAM MD : 1960 BED: 1 DIS: STATUS: ADM IN TLOC: SPEC #: [id number] SANDOR: 07/20/20 STATUS: COMP REQ #: [id number] RECD: 07/20/[address]: JAMA HERNANDEZ MD SOURCE: BLOOD ENTR: 07/21/[address] [facility] [address]: [facility]ER[facility]IMO KO [facility] CRISTIAN NG AHMED M MD MONAHAN, TIMOTHY J MD ORDERED: BLD CULT - LC Procedure Result BLOOD CULTURE LC Final Final GRAM POSITIVE COCCI FINAL ID= [STAPHYLOCOCCUS AUREUS] STAPHYLOCOCCUS AUREUS ANTIMICROBIAL SUSCEPTIBILITY Final Comment POS PRESTON TYPE 38 STAPHYLOCOCCUS AUREUS ANTIBIOTIC RESULT INTERPRETATION AZITHROMYCIN <=2 S CLINDAMYCIN <=0.25 S CEFOXITIN SCREEN <=4 NEG CIPROFLOXACIN <=1 S CEFTAROLINE <=0.5 S DAPTOMYCIN <=0.5 S ERYTHROMYCIN <=0.25 S GENTAMICIN <=4 S LINEZOLID <=1 S LEVOFLOXACIN <=1 S OXACILLIN 0.5 S PENICILLIN >2 Anton RIFAMPIN <=1 S TRIMETHOPRIM/SULFAMETHOXAZOLE <=0.5/9.5 S TETRACYCLINE <=4 S VANCOMYCIN 1 S Unless otherwise specified, Testing Performed by: [address] [id number] For Inquires, the Physician may contact the Microbiology department at [phone] wound cult Staph aureus Objective: Assessment: Severe sepsis from Staph aureus bacteremia present on admission at [facility] Methicillin Staph aureus bacteremia 4 out of 4 bottles at [facility] 07/18/20 Staph aureus bacteremia here July 20, 2020 1. Fever Source Rt foot dorsal abscess 2. Leukocytosis and lactic acidosis.Bandemia. 3. Bilateral lower extremity cellulitis,deep tissue infection of both feet. Right greater than left with Rt foot abscess. s/p I and D on 07/22 CRP 291.2 ESR 136 Cult gpc 4. 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 Diabetes with neuropathy, poorly controlled. 6. Noncompliance. 7. Acute kidney injury. Rhabdo 8. Hematuria. 9. Hyponatremia. 10. Hypertension. 11. Encephalopathy, likely metabolic. Plan: Plan of Care Continue Nafcillin Cont daptomycin 07/24 BRYAN on 07/26, cardiology consulted f/u Repeat blood cultures 07/22 neg so far F/U Wound cult Local wound care as directed Follow up labs Vascular surgery attempted aspiration of the left dorsal foot swelling, no purulence Follow-up MRI Probiotics Continue supportive care Discussed with JAMA LAU MD July 25, 2020 08:38
[2020-07-25] MEDS: predniSONE 1 MG TABLET PO SCH (08:57)
[2020-07-25] MEDS: LACTOBACILLUS RHAMNOSUS GG 1 CAPSULE. PO SCH ×2 (08:57→20:37)
[2020-07-25] MEDS: DOXAZOSIN MESYLATE 1 MG TABLET. PO SCH (08:57)
[2020-07-25] MEDS: LOSARTAN POTASSIUM 50 MG TABLET. PO SCH (08:58)
--- NOTE | 2020-07-25 09:40 | PN ---
DATE: 07/25/2020 SUBJECTIVE: The patient is resting, slightly propped up in bed, in no apparent distress. He is complaining of pain in his left foot. His blood culture has grown methicillin-sensitive Staphylococcus aureus. He is scheduled for MRI of his left foot, but still pending at time of this dictation. OBJECTIVE: GENERAL: When I examined him, he looked pale. No jaundice, cyanosis or thyromegaly. No jugular venous distention. No limb edema. VITAL SIGNS: His heart rate was 84, blood pressure was 182/91, temperature was 98.6, respiratory rate was 18 and oxygen saturation was 98% on room air. HEAD, EYES, EARS, NOSE AND THROAT: Showed normocephalic, atraumatic. NECK: Supple. HEART: Normal first and second heart sounds. No gallop, rub or murmur. CHEST: Clear to auscultation. No crepitation or rhonchi. ABDOMEN: Distended, soft, nontender. NEUROLOGIC: He is awake, alert, responding appropriately. All his cranial nerves intact. He moves extremities without difficulty. SKIN: Has wounds on the dorsal aspect of the right foot, covered with dressing. Has also wounds in the left third toe. His intake over the last 24 hours was 1070, output was 3100. LABORATORY DATA: As of this morning, his serum sodium was 138, potassium 3.5, chloride 104, bicarbonate 28, anion gap of 6, BUN 10, creatinine 1, estimated GFR was 76 mL per minute. His glucose was 149, calcium was 9. ASSESSMENT: 1. Bilateral lower extremity cellulitis. 2. Abscess of the dorsum of the right foot, status post incision and drainage. 3. Nonhealing diabetic third toe ulcer. 4. Left third toe osteomyelitis. 5. Type 2 diabetes mellitus, diabetic peripheral neuropathy. 6. Acute on chronic kidney injury, improving. His creatinine is 1 mg/dL. 7. Hyponatremia, resolved. 8. Hypokalemia, resolved. His potassium is up to 3.5. 9. Hypertension, suboptimally controlled. I increased losartan to 100 mg and hydralazine 50 mg 3 times a day. 10. Methicillin-sensitive Staphylococcus aureus bacteremia, for which he is on nafcillin 2 grams IV every 4 hours and daptomycin 6 mg/kg IV once a day. PLAN: Obviously to continue with IV antibiotic. Continue with DVT prophylaxis. Continue to monitor his blood sugar and adjust the insulin as needed. Continue with pain management. Continue with wound care. Await the MRI for further evaluation. ALEXANDRE DR: Sarahy TID: [id number]
[2020-07-25] MEDS: DAPTOmycin (GENERIC) IVPB 580 MG in IV NORMAL SALINE 50ML 50 ML IV SCH (09:57)
[2020-07-25] MEDS: ENOXAPARIN 40 MG/0.4 ML SYRINGE. SQ SCH (09:58)
[2020-07-25 11:00] VITALS: BP 177/90
[2020-07-25 15:00] VITALS: BP 183/79
--- NOTE | 2020-07-25 15:42 | PDOC ---
Date of Service: DATE: 07/25/20 TIME: 15:41 Progress Note: The patient was seen and examined. We have been requested to perform a BRYAN tomorrow to exclude endocarditis in the patient's clinical setting. The procedure was discussed and explained to the patient. Risk and benefits were discussed. He has agreed to proceed. We will schedule a BRYAN tomorrow. Thank you for allowing us to participate in the care of your patient. Justifications for Admission Other Justification ALAN CRUZ MD July 25, 2020 15:42
[2020-07-25 19:00] VITALS: BP 158/80
[2020-07-25] MEDS: ATORVASTATIN CALCIUM 10 MG TABLET. PO SCH (20:38)
[2020-07-25] MEDS: INSULIN GLARGINE SYRINGE. SQ SCH (20:51)
[2020-07-25 22:52] VITALS: BP 180/95
[2020-07-26] VITALS (12 sets, daily range): BP systolic 149–195; BP diastolic 71–99
[2020-07-26] MEDS ORDERED: ALBUTEROL SULFATE 2.5 MG/3 ML NEBU. NEB PRN (00:30)
[2020-07-26] MEDS: NAFCILLIN 2 GM in IV DEXTROSE 5% 100ML 100 ML IV SCH ×5 (03:32→20:32)
[2020-07-26] MEDS: fentaNYL PF VIAL 100 MCG/2 ML VIAL IVP PRN ×6 (03:32→20:33)
[2020-07-26 07:11] LABS: HEMATOCRIT 31.3 % (39.0-53.0); HEMOGLOBIN 10.6 g/dL (13.0-17.5); RED BLOOD COUNT 3.36 x10^6/uL (4.30-5.70); RED CELL DISTRIBUTION WIDTH 12.8 % (11.5-14.5); WHITE BLOOD COUNT 13.4 x10^3/uL (4.0-11.0)
[2020-07-26 07:28] LABS: CALCIUM 9.6 mg/dL (8.5-10.1); CREATININE 1.1 mg/dL (0.7-1.3); GFR 68.1; POTASSIUM 3.3 mmol/L (3.5-5.1)
[2020-07-26] MEDS: INSULIN LISPRO 300 UNITS/3 ML VIAL. SQ SCH ×6 (07:30→17:10)
[2020-07-26] MEDS: LEVOTHYROXINE 100 MCG TABLET PO SCH (07:30)
[2020-07-26] MEDS: metFORMIN 500 MG TABLET PO SCH ×2 (08:00→16:17)
[2020-07-26] MEDS: POTASSIUM CHLORIDE 20 MEQ TABLET.ER. PO SCH ×3 (08:00→16:17)
[2020-07-26] MEDS: LACTOBACILLUS RHAMNOSUS GG 1 CAPSULE. PO SCH ×2 (09:00→20:30)
[2020-07-26] MEDS: LOSARTAN POTASSIUM 50 MG TABLET. PO SCH (09:00)
[2020-07-26] MEDS: DOXAZOSIN MESYLATE 1 MG TABLET. PO SCH (09:00)
[2020-07-26] MEDS: predniSONE 1 MG TABLET PO SCH (09:00)
--- NOTE | 2020-07-26 09:42 | PDOC ---
Infectious Disease Note Subjective: Subjective Patient feels the same Lt foot pain and swelling unchanged Awaiting MRI of the left foot Awaiting BRYAN today Denies any fever, chills, nausea, vomiting, diarrhea, abdominal pain or symptoms Vital Signs: Vital Signs Vital Signs Date Time Temp Pulse Resp B/P (MAP) Pulse Ox O2 Delivery O2 Flow Rate FiO2 07/26/20 08:13 96 Room Air 6.0 07/26/20 07:00 98.5 71 18 195/99 (131) 98.5 Physical Exam: PHYSICAL EXAM GENERAL: Alert awake oriented x3 male in no acute distress HEENT: Normocephalic, atraumatic. Anicteric. No thrush. NECK: Supple. No JVD. LUNGS: Clear bilaterally. HEART: S1, S2 heard. No murmurs. ABDOMEN: Soft, obese. Bowel sounds present. GENITOURINARY: No Santana, Briefs in place. EXTREMITIES: Bilateral foot dressing taken down, deep wound right dorsal foot, there is no gross purulence; left foot dorsal swelling, erythema, new swelling on the left lateral foot NEUROLOGIC: Alert oriented x3 moves all 4 extremities. PSYCHIATRIC: Calm and cooperative. PIV looks clean. Medications: Inpatient Meds: Medications reviewed. Labs: Lab Laboratory Tests Test 07/25/20 11:13 07/25/20 16:26 07/25/20 18:43 07/26/20 06:00 Glucose (Fingerstick) 77 mg/dL (70-99) 182 mg/dL (70-99) 144 mg/dL (70-99) White Blood Count 13.4 x10^3/uL (4.0-11.0) Red Blood Count 3.36 x10^6/uL (4.30-5.70) Hemoglobin 10.6 g/dL (13.0-17.5) Hematocrit 31.3 % (39.0-53.0) Mean Corpuscular Volume 93 fL (79-100) Mean Corpuscular Hemoglobin 32 pg (25-35) Mean Corpuscular Hemoglobin Concent 34 g/dL (31-37) Red Cell Distribution Width 12.8 % (11.5-14.5) Platelet Count 477 x10^3/uL (140-400) Sodium Level 138 mmol/L (136-145) Potassium Level 3.3 mmol/L (3.5-5.1) Chloride Level 102 mmol/L (98-107) Carbon Dioxide Level 33 mmol/L (21-32) Anion Gap 3 (6-14) Blood Urea Nitrogen 9 mg/dL (8-26) Creatinine 1.1 mg/dL (0.7-1.3) Estimated GFR (Cockcroft-Gault) 68.1 Glucose Level 117 mg/dL (70-99) Calcium Level 9.6 mg/dL (8.5-10.1) Test 07/26/20 07:06 Glucose (Fingerstick) 117 mg/dL (70-99) Micro RUN DATE: 07/22/20 [facility] LAB *LIVE* PAGE 1 RUN TIME: 929 Specimen Inquiry PATIENT: DASHAWN GOMEZ ACCT: [id number] LOC: SIOBHAN U: [id number] AGE/SX: 60/M ROOM: RE07/18/[address]: CAROLEE ZHOU MD : 1960 BED: DIS: STATUS: IVORY MCCANN TLOC: SPEC #: :[id number] SANDOR: 07/18/20 STATUS: COMP REQ #: [id number] RECD: 07/18/[address] [facility] [address]: CAROLEE ZHOU MD SOURCE: BLOOD ENTR: 07/19/20-151 [facility] [address]: JERONIMO KO MD [facility]: ORDERED: BLOOD CULT-LC Procedure Result BLOOD CULTURE LC Final Final GROWTH OF GRAM POSITIVE COCCI FINAL ID= [STAPHYLOCOCCUS AUREUS] STAPHYLOCOCCUS AUREUS ANTIMICROBIAL SUSCEPTIBILITY Final Comment POS PRESTON TYPE 38 STAPHYLOCOCCUS AUREUS ANTIBIOTIC RESULT INTERPRETATION AZITHROMYCIN <=2 S CLINDAMYCIN <=0.25 S CEFOXITIN SCREEN <=4 NEG CIPROFLOXACIN <=1 S CEFTAROLINE <=0.5 S DAPTOMYCIN <=0.5 S ERYTHROMYCIN <=0.25 S GENTAMICIN <=4 S LINEZOLID <=1 S LEVOFLOXACIN <=1 S OXACILLIN 0.5 S PENICILLIN >2 Anton RIFAMPIN <=1 S TRIMETHOPRIM/SULFAMETHOXAZOLE <=0.5/9.5 S TETRACYCLINE <=4 S VANCOMYCIN 1 S Unless otherwise specified, Testing Performed by: [address] [address] For Inquires, the Physician may contact the Microbiology department at [phone] --- --------- RUN DATE: 07/23/20 [facility] LAB *LIVE* PAGE 1 RUN TIME: 850 Specimen Inquiry PATIENT: DASHAWN GOMEZ Sheri ACCT: [id number] LOC: [address] [place] [address] U: [id number] AGE/SX: 60/M ROOM: [facility] RE07/19/[address]: JOESPH BIRMINGHAM MD : 1960 BED: 1 DIS: STATUS: ADM IN TLOC: SPEC #: [id number] SANDOR: 07/20/20 STATUS: COMP REQ #: [id number] RECD: 07/20/[address]: JAMA HERNANDEZ MD SOURCE: BLOOD ENTR: 07/21/20 [facility] [address]: JERONIMO KO MD [facility]: CRISTIAN NG AHMED M MD MONAHAN, TIMOTHY J MD ORDERED: BRII CULT - LC Procedure Result BLOOD CULTURE LC Final Final GRAM POSITIVE COCCI FINAL ID= [STAPHYLOCOCCUS AUREUS] STAPHYLOCOCCUS AUREUS ANTIMICROBIAL SUSCEPTIBILITY Final Comment POS PRESTON TYPE 38 STAPHYLOCOCCUS AUREUS ANTIBIOTIC RESULT INTERPRETATION AZITHROMYCIN <=2 S CLINDAMYCIN <=0.25 S CEFOXITIN SCREEN <=4 NEG CIPROFLOXACIN <=1 S CEFTAROLINE <=0.5 S DAPTOMYCIN <=0.5 S ERYTHROMYCIN <=0.25 S GENTAMICIN <=4 S LINEZOLID <=1 S LEVOFLOXACIN <=1 S OXACILLIN 0.5 S PENICILLIN >2 Anton RIFAMPIN <=1 S TRIMETHOPRIM/SULFAMETHOXAZOLE <=0.5/9.5 S TETRACYCLINE <=4 S VANCOMYCIN 1 S Unless otherwise specified, Testing Performed by: [address] [address] For Inquires, the Physician may contact the Microbiology department at [phone] wound cult Staph aureus Objective: Assessment: Severe sepsis from Staph aureus bacteremia present on admission at [facility] Methicillin Staph aureus bacteremia 4 out of 4 bottles at [facility] 07/18/20 Staph aureus bacteremia here July 20, 2020 1. Fever Source Rt foot dorsal abscess 2. Leukocytosis and lactic acidosis.Bandemia. 3. Bilateral lower extremity cellulitis,deep tissue infection of both feet. Right greater than left Rt foot abscess. s/p I and D on 07/22 CRP 291.2 ESR 136 Cult MSSA 4. 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 Diabetes with neuropathy, poorly controlled. 6. Noncompliance. 7. Acute kidney injury. Rhabdo 8. Hematuria. 9. Hyponatremia. 10. Hypertension. 11. Encephalopathy, likely metabolic. Plan: Plan of Care Awaiting MRI Lt foot Continue Nafcillin Cont daptomycin 07/24 BRYAN on 07/26, cardiology consulted f/u Repeat blood cultures 07/22 neg so far F/U Wound cult Local wound care as directed Follow up labs Vascular surgery attempted aspiration of the left dorsal foot swelling, no purulence Probiotics Continue supportive care Avoid placing PICC line until repeat blood cultures are negative for at least 48 to 72 hours Discussed with daughter at bedside Discussed with JAMA LUA MD Jul 26, 2020 09:42
[2020-07-26] MEDS: ENOXAPARIN 40 MG/0.4 ML SYRINGE. SQ SCH (10:00)
[2020-07-26] MEDS: DAPTOmycin (GENERIC) IVPB 580 MG in IV NORMAL SALINE 50ML 50 ML IV SCH (10:26)
[2020-07-26] MEDS ORDERED: LIDOCAINE 2% TOPICAL JELLY 30GM TUBE. TP ONE (11:15)
[2020-07-26] MEDS ORDERED: LIDOCAINE 2% VISCOUS 15 ML SOLUTION. SWSW ONE (11:15)
[2020-07-26] MEDS ORDERED: BENZOCAINE ONE 20% MUCOSAL SPRAY. MM (11:15)
[2020-07-26] MEDS ORDERED: LIDOCAINE 2% PF 5 ML VIAL. ONE (11:44)
[2020-07-26] MEDS ORDERED: PROPOFOL 10 MG/ML (20ML) VIAL. IV ONE (11:44)
[2020-07-26] MEDS ORDERED: INSULIN LISPRO 100 UNIT/ML 3ML VIAL for OP,RR ONLY. SQ PRN (12:15)
[2020-07-26] MEDS: IV RINGERS,LACTATED 1000ML 1,000 ML IV SCH (12:21)
--- NOTE | 2020-07-26 14:29 | PN ---
DATE: 07/26/2020 SUBJECTIVE: The patient is resting, slightly propped up in his recliner in no apparent distress, awake, alert and questioning. He continued to complain of pain. He is apparently scheduled for an MRI of his feet and also transesophageal echocardiogram to rule out possibility of Endocarditis. OBJECTIVE: GENERAL: When I saw him this morning, he looked pale, but no jaundice or cyanosis. No lymphadenopathy, no thyromegaly, no jugular venous distention, no lower limb edema. VITAL SIGNS: His heart rate was 71, blood pressure was 195/99, temperature was 98.5, respiratory rate was 18 and oxygen saturation was 96% on 6 liters of oxygen. HEAD, EYES, EARS, NOSE AND THROAT: Normocephalic, atraumatic. NECK: Supple. HEART: Normal first and second heart sounds. No gallop or murmur. CHEST: Clear to auscultation, no crepitation or rhonchi. ABDOMEN: Distended, soft, nontender, no guarding or rigidity. No organomegaly. All hernial orifice intact. Bowel sounds normal. NEUROLOGIC: He was grossly intact. EXTREMITIES: He has wounds at the dorsum aspect of his right foot and also the left third toe was covered with dressing. His intake was 830, output was 2600. LABORATORY DATA: His serum sodium this morning was 138, potassium 3.3, chloride 102, bicarbonate 33, anion gap of 3, BUN 9, creatinine 1.1. Estimated GFR was 68 mL per minute. His glucose was 117 and calcium was 9.6. His white cell count is down to 13,400, hemoglobin 11, hematocrit 31, MCV 93 and platelet count of 477,000. ASSESSMENT: 1. Bilateral lower extremity cellulitis. 2. Abscess of the dorsum of the right foot, status post incision and drainage. 3. Nonhealing diabetic third toe ulcer. 4. Left third toe osteomyelitis. 5. Type 2 diabetes mellitus, diabetic peripheral neuropathy. 6. Acute on chronic kidney injury, improving. His creatinine is down to 1.1. 7. Hyponatremia, resolved. 8. Hypokalemia, continues despite supplementation. His potassium is 3.3 this morning. 9. Hypertension, suboptimally controlled. Increase his losartan to 100 mg and hydralazine to 50 mg 3 times a day. 10. Methicillin-sensitive Staphylococcus aureus bacteremia, for which he is on nafcillin 2 grams IV q.4 hours as well as daptomycin 6 mg IV once a day. PLAN: To obviously continue with IV antibiotic. Continue with DVT prophylaxis. Continue monitoring his blood sugar and adjust insulin as needed. He is apparently scheduled for BRYAN and MRI today. GILL DR: Sarahy TID: [id number]
--- NOTE | 2020-07-26 14:44 | NUR ---
SW following. Discussed with RN, pt from home with family, room air. SW met with pt RE Dr. Moore recommending LTAC. Katie (SS) ran benefits for home infusion last week - pt would be responsible for approx $400 per day. SW met with pt and pt's family at bedside - he still wants to go home, but abx have changed so would like to check benefits again. Pt reported he follows at the [place] wound clinic and would like to continue to follow there. SW requested new benefits from [facility]. RN notified. SW will continue to follow.
--- NOTE | 2020-07-26 15:24 | CARD ---
MR#: [id number] Date of Study: 07/26/2020 Ordering Physician: JAMA HERNANDEZ, Referring Physician: JAMA HERNANDEZ, Tech: Kay Branham [facility] APPROVED REPORT EXAM: Transesophageal echocardiogram with color flow Doppler. INDICATION RISK FACTORS Hypertension Obesity Reason For Test : Rule out endocarditis. PROCEDURE Type of Sedation : General Anesthesia Sedation was achieved with Propofol 130mg intravenously. The BRYAN was performed without complications. Throughout the procedure, the blood pressure, pulse oximetry, cardiac rhythm, and rate were monitored . LEFT VENTRICLE The left ventricle is normal size. There is normal left ventricular wall thickness. The left ventricu lar systolic function is normal. Estimated ejection fraction 55-60%. There is normal LV segmental wa ll motion. RIGHT VENTRICLE The right ventricle is normal size. There is normal right ventricular wall thickness. The right ventr icular systolic function is normal. ATRIA The left atrium size is normal. The right atrium size is normal. Prominent chiari network is visualiz ed. The interatrial septum is intact with no evidence for an atrial septal defect or patent foramen o asad as noted on 2-D or Doppler imaging. AORTIC VALVE The aortic valve is normal in structure and function. Doppler and Color Flow revealed no significant aortic regurgitation. There is no significant aortic valvular stenosis. MITRAL VALVE The mitral valve is normal in structure and function. There is no evidence of mitral valve prolapse. There is no mitral valve stenosis. Doppler and Color-flow revealed mild mitral regurgitation. TRICUSPID VALVE The tricuspid valve is normal in structure and function. Doppler and Color Flow revealed trace tricus pid valve regurgitation. There is no tricuspid valve stenosis. PULMONIC VALVE The pulmonary valve is normal in structure and function. Doppler and Color Flow revealed no pulmonic valvular regurgitation. GREAT VESSELS The aortic root is normal in size. The ascending aorta is normal in size. PERICARDIAL EFFUSION There is no evidence of significant pericardial effusion. <Conclusion> The left ventricular systolic function is normal. Estimated ejection fraction 55-60%. There is normal LV segmental wall motion. Mild mitral regurgitation. Trace tricuspid valve regurgitation. There is no evidence of significant pericardial effusion. No intracardiac vegetation or thrombus. Signed by : Gildardo Humphreys, Electronically Approved : 07/26/2020 15:24:15
--- NOTE | 2020-07-26 16:15 | NUR ---
Wound Care Wound Type/Assessment: Pt seen for wound care follow up for L 3rd toe partial amputation and R lateral/dorsal foot wound. Left toe amp site well approximated, sutures intact, incision line cleaned and photographed. R foot wound is slough covered, with minimal pink tissue present in the base, periwound pink and edematous, pt would benefit from Vac Veraflo, will ask Vascular. Treatment Recommendations/Plan: L 3rd toe incision redressed with dry gauze and tape, per Vascular order. R foot wound redressed with Xeroform gauze and ABD, kerlix temporarily until Vascular returns call re: Vac order. Education provided: to pt and family re: wound vac and dressing changes. Offloading surface/device: Heelmedix boots ordered but pt has not been wearing them, defer to Vascular re: weightbearing status. Recommended Referrals/Tests: n/a Discharge Recommendations for dressings: will continue to follow for any changes. Requested to place wound vac on R foot wound, spoke with JOHNNA Shukla with Vascular. She would like us to hold off until they assess wound in the morning, will f/u after hearing back from Vascular.
[2020-07-26] MEDS: oxyCODONE IR 5 MG TABLET PO PRN ×2 (16:16→22:05)
[2020-07-26] MEDS: ATORVASTATIN CALCIUM 10 MG TABLET. PO SCH (20:30)
[2020-07-26] MEDS: INSULIN GLARGINE SYRINGE. SQ SCH (20:44)
[2020-07-27] VITALS (15 sets, daily range): BP systolic 110–182; BP diastolic 68–95
[2020-07-27] MEDS: NAFCILLIN 2 GM in IV DEXTROSE 5% 100ML 100 ML IV SCH ×6 (00:58→20:14)
[2020-07-27] MEDS: IV RINGERS,LACTATED 1000ML 1,000 ML IV SCH ×2 (01:35→14:55)
[2020-07-27] MEDS: fentaNYL PF VIAL 100 MCG/2 ML VIAL IVP PRN ×6 (03:31→20:13)
[2020-07-27] MEDS: oxyCODONE IR 5 MG TABLET PO PRN ×4 (05:23→22:06)
[2020-07-27 07:25] LABS: CALCIUM 9.5 mg/dL (8.5-10.1); CREATININE 1.1 mg/dL (0.7-1.3); GFR 68.1; POTASSIUM 3.2 mmol/L (3.5-5.1)
[2020-07-27] MEDS: INSULIN LISPRO 300 UNITS/3 ML VIAL. SQ SCH ×6 (07:30→17:00)
[2020-07-27] MEDS: predniSONE 1 MG TABLET PO SCH (07:40)
[2020-07-27] MEDS: metFORMIN 500 MG TABLET PO SCH ×2 (07:40→17:36)
[2020-07-27] MEDS: LACTOBACILLUS RHAMNOSUS GG 1 CAPSULE. PO SCH ×2 (07:40→20:14)
[2020-07-27] MEDS: LEVOTHYROXINE 100 MCG TABLET PO SCH (07:42)
[2020-07-27] MEDS: LOSARTAN POTASSIUM 50 MG TABLET. PO SCH (07:43)
[2020-07-27] MEDS: POTASSIUM CHLORIDE 20 MEQ TABLET.ER. PO SCH ×3 (07:43→17:36)
[2020-07-27] MEDS: DOXAZOSIN MESYLATE 1 MG TABLET. PO SCH (07:45)
--- NOTE | 2020-07-27 08:44 | PDOC ---
Infectious Disease Note Subjective: Subjective Patient feels the same T max 99.6 Cont to have Lt foot pain and swelling no n/v/d/sob or cough Irate as MRI foot results are not available when I saw the pt this am Vital Signs: Vital Signs Vital Signs Date Time Temp Pulse Resp B/P (MAP) Pulse Ox O2 Delivery O2 Flow Rate FiO2 07/27/20 07:55 Room Air 07/27/20 07:45 75 182/79 07/27/20 07:45 92 07/27/20 07:00 98.5 17 98.5 07/27/20 05:53 2.0 Physical Exam: PHYSICAL EXAM GENERAL: Alert awake oriented x3 male in no acute distress HEENT: Normocephalic, atraumatic. Anicteric. No thrush. NECK: Supple. No JVD. LUNGS: Clear bilaterally. HEART: S1, S2 heard. No murmurs. ABDOMEN: Soft, obese. Bowel sounds present. GENITOURINARY: No Santana, Briefs in place. EXTREMITIES: Bilateral foot dressing present, rt foot not taken down, left foot dorsal swelling, erythema, new swelling on the left lateral foot indurated, appears clinically as abscess NEUROLOGIC: Alert oriented x3 moves all 4 extremities. PSYCHIATRIC: Calm and cooperative. PIV looks clean. Medications: Inpatient Meds: Medications reviewed. Labs: Lab Laboratory Tests Test 07/26/20 12:17 07/26/20 16:37 07/26/20 19:56 07/27/20 06:15 Glucose (Fingerstick) 136 mg/dL (70-99) 188 mg/dL (70-99) 209 mg/dL (70-99) Sodium Level 136 mmol/L (136-145) Potassium Level 3.2 mmol/L (3.5-5.1) Chloride Level 100 mmol/L (98-107) Carbon Dioxide Level 33 mmol/L (21-32) Anion Gap 3 (6-14) Blood Urea Nitrogen 10 mg/dL (8-26) Creatinine 1.1 mg/dL (0.7-1.3) Estimated GFR (Cockcroft-Gault) 68.1 Glucose Level 151 mg/dL (70-99) Calcium Level 9.5 mg/dL (8.5-10.1) Test 07/27/20 07:38 Glucose (Fingerstick) 150 mg/dL (70-99) Micro RUN DATE: 07/22/20 [facility] LAB *LIVE* PAGE 1 RUN TIME: 929 Specimen Inquiry PATIENT: DASHAWN GOMEZ ACCT: [id number] LOC: SIOBHAN U: [id number] AGE/SX: 60/M ROOM: RE07/18/[address]: CAROLEE ZHOU MD : 1960 BED: DIS: STATUS: IVORY MCCANN TLOC: SPEC #: [id number] SANDOR: 07/18/20 STATUS: COMP REQ #: [id number] RECD: 07/18/[address]: CAROLEE ZHOU MD SOURCE: BLOOD ENTR: 07/19/20-1513 [facility] DR: JERONIMO KO MD SPDC: ORDERED: BLOOD CULT-LC Procedure Result BLOOD CULTURE LC Final Final GROWTH OF GRAM POSITIVE COCCI FINAL ID= [STAPHYLOCOCCUS AUREUS] STAPHYLOCOCCUS AUREUS ANTIMICROBIAL SUSCEPTIBILITY Final Comment POS PRESTON TYPE 38 STAPHYLOCOCCUS AUREUS ANTIBIOTIC RESULT INTERPRETATION AZITHROMYCIN <=2 S CLINDAMYCIN <=0.25 S CEFOXITIN SCREEN <=4 NEG CIPROFLOXACIN <=1 S CEFTAROLINE <=0.5 S DAPTOMYCIN <=0.5 S ERYTHROMYCIN <=0.25 S GENTAMICIN <=4 S LINEZOLID <=1 S LEVOFLOXACIN <=1 S OXACILLIN 0.5 S PENICILLIN >2 Anton RIFAMPIN <=1 S TRIMETHOPRIM/SULFAMETHOXAZOLE <=0.5/9.5 S TETRACYCLINE <=4 S VANCOMYCIN 1 S Unless otherwise specified, Testing Performed by: [address] [address] For Inquires, the Physician may contact the Microbiology department at [phone] RUN DATE: 07/23/20 [facility] LAB *LIVE* PAGE 1 RUN TIME: 850 Specimen Inquiry ------ ------ PATIENT: DASHAWN GOMEZ ACCT: [id number] LOC: [address] [place] [address] U: [id number] AGE/SX: 60/M ROOM: [facility] RE07/19/[address]: JOESPH BIRMINGHAM MD : 1960 BED: 1 DIS: STATUS: ADM IN TLOC: SPEC #: [id number] SANDOR: 07/20/20 STATUS: COMP REQ #: [id number] RECD: 07/20/20 [facility] DR: JAMA HERNANDEZ MD SOURCE: BLOOD ENTR: 07/21/20 [facility] DR: JERONIMO KO MD SPDC: CRISTIAN NG AHMED M MD MONAHAN, TIMOTHY J MD ORDERED: BRII MALONE - LC Procedure Result BLOOD CULTURE LC Final Final GRAM POSITIVE COCCI FINAL ID= [STAPHYLOCOCCUS AUREUS] STAPHYLOCOCCUS AUREUS ANTIMICROBIAL SUSCEPTIBILITY Final Comment POS PRESTON TYPE 38 STAPHYLOCOCCUS AUREUS ANTIBIOTIC RESULT INTERPRETATION AZITHROMYCIN <=2 S CLINDAMYCIN <=0.25 S CEFOXITIN SCREEN <=4 NEG CIPROFLOXACIN <=1 S CEFTAROLINE <=0.5 S DAPTOMYCIN <=0.5 S ERYTHROMYCIN <=0.25 S GENTAMICIN <=4 S LINEZOLID <=1 S LEVOFLOXACIN <=1 S OXACILLIN 0.5 S PENICILLIN >2 Anton RIFAMPIN <=1 S TRIMETHOPRIM/SULFAMETHOXAZOLE <=0.5/9.5 S TETRACYCLINE <=4 S VANCOMYCIN 1 S Unless otherwise specified, Testing Performed by: [address] [address] For Inquires, the Physician may contact the Microbiology department at [phone] wound cult Staph aureus Objective: Assessment: Severe sepsis from Staph aureus bacteremia present on admission at [facility] Methicillin Staph aureus bacteremia 4 out of 4 bottles at [facility] 07/18/20 Staph aureus bacteremia here July 20, 2020 Fever Source Rt foot dorsal abscess Leukocytosis and lactic acidosis.Bandemia. Bilateral lower extremity cellulitis,deep tissue infection of both feet. Rt foot abscess. s/p I and D on 07/22 CRP 291.2 ESR 136 Cult MSSA Now with LLE abscess Left toe chronic nonhealing diabetic toe ulcer. s/p amputation Diabetes with neuropathy, poorly controlled. Noncompliance. Acute kidney injury. Rhabdo Hematuria. Hyponatremia. Hypertension. Encephalopathy, likely metabolic.Resolved Plan: Plan of Care F/U MRI Lt foot results,Vascular following will likely need surgery as clinically he is not improving Continue Nafcillin Cont Daptomycin BRYAN on 07/26, negative for vegetations f/u Repeat blood cultures 07/23 neg so far Local wound care as directed Follow up labs Vascular surgery attempted aspiration of the left dorsal foot swelling, no purulence Probiotics Continue supportive care Discussed with daughter and girlfriend at bedside Discussed with JAMA LAU MD Jul 27, 2020 08:44
--- NOTE | 2020-07-27 09:11 | PATHOLOGY ---
[facility] Accession Number: [id number] . 01 Material submitted: . toe - DISTAL PHALANX LEFT THIRD TOE. Modifiers: DISTAL PHALANX, left, third . 01 Clinical history: . SEPTIC FEVER BILATERAL FOOT DEBRIDEMENT SEPSIS HYPERGLYCEMIA . 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 (HOLLISM:vince; 07/26/2020) [facility] 07/26/20208 Local . 02 Comment: There is no evidence of an acute osteomyelitis. (JPM:vince; 07/26/2020) . 02 Electronically signed: . Cody Moreno MD, Pathologist NPI- [id number] . 01 Gross description: . Received in formalin labeled "Sarthak Harrington, distal phalanx left third toe" is a toe disarticulation specimen measuring 2.5 x 2.5 x 1.7 cm. The proximal margin is smooth and consistent with a surgical margin and the proximal bone is a concave cartilage covered disarticulation. The margin is inked blue. The distal aspect of the specimen displays a singleton-white nail measuring 1.4 x 0.8 x 0.3 cm. Beneath the nail is an ulcerated singleton-brown lesion measuring 1.7 x 1.5 x 0.1 cm, which is located 0.1 cm from the resection margin and 1.2 cm from the bone disarticulation. The specimen is decalcified, serially sectioned, and submitted entirely in cassettes A1-A4. ([facility]; 07/23/2020) [facility] 07/23/2020 [facility] . 02 Pathologist provided ICD-10: L85.8, L08.9, M89.8X7 . 02 CPT . 413914, 151362 Specimen Comment: A courtesy copy of this report has been sent to [phone], [phone] Specimen Comment: [id number] Specimen Comment: Report sent to / DR BIRMINGHAM Specimen Comment: A duplicate report has been generated due to demographic updates. Performed at: 01 [facility] [address] [id number] MD Maninder Tirado MD Phone: [phone] Performed at: 02 [facility] [address] [place], [place] [id number] MD Cody Moreno MD Phone: [phone]
[2020-07-27] MEDS: ENOXAPARIN 40 MG/0.4 ML SYRINGE. SQ SCH (09:57)
[2020-07-27] MEDS: DAPTOmycin (GENERIC) IVPB 580 MG in IV NORMAL SALINE 50ML 50 ML IV SCH (09:58)
--- NOTE | 2020-07-27 10:10 | RAD ---
EXAMINATION: MRI LEFT LOWER EXTREMITY W/O INDICATIONS: Left foot and swelling, possible infection. TECHNIQUE: Multiplanar multisequence MRI of the left foot was obtained without contrast. COMPARISON: CT bilateral lower extremity 07/19/2020 FINDINGS: BONES AND CARTILAGE: There is marrow edema with associated low T1 signal throughout the cuneiforms, n avicular, and distal cuboid. There is also marrow edema and low T1 signal throughout the second and t hird metatarsals, proximal fourth and fifth metatarsals, and to a lesser extent in the proximal first metatarsal. There are small joint effusions in at the TMT joints. There is either destructive change s or subchondral cysts at the second TMT joint and to lesser extent third TMT joint. Additional cysti c versus destructive changes of the second MTP joint where there is also a joint effusion and marrow edema in the proximal phalanx. LIGAMENTS: Lisfranc ligament is not well visualized dorsally but rest of the ligament is at least par tially intact. TENDONS: There is moderate tendinopathy of the flexor hallucis longus tendon. Remaining flexor tendon s are intact. Extensor and peroneal tendons are intact. There is fluid extending along the tendons. OTHER:There are multiple fluid collections in the midfoot and visualized forefoot. A fluid collection extending from the dorsal aspect of the cuneiforms to at least the metatarsal heads measures approxi mately 7.8 x 1.9 x 7.2 cm (image 14, series 9). This may communicate with a fluid collection along th e more lateral aspect of the midfoot at the level of the cuneiforms measuring 4.6 x 2.3 x 8.2 cm (ede ge 6, series 9). There is large fluid collection extending between the first and second metatarsals m easuring 6.9 x 3.5 x 2.4 cm. There is diffuse intramuscular edema and atrophy. IMPRESSION: Marrow edema with associated low T1 signal in the midfoot and metatarsals, and base of the second pro ximal phalanx. Cystic or destructive changes at the second and third TMT joints and second MTP joint. Small joint effusions and multiple fluid collections in the midfoot and forefoot. Findings may be se en with neuropathic joint or septic arthritis/osteomyelitis and soft tissue infection. Electronically signed by: Ernestine Chung MD (07/27/2020 10:07 AM) [id number]
[2020-07-27] MEDS: oxyCODONE ER 10 MG TAB.ER.12H PO SCH ×2 (11:06→20:14)
--- NOTE | 2020-07-27 12:12 | PN ---
DATE: 07/27/2020 SUBJECTIVE: The patient is resting, slightly propped up in bed, in no apparent respiratory distress. He continued to complain of pain in his feet; however, he has been afebrile, has had transesophageal echocardiogram which showed no evidence of intracardiac vegetation or thrombi. He has had an MRI of the left foot which showed the patient has marrow edema with associated low T1 signal in the mid foot and metatarsal and the base of the second proximal phalanx cystic and destructive changes at the second and third transmetatarsal joint and second metatarsophalangeal joint, small joint effusion, multiple fluid collections in the mid foot and forefoot. Finding may be seen with neuropathic joint, septic arthritis, osteomyelitis and soft tissue infection. His blood cultures at [facility] showed growth of methicillin-sensitive Staphylococcus aureus. His blood cultures in [place] showed the same bacteria and the culture from the wound grew the same bacteria and he is already on nafcillin and daptomycin. PHYSICAL EXAMINATION: GENERAL: I examined him this morning, he looked pale, no jaundice, cyanosis or thyromegaly. No jugular venous distention. No lower limb edema. VITAL SIGNS: His heart rate was 75, blood pressure is 182/79. His temperature was 98.5, respiratory rate was 17 and oxygen saturation was 92% on 2 liters of oxygen. HEAD, EYES, EARS, NOSE AND THROAT: Normocephalic, atraumatic. The rest of the exam stable. Both feet are swollen and erythematous. The wounds are covered with dressing. His intake was 770, output was 3800. LABORATORY DATA: His lab work as of yesterday showed a white cell count of 13,000, hemoglobin 11, hematocrit 31, MCV 93 and platelet count 477,000. His serum sodium was 136, potassium 3.2, chloride 100, bicarbonate 33, anion gap of 3, BUN 10, creatinine 1.1. His estimated GFR was 68 mL per minute. His glucose is 151, calcium was 9.5. ASSESSMENT: 1. Bilateral lower extremity cellulitis. 2. Abscess of the dorsum of the right foot, status post incision and drainage. 3. Nonhealing diabetic third toe ulcer. 4. Left third toe osteomyelitis. 5. Type 2 diabetes mellitus, diabetic peripheral neuropathy. 6. Acute on chronic kidney injury. Creatinine has improved down to 1.1. 7. Hypokalemia. I did increase potassium to 40 mEq 3 times a day. 8. Hypertension, suboptimally controlled. I have increased losartan to 100 mg, hydralazine to 100 mg 3 times a day. The patient has grown methicillin-sensitive Staphylococcus aureus in the blood from the wounds. He is now on daptomycin as well as nafcillin. PLAN: Obviously to continue with IV antibiotic. Continue with DVT prophylaxis. Continue with monitoring blood sugar and adjust insulin as needed. Await the evaluation by the vascular surgeon to see whether he is a candidate for any surgical intervention. HOLLIS DR: Sarahy TID: [id number]
--- NOTE | 2020-07-27 13:31 | NUR ---
BRYCE following. Discussed with RN, pt having an I&D later today. BRYCE notified pt of out of pocket max $6350, has met $1700 prior to this admission. Per Adryan with [facility] - pt will likely have meet his out of pocket max during this hospitalization and then would be covered at 100% for home infusion. BRYCE notified pt and pt's family. They are agreeable. Pt requesting DPOA paperwork. BRYCE to revisit and complete with patient. RN notified. BRYCE will continue to follow. Addendum: 07/27/20 at 1455 by DEJAN WU BRYCE completed DPOA paperwork with pt. Copy placed on chart, original and copies given to patient.
[2020-07-27] MEDS ORDERED: ONDANSETRON PF 4 MG/2 ML VIAL. ONE (14:37)
[2020-07-27] MEDS ORDERED: LIDOCAINE 2% PF 5 ML VIAL. ONE (14:37)
[2020-07-27] MEDS ORDERED: PROPOFOL 10 MG/ML (20ML) VIAL. IV ONE (14:37)
[2020-07-27] MEDS ORDERED: DEXAMETHASONE SOD PHOS 4 MG/ML VIAL ONE (14:37)
[2020-07-27] MEDS ORDERED: fentaNYL PF VIAL 100 MCG/2 ML VIAL ONE ×2 (14:38→17:08)
--- NOTE | 2020-07-27 15:36 | PDOC ---
Provider Note Date of Service: DATE: 07/27/20 TIME: 15:32 Provider Note Vascular surgery follow-up. Patient had a incision and drainage of the right dorsal abscess and left third toe amputation last week. He was monitored over the weekend by my partner. On July 25, the patient had valuation of diffuse erythema affecting the dorsum of the left foot. He in fact made several pokes with an 18-gauge needle and no fluid was obtained therefore it was determined to continue observation with IV antibiotics. In the interim, an MRI was done of the left foot which demonstrates fluid around the metatarsals and on the dorsum of the foot. He is without new complaints. O: Afebrile Both feet examined. He continues to have a palpable pedal pulses. On the right, there is a greenish wound exudate overlying the wound most likely from the Xeroform gauze. This will need to be debrided. Regarding the left foot, there is now new evidence of fluctuance on the dorsum and lateral aspect of the foot. The toe amputation site appears excellent. Impression: #1 new development of abscess dorsum of the left foot and lateral left foot. 2. Status post right dorsal foot abscess incision and drainage and left third toe amputation. 3. Diabetes Plan: We will proceed today with urgent incision and drainage of the left dorsal and lateral midfoot abscesses. We will also debride the right dorsal foot wound. The operation risks benefits were explained to both the patient and his daughters who are present. They all expressed understanding and willingness to proceed. Justifications for Admission Other Justification KASI HDEZ II, MD Jul 27, 2020 15:36
[2020-07-27] MEDS ORDERED: SODIUM HYPOCHLORITE 0.25% 473 ML BOTTLE. TP ONE (16:15)
--- NOTE | 2020-07-27 16:27 | PDOC ---
BRIEF OPERATIVE NOTE Date: Jul 27, 2020 Pre-Op Diagnosis Right foot abscess status post incision and drainage Left foot abscess' Post-Op Diagnosis Same Procedure Performed 1. Right foot debridement with wound measurements of 5 x 3 cm 2. Left foot incision and drainage of 3 separate abscesses that do not communicate. Surgeon Josesito Alcantara MD Lime Filter Operator JOHNNA Lane Anesthesia Type: General Blood Loss Less than 10 mL IV Fluid See anesthesia note Specimens Obtained Left foot abscess culture Findings Left foot with 3 separate abscesses that did not communicate with copious amounts of pus drained from each. Did not appear to penetrate to deep tissue. See dictated op note for more details or further findings. Complications None Operative Note See dictated op note NABIL MCGHEE Jul 27, 2020 16:27
--- NOTE | 2020-07-27 17:47 | NUR ---
Wound Care Pt seen in PACU to place Veraflo to R foot ulcer. R foot dressing removed, wound cleaned, measured and photographed. Wound bed is beefy red, clean, muscle and tendon exposed. Skin prep and ostomy ring applied to periwound, 1 piece of cancino Veraflo foam placed into wound bed, foam tracked over drape up to R lateral lower leg, and vac showing strong seal at -125 suction. 10 mL of NS will infuse into wound every 3 hours for 3 minutes of dwell time, pt tolerated well. Will f/u on Saturday for next vac change.
--- NOTE | 2020-07-27 18:06 | OP ---
DATE OF SURGERY: 07/27/2020 PREOPERATIVE DIAGNOSES: 1. New dorsal and lateral mid foot abscesses, left foot x 3. 2. Prior right dorsal abscess incision and drainage with need for further debridement. 3. Diabetes. 4. No evidence of peripheral vascular disease. POSTOPERATIVE DIAGNOSES: 1. New dorsal and lateral mid foot abscesses, left foot x 3. 2. Prior right dorsal abscess incision and drainage with need for further debridement. 3. Diabetes. 4. No evidence of peripheral vascular disease. OPERATION PERFORMED: 1. Incision and drainage of abscesses x 3, left dorsal and lateral mid foot with cultures. 2. Debridement, full thickness of right dorsal foot wound measuring 5 x 3 cm. SURGEON: Josesito Alcantara MD SUPERVISOR MARBLE: JOHNNA Laen ANESTHESIA: General. INDICATIONS: This is a 60-year-old diabetic who presents interestingly with abscesses on the dorsum of both feet without obvious etiology. He underwent incision and drainage of a right dorsal abscess last week and now has three new abscesses on the dorsal aspect of the left mid foot. He has been maintained on antibiotics during this time and has been followed in the hospital. He has had prior percutaneous exploration of the left dorsum of the foot just two days ago and there was no fluid obtained. These abscesses have arisen in the past 48 hours. MRI suggests fluid around the mid foot metatarsals. The operation, risks and benefits were explained to both the patient and the patient's daughters. They expressed understanding and wished to proceed. OPERATIVE FINDINGS: Regarding the left dorsal and lateral foot abscesses, none of these abscesses communicated with each other. There was gross purulence, non-foul smelling. Cultures were obtained. There was no communication with the previously amputated left third toe. There was no extension into the deep plantar space or proximally into the ankle joint or into the distal leg. The right dorsal foot ulcer bled extremely well following full thickness excisional debridement. DESCRIPTION OF PROCEDURE: The patient was placed in the supine position and a general anesthetic was administered. He had received IV antibiotics preprocedure. The feet were both prepped and draped with Betadine paint. Time-out was called and the correct operation, correct patient and correct operative sites were all verified. Incision was then made over the three fluctuant areas on the dorsum of the left foot, dorsally and laterally. As mentioned previously, there were three separate abscesses, each of which were individually incised and drained. There was no communication between the three. The most dorsal incision was approximately 5 cm in length. The other incisions were approximately 2-3 cm in length. Following incision and drainage, the wounds were probed gently with a Shona hemostat and any degree of undermining was incised. The Shona clamp would not pass into the deep plantar space or into the joint or into the leg more proximally. All three wounds were irrigated with full strength peroxide following expression of purulent material, which was cultured prior to irrigation. The wounds were then packed with quarter strength Dakin's plain strip gauze and a padded dressing was applied. Regarding the right foot, full thickness excisional debridement was performed with a scalpel, with curette and with a rongeur. There was excellent bleeding from the base of the wound and this wound should be ready for wound VAC therapy. No cultures were obtained on the right as these had already been obtained previously. A moistened gauze dressing with quarter strength Dakin's solution was applied. A padded dressing was applied to the right foot as well. The patient tolerated all procedures well and was taken to the recovery room in satisfactory condition. Instructions will be given specifically for wound care regarding all wounds. NISHA DR: Christiane TID: [id number]
[2020-07-27] MEDS: ATORVASTATIN CALCIUM 10 MG TABLET. PO SCH (20:14)
[2020-07-27] MEDS: INSULIN GLARGINE SYRINGE. SQ SCH (21:19)
[2020-07-28] MEDS: fentaNYL PF VIAL 100 MCG/2 ML VIAL IVP PRN ×6 (00:12→23:01)
[2020-07-28] MEDS: NAFCILLIN 2 GM in IV DEXTROSE 5% 100ML 100 ML IV SCH ×6 (00:12→20:24)
[2020-07-28] MEDS: oxyCODONE IR 5 MG TABLET PO PRN ×5 (02:47→20:25)
[2020-07-28 03:00] VITALS: BP 132/84
[2020-07-28] MEDS: IV RINGERS,LACTATED 1000ML 1,000 ML IV SCH ×2 (04:57→17:35)
[2020-07-28 06:28] LABS: HEMATOCRIT 28.5 % (39.0-53.0); RED BLOOD COUNT 3.08 x10^6/uL (4.30-5.70); RED CELL DISTRIBUTION WIDTH 12.8 % (11.5-14.5); WHITE BLOOD COUNT 10.6 x10^3/uL (4.0-11.0)
[2020-07-28 06:34] LABS: ALBUMIN 1.4 g/dL (3.4-5.0); ALBUMIN/GLOBULIN RATIO 0.3 (1.0-1.7); CALCIUM 9.2 mg/dL (8.5-10.1); CREATININE 1.2 mg/dL (0.7-1.3); GFR 61.6; POTASSIUM 3.6 mmol/L (3.5-5.1); TOTAL BILIRUBIN 0.5 mg/dL (0.2-1.0); TOTAL PROTEIN 6.2 g/dL (6.4-8.2)
[2020-07-28 07:00] VITALS: BP 164/87
[2020-07-28] MEDS: LEVOTHYROXINE 100 MCG TABLET PO SCH (07:20)
[2020-07-28] MEDS: INSULIN LISPRO 300 UNITS/3 ML VIAL. SQ SCH ×6 (08:00→16:37)
[2020-07-28] MEDS: metFORMIN 500 MG TABLET PO SCH ×2 (08:09→18:17)
[2020-07-28] MEDS: LACTOBACILLUS RHAMNOSUS GG 1 CAPSULE. PO SCH ×2 (08:10→20:25)
[2020-07-28] MEDS: DOXAZOSIN MESYLATE 1 MG TABLET. PO SCH (08:10)
[2020-07-28] MEDS: oxyCODONE ER 10 MG TAB.ER.12H PO SCH ×2 (08:11→21:13)
[2020-07-28] MEDS: POTASSIUM CHLORIDE 20 MEQ TABLET.ER. PO SCH ×3 (08:11→18:17)
[2020-07-28] MEDS: LOSARTAN POTASSIUM 50 MG TABLET. PO SCH (08:13)
--- NOTE | 2020-07-28 08:19 | PDOC ---
Infectious Disease Note Subjective: Subjective Patient underwent I&D of left foot abscess and repeat debridement of right foot wound yesterday Has postop site pain Denies fever, nausea, vomiting, diarrhea, shortness of breath or cough Vital Signs: Vital Signs Vital Signs Date Time Temp Pulse Resp B/P (MAP) Pulse Ox O2 Delivery O2 Flow Rate FiO2 07/28/20 07:20 18 Room Air 07/28/20 07:00 98.5 84 164/87 (112) 96 98.5 07/27/20 16:43 13 Physical Exam: PHYSICAL EXAM GENERAL: Alert awake oriented x3 male in no acute distress HEENT: Normocephalic, atraumatic. Anicteric. No thrush. NECK: Supple. No JVD. LUNGS: Clear bilaterally. HEART: S1, S2 heard. No murmurs. ABDOMEN: Soft, obese. Bowel sounds present. GENITOURINARY: No Santana, Briefs in place. EXTREMITIES: Bilateral foot dressing present, rt foot not taken down, left foot dorsal swelling, erythema, new swelling on the left lateral foot indurated, appears clinically as abscess NEUROLOGIC: Alert oriented x3 moves all 4 extremities. PSYCHIATRIC: Calm and cooperative. PIV looks clean. Medications: Inpatient Meds: Medications reviewed. Labs: Lab Laboratory Tests Test 07/27/20 11:44 07/27/20 14:46 07/27/20 16:36 07/27/20 21:13 Glucose (Fingerstick) 217 mg/dL (70-99) 170 mg/dL (70-99) 146 mg/dL (70-99) 297 mg/dL (70-99) Test 07/28/20 05:55 07/28/20 07:33 White Blood Count 10.6 x10^3/uL (4.0-11.0) Red Blood Count 3.08 x10^6/uL (4.30-5.70) Hemoglobin 10.0 g/dL (13.0-17.5) Hematocrit 28.5 % (39.0-53.0) Mean Corpuscular Volume 93 fL (79-100) Mean Corpuscular Hemoglobin 33 pg (25-35) Mean Corpuscular Hemoglobin Concent 35 g/dL (31-37) Red Cell Distribution Width 12.8 % (11.5-14.5) Platelet Count 406 x10^3/uL (140-400) Sodium Level 135 mmol/L (136-145) Potassium Level 3.6 mmol/L (3.5-5.1) Chloride Level 100 mmol/L (98-107) Carbon Dioxide Level 31 mmol/L (21-32) Anion Gap 4 (6-14) Blood Urea Nitrogen 12 mg/dL (8-26) Creatinine 1.2 mg/dL (0.7-1.3) Estimated GFR (Cockcroft-Gault) 61.6 BUN/Creatinine Ratio 10 (6-20) Glucose Level 181 mg/dL (70-99) Calcium Level 9.2 mg/dL (8.5-10.1) Total Bilirubin 0.5 mg/dL (0.2-1.0) Aspartate Amino Transf (AST/SGOT) 20 U/L (15-37) Alanine Aminotransferase (ALT/SGPT) 15 U/L (16-63) Alkaline Phosphatase 94 U/L (46-116) Total Protein 6.2 g/dL (6.4-8.2) Albumin 1.4 g/dL (3.4-5.0) Albumin/Globulin Ratio 0.3 (1.0-1.7) Glucose (Fingerstick) 149 mg/dL (70-99) Micro RUN DATE: 07/22/20 [facility] *LIVE* PAGE 1 RUN TIME: 0930 Specimen Inquiry PATIENT: DASHAWN GOMEZ ACCT: [id number] LOC: SIOBHAN U: [id number] AGE/SX: 60/M ROOM: RE07/18/[address]: CAROLEE ZHOU MD : 1960 BED: DIS: STATUS: DEP ER TLOC: SPEC #: [id number] SANDOR: 07/18/20 STATUS: COMP REQ #: [id number] RECD: 07/18/[address]: CAROLEE ZHOU MD SOURCE: BLOOD ENTR: 07/19/20-1514 [facility] DR: JERONIMO KO MD SPDC: ORDERED: BLOOD CULT-LC Procedure Result BLOOD CULTURE LC Final Final GROWTH OF GRAM POSITIVE COCCI FINAL ID= [STAPHYLOCOCCUS AUREUS] STAPHYLOCOCCUS AUREUS ANTIMICROBIAL SUSCEPTIBILITY Final Comment POS PRESTON TYPE 38 STAPHYLOCOCCUS AUREUS ANTIBIOTIC RESULT INTERPRETATION AZITHROMYCIN <=2 S CLINDAMYCIN <=0.25 S CEFOXITIN SCREEN <=4 NEG CIPROFLOXACIN <=1 S CEFTAROLINE <=0.5 S DAPTOMYCIN <=0.5 S ERYTHROMYCIN <=0.25 S GENTAMICIN <=4 S LINEZOLID <=1 S LEVOFLOXACIN <=1 S OXACILLIN 0.5 S PENICILLIN >2 Anton RIFAMPIN <=1 S TRIMETHOPRIM/SULFAMETHOXAZOLE <=0.5/9.5 S TETRACYCLINE <=4 S VANCOMYCIN 1 S Unless otherwise specified, Testing Performed by: [address] [address] For Inquires, the Physician may contact the Microbiology department at [phone] RUN DATE: 07/23/20 [facility] *LIVE* PAGE 1 RUN TIME: 850 Specimen Inquiry PATIENT: DASHAWN GOMEZ Sheri ACCT: [id number] LOC: [address] [place] [address] U: [id number] AGE/SX: 60/M ROOM: [facility] RE07/19/[address]: JOESPH BIRMINGHAM MD : 1960 BED: 1 DIS: STATUS: ADM IN TLOC: SPEC #: [id number] SANDOR: 07/20/20 STATUS: COMP REQ #: [id number] RECD: 07/20/[address] [facility] [address]: JAMA HERNANDEZ MD SOURCE: BLOOD ENTR: 07/21/20 [facility] DR: JREONIMO KO MD SPDESC: CRISTIAN NG AHMED M MD MONAHAN, TIMOTHY J MD ORDERED: BRII CULT - LC Procedure Result BLOOD CULTURE LC Final Final GRAM POSITIVE COCCI FINAL ID= [STAPHYLOCOCCUS AUREUS] STAPHYLOCOCCUS AUREUS ANTIMICROBIAL SUSCEPTIBILITY Final Comment POS PRESTON TYPE 38 STAPHYLOCOCCUS AUREUS ANTIBIOTIC RESULT INTERPRETATION AZITHROMYCIN <=2 S CLINDAMYCIN <=0.25 S CEFOXITIN SCREEN <=4 NEG CIPROFLOXACIN <=1 S CEFTAROLINE <=0.5 S DAPTOMYCIN <=0.5 S ERYTHROMYCIN <=0.25 S GENTAMICIN <=4 S LINEZOLID <=1 S LEVOFLOXACIN <=1 S OXACILLIN 0.5 S PENICILLIN >2 Anton RIFAMPIN <=1 S TRIMETHOPRIM/SULFAMETHOXAZOLE <=0.5/9.5 S TETRACYCLINE <=4 S VANCOMYCIN 1 S Unless otherwise specified, Testing Performed by: [facility] [address] [place] [address] For Inquires, the Physician may contact the Microbiology department at [phone] wound cult Staph aureus Objective: Assessment: Severe sepsis from Staph aureus bacteremia present on admission at [facility] Methicillin Staph aureus bacteremia 4 out of 4 bottles at [facility] 07/18/20 Staph aureus bacteremia here July 20, 2020 Fever Source Rt foot dorsal abscess Leukocytosis and lactic acidosis.Bandemia. Bilateral lower extremity cellulitis,deep tissue infection of both feet. Rt foot abscess. s/p I and D on 07/22 CRP 291.2 ESR 136 Cult MSSA Lt foot abscess July 27, 2020 Status post Incision and drainage of abscesses x 3, left dorsal and lateral mid foot Repeat I&D of right dorsal foot wound debridement, large Left toe chronic nonhealing diabetic toe ulcer. s/p amputation July 22, 2020 Diabetes with neuropathy, poorly controlled. Noncompliance. Acute kidney injury. Rhabdo Hematuria. Hyponatremia. Hypertension. Encephalopathy, likely metabolic.Resolved Plan: Plan of Care Continue Nafcillin Cont Daptomycin BRYAN on 07/26, negative for vegetations f/u Repeat blood cultures 07/23 neg so far Local wound care as directed Follow-up left dorsal foot abscess cultures from July 27, 2020 Follow up labs Vascular surgery attempted aspiration of the left dorsal foot swelling, no purulence Probiotics Continue supportive care Discussed with family at bedside Discussed with JAMA LAU MD Jul 28, 2020 08:19
[2020-07-28] MEDS: predniSONE 1 MG TABLET PO SCH (09:12)
[2020-07-28] MEDS: ENOXAPARIN 40 MG/0.4 ML SYRINGE. SQ SCH (10:27)
[2020-07-28] MEDS: DAPTOmycin (GENERIC) IVPB 580 MG in IV NORMAL SALINE 50ML 50 ML IV SCH (10:27)
[2020-07-28 11:00] VITALS: BP 137/64
--- NOTE | 2020-07-28 13:59 | PDOC ---
PROGRESS NOTES Date of Service DATE: 07/28/20 TIME: 13:31 Subjective Subjective "My pain was at a 9 and after the Roxicet, it is so much better. I'm ready for my dressing change now." Objective Objective Objective: Patient seen at bedside in room 1 hour prior with RN and daughter present. After awaking patient for examination and dressing change, he was complaining of pain rated at 9 after Fentanyl given. Dressing change held for 1 hour to allow add'l pain medication to be given prior to dressing change. Now, patient's daughter and son are present. Patient lying comfortably supine in bed. Turns self to reposition for dressing change. Vital signs stable, afebrile. Respirations: unlabored. No cough. Left foot: Wound vac dressing securely intact. Scant blood-tinged clear drain age in canister. Mild swelling and improved erythema to left foot when viewing previous photo on daughter's phone. 3rd toe amputation incision intact with sutures and healthy. Right foot: + palpable pulse. Surgical dressing removed. Packing removed from 3 individual wounds. Wound beds are clean. No purulent drainage present. Swelling and erythema significantly improved when viewing photo on daughter's phone. Does have mild sloughing of thin skin layer between wounds now that swelling reduced. Underlying skin healthy. Assessment/Plan: POD#1 Incision and drainage of abscesses x 3, left dorsal and lateral mid foot with cultures; Debridement, full thickness of right dorsal foot wound measuring 5 x 3 cm. POD#7 Left 3rd toe partial amputation; Right lateral foot incision and drainage. 1. Continue wound vac therapy to right foot with veriflow. Dressing change planned for tomorrow. 2. Continue wound packing to 3 separate wounds left foot with Dakin's solution BID. May complete 2nd dressing change at today. 3. Continue IV antibiotic therapy as per ID. Awaiting surgical culture results of left foot wounds. Previous blood cultures + Staph aureus 07/20/2020 4. May ambulate without restrictions. Surgical shoe to left foot. 5. Diabetic mgmt per Dr. Moore. Vital Signs Date Time Temp Pulse Resp B/P (MAP) Pulse Ox O2 Delivery O2 Flow Rate FiO2 07/28/20 11:56 18 Room Air 07/28/20 11:00 77 137/64 (88) 96 07/28/20 07:00 98.5 98.5 07/27/20 16:43 13 Intake and Output 07/28/20 07:00 Intake Total 900 ml Output Total 10 ml Balance 890 ml Intake Oral 300 ml IV Total 600 ml Estimated Blood Loss 10 ml # Voids 1 Comment Review of Relevant I have reviewed the following items stefan (where applicable) has been applied. Labs Laboratory Tests Test 07/26/20 16:37 07/26/20 19:56 07/27/20 06:15 07/27/20 07:38 Glucose (Fingerstick) 188 mg/dL (70-99) 209 mg/dL (70-99) 150 mg/dL (70-99) Sodium Level 136 mmol/L (136-145) Potassium Level 3.2 mmol/L (3.5-5.1) Chloride Level 100 mmol/L (98-107) Carbon Dioxide Level 33 mmol/L (21-32) Anion Gap 3 (6-14) Blood Urea Nitrogen 10 mg/dL (8-26) Creatinine 1.1 mg/dL (0.7-1.3) Estimated GFR (Cockcroft-Gault) 68.1 Glucose Level 151 mg/dL (70-99) Calcium Level 9.5 mg/dL (8.5-10.1) Test 07/27/20 11:44 07/27/20 14:46 07/27/20 16:36 07/27/20 21:13 Glucose (Fingerstick) 217 mg/dL (70-99) 170 mg/dL (70-99) 146 mg/dL (70-99) 297 mg/dL (70-99) Test 07/28/20 05:55 07/28/20 07:33 07/28/20 11:30 07/28/20 12:23 White Blood Count 10.6 x10^3/uL (4.0-11.0) Red Blood Count 3.08 x10^6/uL (4.30-5.70) Hemoglobin 10.0 g/dL (13.0-17.5) Hematocrit 28.5 % (39.0-53.0) Mean Corpuscular Volume 93 fL (79-100) Mean Corpuscular Hemoglobin 33 pg (25-35) Mean Corpuscular Hemoglobin Concent 35 g/dL (31-37) Red Cell Distribution Width 12.8 % (11.5-14.5) Platelet Count 406 x10^3/uL (140-400) Sodium Level 135 mmol/L (136-145) Potassium Level 3.6 mmol/L (3.5-5.1) Chloride Level 100 mmol/L (98-107) Carbon Dioxide Level 31 mmol/L (21-32) Anion Gap 4 (6-14) Blood Urea Nitrogen 12 mg/dL (8-26) Creatinine 1.2 mg/dL (0.7-1.3) Estimated GFR (Cockcroft-Gault) 61.6 BUN/Creatinine Ratio 10 (6-20) Glucose Level 181 mg/dL (70-99) Calcium Level 9.2 mg/dL (8.5-10.1) Total Bilirubin 0.5 mg/dL (0.2-1.0) Aspartate Amino Transf (AST/SGOT) 20 U/L (15-37) Alanine Aminotransferase (ALT/SGPT) 15 U/L (16-63) Alkaline Phosphatase 94 U/L (46-116) Total Protein 6.2 g/dL (6.4-8.2) Albumin 1.4 g/dL (3.4-5.0) Albumin/Globulin Ratio 0.3 (1.0-1.7) Glucose (Fingerstick) 149 mg/dL (70-99) 56 mg/dL (70-99) 89 mg/dL (70-99) Laboratory Tests Test 07/27/20 14:46 07/27/20 16:36 07/27/20 21:13 07/28/20 05:55 Glucose (Fingerstick) 170 mg/dL (70-99) 146 mg/dL (70-99) 297 mg/dL (70-99) White Blood Count 10.6 x10^3/uL (4.0-11.0) Red Blood Count 3.08 x10^6/uL (4.30-5.70) Hemoglobin 10.0 g/dL (13.0-17.5) Hematocrit 28.5 % (39.0-53.0) Mean Corpuscular Volume 93 fL (79-100) Mean Corpuscular Hemoglobin 33 pg (25-35) Mean Corpuscular Hemoglobin Concent 35 g/dL (31-37) Red Cell Distribution Width 12.8 % (11.5-14.5) Platelet Count 406 x10^3/uL (140-400) Sodium Level 135 mmol/L (136-145) Potassium Level 3.6 mmol/L (3.5-5.1) Chloride Level 100 mmol/L (98-107) Carbon Dioxide Level 31 mmol/L (21-32) Anion Gap 4 (6-14) Blood Urea Nitrogen 12 mg/dL (8-26) Creatinine 1.2 mg/dL (0.7-1.3) Estimated GFR (Cockcroft-Gault) 61.6 BUN/Creatinine Ratio 10 (6-20) Glucose Level 181 mg/dL (70-99) Calcium Level 9.2 mg/dL (8.5-10.1) Total Bilirubin 0.5 mg/dL (0.2-1.0) Aspartate Amino Transf (AST/SGOT) 20 U/L (15-37) Alanine Aminotransferase (ALT/SGPT) 15 U/L (16-63) Alkaline Phosphatase 94 U/L (46-116) Total Protein 6.2 g/dL (6.4-8.2) Albumin 1.4 g/dL (3.4-5.0) Albumin/Globulin Ratio 0.3 (1.0-1.7) Test 07/28/20 07:33 07/28/20 11:30 07/28/20 12:23 Glucose (Fingerstick) 149 mg/dL (70-99) 56 mg/dL (70-99) 89 mg/dL (70-99) Microbiology 07/25/20 Blood Culture - Preliminary, Resulted NO GROWTH AFTER 3 DAYS 07/21/20 Gram Stain - Final, Complete 07/21/20 Aerobic and Anaerobic Culture - Final, Complete 07/21/20 Antimicrobic Susceptibility - Final, Complete Medications Current Medications Insulin Human Lispro (HumaLOG) 0-9 UNITS TIDWMEALS SQ Last administered on 07/27/20at 12:32; Start 07/19/20 at 08:00 Dextrose (Dextrose 50%-Water Syringe) 12.5 gm PRN Q15MIN PRN IV SEE COMMENTS Last administered on 07/23/20at 16:44; Start 07/19/20 at 01:30 Sodium Chloride 1,000 ml @ 150 mls/hr Q6H40M IV Last administered on 07/24/20at 04:40; Start 07/19/20 at 02:00; Stop 07/24/20 at 08:32; Status DC Fentanyl Citrate (Fentanyl 2ml Vial) 50 mcg PRN Q3HRS PRN IVP SEVERE PAIN 7-10 Last administered on 07/28/20at 10:36; Start 07/19/20 at 01:30 Ondansetron HCl (Zofran) 4 mg PRN Q6HRS PRN IVP NAUSEA/VOMITING 1ST CHOICE; Start 07/19/20 at 01:30 Vancomycin HCl (Vanco Per Pharmacy) 1 each PRN DAILY PRN MC SEE COMMENTS Last administered on 07/19/20at 03:43; Start 07/19/20 at 01:30; Stop 07/19/20 at 10:57; Status DC Ceftriaxone Sodium (Rocephin) 1 gm Q24H IVP ; Start 07/19/20 at 21:00; Stop 07/19/20 at 10:56; Status DC Vancomycin HCl 2 gm/Sodium Chloride 500 ml @ 250 mls/hr Q24H IV ; Start 07/19/20 at 21:00; Stop 07/19/20 at 10:57; Status DC Vancomycin HCl (Vancomycin Trough Level) 1 each 1X ONCE MC ; Start 07/20/20 at 20:30; Stop 07/19/20 at 10:57; Status DC Insulin Human Lispro (HumaLOG) 20 units 1X ONCE SQ Last administered on 07/19/20at 08:49; Start 07/19/20 at 08:30; Stop 07/19/20 at 08:31; Status DC Atorvastatin Calcium (Lipitor) 10 mg HS PO Last administered on 07/27/20at 20:14; Start 07/19/20 at 21:00 Levothyroxine Sodium (Synthroid) 300 mcg DAILYAC PO Last administered on 07/28/20at 07:20; Start 07/20/20 at 07:30 Losartan Potassium (Cozaar) 50 mg DAILY PO Last administered on 07/24/20at 08:17; Start 07/19/20 at 11:00; Stop 07/24/20 at 09:23; Status DC Prednisone (Prednisone) 4 mg DAILY PO Last administered on 07/28/20at 09:12; Start 07/19/20 at 11:00 Calcium Carbonate/ Glycine (Tums) 500 mg PRN AFTMEALHC PRN PO INDIGESTION; Start 07/19/20 at 10:45 Diphenhydramine HCl (Benadryl) 25 mg PRN DAILY PRN PO ITCHING; Start 07/19/20 at 10:45 Doxazosin Mesylate (Cardura) 2 mg DAILY PO Last administered on 07/28/20at 08:10; Start 07/19/20 at 11:00 Insulin Glargine (Lantus Syringe) 25 unit QHS SQ Last administered on 07/27/20at 21:19; Start 07/19/20 at 21:00 Metformin HCl (Glucophage) 1,000 mg BIDWMEALS PO Last administered on 07/28/20at 08:09; Start 07/19/20 at 17:00 Insulin Human Lispro (HumaLOG) 20 units TIDAC SQ Last administered on 07/28/20at 08:21; Start 07/19/20 at 11:30 Piperacillin Sod/ Tazobactam Sod 3.375 gm/Sodium Chloride 50 ml @ 100 mls/hr Q6HRS IV Last administered on 07/23/20at 05:58; Start 07/19/20 at 12:00; Stop 07/23/20 at 07:44; Status DC Daptomycin 600 mg/ Sodium Chloride 50 ml @ 100 mls/hr Q24H IV Last administere d on 07/20/20at 13:33; Start 07/19/20 at 11:00; Stop 07/21/20 at 10:39; Status DC Acetaminophen (Tylenol) 650 mg PRN Q4HRS PRN PO MILD PAIN / TEMP > 100.3'F; Start 07/19/20 at 23:45; Status Cancel Oxycodone HCl (Roxicodone) 5 mg PRN Q4HRS PRN PO BREAKTHROUGH PAIN Last administered on 07/23/20at 00:10; Start 07/20/20 at 11:30; Stop 07/23/20 at 09:06; Status DC Acetaminophen (Tylenol) 650 mg PRN Q4HRS PRN PO MILD PAIN / TEMP > 100.3'F Last administered on 07/21/20at 00:23; Start 07/21/20 at 00:00 Linezolid/Dextrose 300 ml @ 300 mls/hr Q12HR IV Last administered on 07/23/20at 08:17; Start 07/21/20 at 12:00; Stop 07/23/20 at 09:38; Status DC Daptomycin 970 mg/ Sodium Chloride 50 ml @ 100 mls/hr Q24H IV Last administered on 07/22/20at 13:32; Start 07/21/20 at 12:00; Stop 07/23/20 at 09:38; Status DC Fentanyl Citrate (Fentanyl 2ml Vial) 25 mcg PRN Q5MIN PRN IVP MILD PAIN 1-3; Start 07/21/20 at 12:15; Stop 07/21/20 at 16:01; Status DC Fentanyl Citrate (Fentanyl 2ml Vial) 50 mcg PRN Q5MIN PRN IVP MODERATE PAIN 4- 6; Start 07/21/20 at 12:15; Stop 07/21/20 at 16:01; Status DC Morphine Sulfate (Morphine Sulfate) 1 mg PRN Q10MIN PRN IVP SEVERE PAIN 7-10; Start 07/21/20 at 12:15; Stop 07/21/20 at 16:01; Status DC Ringer's Solution 1,000 ml @ 30 mls/hr Q24H IV Last administered on 07/21/20at 14:08; Start 07/21/20 at 12:15; Stop 07/22/20 at 00:14; Status DC Hydromorphone HCl (Dilaudid) 0.5 mg PRN Q10MIN PRN IVP SEVERE PAIN 7-10, 2nd CHOICE; Start 07/21/20 at 12:15; Stop 07/21/20 at 16:01; Status DC Prochlorperazine Edisylate (Compazine) 5 mg PACU PRN PRN IVP NAUSEA, MRX1; Start 07/21/20 at 12:15; Stop 07/21/20 at 16:01; Status DC Oxycodone/ Acetaminophen (Percocet 5/325) 1 tab PRN Q4HRS PRN PO MODERATE- SEVERE PAIN Last administered on 07/23/20at 00:10; Start 07/21/20 at 14:00; Stop 07/23/20 at 09:06; Status DC Propofol (Diprivan) 200 mg STK-MED ONCE IV ; Start 07/21/20 at 11:16; Stop 07/21/20 at 19:12; Status DC Lidocaine HCl (Lidocaine Pf 2% Vial) 5 ml STK-MED ONCE .ROUTE ; Start 07/21/20 at 11:16; Stop 07/21/20 at 19:12; Status DC Dexamethasone Sodium Phosphate (Decadron) 20 mg STK-MED ONCE .ROUTE ; Start 07/21/20 at 11:16; Stop 07/21/20 at 19:12; Status DC Ondansetron HCl (Zofran) 4 mg STK-MED ONCE .ROUTE ; Start 07/21/20 at 11:17; Stop 07/21/20 at 19:12; Status DC Succinylcholine Chloride (Anectine) 200 mg STK-MED ONCE .ROUTE ; Start 07/21/20 at 11:51; Stop 07/21/20 at 19:12; Status DC Sevoflurane (Ultane) 30 ml STK-MED ONCE IH ; Start 07/21/20 at 11:51; Stop 07/21/20 at 19:12; Status DC Etomidate (Amidate) 20 mg STK-MED ONCE IV ; Start 07/21/20 at 11:53; Stop 07/21/20 at 19:12; Status DC Lidocaine HCl (Lidocaine 1% 20ml Vial) 20 ml STK-MED ONCE .ROUTE ; Start 07/21/20 at 12:25; Stop 07/21/20 at 19:13; Status DC Silver Sulfadiazine (Silvadene) 25 milton STK-MED ONCE TP ; Start 07/21/20 at 12:25; Stop 07/21/20 at 19:13; Status DC Bupivacaine HCl (Sensorcaine Mpf 0.25%) 30 ml STK-MED ONCE .ROUTE ; Start 07/21/20 at 12:25; Stop 07/21/20 at 19:13; Status DC Rocuronium [place] (Zemuron) 50 mg STK-MED ONCE .ROUTE ; Start 07/21/20 at 12:54; Stop 07/21/20 at 19:13; Status DC Dexamethasone Sodium Phosphate (Decadron) 4 mg STK-MED ONCE .ROUTE ; Start 07/21/20 at 13:00; Stop 07/21/20 at 19:13; Status DC Ondansetron HCl (Zofran) 4 mg STK-MED ONCE .ROUTE ; Start 07/21/20 at 13:00; Stop 07/21/20 at 19:13; Status DC Lidocaine HCl (Lidocaine Pf 2% Vial) 5 ml STK-MED ONCE .ROUTE ; Start 07/21/20 at 13:16; Stop 07/21/20 at 19:13; Status DC Fentanyl Citrate (Fentanyl 2ml Vial) 100 mcg STK-MED ONCE .ROUTE ; Start at 13:16; Stop 07/21/20 at 19:13; Status DC Phenylephrine HCl (PHENYLEPHRINE in 0.9% NACL PF) 1 mg STK-MED ONCE IV ; Start 07/21/20 at 13:23; Stop 07/21/20 at 19:13; Status DC Enoxaparin Sodium (Lovenox 40mg Syringe) 40 mg Q24H SQ Last administered on 07/28/20at 10:27; Start 07/22/20 at 10:00 Lactobacillus Rhamnosus (Culturelle) 1 cap BID PO Last administered on 07/28/20at 08:10; Start 07/22/20 at 21:00 Oxycodone HCl (Roxicodone) 10 mg PRN Q4HRS PRN PO BREAKTHROUGH PAIN Last administered on 07/28/20at 11:26; Start 07/23/20 at 09:15 Nafcillin Sodium 2 gm/Dextrose 100 ml @ 200 mls/hr Q4HRS IV Last administered on 07/28/20at 11:26; Start 07/23/20 at 12:00 Bupivacaine HCl/ Epinephrine Bitart 50 ml/ Sodium Chloride 250 ml @ 0 mls/hr 1X ONCE IRR ; Start 07/23/20 at 10:45; Stop 07/23/20 at 10:46; Status UNV Bupivacaine HCl/ Epinephrine Bitart (Sensorcaine-Epi 0.25%-1:000416 Mpf) 30 ml 1 X ONCE INJ Last administered on 07/23/20at 11:15; Start 07/23/20 at 11:00; Stop 07/23/20 at 11:01; Status DC Potassium Bicarbonate (Potassium Effervescent Tablet) 40 meq 1X ONCE PO ; Start 07/24/20 at 05:45; Stop 07/24/20 at 05:46; Status Cancel Potassium Chloride (Klor-Con) 40 meq 1X ONCE PO Last administered on 07/24/20at 08:17; Start 07/24/20 at 06:45; Stop 07/24/20 at 06:46; Status DC Potassium Bicarbonate (Potassium Effervescent Tablet) 40 meq 1X ONCE PO ; Start 07/24/20 at 07:45; Stop 07/24/20 at 07:46; Status Cancel Potassium Bicarbonate (Potassium Effervescent Tablet) 40 meq 1X ONCE PO ; Start 07/24/20 at 06:00; Stop 07/24/20 at 06:01; Status Cancel Potassium Chloride (Klor-Con) 40 meq 1X ONCE PO Last administered on 07/24/20at 06:15; Start 07/24/20 at 06:00; Stop 07/24/20 at 06:08; Status DC Potassium Chloride (Klor-Con) 40 meq 1X ONCE PO Last administered on 07/24/20at 09:55; Start 07/24/20 at 07:45; Stop 07/24/20 at 07:46; Status DC Albuterol/ Ipratropium (Duoneb) 3 ml RTQID NEB Last administered on 07/25/20at 15:41; Start 07/24/20 at 12:00; Stop 07/26/20 at 00:12; Status DC Daptomycin 580 mg/ Sodium Chloride 50 ml @ 100 mls/hr Q24H IV Last administered on 07/28/20at 10:27; Start 07/24/20 at 10:00 Losartan Potassium (Cozaar) 100 mg DAILY PO Last administered on 07/28/20at 08:13; Start 07/25/20 at 09:00 Losartan Potassium (Cozaar) 50 mg 1X ONCE PO Last administered on 07/24/20at 09:55; Start 07/24/20 at 10:00; Stop 07/24/20 at 10:01; Status DC Potassium Chloride (Klor-Con) 40 meq 1X ONCE PO Last administered on 07/24/20at 17:07; Start 07/24/20 at 17:00; Stop 07/24/20 at 17:01; Status DC Potassium Chloride (Klor-Con) 20 meq TIDWMEALS PO Last administered on 07/27/20at 07:43; Start 07/25/20 at 08:00; Stop 07/27/20 at 10:31; Status DC Hydralazine HCl (Apresoline) 50 mg TID PO Last administered on 07/27/20at 07:42; Start 07/24/20 at 21:15; Stop 07/27/20 at 10:29; Status DC Albuterol Sulfate (Ventolin Neb Soln) 2.5 mg PRN Q6HRS PRN NEB SHORTNESS OF BREATH; Start 07/26/20 at 00:30 Lidocaine HCl (Viscous Lidocaine) 15 ml 1X ONCE SWSW Last administered on 07/26/20at 11:15; Start 07/26/20 at 11:15; Stop 07/26/20 at 11:17; Status DC Lidocaine HCl (Xylocaine 2% Topical 30gm Tube) 1 milton 1X ONCE TP Last administered on 07/26/20at 11:57; Start 07/26/20 at 11:15; Stop 07/26/20 at 11:17; Status DC Benzocaine (Hurricaine One) 2 spray 1X ONCE MM Last administered on 07/26/20at 11:57; Start 07/26/20 at 11:15; Stop 07/26/20 at 11:17; Status DC Propofol (Diprivan) 200 mg STK-MED ONCE IV ; Start 07/26/20 at 11:44; Stop 07/26/20 at 11:44; Status DC Lidocaine HCl (Lidocaine Pf 2% Vial) 5 ml STK-MED ONCE .ROUTE ; Start 07/26/20 at 11:44; Stop 07/26/20 at 11:44; Status DC Insulin Human Lispro (HumaLOG VIAL for OP,RR ONLY) 0-10 units PRN Q1HR PRN SQ PER PROTOCOL; Start 07/26/20 at 12:15; Stop 07/27/20 at 12:14; Status DC Ringer's Solution 1,000 ml @ 75 mls/hr [id number] IV Last administered on 1at 14:55; Start 07/26/20 at 12:15 Oxycodone HCl (OxyCONTIN) 10 mg Q12HR PO Last administered on 07/27/20at 20:14; Start 07/27/20 at 11:00; Stop 07/28/20 at 07:45; Status DC Hydralazine HCl (Apresoline) 100 mg TID PO Last administered on 07/28/20at 08:09; Start 07/27/20 at 14:00 Potassium Chloride (Klor-Con) 40 meq TIDWMEALS PO Last administered on 07/28/20at 12:52; Start 07/27/20 at 12:00 Propofol (Diprivan) 200 mg STK-MED ONCE IV ; Start 07/27/20 at 14:37; Stop 07/27/20 at 14:38; Status DC Lidocaine HCl (Lidocaine Pf 2% Vial) 5 ml STK-MED ONCE .ROUTE ; Start 07/27/20 at 14:37; Stop 07/27/20 at 14:38; Status DC Dexamethasone Sodium Phosphate (Decadron) 4 mg STK-MED ONCE .ROUTE ; Start 07/27/20 at 14:37; Stop 07/27/20 at 14:38; Status DC Ondansetron HCl (Zofran) 4 mg STK-MED ONCE .ROUTE ; Start 07/27/20 at 14:37; Stop 07/27/20 at 14:38; Status DC Fentanyl Citrate (Fentanyl 2ml Vial) 100 mcg STK-MED ONCE .ROUTE ; Start 07/27/20 at 14:38; Stop 07/27/20 at 14:38; Status DC Sodium Hypochlorite (Dakin'S 1/2 Strength) 1 milton 1X ONCE TP ; Start 07/27/20 at 16:15; Stop 07/27/20 at 16:16; Status DC Fentanyl Citrate (Fentanyl 2ml Vial) 100 mcg STK-MED ONCE .ROUTE ; Start 07/27/20 at 17:08; Stop 07/27/20 at 17:08; Status DC Oxycodone HCl (OxyCONTIN) 20 mg Q12HR PO Last administered on 07/28/20at 08:11; Start 07/28/20 at 09:00 Active Scripts Active Reported Prednisone 1 Mg Tablet 4 Mg PO DAILY Benadryl Allergy (Diphenhydramine Hcl) 25 Mg Tablet 25 Mg PO PRN DAILY PRN Rolaids Chewable Tablet (Calcium Carb/Magnesium Hydrox) 1 Each Tab.chew 1 Each PO PRN PRN Cardura (Doxazosin Mesylate) 2 Mg Tablet 2 Mg PO DAILY Levothyroxine Sodium 100 Mcg Tablet 300 Mcg PO DAILYAC Victoza 3-Mundo (Liraglutide) 0.6 Mg/0.1 Ml Pen.injctr 1.8 Mg SQ DAILY Lantus Solostar (Insulin Glargine,Hum.rec.anlog) 100 Unit/1 Ml Insuln.pen 25 Unit SQ HS Losartan Potassium 50 Mg Tablet 50 Mg PO DAILY Atorvastatin Calcium 10 Mg Tablet 10 Mg PO HS Vitals/I & O Vital Sign - Last 24 Hours 07/27/20 07/27/20 07/27/20 07/27/20 14:30 14:34 16:28 16:43 Temp 98.4 98.2 98.4 98.2 Pulse 75 75 72 Resp 15 30 24 B/P (MAP) 168/82 98/54 107/66 Pulse Ox 98 92 100 100 O2 Delivery Room Air Room Air Simple Mask Simple Mask O2 Flow Rate 2.0 13 13 07/27/20 07/27/20 07/27/20 07/27/20 16:58 17:13 17:45 17:56 Temp 98.6 98.6 Pulse 78 78 77 Resp 18 22 B/P (MAP) 132/75 126/82 119/86 (97) Pulse Ox 92 92 93 92 O2 Delivery Room Air Room Air Room Air Room Air 07/27/20 07/27/20 07/27/20 07/27/20 18:00 18:15 18:30 18:45 Pulse 77 73 78 77 B/P (MAP) 110/80 (90) 169/89 (115) 174/85 (114) Pulse Ox 93 92 91 90 O2 Delivery Room Air Room Air Room Air Room Air 07/27/20 07/27/20 07/27/20 07/27/20 19:00 19:00 19:15 19:30 Temp 98.8 98.8 Pulse 83 82 82 109 Resp 18 B/P (MAP) 133/68 (89) 174/85 (114) 172/83 (112) 172/83 (112) Pulse Ox 95 93 93 96 O2 Delivery Room Air Room Air Room Air 07/27/20 07/27/20 07/27/20 07/27/20 19:45 20:00 20:00 20:05 Pulse 83 81 81 B/P (MAP) 133/68 (89) 133/68 (89) Pulse Ox 96 94 94 O2 Delivery Room Air Room Air Room Air 07/27/20 07/27/20 07/27/20 07/27/20 20:15 20:15 20:30 23:00 Temp 98.0 98.0 Pulse 77 78 74 Resp 18 B/P (MAP) 160/75 160/75 (103) 160/75 (103) 169/90 (116) Pulse Ox 97 95 O2 Delivery Room Air 07/28/20 07/28/20 07/28/20 07/28/20 03:00 07:00 07:20 07:50 Temp 98.7 98.5 98.7 98.5 Pulse 75 84 Resp 18 17 18 18 B/P (MAP) 132/84 (100) 164/87 (112) Pulse Ox 96 96 O2 Delivery Room Air Room Air Room Air Room Air 07/28/20 07/28/20 07/28/20 07/28/20 08:09 08:10 08:11 08:13 Pulse 75 75 75 Resp 18 B/P (MAP) 132/84 132/84 132/84 O2 Delivery Room Air 07/28/20 07/28/20 07/28/20 07/28/20 10:36 11:00 11:06 11:26 Pulse 77 Resp 18 17 17 18 B/P (MAP) 137/64 (88) Pulse Ox 96 O2 Delivery Room Air Room Air Room Air Room Air 07/28/20 07/28/20 11:56 11:56 Resp 18 18 O2 Delivery Room Air Room Air Intake and Output 07/27/20 07/27/20 07/28/20 15:00 23:00 07:00 Intake Total 450 ml 450 ml 0 ml Output Total 10 ml Balance 450 ml 440 ml 0 ml Justifications for Admission Other Justification RADHA COSTA APRN Jul 28, 2020 13:59
[2020-07-28 15:00] VITALS: BP 140/74
[2020-07-28 19:00] VITALS: BP 164/87
[2020-07-28] MEDS: ATORVASTATIN CALCIUM 10 MG TABLET. PO SCH (20:25)
[2020-07-28] MEDS: INSULIN GLARGINE SYRINGE. SQ SCH (21:20)
--- NOTE | 2020-07-28 22:34 | PN ---
DATE: 07/28/2020 SUBJECTIVE: The patient is resting, slightly propped up in bed in no apparent distress, awake, alert, continued to complain of severe pain in his both feet. He apparently underwent incision and drainage of both feet yesterday and apparently, he was found to have new dorsal and lateral mid foot abscesses, left foot x 3. Prior right dorsal abscess incision and drainage, need for further debridement. No evidence of peripheral vascular disease. PHYSICAL EXAMINATION: GENERAL: When I examined him this morning, he looked pale, but no jaundice, cyanosis or thyromegaly. No jugular distention. No limb edema. VITAL SIGNS: His heart rate was 75, blood pressure was 132/84, temperature was 98, respiratory rate was 18 and oxygen saturation was 96% on room air. HEAD, EYES, EARS, NOSE AND THROAT: Normocephalic, atraumatic. NECK: Supple. HEART: Showed a normal first and second heart sounds. No gallop or murmur. CHEST: Clear to auscultation. No crepitation or rhonchi. ABDOMEN: Distended, soft, nontender. NEUROLOGIC: He is awake, alert, responding appropriately. Cranial nerves intact. He moves extremities without difficulty. He is mostly bedbound. He has multiple wounds in both feet, status post incision and drainage. His intake was 800, output was 3350. LABORATORY DATA: His lab work this morning showed a white cell count 10,600, hemoglobin 10, hematocrit 28, MCV 93, and platelet count of 406,000. Serum sodium was 135, potassium 3.6, chloride 100, bicarbonate 31, anion gap of 4, BUN 12, creatinine 1.2. Estimated GFR was 61 mL per minute. His glucose was 181, calcium was 9.2. Total bilirubin, AST, ALT, alkaline phosphatase were normal. Total protein was 6.2, albumin was 1.4. ASSESSMENT: 1. Bilateral lower extremity cellulitis. 2. Multiple abscesses on the dorsal aspect of both left and right foot, status post incision and drainage. 3. Type 2 diabetes mellitus, diabetic peripheral neuropathy. 4. Acute on chronic kidney injury. Creatinine has improved down to 1.1. 5. Hypokalemia, resolved. His potassium is up to 3.6. 6. Hypertension, much better controlled now. He is on losartan 100 mg once a day and hydralazine 100 mg 3 times a day. 7. The patient has grown methicillin-sensitive Staphylococcus aureus from his wounds as well as blood culture. He is now on daptomycin as well as nafcillin. PLAN: To continue IV antibiotic. Continue with DVT prophylaxis. Continue monitoring blood sugar and adjust insulin as needed. Continue with pain management. Continue with wound care. GILL DR: Sarahy TID: [id number]
[2020-07-28 23:00] VITALS: BP 144/70
[2020-07-29] MEDS: NAFCILLIN 2 GM in IV DEXTROSE 5% 100ML 100 ML IV SCH ×6 (00:29→20:08)
[2020-07-29] MEDS: oxyCODONE IR 5 MG TABLET PO PRN ×4 (00:32→17:14)
[2020-07-29] MEDS: fentaNYL PF VIAL 100 MCG/2 ML VIAL IVP PRN ×6 (02:31→21:37)
[2020-07-29 03:00] VITALS: BP 163/85
[2020-07-29] MEDS: IV RINGERS,LACTATED 1000ML 1,000 ML IV SCH ×2 (05:44→20:15)
[2020-07-29 07:00] VITALS: BP 173/87
[2020-07-29] MEDS: INSULIN LISPRO 300 UNITS/3 ML VIAL. SQ SCH ×6 (07:30→17:00)
[2020-07-29] MEDS: metFORMIN 500 MG TABLET PO SCH ×2 (08:01→17:14)
[2020-07-29] MEDS: POTASSIUM CHLORIDE 20 MEQ TABLET.ER. PO SCH ×3 (08:02→17:14)
[2020-07-29] MEDS: oxyCODONE ER 10 MG TAB.ER.12H PO SCH ×2 (08:02→20:07)
[2020-07-29] MEDS: predniSONE 1 MG TABLET PO SCH (08:03)
[2020-07-29] MEDS: DOXAZOSIN MESYLATE 1 MG TABLET. PO SCH (08:04)
[2020-07-29] MEDS: LEVOTHYROXINE 100 MCG TABLET PO SCH (08:04)
[2020-07-29] MEDS: LOSARTAN POTASSIUM 50 MG TABLET. PO SCH (08:05)
[2020-07-29] MEDS: LACTOBACILLUS RHAMNOSUS GG 1 CAPSULE. PO SCH ×2 (08:05→20:07)
[2020-07-29] MEDS: ENOXAPARIN 40 MG/0.4 ML SYRINGE. SQ SCH (10:22)
--- NOTE | 2020-07-29 10:57 | PDOC ---
Provider Note Date of Service: DATE: 07/29/20 TIME: 10:52 Provider Note Provider Note Subjective pain controlled. Ambulates in halls without complaints. No fevers. Objective: Patient lying comfortably supine in bed. Turns self to reposition for dressing change. Vital signs stable, afebrile. Respirations: unlabored. No cough. Room air Wound vac dressing securely intact right foot. Mild swelling and improved erythema to right foot. Left 3rd toe amputation incision intact with sutures and healthy. + palpable pulse. Surgical dressings removed Left foot. Packing removed from 3 individual wounds. Wound beds are clean. Minimal purulent drainage when somewhat aggressively milked from distal foot. Still with some localized erythema to dorsal foot, but overall Swelling and erythema improved. Does have mild sloughing tissue to scattered wound beds. Assessment/Plan: POD#2 Incision and drainage of abscesses x 3, left dorsal and lateral mid foot with cultures; Debridement, full thickness of right dorsal foot wound measuring 5 x 3 cm. POD#8 Left 3rd toe partial amputation; Right lateral foot incision and drainage. 1. Continue wound vac therapy to right foot with veraflo. Dressing change planned for this afternoon. Continue wound care left foot. Discussed with REBECA RN. 2. Continue IV antibiotic therapy as per ID. Awaiting surgical culture results of left foot wounds. Previous blood cultures + Staph aureus 07/20/2020 3. May ambulate without restrictions. 4. Diabetic mgmt per primary 5. Discussed with patient, judson, and Dr. Moore - we would like to keep veraflo on over the weekend. Will continue to monitor. Justicifation of Admission Dx: Justifications for Admission: Justification of Admission Dx: Yes NABIL MCGHEE Jul 29, 2020 10:56
[2020-07-29 11:00] VITALS: BP 148/88
--- NOTE | 2020-07-29 11:30 | NUR ---
SW following. Discussed with RN, awaiting foot wound cultures. Pt will be here through the weekend. SW will review on Saturday. [facility] notified. SW will continue to follow.
--- NOTE | 2020-07-29 11:40 | PDOC ---
Infectious Disease Note Subjective: Subjective Patient cont to have postop site pain Denies fever, nausea, vomiting, diarrhea, shortness of breath or cough Vital Signs: Vital Signs Vital Signs Date Time Temp Pulse Resp B/P (MAP) Pulse Ox O2 Delivery O2 Flow Rate FiO2 07/29/20 11:00 98.3 77 20 148/88 (108) 97 Room Air 98.3 Physical Exam: PHYSICAL EXAM GENERAL: Alert awake oriented x3 male in no acute distress HEENT: Normocephalic, atraumatic. Anicteric. No thrush. NECK: Supple. No JVD. LUNGS: Clear bilaterally. HEART: S1, S2 heard. No murmurs. ABDOMEN: Soft, obese. Bowel sounds present. GENITOURINARY: No Santana, Briefs in place. EXTREMITIES: Bilateral foot dressing present, RT foot with wound vac, Left foot dressing in place, not taken down vascular team notes reviewed NEUROLOGIC: Alert oriented x3 moves all 4 extremities. PSYCHIATRIC: Calm and cooperative. PIV looks clean. Medications: Inpatient Meds: Medications reviewed. Labs: Lab Laboratory Tests Test 07/28/20 12:23 07/28/20 16:30 07/28/20 21:10 07/29/20 07:07 Glucose (Fingerstick) 89 mg/dL (70-99) 137 mg/dL (70-99) 221 mg/dL (70-99) 142 mg/dL (70-99) Micro RUN DATE: 07/22/20 [facility] LAB *LIVE* PAGE 1 RUN TIME: 929 Specimen Inquiry ------ ------ PATIENT: DASHAWN GOMEZ ACCT: [id number] LOC: ER U: [id number] AGE/SX: 60/M ROOM: RE07/18/[address]: CAROLEE ZHOU MD : 1960 BED: DIS: STATUS: DEP ER TLOC: SPEC #: [id number] SANDOR: 07/18/20-2046 STATUS: CUAC REQ #: [id number] RECD: 07/18/[address]: CAROLEE ZHOU MD SOURCE: BLOOD ENTR: 07/19/20-1513 [facility] DR: JERONIMO KO MD [facility]: ORDERED: BLOOD CULT-LC Procedure Result BLOOD CULTURE LC Final Final GROWTH OF GRAM POSITIVE COCCI FINAL ID= [STAPHYLOCOCCUS AUREUS] STAPHYLOCOCCUS AUREUS ANTIMICROBIAL SUSCEPTIBILITY Final Comment POS PRESTON TYPE 38 STAPHYLOCOCCUS AUREUS ANTIBIOTIC RESULT INTERPRETATION AZITHROMYCIN <=2 S CLINDAMYCIN <=0.25 S CEFOXITIN SCREEN <=4 NEG CIPROFLOXACIN <=1 S CEFTAROLINE <=0.5 S DAPTOMYCIN <=0.5 S ERYTHROMYCIN <=0.25 S GENTAMICIN <=4 S LINEZOLID <=1 S LEVOFLOXACIN <=1 S OXACILLIN 0.5 S PENICILLIN >2 Anton RIFAMPIN <=1 S TRIMETHOPRIM/SULFAMETHOXAZOLE <=0.5/9.5 S TETRACYCLINE <=4 S VANCOMYCIN 1 S Unless otherwise specified, Testing Performed by: [address] [address] For Inquires, the Physician may contact the Microbiology department at [phone] RUN DATE: 07/23/20 [facility] LAB *LIVE* PAGE 1 RUN TIME: 0851 Specimen Inquiry PATIENT: DASHAWN GOMEZ ACCT: [id number] LOC: [address] [place] [address] U: [id number] AGE/SX: 60/M ROOM: 4 RE07/19/[address]: JOESPH BIRMINGHAM MD : 1960 BED: 1 DIS: STATUS: ADM IN TLOC: SPEC #: [id number] SANDOR: 07/20/20 STATUS: COMP REQ #: [id number] RECD: 07/20/[address] [facility] [address]: JAMA HERNANDEZ MD SOURCE: BLOOD ENTR: 07/21/[address] [facility] [address]: JERONIMO KO [facility] CRISTIAN NG AHMED M MD MONAHAN, TIMOTHY J MD ORDERED: BRII CULT - LC Procedure Result BLOOD CULTURE LC Final Final GRAM POSITIVE COCCI FINAL ID= [STAPHYLOCOCCUS AUREUS] STAPHYLOCOCCUS AUREUS ANTIMICROBIAL SUSCEPTIBILITY Final Comment POS PRESTON TYPE 38 STAPHYLOCOCCUS AUREUS ANTIBIOTIC RESULT INTERPRETATION AZITHROMYCIN <=2 S CLINDAMYCIN <=0.25 S CEFOXITIN SCREEN <=4 NEG CIPROFLOXACIN <=1 S CEFTAROLINE <=0.5 S DAPTOMYCIN <=0.5 S ERYTHROMYCIN <=0.25 S GENTAMICIN <=4 S LINEZOLID <=1 S LEVOFLOXACIN <=1 S OXACILLIN 0.5 S PENICILLIN >2 Anton RIFAMPIN <=1 S TRIMETHOPRIM/SULFAMETHOXAZOLE <=0.5/9.5 S TETRACYCLINE <=4 S VANCOMYCIN 1 S Unless otherwise specified, Testing Performed by: [address] [address] For Inquires, the Physician may contact the Microbiology department at [phone] wound cult Staph aureus RUN DATE: 07/29/20 [facility] LAB *LIVE* PAGE 1 RUN TIME: 1120 Specimen Inquiry PATIENT: DASHAWN GOMEZ Sheri ACCT: [id number] LOC: [facility] U: [id number] AGE/SX: 60/M ROOM: 664 RE07/19/[address]: JOESPH BIRMINGHAM MD : 1960 BED: 1 DIS: STATUS: ADM IN TLOC: SPEC #: [id number] SANDOR: 07/27/20 STATUS: RES REQ #: [id number] RECD: 07/28/[address] [facility] [address]: JOESPH BIRMINGHAM MD SOURCE: FOOT ENTR: 07/28/[address] [facility] [address]: JERONIMO KO MD [facility]: LEFT BRADLY CADE MD,JAMA NG,CRISTIAN SANDERSON,ALAN MONTES DE OCA,CAROLEE Dewitt MD ORDERED: ANNMARIE/SHRUTI/VIPIN COMMENTS: LEFT DORSAL FOOT ABSCESS Procedure Result GRAM STAIN Final Final NO ORGANISMS SEEN. SQUAMOUS EPI CELL:RARE PMN (WBCs):RARE Unless otherwise specified, Testing Performed by: [address] [address] For Inquires, the Physician may contact the Microbiology department at [phone] ANAEROBIC-AEROBIC CULTURE Preliminary Preliminary FEW GRAM POSITIVE COCCI on 07/29/20 at 1117 FINAL ID= [STAPHYLOCOCCUS AUREUS] STAPHYLOCOCCUS AUREUS Unless otherwise specified, Testing Performed by: [place] [address] [place] [address] For Inquires, the Physician may contact the Microbiology department at [phone] END OF REPORT Objective: Assessment: Severe sepsis from Staph aureus bacteremia present on admission at [facility] Methicillin Staph aureus bacteremia 4 out of 4 bottles at [facility] 07/18/20 Staph aureus bacteremia here July 20, 2020 Fever Source Rt foot dorsal abscess Leukocytosis and lactic acidosis.Bandemia. Bilateral lower extremity cellulitis,deep tissue infection of both feet. Rt foot abscess. 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 s/p amputation July 22, 2020 Diabetes with neuropathy, poorly controlled. Noncompliance. Acute kidney injury. Rhabdo Hematuria. Hyponatremia. Hypertension. Encephalopathy, likely metabolic.Resolved Plan: Plan of Care Vascular input noted from today Continue Nafcillin Cont Daptomycin PCC line BRYAN on 07/26, negative for vegetations f/u Repeat blood cultures 07/23 neg so far Local wound care as directed Follow-up left dorsal foot abscess cultures from July 27, 2020 Follow up labs Vascular surgery attempted aspiration of the left dorsal foot swelling, no purulence Probiotics Continue supportive care Discussed with girlfriend at bedside D/W JAMA LAU MD Jul 29, 2020 11:40
[2020-07-29] MEDS: DAPTOmycin (GENERIC) IVPB 580 MG in IV NORMAL SALINE 50ML 50 ML IV SCH (11:49)
[2020-07-29] MEDS ORDERED: SODIUM HYPOCHLORITE 0.125% 473 ML BOTTLE. TP SCH (14:15)
[2020-07-29 15:00] VITALS: BP 136/72
--- NOTE | 2020-07-29 16:50 | NUR ---
Wound Care Wound Type/Assessment: Pt seen for follow up wound care and bilateral foot wound vac changes. After speaking with JOHNNA Shukla with Vascular this morning re: L foot redness, slough and odor, proposed applying Dakins instilled Veraflo to L foot wounds over the weekend, Dr. Alcantara amenable to treatment plan. R foot dressing removed, wound cleaned and assessed, wound bed is beefy red, clean, muscle and tendon exposed, some granulation tissue present. Left foot dressing and packing removed, 3 wounds cleaned, measured and photographed. All 3 wounds sloughy, with soupy slough, minimal healthy tissue present, and with continued odor even after 1/4 str Dakins packed gauze dressings. L dorsal foot wound able to probe to bone, muscle, tendon and adipose exposed in all 3, but unable to communicate between the wounds. Treatment Recommendations/Plan: R foot-Skin prep and ostomy ring applied to periwound, 1 piece of cancino Veraflo foam placed into wound bed, foam tracked over drape up to R lateral lower leg, and vac showing strong seal at -125 suction. 10 mL of NS will infuse into wound every 3 hours for 3 minutes of dwell time, pt tolerated well. L foot-Skin prep and ostomy ring applied to periwound, 1 piece of cancino Veraflo foam placed into each of 3 wound beds, foam tracked over drape, together to L medial lower leg, and vac showing strong seal at -125 suction. 12 mL of 1/4 str. Dakins will infuse into wound every 3 hours for 3 minutes of dwell time, pt tolerated well. Education provided: to pt and family re: current vac therapy, troubleshooting vacs, and alarms, as well as d/c POC, both v/u. YAZ Delgado instructed on Dakins solution instilling in L foot, NS in R, and to page wound care with concerns over the weekend, at [phone]. Offloading surface/device: pillows, and will defer to Vascular re: off-loading shoes, as any velcro surgical shoes will place direct pressure over dorsal foot wounds. Recommended Referrals/Tests: n/a Discharge Recommendations for dressings: NPWT to bilateral foot wounds, pt requests to follow up at his current wound clinic in [place]. Informed pt that we can place home vac on pt at d/c, and [place] can continue care. Pt currently on 2 separate vacs, one for each foot d/t Veraflo, but should be able to d/c home on 1 vac. Vac application completed through [facility]/ today.
[2020-07-29 19:00] VITALS: BP 156/82
[2020-07-29] MEDS: ATORVASTATIN CALCIUM 10 MG TABLET. PO SCH (20:07)
[2020-07-29] MEDS: INSULIN GLARGINE SYRINGE. SQ SCH (21:41)
--- NOTE | 2020-07-29 22:48 | PN ---
DATE: 07/29/2020 SUBJECTIVE: The patient is resting almost flat in bed, in no apparent distress. He continued to complain of severe pain that he rates as 9/10 in severity. PHYSICAL EXAMINATION:. GENERAL: When I examined him today, he looked pale, but no jaundice, cyanosis or thyromegaly, no jugular venous distention. No limb edema. VITAL SIGNS: Heart rate was 78, blood pressure was 173/67, temperature was 98.3, respiratory rate was 18 and oxygen saturation was 97%. HEAD, EYES, EARS, NOSE AND THROAT: Normocephalic, atraumatic. NECK: Supple. HEART: Normal first and second heart sounds, no gallop, murmur. CHEST: Clear to auscultation. No crepitation or rhonchi. ABDOMEN: Distended, soft, nontender. NEUROLOGIC: He is awake, alert, responding appropriately. All his cranial nerves intact. He moves extremities without difficulty. Has multiple wounds in both right and left foot. The wounds on the right foot covered with wound vacuum-assisted closure device. His intake was 1500, output was 900. LABORATORY DATA: As of yesterday, his BUN was 12, creatinine 1.2 and his white cell count is down to 10,600, hemoglobin 10, hematocrit 28, MCV 93, and platelet count of 406,000. ASSESSMENT: 1. Bilateral lower extremity cellulitis. 2. Multiple abscesses on the dorsal aspect of both left and right foot, status post incision and drainage. 3. Type 2 diabetes mellitus with diabetic peripheral neuropathy. 4. Acute on chronic kidney injury, improving. His creatinine is down to 1.1. 5. Hypokalemia, resolved. His most recent serum potassium is up to 3.6. 6. Hypertension, much better controlled. He is now on losartan 100 mg once a day and hydralazine 100 mg 3 times a day. 7. The patient has grown methicillin-sensitive Staphylococcus aureus from his wounds as well as blood cultures done twice at [facility] in this hospital. He is currently on daptomycin and nafcillin. 8. He has multiple wounds on the dorsal aspect of both feet. PLAN: To continue with IV antibiotic. Continue with wound care and wound vacuum-assisted closure device. Continue with DVT prophylaxis. Continue pain management. Continue with DVT prophylaxis. MARTIN DR: Sarahy TID: [id number]
[2020-07-29 23:00] VITALS: BP 153/85
[2020-07-30] MEDS: NAFCILLIN 2 GM in IV DEXTROSE 5% 100ML 100 ML IV SCH ×6 (00:20→20:16)
[2020-07-30] MEDS: fentaNYL PF VIAL 100 MCG/2 ML VIAL IVP PRN ×7 (00:43→23:14)
[2020-07-30 03:00] VITALS: BP 179/89
[2020-07-30 04:25] LABS: HEMATOCRIT 30.2 % (39.0-53.0); HEMOGLOBIN 10.4 g/dL (13.0-17.5); RED BLOOD COUNT 3.22 x10^6/uL (4.30-5.70); RED CELL DISTRIBUTION WIDTH 12.9 % (11.5-14.5); WHITE BLOOD COUNT 8.7 x10^3/uL (4.0-11.0)
[2020-07-30 04:48] LABS: ALBUMIN 1.5 g/dL (3.4-5.0); ALBUMIN/GLOBULIN RATIO 0.3 (1.0-1.7); CALCIUM 9.7 mg/dL (8.5-10.1); CREATININE 1.3 mg/dL (0.7-1.3); GFR 56.1; POTASSIUM 4.6 mmol/L (3.5-5.1); TOTAL BILIRUBIN 0.4 mg/dL (0.2-1.0); TOTAL PROTEIN 6.6 g/dL (6.4-8.2)
[2020-07-30 07:00] VITALS: BP 160/82
--- NOTE | 2020-07-30 07:24 | PDOC ---
Infectious Disease Note Subjective: Subjective Patient without complaints Did not sleep well last night due to postop site pain left foot Denies fever, nausea, vomiting, diarrhea, shortness of breath or cough Vital Signs: Vital Signs Vital Signs Date Time Temp Pulse Resp B/P (MAP) Pulse Ox O2 Delivery O2 Flow Rate FiO2 07/30/20 04:45 Room Air 07/30/20 03:00 97.7 73 16 179/89 (119) 98 97.7 07/29/20 20:00 5.0 Physical Exam: PHYSICAL EXAM GENERAL: Alert awake oriented x3 male in no acute distress HEENT: Normocephalic, atraumatic. Anicteric. No thrush. NECK: Supple. No JVD. LUNGS: Clear bilaterally. HEART: S1, S2 heard. No murmurs. ABDOMEN: Soft, obese. Bowel sounds present. GENITOURINARY: No Santana, Briefs in place. EXTREMITIES: Bilateral foot wound VAC present, left foot dorsal edema with erythema though improved since surgery NEUROLOGIC: Alert oriented x3 moves all 4 extremities. PSYCHIATRIC: Calm and cooperative. PIV looks clean. Medications: Inpatient Meds: Medications reviewed. Labs: Lab Laboratory Tests Test 07/29/20 11:38 07/29/20 17:02 07/30/20 03:05 Glucose (Fingerstick) 144 mg/dL (70-99) 168 mg/dL (70-99) White Blood Count 8.7 x10^3/uL (4.0-11.0) Red Blood Count 3.22 x10^6/uL (4.30-5.70) Hemoglobin 10.4 g/dL (13.0-17.5) Hematocrit 30.2 % (39.0-53.0) Mean Corpuscular Volume 94 fL (79-100) Mean Corpuscular Hemoglobin 32 pg (25-35) Mean Corpuscular Hemoglobin Concent 34 g/dL (31-37) Red Cell Distribution Width 12.9 % (11.5-14.5) Platelet Count 413 x10^3/uL (140-400) Sodium Level 139 mmol/L (136-145) Potassium Level 4.6 mmol/L (3.5-5.1) Chloride Level 103 mmol/L (98-107) Carbon Dioxide Level 30 mmol/L (21-32) Anion Gap 6 (6-14) Blood Urea Nitrogen 13 mg/dL (8-26) Creatinine 1.3 mg/dL (0.7-1.3) Estimated GFR (Cockcroft-Gault) 56.1 BUN/Creatinine Ratio 10 (6-20) Glucose Level 153 mg/dL (70-99) Calcium Level 9.7 mg/dL (8.5-10.1) Total Bilirubin 0.4 mg/dL (0.2-1.0) Aspartate Amino Transf (AST/SGOT) 21 U/L (15-37) Alanine Aminotransferase (ALT/SGPT) 14 U/L (16-63) Alkaline Phosphatase 108 U/L (46-116) Total Protein 6.6 g/dL (6.4-8.2) Albumin 1.5 g/dL (3.4-5.0) Albumin/Globulin Ratio 0.3 (1.0-1.7) Micro RUN DATE: 07/22/20 [facility] LAB *LIVE* PAGE 1 RUN TIME: 929 Specimen Inquiry PATIENT: DASHAWN GOMEZ ACCT: [id number] LOC: ER U: [id number] AGE/SX: 60/M ROOM: RE07/18/[address]: CAROLEE ZHOU MD : 1960 BED: DIS: STATUS: DEP ER TLOC: SPEC #: [id number] SANDOR: 07/18/20 STATUS: COMP REQ #: [id number] RECD: 07/18/20 [facility] DR: CAROLEE ZHOU MD SOURCE: BLOOD ENTR: 07/19/20-[address] [facility] [address]: JERONIMO KO MD [facility]: ORDERED: BLOOD CULT-LC Procedure Result BLOOD CULTURE LC Final Final GROWTH OF GRAM POSITIVE COCCI FINAL ID= [STAPHYLOCOCCUS AUREUS] STAPHYLOCOCCUS AUREUS ANTIMICROBIAL SUSCEPTIBILITY Final Comment POS PRESTON TYPE 38 STAPHYLOCOCCUS AUREUS ANTIBIOTIC RESULT INTERPRETATION AZITHROMYCIN <=2 S CLINDAMYCIN <=0.25 S CEFOXITIN SCREEN <=4 NEG CIPROFLOXACIN <=1 S CEFTAROLINE <=0.5 S DAPTOMYCIN <=0.5 S ERYTHROMYCIN <=0.25 S GENTAMICIN <=4 S LINEZOLID <=1 S LEVOFLOXACIN <=1 S OXACILLIN 0.5 S PENICILLIN >2 Anton RIFAMPIN <=1 S TRIMETHOPRIM/SULFAMETHOXAZOLE <=0.5/9.5 S TETRACYCLINE <=4 S VANCOMYCIN 1 S Unless otherwise specified, Testing Performed by: [facility] [address] [place] [address] For Inquires, the Physician may contact the Microbiology department at [phone] RUN DATE: 07/23/20 [facility] LAB *LIVE* PAGE 1 RUN TIME: 850 Specimen Inquiry PATIENT: JASONDASHAWN Wade ACCT: [id number] LOC: [address] [place] [address] U: [id number] AGE/SX: 60/M ROOM: 664 RE07/19/[address]: JOESPH BIRMINGHAM MD : 1960 BED: 1 DIS: STATUS: ADM IN TLOC: SPEC #: [id number] SANDOR: 07/20/20 STATUS: COMP REQ #: [id number] RECD: 07/20/20 [facility] DR: JAMA HERANNDEZ MD SOURCE: BLOOD ENTR: 07/21/[address] [facility] [address]: JERONIMO KO [facility] CRISTIAN NG AHMED M MD MONAHAN, TIMOTHY J MD ORDERED: BLD CULT - LC Procedure Result BLOOD CULTURE LC Final Final GRAM POSITIVE COCCI FINAL ID= [STAPHYLOCOCCUS AUREUS] STAPHYLOCOCCUS AUREUS ANTIMICROBIAL SUSCEPTIBILITY Final Comment POS PRESTON TYPE 38 STAPHYLOCOCCUS AUREUS ANTIBIOTIC RESULT INTERPRETATION AZITHROMYCIN <=2 S CLINDAMYCIN <=0.25 S CEFOXITIN SCREEN <=4 NEG CIPROFLOXACIN <=1 S CEFTAROLINE <=0.5 S DAPTOMYCIN <=0.5 S ERYTHROMYCIN <=0.25 S GENTAMICIN <=4 S LINEZOLID <=1 S LEVOFLOXACIN <=1 S OXACILLIN 0.5 S PENICILLIN >2 Anton RIFAMPIN <=1 S TRIMETHOPRIM/SULFAMETHOXAZOLE <=0.5/9.5 S TETRACYCLINE <=4 S VANCOMYCIN 1 S Unless otherwise specified, Testing Performed by: [address] [address] For Inquires, the Physician may contact the Microbiology department at [phone] wound cult Staph aureus RUN DATE: 07/29/20 [facility] LAB *LIVE* PAGE 1 RUN TIME: 1120 Specimen Inquiry PATIENT: DASHAWN GOMEZ Sheri ACCT: [id number] LOC: [address] [place] [address] U: [id number] AGE/SX: 60/M ROOM: [facility] RE07/19/[address]: JOESPH BIRMINGHAM MD : 1960 BED: 1 DIS: STATUS: ADM IN TLOC: SPEC #: [id number] SANDOR: 07/27/20-1603 STATUS: RES REQ #: [id number] RECD: 07/28/20-[address]: JOESPH BIRMINGHAM MD SOURCE: FOOT ENTR: 07/28/20-[address]: JERONIMO KO MD [facility]: [place] CADEJAMA CAMPUZANO MD, MD,CRISTIAN SANDERSON,ALAN MONTES DE OCA,CAROLEE Dewitt MD ORDERED: ANAER/AERJORGE ALBERTO/GS COMMENTS: LEFT DORSAL FOOT ABSCESS Procedure Result GRAM STAIN Final Final NO ORGANISMS SEEN. SQUAMOUS EPI CELL:RARE PMN (WBCs):RARE Unless otherwise specified, Testing Performed by: [address] [address] For Inquires, the Physician may contact the Microbiology department at [phone] ANAEROBIC-AEROBIC CULTURE Preliminary Preliminary FEW GRAM POSITIVE COCCI on 07/29/20 at 1117 FINAL ID= [STAPHYLOCOCCUS AUREUS] STAPHYLOCOCCUS AUREUS Unless otherwise specified, Testing Performed by: [address] [address] For Inquires, the Physician may contact the Microbiology department at [phone] END OF REPORT Objective: Assessment: Severe sepsis from Staph aureus bacteremia present on admission at [facility] Methicillin Staph aureus bacteremia 4 out of 4 bottles at [facility] 07/18/20 Staph aureus bacteremia here July 20, 2020 Fever Source Rt foot dorsal abscess Leukocytosis and lactic acidosis.Bandemia. Bilateral lower extremity cellulitis,deep tissue infection of both feet. Rt foot abscess. 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 s/p amputation July 22, 2020 Diabetes with neuropathy, poorly controlled. Noncompliance. Acute kidney injury. Rhabdo Hematuria. Hyponatremia. Hypertension. Encephalopathy, likely metabolic.Resolved Plan: Plan of Care Continue Nafcillin DC Dapto Start linezolid for now PCC line BRYAN on 07/26, negative for vegetations f/u Repeat blood cultures 07/23 neg so far Local wound /vac care as directed Follow-up final left dorsal foot abscess cultures from July 27, 2020 Follow up labs Probiotics Would recommend transfer to Rehab\LTAC. Girlfriend at bedside agrees Continue supportive care D/W at bedside D/W Girlfriend D/W JAMA LAU MD Jul 30, 2020 07:24
[2020-07-30] MEDS: INSULIN LISPRO 300 UNITS/3 ML VIAL. SQ SCH ×6 (07:40→17:00)
[2020-07-30] MEDS: POTASSIUM CHLORIDE 20 MEQ TABLET.ER. PO SCH ×3 (07:41→17:00)
[2020-07-30] MEDS: LEVOTHYROXINE 100 MCG TABLET PO SCH (07:41)
[2020-07-30] MEDS: oxyCODONE ER 10 MG TAB.ER.12H PO SCH ×2 (07:42→20:17)
[2020-07-30] MEDS: metFORMIN 500 MG TABLET PO SCH ×2 (07:42→17:00)
[2020-07-30] MEDS: LACTOBACILLUS RHAMNOSUS GG 1 CAPSULE. PO SCH ×2 (07:42→20:16)
[2020-07-30] MEDS: LOSARTAN POTASSIUM 50 MG TABLET. PO SCH (07:53)
[2020-07-30] MEDS: DOXAZOSIN MESYLATE 1 MG TABLET. PO SCH (07:54)
[2020-07-30] MEDS: IV RINGERS,LACTATED 1000ML 1,000 ML IV SCH ×2 (09:35→22:55)
--- NOTE | 2020-07-30 09:39 | PN ---
DATE: 07/30/2020 SUBJECTIVE: The patient is resting, slightly propped up in bed in no apparent distress, sleepy, but arousable. On questioning him, he stated that he has a rough night but now his pain is well controlled. PHYSICAL EXAMINATION: GENERAL: When I examined him, he looked pale, but no jaundice, cyanosis or thyromegaly. No jugular venous distention. No lower limb edema. VITAL SIGNS: Heart rate was 75, blood pressure is 160/82, temperature was 98.2, respiratory rate was 16 and oxygen saturation was 99% on room air. HEAD, EYES, EARS, NOSE AND THROAT: Normocephalic, atraumatic. NECK: Supple. HEART: Showed normal first and second heart sounds, no gallop, murmur. CHEST: Clear to auscultation. No crepitation or rhonchi. ABDOMEN: Distended, soft, nontender. NEUROLOGIC: He was sleepy, but arousable. All his cranial nerves are intact. He moves extremities without difficulty. Has wound VACs on the dorsal aspect of both feet. His intake was 1500, output was 900. LABORATORY DATA: As of this morning, his white cell count is down to 8700, hemoglobin was 10, hematocrit 30, MCV 94 and platelet count of 113,000. His chemistry showed a serum sodium of 139, potassium 4.6, chloride 103, bicarbonate 30, anion gap of 6, BUN 13, creatinine 1.3. Estimated GFR was 56 mL per minute. His glucose 153, calcium was 9.7. Total bilirubin, AST, ALT, alkaline phosphatase were normal. Total protein 6.6, albumin was 1.5. ASSESSMENT: 1. Bilateral lower extremity cellulitis. 2. Multiple abscess on the dorsal aspect of left and right foot, status post incision and drainage. 3. The wounds are covered with wound vacuum-assisted closure device in both feet. 4. Type 2 diabetes mellitus with diabetic peripheral neuropathy. 5. Acute on chronic kidney injury, improving. His creatinine is down to 1.3. 6. Hypokalemia, resolved. His most recent serum potassium is 4.6. 7. Hypertension, much better controlled. He is now on losartan 100 mg once a day as well as hydralazine 100 mg 3 times a day. 8. The patient has grown methicillin-sensitive Staph aureus from his wounds as well as blood cultures done twice at [facility] as well as this facility. He is currently on daptomycin and nafcillin. PLAN: To continue with IV antibiotic. Continue with wound care and wound vacuum-assisted closure device. Continue with DVT prophylaxis. Continue pain management. The patient and his family have agreed to discharge to LTAC facility. HOLLIS DR: Sarahy TID: [id number]
[2020-07-30] MEDS: predniSONE 1 MG TABLET PO SCH (09:52)
[2020-07-30] MEDS: DAPTOmycin (GENERIC) IVPB 580 MG in IV NORMAL SALINE 50ML 50 ML IV SCH (09:52)
[2020-07-30] MEDS: ENOXAPARIN 40 MG/0.4 ML SYRINGE. SQ SCH (09:52)
[2020-07-30] MEDS: oxyCODONE IR 5 MG TABLET PO PRN ×3 (09:57→18:34)
--- NOTE | 2020-07-30 10:07 | PDOC ---
SURGICAL PROGRESS NOTE DATE: 07/30/20 TIME: 10:05 Subjective Patient was seen and examined at the bedside and is doing well. Patient's is at the bedside as well. He is tolerating bilateral wound VAC therapy. Dr. Persaud from infectious disease was also at the bedside. Vital Signs Vital Signs Date Time Temp Pulse Resp B/P (MAP) Pulse Ox O2 Delivery O2 Flow Rate FiO2 07/30/20 09:57 Room Air 07/30/20 08:22 99 07/30/20 07:54 75 160/82 07/30/20 07:00 98.2 16 98.2 07/29/20 20:00 5.0 I&O Intake and Output 07/30/20 07:00 Intake Total 480 ml Output Total 500 ml Balance -20 ml Intake Oral 480 ml Output Urine Total 500 ml # Voids 3 General: Alert, Oriented X3, Cooperative Lungs: Clear to auscultation, Normal air movement Heart: Regular rate, Normal S1, Normal S2 Extremities: No clubbing, No cyanosis, Normal pulses Skin: Other (Bilateral lower extremity foot wounds are stable with negative pressure wound VAC therapy, left foot has mild reactive cellulitis, pulse exam is intact bilaterally) Neuro: Normal speech, Strength at 5/5 X4 ext, Sensation intact, Cranial nerves 3-12 NL Labs Laboratory Tests Test 07/28/20 11:30 07/28/20 12:23 07/28/20 16:30 07/28/20 21:10 Glucose (Fingerstick) 56 mg/dL (70-99) 89 mg/dL (70-99) 137 mg/dL (70-99) 221 mg/dL (70-99) Test 07/29/20 07:07 07/29/20 11:38 07/29/20 17:02 07/30/20 03:05 Glucose (Fingerstick) 142 mg/dL (70-99) 144 mg/dL (70-99) 168 mg/dL (70-99) White Blood Count 8.7 x10^3/uL (4.0-11.0) Red Blood Count 3.22 x10^6/uL (4.30-5.70) Hemoglobin 10.4 g/dL (13.0-17.5) Hematocrit 30.2 % (39.0-53.0) Mean Corpuscular Volume 94 fL (79-100) Mean Corpuscular Hemoglobin 32 pg (25-35) Mean Corpuscular Hemoglobin Concent 34 g/dL (31-37) Red Cell Distribution Width 12.9 % (11.5-14.5) Platelet Count 413 x10^3/uL (140-400) Sodium Level 139 mmol/L (136-145) Potassium Level 4.6 mmol/L (3.5-5.1) Chloride Level 103 mmol/L (98-107) Carbon Dioxide Level 30 mmol/L (21-32) Anion Gap 6 (6-14) Blood Urea Nitrogen 13 mg/dL (8-26) Creatinine 1.3 mg/dL (0.7-1.3) Estimated GFR (Cockcroft-Gault) 56.1 BUN/Creatinine Ratio 10 (6-20) Glucose Level 153 mg/dL (70-99) Calcium Level 9.7 mg/dL (8.5-10.1) Total Bilirubin 0.4 mg/dL (0.2-1.0) Aspartate Amino Transf (AST/SGOT) 21 U/L (15-37) Alanine Aminotransferase (ALT/SGPT) 14 U/L (16-63) Alkaline Phosphatase 108 U/L (46-116) Total Protein 6.6 g/dL (6.4-8.2) Albumin 1.5 g/dL (3.4-5.0) Albumin/Globulin Ratio 0.3 (1.0-1.7) Test 07/30/20 07:27 Glucose (Fingerstick) 153 mg/dL (70-99) Laboratory Tests Test 07/29/20 11:38 07/29/20 17:02 07/30/20 03:05 07/30/20 07:27 Glucose (Fingerstick) 144 mg/dL (70-99) 168 mg/dL (70-99) 153 mg/dL (70-99) White Blood Count 8.7 x10^3/uL (4.0-11.0) Red Blood Count 3.22 x10^6/uL (4.30-5.70) Hemoglobin 10.4 g/dL (13.0-17.5) Hematocrit 30.2 % (39.0-53.0) Mean Corpuscular Volume 94 fL (79-100) Mean Corpuscular Hemoglobin 32 pg (25-35) Mean Corpuscular Hemoglobin Concent 34 g/dL (31-37) Red Cell Distribution Width 12.9 % (11.5-14.5) Platelet Count 413 x10^3/uL (140-400) Sodium Level 139 mmol/L (136-145) Potassium Level 4.6 mmol/L (3.5-5.1) Chloride Level 103 mmol/L (98-107) Carbon Dioxide Level 30 mmol/L (21-32) Anion Gap 6 (6-14) Blood Urea Nitrogen 13 mg/dL (8-26) Creatinine 1.3 mg/dL (0.7-1.3) Estimated GFR (Cockcroft-Gault) 56.1 BUN/Creatinine Ratio 10 (6-20) Glucose Level 153 mg/dL (70-99) Calcium Level 9.7 mg/dL (8.5-10.1) Total Bilirubin 0.4 mg/dL (0.2-1.0) Aspartate Amino Transf (AST/SGOT) 21 U/L (15-37) Alanine Aminotransferase (ALT/SGPT) 14 U/L (16-63) Alkaline Phosphatase 108 U/L (46-116) Total Protein 6.6 g/dL (6.4-8.2) Albumin 1.5 g/dL (3.4-5.0) Albumin/Globulin Ratio 0.3 (1.0-1.7) Assessment/Plan Bilateral lower extremity foot wounds--patient is stable from a surgical standpoint. He will continue negative pressure wound VAC therapy. He will require alf facility placement with negative pressure wound VAC therapy and IV antibiotic therapy. There is no surgical therapy indicated currently as I believe his wounds are stable. He will receive another wound VAC dressing change on Saturday. All questions were answered to the patient's and his satisfaction at the bedside this morning. Justicifation of Admission Dx: Justifications for Admission: Justification of Admission Dx: Yes JANICE PEREZ DO Jul 30, 2020 10:07
[2020-07-30 11:00] VITALS: BP 168/90
[2020-07-30 15:00] VITALS: BP 149/95
[2020-07-30 19:45] VITALS: BP 138/76
[2020-07-30] MEDS: LINEZOLID 600 MG TABLET PO SCH (20:16)
[2020-07-30] MEDS: ATORVASTATIN CALCIUM 10 MG TABLET. PO SCH (20:17)
[2020-07-30] MEDS: INSULIN GLARGINE SYRINGE. SQ SCH (23:23)
[2020-07-30 23:27] VITALS: BP 139/81
[2020-07-31] MEDS: oxyCODONE IR 5 MG TABLET PO PRN ×4 (00:33→20:14)
[2020-07-31] MEDS: NAFCILLIN 2 GM in IV DEXTROSE 5% 100ML 100 ML IV SCH ×6 (00:35→20:13)
[2020-07-31] MEDS: fentaNYL PF VIAL 100 MCG/2 ML VIAL IVP PRN ×6 (04:12→21:41)
[2020-07-31 07:00] VITALS: BP 150/76
[2020-07-31] MEDS: INSULIN LISPRO 300 UNITS/3 ML VIAL. SQ SCH ×6 (07:30→17:00)
[2020-07-31] MEDS: LEVOTHYROXINE 100 MCG TABLET PO SCH (07:44)
[2020-07-31] MEDS: predniSONE 1 MG TABLET PO SCH (09:04)
[2020-07-31] MEDS: metFORMIN 500 MG TABLET PO SCH ×2 (09:04→16:06)
[2020-07-31] MEDS: POTASSIUM CHLORIDE 20 MEQ TABLET.ER. PO SCH ×3 (09:04→16:06)
[2020-07-31] MEDS: LINEZOLID 600 MG TABLET PO SCH ×2 (09:05→20:14)
[2020-07-31] MEDS: DOXAZOSIN MESYLATE 1 MG TABLET. PO SCH (09:05)
[2020-07-31] MEDS: LACTOBACILLUS RHAMNOSUS GG 1 CAPSULE. PO SCH ×2 (09:05→20:14)
[2020-07-31] MEDS: LOSARTAN POTASSIUM 50 MG TABLET. PO SCH (09:06)
[2020-07-31] MEDS: oxyCODONE ER 10 MG TAB.ER.12H PO SCH ×2 (09:06→20:14)
[2020-07-31] MEDS: ENOXAPARIN 40 MG/0.4 ML SYRINGE. SQ SCH (09:09)
--- NOTE | 2020-07-31 09:12 | PDOC ---
Infectious Disease Note Subjective: Subjective Patient without complaints Continues to have postop site pain left foot Right foot pain is under control Denies fever, nausea, vomiting, diarrhea, shortness of breath or cough Vital Signs: Vital Signs Vital Signs Date Time Temp Pulse Resp B/P (MAP) Pulse Ox O2 Delivery O2 Flow Rate FiO2 07/31/20 07:18 Room Air 07/31/20 07:00 97.6 71 18 150/76 (100) 97 97.6 07/30/20 20:00 5.0 Physical Exam: PHYSICAL EXAM GENERAL: Alert awake oriented x3 male in no acute distress HEENT: Normocephalic, atraumatic. Anicteric. No thrush. NECK: Supple. No JVD. LUNGS: Clear bilaterally. HEART: S1, S2 heard. No murmurs. ABDOMEN: Soft, obese. Bowel sounds present. GENITOURINARY: No Santana, Briefs in place. EXTREMITIES: Bilateral foot wound VAC present, left foot dorsal edema with erythema though improved since surgery NEUROLOGIC: Alert oriented x3 moves all 4 extremities. PSYCHIATRIC: Calm and cooperative. PIV looks clean. Medications: Inpatient Meds: Medications reviewed. Labs: Lab Laboratory Tests Test 07/30/20 11:31 07/30/20 16:44 07/30/20 23:09 07/31/20 08:07 Glucose (Fingerstick) 76 mg/dL (70-99) 137 mg/dL (70-99) 113 mg/dL (70-99) 120 mg/dL (70-99) Micro RUN DATE: 07/22/20 [facility] LAB *LIVE* PAGE 1 RUN TIME: 929 Specimen Inquiry PATIENT: DASHAWN GOMEZ ACCT: [id number] LOC: SIOBHAN U: [id number] AGE/SX: 60/M ROOM: RE07/18/[address]: CAROLEE ZHOU MD : 1960 BED: DIS: STATUS: DEP ER TLOC: SPEC #: [id number] SANDOR: 07/18/20 STATUS: COMP REQ #: [id number] RECD: 07/18/[address] [facility] [address]: CAROLEE ZHOU MD SOURCE: BLOOD ENTR: 07/19/20-[address] [facility] [address]: JERONIMO KO [facility] ORDERED: BLOOD CULT-LC Procedure Result BLOOD CULTURE LC Final Final GROWTH OF GRAM POSITIVE COCCI FINAL ID= [STAPHYLOCOCCUS AUREUS] STAPHYLOCOCCUS AUREUS ANTIMICROBIAL SUSCEPTIBILITY Final Comment POS PRESTON TYPE 38 STAPHYLOCOCCUS AUREUS ANTIBIOTIC RESULT INTERPRETATION AZITHROMYCIN <=2 S CLINDAMYCIN <=0.25 S CEFOXITIN SCREEN <=4 NEG CIPROFLOXACIN <=1 S CEFTAROLINE <=0.5 S DAPTOMYCIN <=0.5 S ERYTHROMYCIN <=0.25 S GENTAMICIN <=4 S LINEZOLID <=1 S LEVOFLOXACIN <=1 S OXACILLIN 0.5 S PENICILLIN >2 Anton RIFAMPIN <=1 S TRIMETHOPRIM/SULFAMETHOXAZOLE <=0.5/9.5 S TETRACYCLINE <=4 S VANCOMYCIN 1 S Unless otherwise specified, Testing Performed by: [address] [address] For Inquires, the Physician may contact the Microbiology department at [phone] RUN DATE: 07/23/20 [facility] LAB *LIVE* PAGE 1 RUN TIME: 6425 Specimen Inquiry PATIENT: DASHAWN GOMEZ ACCT: [id number] LOC: [address] [place] [address] U: [id number] AGE/SX: 60/M ROOM: 664 RE07/19/[address]: JOESPH BIRMINGHAM MD : 1960 BED: 1 DIS: STATUS: ADM IN TLOC: SPEC #: [id number] SANDOR: 07/20/20 STATUS: COMP REQ #: [id number] RECD: 07/20/[address]: JAMA HERNANDEZ MD SOURCE: BLOOD ENTR: 07/21/[address] [facility] [address]: JERONIMO KO MD [facility]: CRISTIAN NG AHMED M MD MONAHAN, TIMOTHY J MD ORDERED: BRII CULT - LC Procedure Result BLOOD CULTURE LC Final Final GRAM POSITIVE COCCI FINAL ID= [STAPHYLOCOCCUS AUREUS] STAPHYLOCOCCUS AUREUS ANTIMICROBIAL SUSCEPTIBILITY Final Comment POS PRESTON TYPE 38 STAPHYLOCOCCUS AUREUS ANTIBIOTIC RESULT INTERPRETATION AZITHROMYCIN <=2 S CLINDAMYCIN <=0.25 S CEFOXITIN SCREEN <=4 NEG CIPROFLOXACIN <=1 S CEFTAROLINE <=0.5 S DAPTOMYCIN <=0.5 S ERYTHROMYCIN <=0.25 S GENTAMICIN <=4 S LINEZOLID <=1 S LEVOFLOXACIN <=1 S OXACILLIN 0.5 S PENICILLIN >2 Anton RIFAMPIN <=1 S TRIMETHOPRIM/SULFAMETHOXAZOLE <=0.5/9.5 S TETRACYCLINE <=4 S VANCOMYCIN 1 S Unless otherwise specified, Testing Performed by: [address] [address] For Inquires, the Physician may contact the Microbiology department at [phone] wound cult Staph aureus RUN DATE: 07/29/20 [facility] LAB *LIVE* PAGE 1 RUN TIME: 1120 Specimen Inquiry PATIENT: DASHAWN GOMEZ ACCT: [id number] LOC: 6 [facility] U: [id number] AGE/SX: 60/M ROOM: [facility] RE07/19/[address]: JOESPH BIRMINGHAM MD : 1960 BED: 1 DIS: STATUS: ADM IN TLOC: ------ ------ SPEC #: [id number] SANDOR: 07/27/20 STATUS: RES REQ #: [id number] RECD: 07/28/[address] [facility] [address]: JOESPH BIRMINGHAM MD SOURCE: FOOT ENTR: 07/28/[address] [facility] [address]: JERONIMO KO MD [facility] BRADLY VELASQUEZ MD, ARUNDHATI S MD KELLING,CRISTIAN SANDERSON,ALAN MONTES DE OCA,CAROLEE Dewitt MD ORDERED: ANAER/AEROB/VIPIN COMMENTS: LEFT DORSAL FOOT ABSCESS Procedure Result GRAM STAIN Final Final NO ORGANISMS SEEN. SQUAMOUS EPI CELL:RARE PMN (WBCs):RARE Unless otherwise specified, Testing Performed by: [address] [address] For Inquires, the Physician may contact the Microbiology department at [phone] ANAEROBIC-AEROBIC CULTURE Preliminary Preliminary FEW GRAM POSITIVE COCCI on 07/29/20 at 1117 FINAL ID= [STAPHYLOCOCCUS AUREUS] STAPHYLOCOCCUS AUREUS Unless otherwise specified, Testing Performed by: [facility] [address] [place] [address] For Inquires, the Physician may contact the Microbiology department at [phone] -------- ---- END OF REPORT Objective: Assessment: Severe sepsis from Staph aureus bacteremia present on admission at [facility] Methicillin Staph aureus bacteremia 4 out of 4 bottles at [facility] 07/18/20 Staph aureus bacteremia here July 20, 2020 Fever Source Rt foot dorsal abscess Leukocytosis and lactic acidosis.Bandemia. Bilateral lower extremity cellulitis,deep tissue infection of both feet. Rt foot abscess. 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 s/p amputation July 22, 2020 Diabetes with neuropathy, poorly controlled. Noncompliance. Acute kidney injury. Rhabdo Hematuria. Hyponatremia. Hypertension. Encephalopathy, likely metabolic.Resolved Plan: Plan of Care Continue Nafcillin Continue linezolid for a couple of days Will need PCC line BRYAN on 07/26, negative for vegetations f/u Repeat blood cultures 07/23 neg so far Local wound /vac care as directed Monitor wounds closely Vascular team following Follow up labs Probiotics Would recommend transfer to Rehab\LTAC. Girlfriend at bedside agrees Continue supportive care D/W Girlfriend JAMA HERNANDEZ MD Jul 31, 2020 09:12
[2020-07-31 11:00] VITALS: BP 118/73
[2020-07-31] MEDS: IV RINGERS,LACTATED 1000ML 1,000 ML IV SCH (12:15)
[2020-07-31 15:00] VITALS: BP 132/78
[2020-07-31 19:00] VITALS: BP 148/84
--- NOTE | 2020-07-31 19:06 | PN ---
DATE: 07/31/2020 SUBJECTIVE: The patient is resting slightly propped up in bed, no apparent distress, awake, alert and questioning. Denies any complaint. Nursing staff did not voice any concerns, stated that he has generally uneventful night. The swelling and erythema of both feet seems to be much improved and his wound VACs are working well. PHYSICAL EXAMINATION: GENERAL: When I examined him, he looked pale, but no jaundice, cyanosis or thyromegaly. No jugular venous distention. No limb edema. VITAL SIGNS: Heart rate was 71, blood pressure 150/76, temperature was 97.6, respiratory rate was 18 and oxygen saturation was 97%. HEENT: Examination of the head, eyes, ears, nose and throat normocephalic, atraumatic. NECK: Supple. HEART: Showed normal first and second heart sounds, no gallop, murmur. CHEST: Clear to auscultation, no crepitation or rhonchi. ABDOMEN: Distended, soft, nontender. NEUROLOGIC: He was awake, alert, responding appropriately. All cranial nerves intact. He moves extremities without difficulty. He has wounds on the dorsal aspect of both feet covered with wound vacuum-assisted closure device. His intake is 480, output was 500. LABORATORY DATA: As of yesterday, his white cell count is down to 8700, hemoglobin 10, hematocrit 30, MCV 94 and platelet count 413,000. His chemistry as of yesterday showed a serum sodium 139, potassium 4.6, chloride 103, bicarbonate 30, anion gap of 6, BUN 13, creatinine 1.3. Estimated GFR was 56 mL per minute. His glucose 153, calcium was 9.7, total bilirubin, AST, ALT, alkaline phosphatase were normal. Total protein 6.8, albumin was 1.5. ASSESSMENT: 1. Bilateral lower extremity cellulitis. 2. Multiple abscesses on the dorsal aspect of both right and left foot, status post incision and drainage. The wounds are covered with a wound vacuum-assisted closure device. 3. Type 2 diabetes mellitus with diabetic peripheral neuropathy. 4. Acute on chronic kidney injury, improving. His most recent creatinine is down to 1.36. Hypokalemia, resolved. His most recent serum potassium was 4.6. 5. Hypertension, much better controlled. He is now on losartan 100 mg once a day and hydralazine 100 mg 3 times a day. 6. The patient has grown methicillin-sensitive Staphylococcus aureus from his wound and blood culture drawn, both at [facility] as well as at [facility]. He is currently on daptomycin and nafcillin. PLAN: Obviously to continue with IV antibiotic. Continue with wound care, wound VAC with assisted closure device. Continue with pain management. Continue to monitor his blood sugar and adjust insulin as needed. Continue with DVT prophylaxis. Hopefully, if he will be discharged to an LTAC facility tomorrow, if the Infectious Disease and wound care ready to be transferred. CHUCK DR: Sarahy TID: [id number]
[2020-07-31] MEDS: ATORVASTATIN CALCIUM 10 MG TABLET. PO SCH (20:14)
[2020-07-31] MEDS: INSULIN GLARGINE SYRINGE. SQ SCH (21:46)
[2020-07-31 23:07] VITALS: BP 164/88
[2020-08-01] MEDS: NAFCILLIN 2 GM in IV DEXTROSE 5% 100ML 100 ML IV SCH ×7 (00:29→23:54)
[2020-08-01] MEDS: fentaNYL PF VIAL 100 MCG/2 ML VIAL IVP PRN ×6 (00:29→22:11)
[2020-08-01] MEDS: IV RINGERS,LACTATED 1000ML 1,000 ML IV SCH ×2 (01:35→14:31)
[2020-08-01 03:36] VITALS: BP 153/73
[2020-08-01 04:58] LABS: HEMATOCRIT 34.1 % (39.0-53.0); HEMOGLOBIN 11.3 g/dL (13.0-17.5); RED BLOOD COUNT 3.53 x10^6/uL (4.30-5.70); RED CELL DISTRIBUTION WIDTH 12.9 % (11.5-14.5); WHITE BLOOD COUNT 10.3 x10^3/uL (4.0-11.0)
[2020-08-01 05:34] LABS: ALBUMIN 1.9 g/dL (3.4-5.0); ALBUMIN/GLOBULIN RATIO 0.4 (1.0-1.7); CALCIUM 10.6 mg/dL (8.5-10.1); CREATININE 1.4 mg/dL (0.7-1.3); GFR 51.5; POTASSIUM 5.4 mmol/L (3.5-5.1); TOTAL BILIRUBIN 0.7 mg/dL (0.2-1.0); TOTAL PROTEIN 7.3 g/dL (6.4-8.2)
[2020-08-01] MEDS: oxyCODONE IR 5 MG TABLET PO PRN ×4 (05:38→23:52)
[2020-08-01 07:00] VITALS: BP 151/79
[2020-08-01] MEDS: POTASSIUM CHLORIDE 20 MEQ TABLET.ER. PO SCH ×3 (08:00→16:14)
[2020-08-01] MEDS: INSULIN LISPRO 300 UNITS/3 ML VIAL. SQ SCH ×6 (08:00→16:14)
[2020-08-01] MEDS: metFORMIN 500 MG TABLET PO SCH ×2 (08:08→16:50)
[2020-08-01] MEDS: LEVOTHYROXINE 100 MCG TABLET PO SCH (08:08)
[2020-08-01] MEDS: oxyCODONE ER 10 MG TAB.ER.12H PO SCH ×2 (09:10→20:33)
[2020-08-01] MEDS: LACTOBACILLUS RHAMNOSUS GG 1 CAPSULE. PO SCH ×2 (09:10→20:33)
[2020-08-01] MEDS: predniSONE 1 MG TABLET PO SCH (09:11)
[2020-08-01] MEDS: LOSARTAN POTASSIUM 50 MG TABLET. PO SCH (09:11)
[2020-08-01] MEDS: LINEZOLID 600 MG TABLET PO SCH ×2 (09:11→20:34)
[2020-08-01] MEDS: DOXAZOSIN MESYLATE 1 MG TABLET. PO SCH (09:11)
[2020-08-01] MEDS: ENOXAPARIN 40 MG/0.4 ML SYRINGE. SQ SCH (09:56)
--- NOTE | 2020-08-01 10:55 | PDOC ---
Infectious Disease Note Subjective Subjective Patient without complaints Continues to have postop site pain left foot Right foot pain is under control Denies fever, nausea, vomiting, diarrhea, shortness of breath or cough ROS ROS no n/v/d/sob Vital Sign Vital Signs Vital Signs Date Time Temp Pulse Resp B/P (MAP) Pulse Ox O2 Delivery O2 Flow Rate FiO2 08/01/20 09:11 80 151/79 08/01/20 09:10 Room Air 08/01/20 07:00 98.0 98 98.0 08/01/20 03:36 20 Physical Exam PHYSICAL EXAM GENERAL: Alert awake oriented x3 male in no acute distress HEENT: Normocephalic, atraumatic. Anicteric. No thrush. NECK: Supple. No JVD. LUNGS: Clear bilaterally. HEART: S1, S2 heard. No murmurs. ABDOMEN: Soft, obese. Bowel sounds present. GENITOURINARY: No Santana, Briefs in place. EXTREMITIES: Bilateral foot wound VAC present, left foot dorsal edema with erythema though improved since surgery NEUROLOGIC: Alert oriented x3 moves all 4 extremities. PSYCHIATRIC: Calm and cooperative. PIV looks clean. Labs Lab Laboratory Tests Test 07/31/20 11:24 07/31/20 16:44 07/31/20 20:35 08/01/20 04:45 Glucose (Fingerstick) 203 mg/dL (70-99) 137 mg/dL (70-99) 108 mg/dL (70-99) White Blood Count 10.3 x10^3/uL (4.0-11.0) Red Blood Count 3.53 x10^6/uL (4.30-5.70) Hemoglobin 11.3 g/dL (13.0-17.5) Hematocrit 34.1 % (39.0-53.0) Mean Corpuscular Volume 97 fL (79-100) Mean Corpuscular Hemoglobin 32 pg (25-35) Mean Corpuscular Hemoglobin Concent 33 g/dL (31-37) Red Cell Distribution Width 12.9 % (11.5-14.5) Platelet Count 376 x10^3/uL (140-400) Sodium Level 137 mmol/L (136-145) Potassium Level 5.4 mmol/L (3.5-5.1) Chloride Level 104 mmol/L (98-107) Carbon Dioxide Level 25 mmol/L (21-32) Anion Gap 8 (6-14) Blood Urea Nitrogen 10 mg/dL (8-26) Creatinine 1.4 mg/dL (0.7-1.3) Estimated GFR (Cockcroft-Gault) 51.5 BUN/Creatinine Ratio 7 (6-20) Glucose Level 124 mg/dL (70-99) Calcium Level 10.6 mg/dL (8.5-10.1) Total Bilirubin 0.7 mg/dL (0.2-1.0) Aspartate Amino Transf (AST/SGOT) 24 U/L (15-37) Alanine Aminotransferase (ALT/SGPT) 15 U/L (16-63) Alkaline Phosphatase 102 U/L (46-116) Total Protein 7.3 g/dL (6.4-8.2) Albumin 1.9 g/dL (3.4-5.0) Albumin/Globulin Ratio 0.4 (1.0-1.7) Test 08/01/20 07:43 Glucose (Fingerstick) 110 mg/dL (70-99) Objective Assessment Severe sepsis from Staph aureus bacteremia present on admission at [facility] Methicillin Staph aureus bacteremia 4 out of 4 bottles at [facility] 07/18/20 Staph aureus bacteremia here July 20, 2020 Fever Source Rt foot dorsal abscess Leukocytosis and lactic acidosis.Bandemia. Bilateral lower extremity cellulitis,deep tissue infection of both feet. Rt foot abscess. 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 s/p amputation July 22, 2020 Diabetes with neuropathy, poorly controlled. Noncompliance. Acute kidney injury. Rhabdo Hematuria. Hyponatremia. Hypertension. Encephalopathy, likely metabolic.Resolved Plan Plan of Care Continue Nafcillin Continue linezolid for a couple of days Will need PCC line BRYAN on 07/26, negative for vegetations f/u Repeat blood cultures 07/23 neg so far Local wound /vac care as directed Monitor wounds closely Vascular team following Follow up labs Probiotics Would recommend transfer to Rehab\LTAC. Girlfriend at bedside agrees Continue supportive care more surgery tomorrow d/w Dr Heard D/W Girlfriend ANTON HERNANDEZ MD Aug 01, 2020 10:55
[2020-08-01 11:40] VITALS: BP 133/79
--- NOTE | 2020-08-01 12:32 | PDOC ---
Provider Note Date of Service: DATE: 08/01/20 TIME: 12:25 Provider Note Provider Note Vascular S: Patient seen and examined in room with Dr. Heard. Family at bedside. Patient continues to complain of pain bilateral feet, this is improved. O: Awake and alert Vital signs stable, afebrile Right foot dorsal wound with pink granulation tissue in wound base there is some necrotic/fibrin slough along the periphery of the wound. Periwound intact, mild erythema and swelling, this is improved. No purulent drainage or fluctuance. Left foot dorsal wound with large amounts of fibrin slough and serous drainage. Mild erythema and swelling of foot. No purulent drainage or fluctuance. 2+ bilateral pulses. A/P: POD#5 Incision and drainage of abscesses x 3, left dorsal and lateral mid foot with cultures; Debridement, full thickness of right dorsal foot wound measuring 5 x 3 cm. POD#12 Left 3rd toe partial amputation; Right lateral foot incision and drainage. Recommend surgical debridement of bilateral foot wounds. This is tentatively planned for tomorrow a.m. Discussed plan of care with patient and his family and they are agreeable to proceed. Continue antibiotics per infectious disease. We will continue wet-to-dry dressings today, patient will likely resume wound VAC therapy post surgery. Okay for patient to ambulate and be full weight bearing. Justicifation of Admission Dx: Justifications for Admission: Justification of Admission Dx: Yes ABBI ELLINGTON APRN Aug 01, 2020 12:32
--- NOTE | 2020-08-01 13:25 | PN ---
DATE: 08/01/2020 SUBJECTIVE: The patient is resting, slightly propped up in bed, in no apparent respiratory distress. His wound dressing is changed this morning and the vascular surgeon is planning to do some more debridement tomorrow and the patient continued to talk about going home and have had multiple discussions and the surgeon has reinforced the fact that his wounds need IV antibiotic and he is better off being in LTAC. PHYSICAL EXAMINATION: GENERAL: When I examined him this morning, he looked well and was clearly in no apparent respiratory distress, pale, but no jaundice, cyanosis or thyromegaly. No jugular venous distention. No limb edema. VITAL SIGNS: Heart rate was 80, blood pressure was 151/79, temperature was 98, respiratory rate was 18 and oxygen saturation was 97% on room air. HEAD, EYES, EARS, NOSE AND THROAT: Normocephalic, atraumatic. NECK: Supple. HEART: Showed normal first and second heart sounds, no gallop or murmur. CHEST: Clear to auscultation, no crepitation or rhonchi. ABDOMEN: Distended, soft, nontender. NEUROLOGIC: He is awake, alert, responding appropriately. Cranial nerves intact. He moves extremities without difficulty. He has multiple wounds on the dorsal aspect of both feet, covered with wound vacuum-assisted closure device. His intake was 660, output was 450. LABORATORY DATA: Showed a white cell count of 10,000, hemoglobin 11, hematocrit 34, MCV 97 and platelet count 376,000. His chemistry showed a serum sodium 137, potassium 5.4, chloride 104, bicarbonate 25, anion gap of 8, BUN 10, creatinine 1.4. Estimated GFR was 51 mL per minute. His glucose is 124, calcium was 10.6. Total bilirubin, AST, ALT, alkaline phosphatase were normal. Total protein 7.3, albumin was 1.9. ASSESSMENT: 1. Bilateral lower extremity cellulitis. 2. Multiple abscesses on the dorsal aspect of both right and left foot, status post incision and drainage. The wounds are covered with a wound vacuum-assisted closure device. Apparently was seen by the surgical team today and he is going to have some more debridement tomorrow. 3. Type 2 diabetes mellitus with diabetic peripheral neuropathy. 4. Acute on chronic kidney injury, improving. His most recent serum creatinine is down to 1.4. 5. Hypertension, much better controlled. He is now on losartan 100 mg once a day as well as hydralazine 100 mg 3 times a day. 6. The patient has grown methicillin-sensitive Staphylococcus aureus from his wounds and wound culture drawn, both at [facility] well as [facility]. He is currently on daptomycin, nafcillin. PLAN: To continue with IV antibiotic. Continue with wound care and wound vacuum-assisted closure device. Continue with pain management. Continue to monitor his blood sugar and adjust insulin as needed. Continue with DVT prophylaxis. The patient apparently was seen by the vascular surgeon and will need more debridement tomorrow. HOLLIS DR: Sarahy TID: [id number]
--- NOTE | 2020-08-01 14:18 | NUR ---
SW following. Discussed with RN, pt from home with family. Pt having another debridement tomorrow (08/02/20). SW met with pt to discuss discharge planning. Pt still wanting to go home, but wants to see how the surgery goes and then will decide about home vs LTAC. SW will continue to follow.
[2020-08-01 15:06] VITALS: BP 128/74
--- NOTE | 2020-08-01 15:08 | RAD ---
Date: 08/01/2020 Exam: Fluoroscopically and ultrasound-guided placement, right upper extremity PICC line Indication: Long-term central venous access Consent: The procedure was explained in its entirety to the patient or the patients designated repres entative by a member of the treatment team, including a discussion of the risks, benefits and commonl y accepted alternatives to the procedure, as well as the expected consequences of no therapy whatsoev er. Discussion of the risks included, but was not limited to, those that are most frequent and thos e that are rare but possibly severe or life-threatening, as well as the possibility of unforeseen com plications. Discussion: A timeout procedure was performed. The patient was prepped and draped using maximum sterile techniq ue, including the use of: Current guideline approved cutaneous antisepsis, a large sterile sheet to e stablish a sterile field. Additionally the electronic imaging system operator wore a hat, mask, sterile gloves, a sterile gown during the procedure as well as practiced acceptable hand hygiene prior to placing the line. 1% lidoc christelle was administered for local anesthesia. Ultrasound evaluation demonstrates a patent basilic vein. Reference images were saved in the medical record. The selected vein was accessed using micropuncture technique. A guidewire was advanced centr ally. The PICC line was cut to length, and advanced through a peel-away sheath such that it's tip re sides at the cavoatrial junction. The peel-away sheath a sheath was removed. The catheter was secured in place. The catheter was found to flush and aspirate normally.. Sterile dressings were applied. No immediate complications were identified. Fluoroscopy time: 0.2 minutes Dose area product: 2 Gycm2 Impression: Successful placement of a right upper extremity PICC line Electronically signed by: Abel Velazquez MD (08/01/2020 3:06 PM) [id number]
[2020-08-01 19:43] VITALS: BP 132/79
[2020-08-01] MEDS: ATORVASTATIN CALCIUM 10 MG TABLET. PO SCH (20:34)
[2020-08-01] MEDS: INSULIN GLARGINE SYRINGE. SQ SCH (20:55)
--- NOTE | 2020-08-01 20:58 | NUR ---
Pt only wants half of his lantus tonight.
[2020-08-01 23:34] VITALS: BP 145/75
[2020-08-02 03:18] VITALS: BP 134/80
[2020-08-02] MEDS: fentaNYL PF VIAL 100 MCG/2 ML VIAL IVP PRN ×5 (03:30→22:23)
[2020-08-02] MEDS: NAFCILLIN 2 GM in IV DEXTROSE 5% 100ML 100 ML IV SCH ×5 (03:34→20:03)
[2020-08-02] MEDS: IV RINGERS,LACTATED 1000ML 1,000 ML IV SCH (04:15)
[2020-08-02] MEDS ORDERED: fentaNYL PF VIAL 100 MCG/2 ML VIAL IVP PRN ×2 (06:00)
[2020-08-02] MEDS ORDERED: PROCHLORPERAZINE 10 MG/2 ML VIAL. IVP PRN (06:00)
[2020-08-02] MEDS ORDERED: IV RINGERS,LACTATED 1000ML 1,000 ML IV SCH (06:00)
[2020-08-02] MEDS ORDERED: MORPHINE SULFATE 2 MG/ML VIAL. IVP PRN (06:00)
[2020-08-02] MEDS ORDERED: HYDROmorphone 2 MG/ML VIAL IVP PRN (06:00)
--- NOTE | 2020-08-02 07:07 | PDOC ---
Provider Note Date of Service: DATE: 08/02/20 TIME: 07:05 Provider Note He has no new complaints overnight. He has wounds on both feet. Plan bilateral foot debridement and possible wound vac placement. I discussed risks and potential benefits, and he elected to proceed. Justifications for Admission Other Justification YAHIR LINDQUIST MD Aug 02, 2020 07:07
[2020-08-02] MEDS ORDERED: fentaNYL PF VIAL 100 MCG/2 ML VIAL ONE (07:28)
[2020-08-02] MEDS ORDERED: silver sulfADIAZINE 1% CREAM 25GM TUBE. TP ONE (07:30)
[2020-08-02] MEDS ORDERED: LIDOCAINE 1% PF 30 ML VIAL. INJ ONE (07:30)
[2020-08-02] MEDS ORDERED: DEXAMETHASONE SOD PHOS 4 MG/ML VIAL ONE (07:53)
[2020-08-02] MEDS ORDERED: LIDOCAINE 2% PF 5 ML VIAL. ONE (07:53)
[2020-08-02] MEDS ORDERED: PROPOFOL 10 MG/ML (20ML) VIAL. IV ONE (07:53)
[2020-08-02] MEDS ORDERED: ONDANSETRON PF 4 MG/2 ML VIAL. ONE (07:53)
[2020-08-02] MEDS ORDERED: SEVOFLURANE 31 TO 60 MINUTES. IH ONE (07:53)
[2020-08-02] MEDS: INSULIN LISPRO 300 UNITS/3 ML VIAL. SQ SCH ×6 (08:00→16:56)
[2020-08-02] MEDS: POTASSIUM CHLORIDE 20 MEQ TABLET.ER. PO SCH ×3 (08:00→16:56)
[2020-08-02] MEDS ORDERED: ePHEDrine PF IN SALINE 50 MG/10 ML SYRINGE. IV ONE (08:19)
--- NOTE | 2020-08-02 08:39 | PDOC ---
BRIEF OPERATIVE NOTE Date: Aug 02, 2020 Pre-Op Diagnosis Bilateral foot ulcers DM Peripheral neuropathy Post-Op Diagnosis same Procedure Performed Excisional debridement of both feet including skin, subcutaneous tissue, and tendon Wound Vac placement Surgeon Ailyn Anesthesia Type: General Blood Loss 2ml Specimens Obtained Culture left lateral foot Findings Wounds on both feet extend to deep tendons debrided to viable tissue: Right 6cm x 2.5cm x 1.5cm depth Left 6cm x 2cm x 2cm depth, 3cm x 2cm x 1cm depth, 3.5cm x 1.2cm x 1cm depth Complications none YAHIR LINDQUIST MD Aug 02, 2020 08:39
[2020-08-02] MEDS: LEVOTHYROXINE 100 MCG TABLET PO SCH (09:53)
[2020-08-02] MEDS: LACTOBACILLUS RHAMNOSUS GG 1 CAPSULE. PO SCH ×2 (09:54→20:05)
[2020-08-02] MEDS: LOSARTAN POTASSIUM 50 MG TABLET. PO SCH (09:54)
[2020-08-02] MEDS: oxyCODONE ER 10 MG TAB.ER.12H PO SCH ×2 (09:55→20:06)
[2020-08-02] MEDS: predniSONE 1 MG TABLET PO SCH (09:55)
[2020-08-02] MEDS: DOXAZOSIN MESYLATE 1 MG TABLET. PO SCH (09:55)
[2020-08-02] MEDS: LINEZOLID 600 MG TABLET PO SCH ×2 (09:56→20:06)
[2020-08-02] MEDS: ENOXAPARIN 40 MG/0.4 ML SYRINGE. SQ SCH (09:56)
[2020-08-02] MEDS: metFORMIN 500 MG TABLET PO SCH ×2 (09:56→16:55)
[2020-08-02] MEDS: oxyCODONE IR 5 MG TABLET PO PRN ×3 (10:02→18:42)
--- NOTE | 2020-08-02 10:05 | OP ---
DATE OF SURGERY: 08/02/2020 PREOPERATIVE DIAGNOSES: 1. Bilateral foot ulcers extending to the deep tissue. 2. Diabetes. 3. Peripheral neuropathy. 4. Previous foot abscesses. POSTOPERATIVE DIAGNOSES: 1. Bilateral foot ulcers extending to the deep tissue. 2. Diabetes. 3. Peripheral neuropathy. 4. Previous foot abscesses. PROCEDURE: 1. Excisional debridement of both feet including skin, subcutaneous tissue, and tendon. 2. Wound VAC placement to both feet. SURGEON: Boaz Robertson MD. ANESTHESIA: General. INDICATIONS: The patient is a 60-year-old male with diabetes and peripheral neuropathy, who presented with abscesses involving both feet. He has undergone previous incision and drainage of these abscesses. He presents for further debridement of the residual foot ulcers. FINDINGS: He has a single ulcer on the right foot extending to deep tissue including involved tendons. All necrotic tissue was excised. This wound measured 6 cm x 2.5 cm x 1.5 cm in depth. There were three separate left dorsal foot wounds that had some necrotic tissue in the base including necrotic tendons. These were all debrided to viable tissue. These measured 6 cm x 2 cm x 2 cm depth, 3 cm x 2 cm x 1 cm depth, and 3.5 cm x 1.2 cm x 1 cm depth. A wound VAC using black foam was placed into each of the wounds with a Y connector to 1 machine. Wound VACs were placed to 150 mmHg continuous suction. Wound VAC was used secondary to failure of other treatment options. DESCRIPTION OF PROCEDURE: The patient was taken to the operating room and placed on the hospital bed. He underwent general anesthetic. Bilateral feet and lower legs were prepped and draped in normal sterile fashion. Forceps and scalpel were used to excise the nonviable skin at the edge of the wounds. The deep tissue was excised using forceps and scissors. This included some of the deeper tendons that were also excised. Hemostasis was obtained with direct pressure as well as a 3-0 Vicryl suture in the dorsal left medial foot wound. All wounds were copiously irrigated with saline irrigation. Wound measurements are as above. Once all necrotic tissue was excised, wound VAC was placed, placing clear drape around the wound edges to prevent suction injury on the adjacent skin. The left 3 foot wounds were bridged together. Single wound VAC with a Y connector was used. The patient tolerated the procedure well and there were no complications. ESTIMATED BLOOD LOSS: 2 mL. SPECIMEN: Culture to the left lateral foot wound. JARRED DR: Lucia TID: [id number] CC: JAMA HERNANDEZ MD, JOESPH BIRMINGHAM MD
--- NOTE | 2020-08-02 10:22 | PDOC ---
Infectious Disease Note Subjective Subjective pt is feeling better ROS ROS no n/v/d/sob Vital Sign Vital Signs Vital Signs Date Time Temp Pulse Resp B/P (MAP) Pulse Ox O2 Delivery O2 Flow Rate FiO2 08/02/20 10:06 95 Room Air 08/02/20 09:56 81 116/73 08/02/20 08:56 97.1 15 5.0 97.1 Physical Exam PHYSICAL EXAM GENERAL: Alert awake oriented x3 male in no acute distress HEENT: Normocephalic, atraumatic. Anicteric. No thrush. NECK: Supple. No JVD. LUNGS: Clear bilaterally. HEART: S1, S2 heard. No murmurs. ABDOMEN: Soft, obese. Bowel sounds present. GENITOURINARY: No Santana, Briefs in place. EXTREMITIES: Bilateral foot wound VAC present, left foot dorsal edema with erythema though improved since surgery NEUROLOGIC: Alert oriented x3 moves all 4 extremities. PSYCHIATRIC: Calm and cooperative. PIV looks clean. Labs Lab Laboratory Tests Test 08/01/20 11:49 08/01/20 15:35 08/01/20 20:50 08/02/20 07:03 Glucose (Fingerstick) 85 mg/dL (70-99) 99 mg/dL (70-99) 121 mg/dL (70-99) 116 mg/dL (70-99) Test 08/02/20 08:31 Glucose (Fingerstick) 138 mg/dL (70-99) Micro Microbiology 07/27/20 Gram Stain - Final, Complete 07/27/20 Aerobic and Anaerobic Culture - Final, Complete 07/27/20 Antimicrobic Susceptibility - Final, Complete 07/25/20 Blood Culture - Final, Complete NO GROWTH AFTER 5 DAYS Objective Assessment Severe sepsis from Staph aureus bacteremia present on admission at [facility] Methicillin Staph aureus bacteremia 4 out of 4 bottles at [facility] 07/18/20 Staph aureus bacteremia here July 20, 2020 Fever Source Rt foot dorsal abscess Leukocytosis and lactic acidosis.Bandemia. Bilateral lower extremity cellulitis,deep tissue infection of both feet. Rt foot abscess. 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 s/p amputation July 22, 2020 Diabetes with neuropathy, poorly controlled. Noncompliance. Acute kidney injury. Rhabdo Hematuria. Hyponatremia. Hypertension. PROCEDURE: 08/02 1. Excisional debridement of both feet including skin, subcutaneous tissue, and tendon. 2. Wound VAC placement to both feet. Plan Plan of Care Continue Nafcillin,, will need 6-8 wks Continue linezolid for now, soon to d/c Will need PCC line BRYAN on 07/26, negative for vegetations f/u Repeat blood cultures 07/23 neg so far Local wound /vac care as directed Monitor wounds closely Vascular team following Follow up labs Probiotics Continue supportive care D/W GirlfrienANTON Khalil MD Aug 02, 2020 10:22
[2020-08-02 11:57] VITALS: BP 131/80
--- NOTE | 2020-08-02 12:54 | NUR ---
SW following. Discussed with RN, pt had surgery this morning, has woundvacs to both feet. SW met with pt, pt still wanting to talk to the doctor before he makes a decision, but stated he would "most likely be going home." Pt feels safe going home, plans to walk on his wound vacs, as that is what he has been doing here. Pt reported he has family that can be with him and help him if he needs it. SW will continue to follow.
[2020-08-02 15:00] VITALS: BP 105/46
[2020-08-02 18:56] VITALS: BP 122/74
[2020-08-02] MEDS: ATORVASTATIN CALCIUM 10 MG TABLET. PO SCH (20:06)
--- NOTE | 2020-08-02 21:13 | PN ---
DATE: 08/02/2020 SUBJECTIVE: The patient is resting, slightly propped up in bed in no apparent distress. On questioning him, he denied any complaint. Nursing staff did not voice any concerns. PHYSICAL EXAMINATION: GENERAL: When I examined him, he looked pale. No jaundice, cyanosis or thyromegaly. No jugular distention. No limb edema. VITAL SIGNS: His heart rate was 81, blood pressure was 116/73, his temperature was 97, his respiratory rate was 18 and his oxygen saturation was 97% on room air. HEAD, EYES, EARS, NOSE AND THROAT: Normocephalic, atraumatic. NECK: Supple. HEART: Showed normal first and second heart sounds. No gallop, rub or murmur. CHEST: Clear to auscultation. No crepitation or rhonchi. ABDOMEN: Distended, soft, nontender. NEUROLOGIC: He is awake, alert, responding appropriately. Cranial nerves intact. He moves extremities without difficulty. EXTREMITIES: He has multiple wounds covered with wound vacuum-assisted closure device on the dorsal aspect of both feet. His intake over the last 24 hours was 700, output was 1350. LABORATORY DATA: As of yesterday showed a white cell count of 10,000, hemoglobin 11, hematocrit 34, MCV 97 and platelet count 376,000. His chemistry showed a serum sodium 137, potassium 5.4, chloride 104, bicarbonate 25, anion gap of 8, BUN 10, and creatinine 1.4. Estimated GFR was 51 mL per minute. His glucose was 124 and calcium was 10.6. Total bilirubin, AST, ALT, and alkaline phosphatase were normal. Total protein was 7.3 and albumin was 1.9. ASSESSMENT: 1. Bilateral lower extremity cellulitis. 2. Multiple abscesses on the dorsal aspect of right and left feet, status post incision and treatment. The wounds are covered with wound vacuum-assisted closure device. Apparently, he was seen by the surgical team and underwent some more debridement. 3. Type 2 diabetes mellitus that seems to be much better controlled. 4. Diabetic peripheral neuropathy. 5. Acute on chronic kidney injury, improving. His creatinine is down to 1.46. 6. Hypertension, seems to be much better controlled. He is now on losartan 100 mg once a day as well as hydralazine 100 mg 3 times a day. 7. The patient has grown methicillin-sensitive Staphylococcus aureus from blood cultures drawn at [facility] as well as [facility] and also from the wounds of his feet. He is currently on daptomycin and nafcillin. PLAN: To continue with IV antibiotic. Continue with wound care and wound vacuum-assisted closure device. Continue with pain management. Continue to monitor his blood sugar and adjust insulin as needed. Continue with DVT prophylaxis. Await patient's final decision to decide whether he needs to go home with home health and/or to LT hospital. JAMI DR: Sarahy TID: [id number]
[2020-08-02] MEDS: INSULIN GLARGINE SYRINGE. SQ SCH (21:54)
[2020-08-02 22:54] VITALS: BP 118/61
[2020-08-03] MEDS: NAFCILLIN 2 GM in IV DEXTROSE 5% 100ML 100 ML IV SCH ×7 (00:17→21:12)
[2020-08-03] MEDS: oxyCODONE IR 5 MG TABLET PO PRN ×4 (00:17→23:30)
[2020-08-03 06:20] LABS: ALBUMIN 1.8 g/dL (3.4-5.0); ALBUMIN/GLOBULIN RATIO 0.4 (1.0-1.7); C-REACTIVE PROTEIN 47.7 mg/L (0-3.3); CALCIUM 9.4 mg/dL (8.5-10.1); CREATININE 2.6 mg/dL (0.7-1.3); GFR 25.2; POTASSIUM 4.8 mmol/L (3.5-5.1); TOTAL BILIRUBIN 0.6 mg/dL (0.2-1.0); TOTAL PROTEIN 6.9 g/dL (6.4-8.2)
[2020-08-03 06:58] LABS: HEMATOCRIT 28.2 % (39.0-53.0); HEMOGLOBIN 9.5 g/dL (13.0-17.5); RED BLOOD COUNT 2.97 x10^6/uL (4.30-5.70); RED CELL DISTRIBUTION WIDTH 12.8 % (11.5-14.5); WHITE BLOOD COUNT 8.2 x10^3/uL (4.0-11.0)
[2020-08-03 07:00] VITALS: BP 139/82
[2020-08-03] MEDS: INSULIN LISPRO 300 UNITS/3 ML VIAL. SQ SCH ×6 (07:30→17:00)
[2020-08-03] MEDS: MULTIVITAMIN with MINERAL TABLET. PO SCH (08:36)
[2020-08-03] MEDS: ASCORBIC ACID 500 MG TABLET PO SCH (08:37)
[2020-08-03] MEDS: metFORMIN 500 MG TABLET PO SCH (08:37)
[2020-08-03] MEDS: LINEZOLID 600 MG TABLET PO SCH ×2 (08:37→21:00)
[2020-08-03] MEDS: LACTOBACILLUS RHAMNOSUS GG 1 CAPSULE. PO SCH ×2 (08:37→21:12)
[2020-08-03] MEDS: LEVOTHYROXINE 100 MCG TABLET PO SCH (08:37)
[2020-08-03] MEDS: LOSARTAN POTASSIUM 50 MG TABLET. PO SCH (08:38)
[2020-08-03] MEDS: POTASSIUM CHLORIDE 20 MEQ TABLET.ER. PO SCH (08:38)
[2020-08-03] MEDS: oxyCODONE ER 10 MG TAB.ER.12H PO SCH ×2 (08:39→21:23)
--- NOTE | 2020-08-03 09:22 | PDOC ---
Infectious Disease Note Subjective Subjective pt is feeling better ROS ROS no n/v/d/sob Vital Sign Vital Signs Vital Signs Date Time Temp Pulse Resp B/P (MAP) Pulse Ox O2 Delivery O2 Flow Rate FiO2 08/03/20 08:39 Room Air 08/03/20 08:39 76 118/61 08/03/20 07:00 97.7 18 98 97.7 08/02/20 14:00 5.0 Physical Exam PHYSICAL EXAM GENERAL: Alert awake oriented x3 male in no acute distress HEENT: Normocephalic, atraumatic. Anicteric. No thrush. NECK: Supple. No JVD. LUNGS: Clear bilaterally. HEART: S1, S2 heard. No murmurs. ABDOMEN: Soft, obese. Bowel sounds present. GENITOURINARY: No Santana, Briefs in place. EXTREMITIES: Bilateral foot wound VAC present, left foot dorsal edema with erythema though improved since surgery NEUROLOGIC: Alert oriented x3 moves all 4 extremities. PSYCHIATRIC: Calm and cooperative. PIV looks clean. Labs Lab Laboratory Tests Test 08/02/20 11:31 08/02/20 16:50 08/02/20 20:29 08/03/20 05:10 Glucose (Fingerstick) 160 mg/dL (70-99) 71 mg/dL (70-99) 156 mg/dL (70-99) White Blood Count 8.2 x10^3/uL (4.0-11.0) Red Blood Count 2.97 x10^6/uL (4.30-5.70) Hemoglobin 9.5 g/dL (13.0-17.5) Hematocrit 28.2 % (39.0-53.0) Mean Corpuscular Volume 95 fL (79-100) Mean Corpuscular Hemoglobin 32 pg (25-35) Mean Corpuscular Hemoglobin Concent 34 g/dL (31-37) Red Cell Distribution Width 12.8 % (11.5-14.5) Platelet Count 335 x10^3/uL (140-400) Erythrocyte Sedimentation Rate 124 (0-15) Sodium Level 137 mmol/L (136-145) Potassium Level 4.8 mmol/L (3.5-5.1) Chloride Level 103 mmol/L (98-107) Carbon Dioxide Level 24 mmol/L (21-32) Anion Gap 10 (6-14) Blood Urea Nitrogen 20 mg/dL (8-26) Creatinine 2.6 mg/dL (0.7-1.3) Estimated GFR (Cockcroft-Gault) 25.2 BUN/Creatinine Ratio 8 (6-20) Glucose Level 109 mg/dL (70-99) Calcium Level 9.4 mg/dL (8.5-10.1) Total Bilirubin 0.6 mg/dL (0.2-1.0) Aspartate Amino Transf (AST/SGOT) 23 U/L (15-37) Alanine Aminotransferase (ALT/SGPT) 17 U/L (16-63) Alkaline Phosphatase 94 U/L (46-116) C-Reactive Protein, Quantitative 47.7 mg/L (0-3.3) Total Protein 6.9 g/dL (6.4-8.2) Albumin 1.8 g/dL (3.4-5.0) Albumin/Globulin Ratio 0.4 (1.0-1.7) Test 08/03/20 07:08 Glucose (Fingerstick) 96 mg/dL (70-99) Micro Microbiology 07/27/20 Gram Stain - Final, Complete 07/27/20 Aerobic and Anaerobic Culture - Final, Complete 07/27/20 Antimicrobic Susceptibility - Final, Complete 07/25/20 Blood Culture - Final, Complete NO GROWTH AFTER 5 DAYS Objective Assessment Severe sepsis from Staph aureus bacteremia present on admission at [facility] Methicillin Staph aureus bacteremia 4 out of 4 bottles at [facility] 07/18/20 Staph aureus bacteremia here July 20, 2020 Fever Source Rt foot dorsal abscess Leukocytosis and lactic acidosis.Bandemia. Bilateral lower extremity cellulitis,deep tissue infection of both feet. Rt foot abscess. 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 s/p amputation July 22, 2020 Diabetes with neuropathy, poorly controlled. Noncompliance. Acute kidney injury. Rhabdo Hematuria. Hyponatremia. Hypertension. PROCEDURE: 08/02 1. Excisional debridement of both feet including skin, subcutaneous tissue, and tendon. 2. Wound VAC placement to both feet. Plan Plan of Care Continue Nafcillin,, will need 6-8 wks Continue linezolid for now, soon to d/c Will need PCC line BRYAN on 07/26, negative for vegetations f/u Repeat blood cultures 07/23 neg so far Local wound /vac care as directed Monitor wounds closely Vascular team following Follow up labs Probiotics Continue supportive care D/W GirlfrienANTON Khalil MD Aug 03, 2020 09:22
--- NOTE | 2020-08-03 09:46 | NUR ---
SW following. Discussed with RN, pt from home with family, room air. Per RN the wound vacs will come off Saturday (08/05/20) and then patient can discharge home. SW to speak with Alesha Hester and arrange the teach. SW will continue to follow.
--- NOTE | 2020-08-03 10:13 | PDOC2 ---
CONSULT Date of Consult Date of Consult DATE: 08/03/20 TIME: 10:09 Reason for Consult Reason for Consult: STEVE Identification/Chief Complaint Chief Complaint None currently Source Source: Chart review, Patient History of Present Illness Reason for Visit: S/P Partial amputation of the left third toe with primary closure on 07/21 . Inc ision and drainage with cultures and packing of right dorsal foot abscess . Incision and drainage of abscesses x 3, left dorsal and lateral mid foot with cultures 07/27 Pn 08/02: Excisional debridement of both feet including skin, subcutaneous tissue, and tendon. Wound VAC placement to both feet. Currently Pt denies any N/V/D. no abdominal pain. No F/C. No SOB or CP . Denies any urinary complaints, No dysuria hematuria, states he has normal Urine output . Denies any dizziness . He is on Losartan 50 mg per home med list. Was 0n 100 mg here since 07/25 due to high BP.s' BP have been low for him recently. Losartan held today . He is not aware of any previous Dx of CKD . Denies Hx of Kidney stones Past Medical History Cardiovascular: HTN, Hyperlipidemia CENTRAL NERVOUS SYSTEM: Periperal neuropathy Endocrine: Diabetes Current Medications Current Medications Current Medications Insulin Human Lispro (HumaLOG) 0-9 UNITS TIDWMEALS SQ Last administered on 08/02/20at 12:01; Start 07/19/20 at 08:00 Dextrose (Dextrose 50%-Water Syringe) 12.5 gm PRN Q15MIN PRN IV SEE COMMENTS Last administered on 07/23/20at 16:44; Start 07/19/20 at 01:30 Sodium Chloride 1,000 ml @ 150 mls/hr Q6H40M IV Last administered on 07/24/20at 04:40; Start 07/19/20 at 02:00; Stop 07/24/20 at 08:32; Status DC Fentanyl Citrate (Fentanyl 2ml Vial) 50 mcg PRN Q3HRS PRN IVP SEVERE PAIN 7-10 Last administered on 08/02/20at 22:23; Start 07/19/20 at 01:30 Ondansetron HCl (Zofran) 4 mg PRN Q6HRS PRN IVP NAUSEA/VOMITING 1ST CHOICE; Start 07/19/20 at 01:30 Vancomycin HCl (Vanco Per Pharmacy) 1 each PRN DAILY PRN MC SEE COMMENTS Last administered on 07/19/20at 03:43; Start 07/19/20 at 01:30; Stop 07/19/20 at 10:57; Status DC Ceftriaxone Sodium (Rocephin) 1 gm Q24H IVP ; Start 07/19/20 at 21:00; Stop 07/19/20 at 10:56; Status DC Vancomycin HCl 2 gm/Sodium Chloride 500 ml @ 250 mls/hr Q24H IV ; Start 07/19/20 at 21:00; Stop 07/19/20 at 10:57; Status DC Vancomycin HCl (Vancomycin Trough Level) 1 each 1X ONCE MC ; Start 07/20/20 at 20:30; Stop 07/19/20 at 10:57; Status DC Insulin Human Lispro (HumaLOG) 20 units 1X ONCE SQ Last administered on 07/19/20at 08:49; Start 07/19/20 at 08:30; Stop 07/19/20 at 08:31; Status DC Atorvastatin Calcium (Lipitor) 10 mg HS PO Last administered on 08/02/20at 20:06; Start 07/19/20 at 21:00 Levothyroxine Sodium (Synthroid) 300 mcg DAILYAC PO Last administered on 08/03/20at 08:37; Start 07/20/20 at 07:30 Losartan Potassium (Cozaar) 50 mg DAILY PO Last administered on 07/24/20at 08:17; Start 07/19/20 at 11:00; Stop 07/24/20 at 09:23; Status DC Prednisone (Prednisone) 4 mg DAILY PO Last administered on 08/02/20at 09:55; Start 07/19/20 at 11:00 Calcium Carbonate/ Glycine (Tums) 500 mg PRN AFTMEALHC PRN PO INDIGESTION Last administered on 07/30/20at 17:05; Start 07/19/20 at 10:45 Diphenhydramine HCl (Benadryl) 25 mg PRN DAILY PRN PO ITCHING; Start 07/19/20 at 10:45 Doxazosin Mesylate (Cardura) 2 mg DAILY PO Last administered on 08/02/20at 09:55; Start 07/19/20 at 11:00 Insulin Glargine (Lantus Syringe) 25 unit QHS SQ Last administered on 08/02/20at 21:54; Start 07/19/20 at 21:00 Metformin HCl (Glucophage) 1,000 mg BIDWMEALS PO Last administered on 08/03/20at 08:37; Start 07/19/20 at 17:00 Insulin Human Lispro (HumaLOG) 20 units TIDAC SQ Last administered on 08/02/20at 12:02; Start 07/19/20 at 11:30 Piperacillin Sod/ Tazobactam Sod 3.375 gm/Sodium Chloride 50 ml @ 100 mls/hr Q6HRS IV Last administered on 07/23/20at 05:58; Start 07/19/20 at 12:00; Stop 07/23/20 at 07:44; Status DC Daptomycin 600 mg/ Sodium Chloride 50 ml @ 100 mls/hr Q24H IV Last administered on 07/20/20at 13:33; Start 07/19/20 at 11:00; Stop 07/21/20 at 10:39; Status DC Acetaminophen (Tylenol) 650 mg PRN Q4HRS PRN PO MILD PAIN / TEMP > 100.3'F; Start 07/19/20 at 23:45; Status Cancel Oxycodone HCl (Roxicodone) 5 mg PRN Q4HRS PRN PO BREAKTHROUGH PAIN Last administered on 07/23/20at 00:10; Start 07/20/20 at 11:30; Stop 07/23/20 at 09:06; Status DC Acetaminophen (Tylenol) 650 mg PRN Q4HRS PRN PO MILD PAIN / TEMP > 100.3'F Last administered on 07/21/20at 00:23; Start 07/21/20 at 00:00 Linezolid/Dextrose 300 ml @ 300 mls/hr Q12HR IV Last administered on 07/23/20at 08:17; Start 07/21/20 at 12:00; Stop 07/23/20 at 09:38; Status DC Daptomycin 970 mg/ Sodium Chloride 50 ml @ 100 mls/hr Q24H IV Last administered on 07/22/20at 13:32; Start 07/21/20 at 12:00; Stop 07/23/20 at 09:38; Status DC Fentanyl Citrate (Fentanyl 2ml Vial) 25 mcg PRN Q5MIN PRN IVP MILD PAIN 1-3; Start 07/21/20 at 12:15; Stop 07/21/20 at 16:01; Status DC Fentanyl Citrate (Fentanyl 2ml Vial) 50 mcg PRN Q5MIN PRN IVP MODERATE PAIN 4- 6; Start 07/21/20 at 12:15; Stop 07/21/20 at 16:01; Status DC Morphine Sulfate (Morphine Sulfate) 1 mg PRN Q10MIN PRN IVP SEVERE PAIN 7-10; Start 07/21/20 at 12:15; Stop 07/21/20 at 16:01; Status DC Ringer's Solution 1,000 ml @ 30 mls/hr Q24H IV Last administered on 07/21/20at 14:08; Start 07/21/20 at 12:15; Stop 07/22/20 at 00:14; Status DC Hydromorphone HCl (Dilaudid) 0.5 mg PRN Q10MIN PRN IVP SEVERE PAIN 7-10, 2nd CHOICE; Start 07/21/20 at 12:15; Stop 07/21/20 at 16:01; Status DC Prochlorperazine Edisylate (Compazine) 5 mg PACU PRN PRN IVP NAUSEA, MRX1; Start 07/21/20 at 12:15; Stop 07/21/20 at 16:01; Status DC Oxycodone/ Acetaminophen (Percocet 5/325) 1 tab PRN Q4HRS PRN PO MODERATE- SEVERE PAIN Last administered on 07/23/20at 00:10; Start 07/21/20 at 14:00; Stop 07/23/20 at 09:06; Status DC Propofol (Diprivan) 200 mg STK-MED ONCE IV ; Start 07/21/20 at 11:16; Stop 07/21/20 at 19:12; Status DC Lidocaine HCl (Lidocaine Pf 2% Vial) 5 ml STK-MED ONCE .ROUTE ; Start 07/21/20 at 11:16; Stop 07/21/20 at 19:12; Status DC Dexamethasone Sodium Phosphate (Decadron) 20 mg STK-MED ONCE .ROUTE ; Start 07/21/20 at 11:16; Stop 07/21/20 at 19:12; Status DC Ondansetron HCl (Zofran) 4 mg STK-MED ONCE .ROUTE ; Start 07/21/20 at 11:17; Stop 07/21/20 at 19:12; Status DC Succinylcholine Chloride (Anectine) 200 mg STK-MED ONCE .ROUTE ; Start 07/21/20 at 11:51; Stop 07/21/20 at 19:12; Status DC Sevoflurane (Ultane) 30 ml STK-MED ONCE IH ; Start 07/21/20 at 11:51; Stop 07/21/20 at 19:12; Status DC Etomidate (Amidate) 20 mg STK-MED ONCE IV ; Start 07/21/20 at 11:53; Stop 07/21/20 at 19:12; Status DC Lidocaine HCl (Lidocaine 1% 20ml Vial) 20 ml STK-MED ONCE .ROUTE ; Start 07/21/20 at 12:25; Stop 07/21/20 at 19:13; Status DC Silver Sulfadiazine (Silvadene) 25 milton STK-MED ONCE TP ; Start 07/21/20 at 12:25; Stop 07/21/20 at 19:13; Status DC Bupivacaine HCl (Sensorcaine Mpf 0.25%) 30 ml STK-MED ONCE .ROUTE ; Start 07/21/20 at 12:25; Stop 07/21/20 at 19:13; Status DC Rocuronium [place] (Zemuron) 50 mg STK-MED ONCE .ROUTE ; Start 07/21/20 at 12:54; Stop 07/21/20 at 19:13; Status DC Dexamethasone Sodium Phosphate (Decadron) 4 mg STK-MED ONCE .ROUTE ; Start 07/21/20 at 13:00; Stop 07/21/20 at 19:13; Status DC Ondansetron HCl (Zofran) 4 mg STK-MED ONCE .ROUTE ; Start 07/21/20 at 13:00; Stop 07/21/20 at 19:13; Status DC Lidocaine HCl (Lidocaine Pf 2% Vial) 5 ml STK-MED ONCE .ROUTE ; Start 07/21/20 at 13:16; Stop 07/21/20 at 19:13; Status DC Fentanyl Citrate (Fentanyl 2ml Vial) 100 mcg STK-MED ONCE .ROUTE ; Start 07/21/20 at 13:16; Stop 07/21/20 at 19:13; Status DC Phenylephrine HCl (PHENYLEPHRINE in 0.9% NACL PF) 1 mg STK-MED ONCE IV ; Start 07/21/20 at 13:23; Stop 07/21/20 at 19:13; Status DC Enoxaparin Sodium (Lovenox 40mg Syringe) 40 mg Q24H SQ Last administered on 08/02/20at 09:56; Start 07/22/20 at 10:00 Lactobacillus Rhamnosus (Culturelle) 1 cap BID PO Last administered on 08/03/20at 08:37; Start 07/22/20 at 21:00 Oxycodone HCl (Roxicodone) 10 mg PRN Q4HRS PRN PO BREAKTHROUGH PAIN Last ad ministered on 08/03/20at 00:17; Start 07/23/20 at 09:15 Nafcillin Sodium 2 gm/Dextrose 100 ml @ 200 mls/hr Q4HRS IV Last administered on 08/03/20at 08:46; Start 07/23/20 at 12:00 Bupivacaine HCl/ Epinephrine Bitart 50 ml/ Sodium Chloride 250 ml @ 0 mls/hr 1X ONCE IRR ; Start 07/23/20 at 10:45; Stop 07/23/20 at 10:46; Status UNV Bupivacaine HCl/ Epinephrine Bitart (Sensorcaine-Epi 0.25%-1:[id number] Mpf) 30 ml 1X ONCE INJ Last administered on 07/23/20at 11:15; Start 07/23/20 at 11:00; Stop 07/23/20 at 11:01; Status DC Potassium Bicarbonate (Potassium Effervescent Tablet) 40 meq 1X ONCE PO ; Start 07/24/20 at 05:45; Stop 07/24/20 at 05:46; Status Cancel Potassium Chloride (Klor-Con) 40 meq 1X ONCE PO Last administered on 07/24/20at 08:17; Start 07/24/20 at 06:45; Stop 07/24/20 at 06:46; Status DC Potassium Bicarbonate (Potassium Effervescent Tablet) 40 meq 1X ONCE PO ; Start 07/24/20 at 07:45; Stop 07/24/20 at 07:46; Status Cancel Potassium Bicarbonate (Potassium Effervescent Tablet) 40 meq 1X ONCE PO ; S tart 07/24/20 at 06:00; Stop 07/24/20 at 06:01; Status Cancel Potassium Chloride (Klor-Con) 40 meq 1X ONCE PO Last administered on 07/24/20at 06:15; Start 07/24/20 at 06:00; Stop 07/24/20 at 06:08; Status DC Potassium Chloride (Klor-Con) 40 meq 1X ONCE PO Last administered on 07/24/20at 09:55; Start 07/24/20 at 07:45; Stop 07/24/20 at 07:46; Status DC Albuterol/ Ipratropium (Duoneb) 3 ml RTQID NEB Last administered on 07/25/20at 15:41; Start 07/24/20 at 12:00; Stop 07/26/20 at 00:12; Status DC Daptomycin 580 mg/ Sodium Chloride 50 ml @ 100 mls/hr Q24H IV Last administered on 07/30/20at 09:52; Start 07/24/20 at 10:00; Stop 07/30/20 at 10:05; Status DC Losartan Potassium (Cozaar) 100 mg DAILY PO Last administered on 08/03/20at 08:38; Start 07/25/20 at 09:00; Stop 08/03/20 at 09:37; Status DC Losartan Potassium (Cozaar) 50 mg 1X ONCE PO Last administered on 07/24/20at 09:55; Start 07/24/20 at 10:00; Stop 07/24/20 at 10:01; Status DC Potassium Chloride (Klor-Con) 40 meq 1X ONCE PO Last administered on 07/24/20at 17:07; Start 07/24/20 at 17:00; Stop 07/24/20 at 17:01; Status DC Potassium Chloride (Klor-Con) 20 meq TIDWMEALS PO Last administered on 07/27/20at 07:43; Start 07/25/20 at 08:00; Stop 07/27/20 at 10:31; Status DC Hydralazine HCl (Apresoline) 50 mg TID PO Last administered on 07/27/20at 07:42; Start 07/24/20 at 21:15; Stop 07/27/20 at 10:29; Status DC Albuterol Sulfate (Ventolin Neb Soln) 2.5 mg PRN Q6HRS PRN NEB SHORTNESS OF BREATH; Start 07/26/20 at 00:30 Lidocaine HCl (Viscous Lidocaine) 15 ml 1X ONCE SWSW Last administered on 07/26/20at 11:15; Start 07/26/20 at 11:15; Stop 07/26/20 at 11:17; Status DC Lidocaine HCl (Xylocaine 2% Topical 30gm Tube) 1 milton 1X ONCE TP Last administered on 07/26/20at 11:57; Start 07/26/20 at 11:15; Stop 07/26/20 at 11:17; Status DC Benzocaine (Hurricaine One) 2 spray 1X ONCE MM Last administered on 07/26/20at 11:57; Start 07/26/20 at 11:15; Stop 07/26/20 at 11:17; Status DC Propofol (Diprivan) 200 mg STK-MED ONCE IV ; Start 07/26/20 at 11:44; Stop 07/26/20 at 11:44; Status DC Lidocaine HCl (Lidocaine Pf 2% Vial) 5 ml STK-MED ONCE .ROUTE ; Start 07/26/20 at 11:44; Stop 07/26/20 at 11:44; Status DC Insulin Human Lispro (HumaLOG VIAL for OP,RR ONLY) 0-10 units PRN Q1HR PRN SQ PER PROTOCOL; Start 07/26/20 at 12:15; Stop 07/27/20 at 12:14; Status DC Ringer's Solution 1,000 ml @ 75 mls/hr [id number] IV Last administered on 07/27/20at 14:55; Start 07/26/20 at 12:15; Stop 08/02/20 at 19:11; Status DC Oxycodone HCl (OxyCONTIN) 10 mg Q12HR PO Last administered on 07/27/20at 20:14; Start 07/27/20 at 11:00; Stop 07/28/20 at 07:45; Status DC Hydralazine HCl (Apresoline) 100 mg TID PO Last administered on 08/03/20at 08:39; Start 07/27/20 at 14:00; Stop 08/03/20 at 09:37; Status DC Potassium Chloride (Klor-Con) 40 meq TIDWMEALS PO Last administered on 08/03/20at 08:38; Start 07/27/20 at 12:00; Stop 08/03/20 at 09:37; Status DC Propofol (Diprivan) 200 mg STK-MED ONCE IV ; Start 07/27/20 at 14:37; Stop 07/27/20 at 14:38; Status DC Lidocaine HCl (Lidocaine Pf 2% Vial) 5 ml STK-MED ONCE .ROUTE ; Start 07/27/20 at 14:37; Stop 07/27/20 at 14:38; Status DC Dexamethasone Sodium Phosphate (Decadron) 4 mg STK-MED ONCE .ROUTE ; Start 07/27/20 at 14:37; Stop 07/27/20 at 14:38; Status DC Ondansetron HCl (Zofran) 4 mg STK-MED ONCE .ROUTE ; Start 07/27/20 at 14:37; Stop 07/27/20 at 14:38; Status DC Fentanyl Citrate (Fentanyl 2ml Vial) 100 mcg STK-MED ONCE .ROUTE ; Start 07/27/20 at 14:38; Stop 07/27/20 at 14:38; Status DC Sodium Hypochlorite (Dakin'S 1/2 Strength) 1 milton 1X ONCE TP ; Start 07/27/20 at 16:15; Stop 07/27/20 at 16:16; Status DC Fentanyl Citrate (Fentanyl 2ml Vial) 100 mcg STK-MED ONCE .ROUTE ; Start 07/27/20 at 17:08; Stop 07/27/20 at 17:08; Status DC Oxycodone HCl (OxyCONTIN) 20 mg Q12HR PO Last administered on 08/03/20at 08:39; Start 07/28/20 at 09:00 Sodium Hypochlorite (Dakin'S 1/4 Strength) 1 milton PRN DAILY TP ; Start 07/29/20 at 14:15; Stop 08/01/20 at 17:00; Status DC Linezolid (Zyvox) 600 mg BID PO Last administered on 08/03/20at 08:37; Start 07/30/20 at 21:00 Fentanyl Citrate (Fentanyl 2ml Vial) 25 mcg PRN Q5MIN PRN IVP MILD PAIN 1-3; Start 08/02/20 at 06:00; Stop 08/03/20 at 05:59; Status DC Fentanyl Citrate (Fentanyl 2ml Vial) 50 mcg PRN Q5MIN PRN IVP MODERATE PAIN 4- 6; Start 08/02/20 at 06:00; Stop 08/03/20 at 05:59; Status DC Morphine Sulfate (Morphine Sulfate) 1 mg PRN Q10MIN PRN IVP SEVERE PAIN 7-10; Start 08/02/20 at 06:00; Stop 08/03/20 at 05:59; Status DC Ringer's Solution 1,000 ml @ 30 mls/hr Q24H IV Last administered on 08/02/20at 07:04; Start 08/02/20 at 06:00; Stop 08/02/20 at 17:59; Status DC Hydromorphone HCl (Dilaudid) 0.5 mg PRN Q10MIN PRN IVP SEVERE PAIN 7-10, 2nd CHOICE; Start 08/02/20 at 06:00; Stop 08/03/20 at 05:59; Status DC Prochlorperazine Edisylate (Compazine) 5 mg PACU PRN PRN IVP NAUSEA, MRX1; Start 08/02/20 at 06:00; Stop 08/03/20 at 05:59; Status DC Silver Sulfadiazine (Silvadene) 1 milton 1X ONCE TP ; Start 08/02/20 at 07:30; Stop 08/02/20 at 07:31; Status DC Lidocaine HCl (Xylocaine 1% Pf 30ml Vial) 30 ml 1X ONCE INJ ; Start 08/02/20 at 07:30; Stop 08/02/20 at 07:31; Status DC Multivitamins (Thera M Plus) 1 tab DAILY PO Last administered on 08/03/20at 08:36; Start 08/03/20 at 09:00 Ascorbic Acid (Vitamin C) 500 mg DAILY PO Last administered on 08/03/20at 08:37; Start 08/03/20 at 09:00 Fentanyl Citrate (Fentanyl 2ml Vial) 100 mcg STK-MED ONCE .ROUTE ; Start 08/02/20 at 07:28; Stop 08/02/20 at 18:40; Status DC Propofol (Diprivan) 200 mg STK-MED ONCE IV ; Start 08/02/20 at 07:53; Stop 08/02/20 at 18:40; Status DC Lidocaine HCl (Lidocaine Pf 2% Vial) 5 ml STK-MED ONCE .ROUTE ; Start 08/02/20 at 07:53; Stop 08/02/20 at 18:40; Status DC Dexamethasone Sodium Phosphate (Decadron) 4 mg STK-MED ONCE .ROUTE ; Start 08/02/20 at 07:53; Stop 08/02/20 at 18:40; Status DC Ondansetron HCl (Zofran) 4 mg STK-MED ONCE .ROUTE ; Start 08/02/20 at 07:53; Stop 08/02/20 at 18:40; Status DC Sevoflurane (Ultane) 30 ml STK-MED ONCE IH ; Start 08/02/20 at 07:53; Stop 08/02/20 at 18:40; Status DC Ephedrine Sulfate (ePHEDrine PF IN SALINE SYRINGE) 50 mg STK-MED ONCE IV ; Start 08/02/20 at 08:19; Stop 08/02/20 at 18:40; Status DC Hydralazine HCl (Apresoline) 25 mg TID PO ; Start 08/03/20 at 14:00 Active Scripts Active Reported Prednisone 1 Mg Tablet 4 Mg PO DAILY Benadryl Allergy (Diphenhydramine Hcl) 25 Mg Tablet 25 Mg PO PRN DAILY PRN Rolaids Chewable Tablet (Calcium Carb/Magnesium Hydrox) 1 Each Tab.chew 1 Each PO PRN PRN Cardura (Doxazosin Mesylate) 2 Mg Tablet 2 Mg PO DAILY Levothyroxine Sodium 100 Mcg Tablet 300 Mcg PO DAILYAC Victoza 3-Mundo (Liraglutide) 0.6 Mg/0.1 Ml Pen.injctr 1.8 Mg SQ DAILY Lantus Solostar (Insulin Glargine,Hum.rec.anlog) 100 Unit/1 Ml Insuln.pen 25 Unit SQ HS Losartan Potassium 50 Mg Tablet 50 Mg PO DAILY Atorvastatin Calcium 10 Mg Tablet 10 Mg PO HS Allergies Allergies: Coded Allergies: No Known Drug Allergies (Unverified , 07/19/20) ROS Review of System As per HPI, rest of the ROS is negative Physical Exam Physical Exam GENERAL: Alert awake oriented x3 male in no acute distress HEENT: Normocephalic, atraumatic. Anicteric. No thrush. NECK: Supple. No JVD. LUNGS: Clear bilaterally. HEART: S1, S2 heard. No murmurs. ABDOMEN: Soft, obese. Bowel sounds present. GENITOURINARY: No Santana, Briefs in place. EXTREMITIES: Bilateral foot wound VAC present, left foot dorsal edema with erythema though improved since surgery NEUROLOGIC: Alert oriented x3 moves all 4 extremities. PSYCHIATRIC: Calm and cooperative. PIV looks clean. Vital Signs Vital Signs Date Time Temp Pulse Resp B/P (MAP) Pulse Ox O2 Delivery O2 Flow Rate FiO2 08/03/20 08:39 Room Air 08/03/20 08:39 76 118/61 08/03/20 07:00 97.7 18 98 97.7 08/02/20 14:00 5.0 Assessment & Plan STEVE - Present at admission with Cr at 1.7--. improved back to 1.1. had mild Rhabdo, improved CK . Noted worsening renal function with Cr from 1.3 on 07/30 to 2.6 today UA at presentation with large amount of protein and glucose glucose, large amount of blood, 11-20 rbc's, rare wbc's and no bacteria. Suspect ATN/vs AIN 2/2 Medications (Nafcillin) , Low BP. Check UA , renal US, Hold Losartan, maintain Hydration , Strict I/O, avoid nephrotoxins Severe sepsis from Staph aureus bacteremia POA - at [facility] Bilateral lower extremity cellulitis,deep tissue infection of both feet. Rt foot abscess. 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 s/p amputation July 22, 2020 Diabetes with neuropathy, poorly controlled. Chronic Noncompliance. Labs Labs Labs at presentation , White cell count was high at 18,700. His blood gases showed that he is not in diabetic ketoacidosis. In fact, his pH was 7.46, pCO2 of 26. His chemistry showed that he has lactic acidosis and blood sugar was extremely high to 512 on arrival. His toxic screen was positive for cannabinoid and opiate. Laboratory Tests Test 08/01/20 11:49 08/01/20 15:35 08/01/20 20:50 08/02/20 07:03 Glucose (Fingerstick) 85 mg/dL (70-99) 99 mg/dL (70-99) 121 mg/dL (70-99) 116 mg/dL (70-99) Test 08/02/20 08:31 08/02/20 11:31 08/02/20 16:50 08/02/20 20:29 Glucose (Fingerstick) 138 mg/dL (70-99) 160 mg/dL (70-99) 71 mg/dL (70-99) 156 mg/dL (70-99) Test 08/03/20 05:10 08/03/20 07:08 White Blood Count 8.2 x10^3/uL (4.0-11.0) Red Blood Count 2.97 x10^6/uL (4.30-5.70) Hemoglobin 9.5 g/dL (13.0-17.5) Hematocrit 28.2 % (39.0-53.0) Mean Corpuscular Volume 95 fL (79-100) Mean Corpuscular Hemoglobin 32 pg (25-35) Mean Corpuscular Hemoglobin Concent 34 g/dL (31-37) Red Cell Distribution Width 12.8 % (11.5-14.5) Platelet Count 335 x10^3/uL (140-400) Erythrocyte Sedimentation Rate 124 (0-15) Sodium Level 137 mmol/L (136-145) Potassium Level 4.8 mmol/L (3.5-5.1) Chloride Level 103 mmol/L (98-107) Carbon Dioxide Level 24 mmol/L (21-32) Anion Gap 10 (6-14) Blood Urea Nitrogen 20 mg/dL (8-26) Creatinine 2.6 mg/dL (0.7-1.3) Estimated GFR (Cockcroft-Gault) 25.2 BUN/Creatinine Ratio 8 (6-20) Glucose Level 109 mg/dL (70-99) Calcium Level 9.4 mg/dL (8.5-10.1) Total Bilirubin 0.6 mg/dL (0.2-1.0) Aspartate Amino Transf (AST/SGOT) 23 U/L (15-37) Alanine Aminotransferase (ALT/SGPT) 17 U/L (16-63) Alkaline Phosphatase 94 U/L (46-116) C-Reactive Protein, Quantitative 47.7 mg/L (0-3.3) Total Protein 6.9 g/dL (6.4-8.2) Albumin 1.8 g/dL (3.4-5.0) Albumin/Globulin Ratio 0.4 (1.0-1.7) Glucose (Fingerstick) 96 mg/dL (70-99) Laboratory Tests Test 6/8/21 11:31 08/02/20 16:50 08/02/20 20:29 08/03/20 05:10 Glucose (Fingerstick) 160 mg/dL (70-99) 71 mg/dL (70-99) 156 mg/dL (70-99) White Blood Count 8.2 x10^3/uL (4.0-11.0) Red Blood Count 2.97 x10^6/uL (4.30-5.70) Hemoglobin 9.5 g/dL (13.0-17.5) Hematocrit 28.2 % (39.0-53.0) Mean Corpuscular Volume 95 fL (79-100) Mean Corpuscular Hemoglobin 32 pg (25-35) Mean Corpuscular Hemoglobin Concent 34 g/dL (31-37) Red Cell Distribution Width 12.8 % (11.5-14.5) Platelet Count 335 x10^3/uL (140-400) Erythrocyte Sedimentation Rate 124 (0-15) Sodium Level 137 mmol/L (136-145) Potassium Level 4.8 mmol/L (3.5-5.1) Chloride Level 103 mmol/L (98-107) Carbon Dioxide Level 24 mmol/L (21-32) Anion Gap 10 (6-14) Blood Urea Nitrogen 20 mg/dL (8-26) Creatinine 2.6 mg/dL (0.7-1.3) Estimated GFR (Cockcroft-Gault) 25.2 BUN/Creatinine Ratio 8 (6-20) Glucose Level 109 mg/dL (70-99) Calcium Level 9.4 mg/dL (8.5-10.1) Total Bilirubin 0.6 mg/dL (0.2-1.0) Aspartate Amino Transf (AST/SGOT) 23 U/L (15-37) Alanine Aminotransferase (ALT/SGPT) 17 U/L (16-63) Alkaline Phosphatase 94 U/L (46-116) C-Reactive Protein, Quantitative 47.7 mg/L (0-3.3) Total Protein 6.9 g/dL (6.4-8.2) Albumin 1.8 g/dL (3.4-5.0) Albumin/Globulin Ratio 0.4 (1.0-1.7) Test 08/03/20 07:08 Glucose (Fingerstick) 96 mg/dL (70-99) Review All relevant outside records, renal labs, imaging studies, telemetry/EKG's were reviewed. Images Images x-ray of his foot showed that there is no acute fracture, alignment is normal. There is joint space narrowing with subchondral cysts at the second transmetatarsal jointand navicular cuneiform joint. There is diffuse soft tissue swelling, probable ulcer at the tip of the third distal phalanx with possible cortical indistinction in the distal phalanx tuft. His right foot showed there is severe degenerative joint disease of the great toe metatarsophalangeal joint and subchondral cyst. There is degenerative joint disease throughout the mid foot with dorsal osteophytes. No acute fracture. Alignment is normal. There is no definite osseous junction. There is diffuse soft tissue swelling greater along the dorsum of the midfoot with the impression is that the patient had soft tissue ulcer at the tip of the third distal phalanx with possible erosion in theunderlying distal phalanx, which could indicate osteomyelitis. MRI LEFT LOWER EXTREMITY W/O 07/26 INDICATIONS: Left foot and swelling, possible infection. TECHNIQUE: Multiplanar multisequence MRI of the left foot was obtained without contrast. COMPARISON: CT bilateral lower extremity 07/19/2020 FINDINGS: BONES AND CARTILAGE: There is marrow edema with associated low T1 signal throughout the cuneiforms, navicular, and distal cuboid. There is also marrow edema and low T1 signal throughout the second and third metatarsals, proximal fourth and fifth metatarsals, and to a lesser extent in the proximal first metatarsal. There are small joint effusions in at the TMT joints. There is either destructive changes or subchondral cysts at the second TMT joint and to lesser extent third TMT joint. Additional cystic versus destructive changes of the second MTP joint where there is also a joint effusion and marrow edema in the proximal phalanx. LIGAMENTS: Lisfranc ligament is not well visualized dorsally but rest of the ligament is at least partially intact. TENDONS: There is moderate tendinopathy of the flexor hallucis longus tendon. Re maining flexor tendons are intact. Extensor and peroneal tendons are intact. There is fluid extending along the tendons. OTHER:There are multiple fluid collections in the midfoot and visualized forefoot. A fluid collection extending from the dorsal aspect of the cuneiforms to at least the metatarsal heads measures approximately 7.8 x 1.9 x 7.2 cm (image 14, series 9). This may communicate with a fluid collection along the more lateral aspect of the midfoot at the level of the cuneiforms measuring 4.6 x 2.3 x 8.2 cm (image 6, series 9). There is large fluid collection extending between the first and second metatarsals measuring 6.9 x 3.5 x 2.4 cm. There is diffuse intramuscular edema and atrophy. IMPRESSION: Marrow edema with associated low T1 signal in the midfoot and metatarsals, and base of the second proximal phalanx. Cystic or destructive changes at the second and third TMT joints and second MTP joint. Small joint effusions and multiple fluid collections in the midfoot and forefoot. Findings may be seen with neuropathic joint or septic arthritis/osteomyelitis and soft tissue infection. DAVE MURRAY MD Aug 03, 2020 10:13
--- NOTE | 2020-08-03 10:34 | PDOC ---
Provider Note Date of Service: DATE: 08/03/20 TIME: 10:30 Provider Note Provider Note Vascular S: Patient is without complaints. O: Awake and alert Vital signs stable, afebrile Wound VAC in place bilateral feet and functioning. Patient has moderate erythema and swelling in the left dorsum foot. A/P: 1. Bilateral foot ulcers extending to the deep tissue. 2. Diabetes. 3. Peripheral neuropathy. 4. Previous foot abscesses. s/p 07/21: 1. Partial amputation of the left third toe with primary closure. 2. Incision and drainage with cultures and packing of right dorsal foot abscess measuring 7 cm. 07/27: 1. Incision and drainage of abscesses x 3, left dorsal and lateral mid foot with cultures. 2. Debridement, full thickness of right dorsal foot wound measuring 5 x 3 cm. 08/02: 1. Excisional debridement of both feet including skin, subcutaneous tissue, and tendon. 2. Wound VAC placement to both feet. Recommend continued VAC therapy, will reevaluate 08/05. Antibiotics per infectious disease. Okay to ambulate. Justicifation of Admission Dx: Justifications for Admission: Justification of Admission Dx: Yes ABBI ELLINGTON DIRECTOR OF HOTEL Aug 03, 2020 10:34
[2020-08-03 11:00] VITALS: BP 139/84
[2020-08-03] MEDS: ENOXAPARIN 40 MG/0.4 ML SYRINGE. SQ SCH (12:09)
[2020-08-03] MEDS: predniSONE 1 MG TABLET PO SCH (12:09)
[2020-08-03] MEDS: DOXAZOSIN MESYLATE 1 MG TABLET. PO SCH (12:09)
--- NOTE | 2020-08-03 13:22 | RAD ---
EXAM: RENAL ULTRASOUND CLINICAL HISTORY: Acute renal insufficiency COMPARISON: None available. TECHNIQUE: Ultrasound examination of the bilateral kidneys and urinary bladder was performed. FINDINGS: The right kidney measures 14.5 x 1.5 x 6.8 cm. The left kidney measures 15.4 x 6.3 x 1.7 cm. No evide nce of hydronephrosis. Urinary bladder is mildly distended. IMPRESSION: Unremarkable exam. Electronically signed by: Neeraj Baldwin MD (08/03/2020 1:19 PM) [id number]
[2020-08-03 13:26] LABS: BILIRUBIN,URINE NEGATIVE (NEG); CLARITY,URINE CLEAR; COLOR,URINE YELLOW; NITRITE,URINE NEGATIVE (NEG); PH,URINE 5.5 (<5.0-8.0); PROTEIN,URINE 30 mg/dL (NEG-TRACE); UROBILINOGEN,URINE 0.2 mg/dL (0.2 mg/dL)
[2020-08-03] MEDS: fentaNYL PF VIAL 100 MCG/2 ML VIAL IVP PRN ×3 (13:29→22:31)
--- NOTE | 2020-08-03 13:35 | PN ---
DATE: 08/03/2020 SUBJECTIVE: The patient is resting, slightly propped up in bed, in no apparent respiratory distress. He is awake, alert. On questioning him, he denied any complaint. The nursing staff did not voice any concerns, stated that he had an uneventful night. PHYSICAL EXAMINATION: GENERAL: When I examined him, he looked pale, no jaundice, cyanosis or thyromegaly. No jugular venous distention. No limb edema. VITAL SIGNS: Heart rate was 76, blood pressure is 118/61, temperature 97.7, respiratory rate was 18 and oxygen saturation was 98%. HEAD, EYES, EARS, NOSE AND THROAT: Normocephalic, atraumatic. NECK: Supple. HEART: Normal first and second heart sounds, no gallop, murmur. CHEST: Clear to auscultation, no crepitation or rhonchi. ABDOMEN: Distended, soft, nontender. NEUROLOGIC: He was awake, alert, responding appropriately. All cranial nerves intact. He moves extremities without difficulty. He has multiple wounds on the dorsal aspect of both feet covered with wound vacuum-assisted closure device. His intake was 700, output was 1250. LABORATORY DATA: As of this morning, his white cell count was 8200, hemoglobin 9.5, hematocrit was 28, MCV 95 and platelet count of 335,000. His sedimentation rate is down to 124 mm per hour. His chemistry, however, showed a serum sodium 137, potassium 4.8, chloride 103, bicarbonate 24, anion gap of 10, BUN 20, creatinine 2.6. Estimated GFR was 25 mL per minute. His glucose 109, calcium was 9.4. Total bilirubin, AST, ALT, alkaline phosphatase were normal. His C-reactive protein is 47 mg/L, down from 291. His total protein was 6.9, albumin was 1.8. ASSESSMENT: 1. Bilateral lower extremity cellulitis. 2. Multiple abscesses on the dorsal aspect of right and left foot, status post incision and debridement, the wounds are covered with wound vacuum-assisted closure device. He apparently has undergone multiple debridements. 3. Type 2 diabetes mellitus, seems to be much better controlled. 4. Diabetic peripheral neuropathy. 5. Acute on chronic kidney injury, improved. However, his creatinine has risen up today to 2.6. 6. Hypertension, seems to be much better controlled. He was on losartan 100 mg once a day as well as hydralazine 100 mg 3 times a day. 7. The patient has grown methicillin-sensitive Staphylococcus aureus on blood cultures drawn at [facility] well as [facility] and also from his wounds of his feet. He is currently on daptomycin and nafcillin. PLAN: I have discontinued his losartan. I cut down his hydralazine to 25 mg 3 times a day as his blood pressure is very low, might be the reason why his kidney function deteriorated. Obviously, other possibilities include interstitial nephritis induced by nafcillin. We will scan his bladder to make sure he is not retaining urine. I have consulted the manager of corporate to assist with the management. Meanwhile, we will continue with IV antibiotic. Continue with wound care and wound vacuum-assisted closure device. Continue with pain management. Continue to monitor his blood sugar and adjust insulin as needed. Continue with DVT prophylaxis. NNEKA DR: Sarahy TID: [id number]
[2020-08-03 13:39] LABS: HYALINE CASTS, URINE FEW /HPF
[2020-08-03 13:42] LABS: BACTERIA,URINE 0 /HPF (0-FEW); RBC,URINE 0 /HPF (0-2)
[2020-08-03 15:00] VITALS: BP 131/80
[2020-08-03] MEDS: hydrALAZINE 25 MG TABLET PO SCH ×2 (16:02→21:14)
[2020-08-03 19:00] VITALS: BP 164/89
--- NOTE | 2020-08-03 21:00 | NUR ---
Patient voided 300mls, bladder scan complete post-void and PVR measured at approx. 7mls.
[2020-08-03] MEDS: ATORVASTATIN CALCIUM 10 MG TABLET. PO SCH (21:12)
[2020-08-03] MEDS: INSULIN GLARGINE SYRINGE. SQ SCH (21:23)
[2020-08-03 23:00] VITALS: BP 132/69
[2020-08-04] MEDS: NAFCILLIN 2 GM in IV DEXTROSE 5% 100ML 100 ML IV SCH ×6 (00:41→20:14)
[2020-08-04] MEDS: fentaNYL PF VIAL 100 MCG/2 ML VIAL IVP PRN ×4 (01:41→19:00)
[2020-08-04 03:00] VITALS: BP 141/83
[2020-08-04] MEDS: oxyCODONE IR 5 MG TABLET PO PRN ×4 (04:35→21:34)
[2020-08-04 05:48] LABS: CALCIUM 9.5 mg/dL (8.5-10.1); CREATININE 2.5 mg/dL (0.7-1.3); GFR 26.4; POTASSIUM 4.8 mmol/L (3.5-5.1)
[2020-08-04] MEDS: LEVOTHYROXINE 100 MCG TABLET PO SCH (06:02)
[2020-08-04 07:00] VITALS: BP 163/91
[2020-08-04] MEDS: INSULIN LISPRO 300 UNITS/3 ML VIAL. SQ SCH ×6 (07:30→17:00)
[2020-08-04] MEDS: oxyCODONE ER 10 MG TAB.ER.12H PO SCH ×2 (09:19→20:15)
[2020-08-04] MEDS: LINEZOLID 600 MG TABLET PO SCH ×2 (09:19→20:15)
[2020-08-04] MEDS: ASCORBIC ACID 500 MG TABLET PO SCH (09:19)
[2020-08-04] MEDS: hydrALAZINE 25 MG TABLET PO SCH ×3 (09:19→20:15)
[2020-08-04] MEDS: MULTIVITAMIN with MINERAL TABLET. PO SCH (09:19)
[2020-08-04] MEDS: predniSONE 1 MG TABLET PO SCH (09:19)
[2020-08-04] MEDS: LACTOBACILLUS RHAMNOSUS GG 1 CAPSULE. PO SCH ×2 (09:19→20:15)
[2020-08-04] MEDS: DOXAZOSIN MESYLATE 1 MG TABLET. PO SCH (09:20)
[2020-08-04] MEDS: ENOXAPARIN 40 MG/0.4 ML SYRINGE. SQ SCH (09:20)
--- NOTE | 2020-08-04 09:53 | PDOC ---
DATE OF SERVICE DATE: 08/04/20 TIME: 09:49 SUBJECTIVE ROS States feeling better Hoping to go home soon OBJECTIVE Vital Signs Vital Signs Date Time Temp Pulse Resp B/P (MAP) Pulse Ox O2 Delivery O2 Flow Rate FiO2 08/04/20 09:20 86 163/91 08/04/20 09:19 Room Air 08/04/20 07:00 98.2 18 99 98.2 08/04/20 04:35 5.0 I & 0 Intake and Output 08/04/20 07:00 Intake Total 1030 ml Output Total 850 ml Balance 180 ml Intake Oral 930 ml IV Total 100 ml Output Urine Total 850 ml # Voids 1 PHYSICAL EXAM Physical Exam GENERAL: Alert awake oriented x3 male in no acute distress HEENT: Normocephalic, atraumatic. Anicteric. No thrush. NECK: Supple. No JVD. LUNGS: Clear bilaterally. HEART: S1, S2 heard. No murmurs. ABDOMEN: Soft, obese. Bowel sounds present. GENITOURINARY: No Santana, Briefs in place. EXTREMITIES: Bilateral foot wound VAC present, left foot dorsal edema with erythema though improved since surgery NEUROLOGIC: Alert oriented x3 moves all 4 extremities. PSYCHIATRIC: Calm and cooperative. DIAGNOSIS/ASSESSMENT Assessment & Plan STEVE - Present at admission with Cr at 1.7--. improved back to 1.1. had mild Rhabdo, improved CK . Noted worsening renal function with Cr from 1.3 on 07/30 to 2.6 ; stable today ? Plateau , Monitor UA at presentation with large amount of protein and glucose glucose, large amount of blood, 11-20 rbc's, rare wbc's and no bacteria. Repeat UA unremarkable except few WBC's ; Renal US Remarkable Suspect ATN/vs AIN 2/2 Medications (Nafcillin) , decreased BP- Holding Losartan, maintain Hydration , Strict I/O (? accuracy) , avoid nephrotoxins Severe sepsis from Staph aureus bacteremia POA - at [facility] Anemia- Hgb decreased < 10 since presentation , defer to primary . Will add EMMA Bilateral lower extremity cellulitis,deep tissue infection of both feet. Rt foot abscess. 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 s/p amputation July 22, 2020 Diabetes with neuropathy, poorly controlled. Chronic Noncompliance. COMMENT/RELEVANT DATA Meds Current Medications Medications (Trade) Dose Ordered Sig/Xander Start Time Stop Time Status Last Admin Dose Admin Acetaminophen (Tylenol) 650 mg PRN Q4HRS PRN 07/21/20 00:00 07/21/20 00:23 650 MG Albuterol Sulfate (Ventolin Neb Soln) 2.5 mg PRN Q6HRS PRN 07/26/20 00:30 Albuterol/ Ipratropium (Duoneb) 3 ml RTQID 07/24/20 12:00 07/26/20 00:12 DC 07/25/20 15:41 3 ML Ascorbic Acid (Vitamin C) 500 mg DAILY 08/03/20 09:00 08/04/20 09:19 500 MG Atorvastatin Calcium (Lipitor) 10 mg HS 07/19/20 21:00 08/03/20 21:12 10 MG Benzocaine (Hurricaine One) 2 spray 1X ONCE 07/26/20 11:15 07/26/20 11:17 DC 07/26/20 11:57 2 SPRAY Bupivacaine HCl (Sensorcaine Mpf 0.25%) 30 ml STK-MED ONCE 07/21/20 12:25 07/21/20 19:13 DC Bupivacaine HCl/ Epinephrine Bitart 50 ml/ Sodium Chloride 250 ml @ 0 mls/hr 1X ONCE 07/23/20 10:45 07/23/20 10:46 UNV Bupivacaine HCl/ Epinephrine Bitart (Sensorcaine-Epi 0.25%-1:[id number] Mpf) 30 ml 1X ONCE 07/23/20 11:00 07/23/20 11:01 DC 07/23/20 11:15 30 ML Calcium Carbonate/ Glycine (Tums) 500 mg PRN AFTMEALHC PRN 07/19/20 10:45 07/30/20 17:05 500 MG Ceftriaxone Sodium (Rocephin) 1 gm Q24H 07/19/20 21:00 07/19/20 10:56 DC Daptomycin 580 mg/ Sodium Chloride 50 ml @ 100 mls/hr Q24H 07/24/20 10:00 07/30/20 10:05 DC 07/30/20 09:52 100 MLS/HR Daptomycin 600 mg/ Sodium Chloride 50 ml @ 100 mls/hr Q24H 07/19/20 11:00 07/21/20 10:39 DC 07/20/20 13:33 100 MLS/HR Daptomycin 970 mg/ Sodium Chloride 50 ml @ 100 mls/hr Q24H 07/21/20 12:00 07/23/20 09:38 DC 07/22/20 13:32 100 MLS/HR Dexamethasone Sodium Phosphate (Decadron) 4 mg STK-MED ONCE 08/02/20 07:53 08/02/20 18:40 DC Dextrose (Dextrose 50%-Water Syringe) 12.5 gm PRN Q15MIN PRN 07/19/20 01:30 07/23/20 16:44 12.5 GM Diphenhydramine HCl (Benadryl) 25 mg PRN DAILY PRN 07/19/20 10:45 Doxazosin Mesylate (Cardura) 2 mg DAILY 07/19/20 11:00 08/04/20 09:20 2 MG Enoxaparin Sodium (Lovenox 40mg Syringe) 40 mg Q24H 07/22/20 10:00 08/04/20 09:20 40 MG Ephedrine Sulfate (ePHEDrine PF IN SALINE SYRINGE) 50 mg STK-MED ONCE 08/02/20 08:19 08/02/20 18:40 DC Etomidate (Amidate) 20 mg STK-MED ONCE 07/21/20 11:53 07/21/20 19:12 DC Fentanyl Citrate (Fentanyl 2ml Vial) 100 mcg STK-MED ONCE 08/02/20 07:28 08/02/20 18:40 DC Hydralazine HCl (Apresoline) 25 mg TID 08/03/20 14:00 08/04/20 09:19 25 MG Hydromorphone HCl (Dilaudid) 0.5 mg PRN Q10MIN PRN 08/02/20 06:00 08/03/20 05:59 DC Insulin Glargine (Lantus Syringe) 25 unit QHS 07/19/20 21:00 08/03/20 21:23 25 UNIT Insulin Human Lispro (HumaLOG VIAL for OP,RR ONLY) 0-10 units PRN Q1HR PRN 07/26/20 12:15 07/27/20 12:14 DC Insulin Human Lispro (HumaLOG) 20 units TIDAC 07/19/20 11:30 08/02/20 12:02 20 UNITS Lactobacillus Rhamnosus (Culturelle) 1 cap BID 07/22/20 21:00 08/04/20 09:19 1 CAP Levothyroxine Sodium (Synthroid) 300 mcg DAILYAC 07/20/20 07:30 08/04/20 06:02 300 MCG Lidocaine HCl (Lidocaine 1% 20ml Vial) 20 ml STK-MED ONCE 07/21/20 12:25 07/21/20 19:13 DC Lidocaine HCl (Lidocaine Pf 2% Vial) 5 ml STK-MED ONCE 08/02/20 07:53 08/02/20 18:40 DC Lidocaine HCl (Viscous Lidocaine) 15 ml 1X ONCE 07/26/20 11:15 07/26/20 11:17 DC 07/26/20 11:15 15 ML Lidocaine HCl (Xylocaine 1% Pf 30ml Vial) 30 ml 1X ONCE 08/02/20 07:30 08/02/20 07:31 DC Lidocaine HCl (Xylocaine 2% Topical 30gm Tube) 1 milton 1X ONCE 07/26/20 11:15 07/26/20 11:17 DC 07/26/20 11:57 1 MILTON Linezolid (Zyvox) 600 mg BID 07/30/20 21:00 08/04/20 09:19 600 MG Linezolid/Dextrose 300 ml @ 300 mls/hr Q12HR 07/21/20 12:00 07/23/20 09:38 DC 07/23/20 08:17 300 MLS/HR Losartan Potassium (Cozaar) 50 mg 1X ONCE 07/24/20 10:00 07/24/20 10:01 DC 07/24/20 09:55 50 MG Metformin HCl (Glucophage) 1,000 mg BIDWMEALS 07/19/20 17:00 08/03/20 12:27 DC 08/03/20 08:37 1,000 MG Morphine Sulfate (Morphine Sulfate) 1 mg PRN Q10MIN PRN 08/02/20 06:00 08/03/20 05:59 DC Multivitamins (Thera M Plus) 1 tab DAILY 08/03/20 09:00 08/04/20 09:19 1 TAB Nafcillin Sodium 2 gm/Dextrose 100 ml @ 200 mls/hr Q4HRS 07/23/20 12:00 08/04/20 09:19 200 MLS/HR Ondansetron HCl (Zofran) 4 mg STK-MED ONCE 08/02/20 07:53 08/02/20 18:40 DC Oxycodone HCl (OxyCONTIN) 20 mg Q12HR 07/28/20 09:00 08/04/20 09:19 20 MG Oxycodone HCl (Roxicodone) 10 mg PRN Q4HRS PRN 07/23/20 09:15 08/04/20 04:35 10 MG Oxycodone/ Acetaminophen (Percocet 5/325) 1 tab PRN Q4HRS PRN 07/21/20 14:00 07/23/20 09:06 DC 07/23/20 00:10 1 TAB Phenylephrine HCl (PHENYLEPHRINE in 0.9% NACL PF) 1 mg STK-MED ONCE 07/21/20 13:23 07/21/20 19:13 DC Piperacillin Sod/ Tazobactam Sod 3.375 gm/Sodium Chloride 50 ml @ 100 mls/hr Q6HRS 07/19/20 12:00 07/23/20 07:44 DC 07/23/20 05:58 100 MLS/HR Potassium Bicarbonate (Potassium Effervescent Tablet) 40 meq 1X ONCE 07/24/20 06:00 07/24/20 06:01 Cancel Potassium Chloride (Klor-Con) 40 meq TIDWMEALS 07/27/20 12:00 08/03/20 09:37 DC 08/03/20 08:38 40 MEQ Prednisone (Prednisone) 4 mg DAILY 07/19/20 11:00 08/04/20 09:19 4 MG Prochlorperazine Edisylate (Compazine) 5 mg PACU PRN PRN 08/02/20 06:00 08/03/20 05:59 DC Propofol (Diprivan) 200 mg STK-MED ONCE 08/02/20 07:53 08/02/20 18:40 DC Ringer's Solution 1,000 ml @ 30 mls/hr Q24H 08/02/20 06:00 08/02/20 17:59 DC 08/02/20 07:04 30 MLS/HR Rocuronium Huntley (Zemuron) 50 mg STK-MED ONCE 07/21/20 12:54 07/21/20 19:13 DC Sevoflurane (Ultane) 30 ml STK-MED ONCE 08/02/20 07:53 08/02/20 18:40 DC Silver Sulfadiazine (Silvadene) 1 milton 1X ONCE 08/02/20 07:30 08/02/20 07:31 DC Sodium Hypochlorite (Dakin'S 1/2 Strength) 1 milton 1X ONCE 07/27/20 16:15 07/27/20 16:16 DC Sodium Hypochlorite (Dakin'S 1/4 Strength) 1 milton PRN DAILY 07/29/20 14:15 08/01/20 17:00 DC Sodium Chloride 1,000 ml @ 150 mls/hr Q6H40M 07/19/20 02:00 07/24/20 08:32 DC 07/24/20 04:40 150 MLS/HR Succinylcholine Chloride (Anectine) 200 mg STK-MED ONCE 07/21/20 11:51 07/21/20 19:12 DC Vancomycin HCl (Vanco Per Pharmacy) 1 each PRN DAILY PRN 07/19/20 01:30 07/19/20 10:57 DC 07/19/20 03:43 1 EACH Vancomycin HCl (Vancomycin Trough Level) 1 each 1X ONCE 07/20/20 20:30 07/19/20 10:57 DC Vancomycin HCl 2 gm/Sodium Chloride 500 ml @ 250 mls/hr Q24H 07/19/20 21:00 07/19/20 10:57 DC Lab Laboratory Tests Test 08/03/20 11:29 08/03/20 11:35 08/03/20 16:48 08/03/20 21:08 Glucose (Fingerstick) 119 mg/dL (70-99) 151 mg/dL (70-99) 131 mg/dL (70-99) Urine Collection Type Unknown Urine Color Yellow Urine Clarity Clear Urine pH 5.5 (<5.0-8.0) Urine Specific [place] 1.010 (1.000-1.030) Urine Protein 30 mg/dL (NEG-TRACE) Urine Glucose (UA) Negative mg/dL (NEG) Urine Ketones (Stick) Negative mg/dL (NEG) Urine Blood Negative (NEG) Urine Nitrite Negative (NEG) Urine Bilirubin Negative (NEG) Urine Urobilinogen Dipstick 0.2 mg/dL (0.2 mg/dL) Urine Leukocyte Esterase Negative (NEG) Urine RBC 0 /HPF (0-2) Urine WBC 5-10 /HPF (0-4) Urine Squamous Epithelial Cells Few /LPF Urine Transitional Epithelial Cells Few /LPF Urine Renal Epithelial Cells Few /LPF Urine Bacteria 0 /HPF (0-FEW) Urine Hyaline Casts Few /HPF Test 08/04/20 05:20 08/04/20 07:37 Sodium Level 139 mmol/L (136-145) Potassium Level 4.8 mmol/L (3.5-5.1) Chloride Level 106 mmol/L (98-107) Carbon Dioxide Level 25 mmol/L (21-32) Anion Gap 8 (6-14) Blood Urea Nitrogen 20 mg/dL (8-26) Creatinine 2.5 mg/dL (0.7-1.3) Estimated GFR (Cockcroft-Gault) 26.4 Glucose Level 119 mg/dL (70-99) Uric Acid 4.9 mg/dL (3.5-7.2) Calcium Level 9.5 mg/dL (8.5-10.1) Glucose (Fingerstick) 105 mg/dL (70-99) Results All relevant outside records, renal labs, imaging studies, telemetry/EKG's were reviewed. Justicifation of Admission Dx: Justifications for Admission: Justification of Admission Dx: Yes DAVE MURRAY MD Aug 04, 2020 09:53
--- NOTE | 2020-08-04 10:38 | PDOC ---
Infectious Disease Note Subjective Subjective pt is feeling better ROS ROS no n/v/d/ Vital Sign Vital Signs Vital Signs Date Time Temp Pulse Resp B/P (MAP) Pulse Ox O2 Delivery O2 Flow Rate FiO2 08/04/20 09:20 86 163/91 08/04/20 09:19 Room Air 08/04/20 07:00 98.2 18 99 98.2 08/04/20 04:35 5.0 Physical Exam PHYSICAL EXAM GENERAL: Alert awake oriented x3 male in no acute distress HEENT: Normocephalic, atraumatic. Anicteric. No thrush. NECK: Supple. No JVD. LUNGS: Clear bilaterally. HEART: S1, S2 heard. No murmurs. ABDOMEN: Soft, obese. Bowel sounds present. GENITOURINARY: No Santana, Briefs in place. EXTREMITIES: Bilateral foot wound VAC present, left foot dorsal edema with erythema though improved since surgery NEUROLOGIC: Alert oriented x3 moves all 4 extremities. PSYCHIATRIC: Calm and cooperative. PIV looks clean. Labs Lab Laboratory Tests Test 08/03/20 11:29 08/03/20 11:35 08/03/20 16:48 08/03/20 21:08 Glucose (Fingerstick) 119 mg/dL (70-99) 151 mg/dL (70-99) 131 mg/dL (70-99) Urine Collection Type Unknown Urine Color Yellow Urine Clarity Clear Urine pH 5.5 (<5.0-8.0) Urine Specific [place] 1.010 (1.000-1.030) Urine Protein 30 mg/dL (NEG-TRACE) Urine Glucose (UA) Negative mg/dL (NEG) Urine Ketones (Stick) Negative mg/dL (NEG) Urine Blood Negative (NEG) Urine Nitrite Negative (NEG) Urine Bilirubin Negative (NEG) Urine Urobilinogen Dipstick 0.2 mg/dL (0.2 mg/dL) Urine Leukocyte Esterase Negative (NEG) Urine RBC 0 /HPF (0-2) Urine WBC 5-10 /HPF (0-4) Urine Squamous Epithelial Cells Few /LPF Urine Transitional Epithelial Cells Few /LPF Urine Renal Epithelial Cells Few /LPF Urine Bacteria 0 /HPF (0-FEW) Urine Hyaline Casts Few /HPF Test 08/04/20 05:20 08/04/20 07:37 08/04/20 10:27 Sodium Level 139 mmol/L (136-145) Potassium Level 4.8 mmol/L (3.5-5.1) Chloride Level 106 mmol/L (98-107) Carbon Dioxide Level 25 mmol/L (21-32) Anion Gap 8 (6-14) Blood Urea Nitrogen 20 mg/dL (8-26) Creatinine 2.5 mg/dL (0.7-1.3) Estimated GFR (Cockcroft-Gault) 26.4 Glucose Level 119 mg/dL (70-99) Uric Acid 4.9 mg/dL (3.5-7.2) Calcium Level 9.5 mg/dL (8.5-10.1) Glucose (Fingerstick) 105 mg/dL (70-99) 146 mg/dL (70-99) Micro Microbiology 07/27/20 Gram Stain - Final, Complete 07/27/20 Aerobic and Anaerobic Culture - Final, Complete 07/27/20 Antimicrobic Susceptibility - Final, Complete 07/25/20 Blood Culture - Final, Complete NO GROWTH AFTER 5 DAYS Objective Assessment Severe sepsis from Staph aureus bacteremia present on admission at [facility] Methicillin Staph aureus bacteremia 4 out of 4 bottles at [facility] 07/18/20 Staph aureus bacteremia here July 20, 2020 Fever Source Rt foot dorsal abscess Leukocytosis and lactic acidosis.Bandemia. Bilateral lower extremity cellulitis,deep tissue infection of both feet. Rt foot abscess. 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 s/p amputation July 22, 2020 Diabetes with neuropathy, poorly controlled. Noncompliance. Acute kidney injury. Rhabdo Hematuria. Hyponatremia. Hypertension. PROCEDURE: 08/02 1. Excisional debridement of both feet including skin, subcutaneous tissue, and tendon. 2. Wound VAC placement to both feet. Plan Plan of Care Continue Nafcillin,, will need 6-8 wks Continue linezolid for now, soon to d/c Will need PCC line BRYAN on 07/26, negative for vegetations f/u Repeat blood cultures 07/23 neg so far Local wound /vac care as directed Monitor wounds closely Vascular team following Follow up labs Probiotics Continue supportive care D/W Girlfriend ANTON HERNANDEZ MD Aug 04, 2020 10:38
[2020-08-04 11:00] VITALS: BP 133/55
[2020-08-04] MEDS ORDERED: DARBEPOETIN ALFA 60 MCG/0.3 ML DISP.SYRIN. SQ ONE (13:00)
--- NOTE | 2020-08-04 13:34 | PDOC ---
Provider Note Date of Service: DATE: 08/04/20 TIME: 13:33 Provider Note Provider Note Vascular S: Patient is without complaints. Family with concerns for increasing erythema in left foot. O: Awake and alert Vital signs stable, afebrile Wound VAC in place bilateral feet and functioning. Patient has moderate erythe ma and swelling in the left dorsum foot. This has improved since yesterday. A/P: 1. Bilateral foot ulcers extending to the deep tissue. 2. Diabetes. 3. Peripheral neuropathy. 4. Previous foot abscesses. s/p 07/21: 1. Partial amputation of the left third toe with primary closure. 2. Incision and drainage with cultures and packing of right dorsal foot abscess measuring 7 cm. 07/27: 1. Incision and drainage of abscesses x 3, left dorsal and lateral mid foot with cultures. 2. Debridement, full thickness of right dorsal foot wound measuring 5 x 3 cm. 08/02: 1. Excisional debridement of both feet including skin, subcutaneous tissue, and tendon. 2. Wound VAC placement to both feet. Recommend continued VAC therapy, will reevaluate 08/05. Antibiotics per infectious disease. Okay to ambulate. Justicifation of Admission Dx: Justifications for Admission: Justification of Admission Dx: Yes ABBI ELLINGTON BOND WRITER Aug 04, 2020 13:34
[2020-08-04 15:00] VITALS: BP 134/82
--- NOTE | 2020-08-04 18:16 | NUR ---
Wound Care Pt has been approved for home wound vac through [facility], will follow along for d/c orders, possibly tomorrow. Discussed with pt high CO-pay for vac with his current plan, pt agreeable to continue with vac therapy. Pt also stating he will f/u with [facility] at d/c. WCRNs will change vac dressings tomorrow afternoon, after clinic.
[2020-08-04 19:48] VITALS: BP 128/69
[2020-08-04] MEDS: ATORVASTATIN CALCIUM 10 MG TABLET. PO SCH (20:15)
[2020-08-04] MEDS: INSULIN GLARGINE SYRINGE. SQ SCH (20:24)
--- NOTE | 2020-08-04 22:50 | PN ---
DATE: 08/04/2020 SUBJECTIVE: The patient is resting, slightly propped up in bed, in no apparent respiratory distress. On questioning him, he denied any complaint. The nursing staff did not voice any concern. OBJECTIVE: GENERAL: When I examined him this morning, he looked pale, but no jaundice, cyanosed or thyromegaly. No jugular venous distention. No limb edema. VITAL SIGNS: His heart rate was 86, blood pressure is 163/91, temperature was 98.2, respiratory rate was 18 and oxygen saturation was 99% on room air. HEAD, EYES, EARS, NOSE AND THROAT: Normocephalic, atraumatic. NECK: Supple. HEART: Normal first and second sounds. No gallop or murmur. CHEST: Clear to auscultation, no crepitation or rhonchi. ABDOMEN: Distended, soft, nontender. NEUROLOGIC: He is awake, alert, responding appropriately. All cranial nerves intact. He moves extremities without difficulty. EXTREMITIES: He has multiple wounds on the dorsal aspect of both feet covered with a wound vacuum-assisted closure device. Left foot seems to be somewhat more swollen and erythematous around the edge of the wounds. His intake was 900 and output was 500. LABORATORY DATA: As of this morning, his serum sodium was 139, potassium 4.8, chloride 106, bicarbonate 25, anion gap of 8, BUN 20 and creatinine 2.5. Estimated GFR was 26 mL per minute. His glucose 119 and calcium was 9.5. Uric acid was 4.9. His most recent white cell count was 8200, hemoglobin 9.5, hematocrit 28, MCV 95 and platelet count 335,000. ASSESSMENT: 1. Bilateral lower extremity cellulitis. 2. Multiple abscesses on the dorsal aspect of the right and left foot, status post incision and drainage and debridement and the wounds are covered with a wound vacuum-assisted closure device. He apparently has undergone multiple debridements. 3. Type 2 diabetes mellitus. It seems to be much better controlled. 4. Diabetic peripheral neuropathy. 5. Acute on chronic kidney injury, improved; however, his creatinine has risen yesterday up to 2.6 and today is down to 2.5. The cause of his acute kidney injury is probably multifactorial. 6. Hypertension, seems to be much better controlled. He was on losartan 100 mg once a day as well as hydralazine 100 mg 3 times a day. I discontinued his losartan and I cut down his hydralazine to 50 mg 3 times a day. 7. The patient has grown methicillin-sensitive Staphylococcus aureus. Blood cultures drawn at [facility] as well as [facility] and from his wounds of his feet. He continues to be on daptomycin and nafcillin. He is actually on Zyvox and nafcillin now. PLAN: To continue with IV antibiotic in the form of nafcillin 2 grams IV every 4 hours. Continue with Zyvox 600 mg p.o. b.i.d. Continue with DVT prophylaxis. Continue to monitor his blood sugar and adjust insulin as needed. JESSICA DR: Sarahy TID: [id number]
[2020-08-04 23:38] VITALS: BP 166/90
[2020-08-05] MEDS: fentaNYL PF VIAL 100 MCG/2 ML VIAL IVP PRN ×3 (00:08→13:00)
[2020-08-05] MEDS: NAFCILLIN 2 GM in IV DEXTROSE 5% 100ML 100 ML IV SCH ×4 (00:09→12:24)
[2020-08-05 03:14] VITALS: BP 149/100
[2020-08-05] MEDS: oxyCODONE IR 5 MG TABLET PO PRN ×2 (03:26→10:13)
[2020-08-05 06:55] LABS: CALCIUM 9.8 mg/dL (8.5-10.1); CREATININE 2.3 mg/dL (0.7-1.3); GFR 29.1; POTASSIUM 4.8 mmol/L (3.5-5.1)
[2020-08-05 07:00] VITALS: BP 167/99
[2020-08-05] MEDS: LEVOTHYROXINE 100 MCG TABLET PO SCH (07:48)
[2020-08-05] MEDS: INSULIN LISPRO 300 UNITS/3 ML VIAL. SQ SCH ×4 (08:00→12:00)
[2020-08-05] MEDS: LACTOBACILLUS RHAMNOSUS GG 1 CAPSULE. PO SCH (08:38)
[2020-08-05] MEDS: ASCORBIC ACID 500 MG TABLET PO SCH (08:38)
[2020-08-05] MEDS: predniSONE 1 MG TABLET PO SCH (08:38)
[2020-08-05] MEDS: hydrALAZINE 25 MG TABLET PO SCH ×2 (08:38→14:00)
[2020-08-05] MEDS: MULTIVITAMIN with MINERAL TABLET. PO SCH (08:38)
[2020-08-05] MEDS: oxyCODONE ER 10 MG TAB.ER.12H PO SCH (08:38)
[2020-08-05] MEDS: LINEZOLID 600 MG TABLET PO SCH (08:38)
[2020-08-05] MEDS: ENOXAPARIN 40 MG/0.4 ML SYRINGE. SQ SCH (08:39)
[2020-08-05] MEDS: DOXAZOSIN MESYLATE 1 MG TABLET. PO SCH (08:39)
--- NOTE | 2020-08-05 09:16 | PDOC ---
DATE OF SERVICE DATE: 08/05/20 TIME: 09:13 SUBJECTIVE ROS States feeling better No concerns overnight per nursing OBJECTIVE Vital Signs Vital Signs Date Time Temp Pulse Resp B/P (MAP) Pulse Ox O2 Delivery O2 Flow Rate FiO2 08/05/20 08:39 83 167/99 08/05/20 08:38 Room Air 08/05/20 07:00 97.9 17 97 97.9 08/05/20 06:10 5.0 I & 0 Intake and Output 08/05/20 07:00 Intake Total 780 ml Output Total 700 ml Balance 80 ml Intake Oral 480 ml IV Total 300 ml Output Urine Total 700 ml PHYSICAL EXAM Physical Exam GENERAL: Alert awake oriented x3 male in no acute distress HEENT: Normocephalic, atraumatic. Anicteric. No thrush. NECK: Supple. No JVD. LUNGS: Clear bilaterally. HEART: S1, S2 heard. No murmurs. ABDOMEN: Soft, obese. Bowel sounds present. GENITOURINARY: No Santana, Briefs in place. EXTREMITIES: Bilateral foot wound VAC present, left foot dorsal edema with erythema though improved since surgery NEUROLOGIC: Alert oriented x3 moves all 4 extremities. PSYCHIATRIC: Calm and cooperative. DIAGNOSIS/ASSESSMENT Assessment & Plan STEVE - Present at admission with Cr at 1.7--. improved back to 1.1. had mild Rhabdo, improved CK . Noted worsening renal function with Cr from 1.3 on 07/30 to 2.6 -->2.3 ;slow improvement Monitor Repeat UA unremarkable; Renal US Remarkable Suspect ATN, decreased BP- Holding Losartan, maintain Hydration , avoid nephrotoxins . Discussed with patient and at great length Will be scheduled with ID for OP follow after dc- BMP next week Severe sepsis from Staph aureus bacteremia POA - at [facility] Anemia- Hgb decreased < 10 since presentation , defer to primary . Will add EMMA Bilateral lower extremity cellulitis,deep tissue infection of both feet. Rt foot abscess. 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 s/p amputation July 22, 2020 Diabetes with neuropathy, poorly controlled. Chronic Noncompliance. COMMENT/RELEVANT DATA Meds Current Medications Medications (Trade) Dose Ordered Sig/Xander Start Time Stop Time Status Last Admin Dose Admin Acetaminophen (Tylenol) 650 mg PRN Q4HRS PRN 07/21/20 00:00 07/21/20 00:23 650 MG Albuterol Sulfate (Ventolin Neb Soln) 2.5 mg PRN Q6HRS PRN 07/26/20 00:30 Albuterol/ Ipratropium (Duoneb) 3 ml RTQID 07/24/20 12:00 07/26/20 00:12 DC 07/25/20 15:41 3 ML Ascorbic Acid (Vitamin C) 500 mg DAILY 08/03/20 09:00 08/05/20 08:38 500 MG Atorvastatin Calcium (Lipitor) 10 mg HS 07/19/20 21:00 08/04/20 20:15 10 MG Benzocaine (Hurricaine One) 2 spray 1X ONCE 07/26/20 11:15 07/26/20 11:17 DC 07/26/20 11:57 2 SPRAY Bupivacaine HCl (Sensorcaine Mpf 0.25%) 30 ml STK-MED ONCE 07/21/20 12:25 07/21/20 19:13 DC Bupivacaine HCl/ Epinephrine Bitart 50 ml/ Sodium Chloride 250 ml @ 0 mls/hr 1X ONCE 07/23/20 10:45 07/23/20 10:46 UNV Bupivacaine HCl/ Epinephrine Bitart (Sensorcaine-Epi 0.25%-1:[id number] Mpf) 30 ml 1X ONCE 07/23/20 11:00 07/23/20 11:01 DC 07/23/20 11:15 30 ML Calcium Carbonate/ Glycine (Tums) 500 mg PRN AFTMEALHC PRN 07/19/20 10:45 07/30/20 17:05 500 MG Ceftriaxone Sodium (Rocephin) 1 gm Q24H 07/19/20 21:00 07/19/20 10:56 DC Daptomycin 580 mg/ Sodium Chloride 50 ml @ 100 mls/hr Q24H 07/24/20 10:00 07/30/20 10:05 DC 07/30/20 09:52 100 MLS/HR Daptomycin 600 mg/ Sodium Chloride 50 ml @ 100 mls/hr Q24H 07/19/20 11:00 07/21/20 10:39 DC 07/20/20 13:33 100 MLS/HR Daptomycin 970 mg/ Sodium Chloride 50 ml @ 100 mls/hr Q24H 07/21/20 12:00 07/23/20 09:38 DC 07/22/20 13:32 100 MLS/HR Darbepoetin [place] (ARANESP for NON-DIALYSIS PTS) 60 mcg 1X ONCE 08/04/20 13:00 08/04/20 13:01 DC 08/04/20 14:23 60 MCG Dexamethasone Sodium Phosphate (Decadron) 4 mg STK-MED ONCE 08/02/20 07:53 08/02/20 18:40 DC Dextrose (Dextrose 50%-Water Syringe) 12.5 gm PRN Q15MIN PRN 07/19/20 01:30 07/23/20 16:44 12.5 GM Diphenhydramine HCl (Benadryl) 25 mg PRN DAILY PRN 07/19/20 10:45 Doxazosin Mesylate (Cardura) 2 mg DAILY 07/19/20 11:00 08/05/20 08:39 2 MG Enoxaparin Sodium (Lovenox 40mg Syringe) 40 mg Q24H 07/22/20 10:00 08/05/20 08:39 40 MG Ephedrine Sulfate (ePHEDrine PF IN SALINE SYRINGE) 50 mg STK-MED ONCE 08/02/20 08:19 08/02/20 18:40 DC Etomidate (Amidate) 20 mg STK-MED ONCE 07/21/20 11:53 07/21/20 19:12 DC Fentanyl Citrate (Fentanyl 2ml Vial) 100 mcg STK-MED ONCE 08/02/20 07:28 08/02/20 18:40 DC Hydralazine HCl (Apresoline) 25 mg TID 08/03/20 14:00 08/05/20 08:38 25 MG Hydromorphone HCl (Dilaudid) 0.5 mg PRN Q10MIN PRN 08/02/20 06:00 08/03/20 05:59 DC Insulin Glargine (Lantus Syringe) 25 unit QHS 07/19/20 21:00 08/04/20 20:24 25 UNIT Insulin Human Lispro (HumaLOG VIAL for OP,RR ONLY) 0-10 units PRN Q1HR PRN 07/26/20 12:15 07/27/20 12:14 DC Insulin Human Lispro (HumaLOG) 20 units TIDAC 07/19/20 11:30 08/05/20 08:47 20 UNITS Lactobacillus Rhamnosus (Culturelle) 1 cap BID 07/22/20 21:00 08/05/20 08:38 1 CAP Levothyroxine Sodium (Synthroid) 300 mcg DAILYAC 07/20/20 07:30 08/05/20 07:48 300 MCG Lidocaine HCl (Lidocaine 1% 20ml Vial) 20 ml STK-MED ONCE 07/21/20 12:25 07/21/20 19:13 DC Lidocaine HCl (Lidocaine Pf 2% Vial) 5 ml STK-MED ONCE 08/02/20 07:53 08/02/20 18:40 DC Lidocaine HCl (Viscous Lidocaine) 15 ml 1X ONCE 07/26/20 11:15 07/26/20 11:17 DC 07/26/20 11:15 15 ML Lidocaine HCl (Xylocaine 1% Pf 30ml Vial) 30 ml 1X ONCE 08/02/20 07:30 08/02/20 07:31 DC Lidocaine HCl (Xylocaine 2% Topical 30gm Tube) 1 milton 1X ONCE 07/26/20 11:15 07/26/20 11:17 DC 07/26/20 11:57 1 MILTON Linezolid (Zyvox) 600 mg BID 07/30/20 21:00 08/05/20 08:38 600 MG Linezolid/Dextrose 300 ml @ 300 mls/hr Q12HR 07/21/20 12:00 07/23/20 09:38 DC 07/23/20 08:17 300 MLS/HR Losartan Potassium (Cozaar) 50 mg 1X ONCE 07/24/20 10:00 07/24/20 10:01 DC 07/24/20 09:55 50 MG Metformin HCl (Glucophage) 1,000 mg BIDWMEALS 07/19/20 17:00 08/03/20 12:27 DC 08/03/20 08:37 1,000 MG Morphine Sulfate (Morphine Sulfate) 1 mg PRN Q10MIN PRN 08/02/20 06:00 08/03/20 05:59 DC Multivitamins (Thera M Plus) 1 tab DAILY 08/03/20 09:00 08/05/20 08:38 1 TAB Nafcillin Sodium 2 gm/Dextrose 100 ml @ 200 mls/hr Q4HRS 07/23/20 12:00 08/05/20 08:39 200 MLS/HR Ondansetron HCl (Zofran) 4 mg STK-MED ONCE 08/02/20 07:53 08/02/20 18:40 DC Oxycodone HCl (OxyCONTIN) 20 mg Q12HR 07/28/20 09:00 08/05/20 08:38 20 MG Oxycodone HCl (Roxicodone) 10 mg PRN Q4HRS PRN 07/23/20 09:15 08/05/20 03:26 10 MG Oxycodone/ Acetaminophen (Percocet 5/325) 1 tab PRN Q4HRS PRN 07/21/20 14:00 07/23/20 09:06 DC 07/23/20 00:10 1 TAB Phenylephrine HCl (PHENYLEPHRINE in 0.9% NACL PF) 1 mg STK-MED ONCE 07/21/20 13:23 07/21/20 19:13 DC Piperacillin Sod/ Tazobactam Sod 3.375 gm/Sodium Chloride 50 ml @ 100 mls/hr Q6HRS 07/19/20 12:00 07/23/20 07:44 DC 07/23/20 05:58 100 MLS/HR Potassium Bicarbonate (Potassium Effervescent Tablet) 40 meq 1X ONCE 07/24/20 06:00 07/24/20 06:01 Cancel Potassium Chloride (Klor-Con) 40 meq TIDWMEALS 07/27/20 12:00 08/03/20 09:37 DC 08/03/20 08:38 40 MEQ Prednisone (Prednisone) 4 mg DAILY 07/19/20 11:00 08/05/20 08:38 4 MG Prochlorperazine Edisylate (Compazine) 5 mg PACU PRN PRN 08/02/20 06:00 08/03/20 05:59 DC Propofol (Diprivan) 200 mg STK-MED ONCE 08/02/20 07:53 08/02/20 18:40 DC Ringer's Solution 1,000 ml @ 30 mls/hr Q24H 08/02/20 06:00 08/02/20 17:59 DC 08/02/20 07:04 30 MLS/HR Rocuronium [place] (Zemuron) 50 mg STK-MED ONCE 07/21/20 12:54 07/21/20 19:13 DC Sevoflurane (Ultane) 30 ml STK-MED ONCE 08/02/20 07:53 08/02/20 18:40 DC Silver Sulfadiazine (Silvadene) 1 milton 1X ONCE 08/02/20 07:30 08/02/20 07:31 DC Sodium Hypochlorite (Dakin'S 1/2 Strength) 1 milton 1X ONCE 07/27/20 16:15 07/27/20 16:16 DC Sodium Hypochlorite (Dakin'S 1/4 Strength) 1 milton PRN DAILY 07/29/20 14:15 08/01/20 17:00 DC Sodium Chloride 1,000 ml @ 150 mls/hr Q6H40M 07/19/20 02:00 07/24/20 08:32 DC 07/24/20 04:40 150 MLS/HR Succinylcholine Chloride (Anectine) 200 mg STK-MED ONCE 07/21/20 11:51 07/21/20 19:12 DC Vancomycin HCl (Vanco Per Pharmacy) 1 each PRN DAILY PRN 07/19/20 01:30 07/19/20 10:57 DC 07/19/20 03:43 1 EACH Vancomycin HCl (Vancomycin Trough Level) 1 each 1X ONCE 07/20/20 20:30 07/19/20 10:57 DC Vancomycin HCl 2 gm/Sodium Chloride 500 ml @ 250 mls/hr Q24H 07/19/20 21:00 07/19/20 10:57 DC Lab Laboratory Tests Test 08/04/20 10:27 08/04/20 16:51 08/04/20 20:13 08/05/20 06:30 Glucose (Fingerstick) 146 mg/dL (70-99) 164 mg/dL (70-99) 113 mg/dL (70-99) Sodium Level 139 mmol/L (136-145) Potassium Level 4.8 mmol/L (3.5-5.1) Chloride Level 106 mmol/L (98-107) Carbon Dioxide Level 27 mmol/L (21-32) Anion Gap 6 (6-14) Blood Urea Nitrogen 19 mg/dL (8-26) Creatinine 2.3 mg/dL (0.7-1.3) Estimated GFR (Cockcroft-Gault) 29.1 Glucose Level 106 mg/dL (70-99) Calcium Level 9.8 mg/dL (8.5-10.1) Test 08/05/20 07:15 Glucose (Fingerstick) 101 mg/dL (70-99) Results All relevant outside records, renal labs, imaging studies, telemetry/EKG's were reviewed. Justicifation of Admission Dx: Justifications for Admission: Justification of Admission Dx: Yes DAVE MURRAY MD Aug 05, 2020 09:16
--- NOTE | 2020-08-05 10:07 | PDOC ---
Infectious Disease Note Subjective Subjective pt is feeling better ROS ROS no n/v/d/sob Vital Sign Vital Signs Vital Signs Date Time Temp Pulse Resp B/P (MAP) Pulse Ox O2 Delivery O2 Flow Rate FiO2 08/05/20 08:39 83 167/99 08/05/20 08:38 Room Air 08/05/20 07:00 97.9 17 97 97.9 08/05/20 06:10 5.0 Physical Exam PHYSICAL EXAM GENERAL: Alert awake oriented x3 male in no acute distress HEENT: Normocephalic, atraumatic. Anicteric. No thrush. NECK: Supple. No JVD. LUNGS: Clear bilaterally. HEART: S1, S2 heard. No murmurs. ABDOMEN: Soft, obese. Bowel sounds present. GENITOURINARY: No Santana, Briefs in place. EXTREMITIES: Bilateral foot wound VAC present, left foot dorsal edema with erythema though improved since surgery NEUROLOGIC: Alert oriented x3 moves all 4 extremities. PSYCHIATRIC: Calm and cooperative. PIV looks clean. Labs Lab Laboratory Tests Test 08/04/20 10:27 08/04/20 16:51 08/04/20 20:13 08/05/20 06:30 Glucose (Fingerstick) 146 mg/dL (70-99) 164 mg/dL (70-99) 113 mg/dL (70-99) Sodium Level 139 mmol/L (136-145) Potassium Level 4.8 mmol/L (3.5-5.1) Chloride Level 106 mmol/L (98-107) Carbon Dioxide Level 27 mmol/L (21-32) Anion Gap 6 (6-14) Blood Urea Nitrogen 19 mg/dL (8-26) Creatinine 2.3 mg/dL (0.7-1.3) Estimated GFR (Cockcroft-Gault) 29.1 Glucose Level 106 mg/dL (70-99) Calcium Level 9.8 mg/dL (8.5-10.1) Test 08/05/20 07:15 Glucose (Fingerstick) 101 mg/dL (70-99) Micro Microbiology 07/27/20 Gram Stain - Final, Complete 07/27/20 Aerobic and Anaerobic Culture - Final, Complete 07/27/20 Antimicrobic Susceptibility - Final, Complete 07/25/20 Blood Culture - Final, Complete NO GROWTH AFTER 5 DAYS Objective Assessment Severe sepsis from Staph aureus bacteremia present on admission at [facility] Methicillin Staph aureus bacteremia 4 out of 4 bottles at [facility] 07/18/20 Staph aureus bacteremia here July 20, 2020 Fever Source Rt foot dorsal abscess Leukocytosis and lactic acidosis.Bandemia. Bilateral lower extremity cellulitis,deep tissue infection of both feet. Rt foot abscess. 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 s/p amputation July 22, 2020 Diabetes with neuropathy, poorly controlled. Noncompliance. Acute kidney injury. Rhabdo Hematuria. Hyponatremia. Hypertension. PROCEDURE: 08/02 1. Excisional debridement of both feet including skin, subcutaneous tissue, and tendon. 2. Wound VAC placement to both feet. Plan Plan of Care Continue Nafcillin/cefazolin,, will need 6-8 wks Continue linezolid d/c Will need PCC line BRYAN on 07/26, negative for vegetations f/u Repeat blood cultures 07/23 neg so far Local wound /vac care as directed Monitor wounds closely Vascular team following Follow up labs Probiotics Continue supportive care D/W GirlfrienANTON Khalil MD Aug 05, 2020 10:07
[2020-08-05 10:52] VITALS: BP 93/65
--- NOTE | 2020-08-05 10:56 | NUR ---
SW following. Discussed with RN, pt from home, room air, ada diet. Pt expecting to discharge home today with home infusion and wound care. BRYCE met with pt, pt agreeable to home health and agreeable to [facility] because they work with [facility]. BRYCE notified [facility] RN. Script sent to [facility], awaiting teach time. Pt expecting wound clinic to come put his home wound vac on this afternoon. BRYCE will continue to follow.
--- NOTE | 2020-08-05 11:50 | SNU/HH DC ---
DISCHARGE WITH HOME HEALTH DISCHARGE INFORMATION: Discharge Date: Aug 05, 2020 Final Diagnosis: MSSA BACTEREMIA MULTIPLE ABSCESSES ON BOTH FEET S/P I&D TYPE II DM HTN DIABETIC POLYNEUROPATHY ACUTE KIDNEY INJURY IMPROVING Condition on Discharge: Stable CODE STATUS: Code Status: Full HOME HEALTH: Face to Face: I certify this patient is under my care and that I, or a nurse practitioner or physician's project administrative assistant working with me, had a face to face encounter that meets the physician face to face encounter requirements with this patient on 08/05/2020 Medical Complications: Other Custodial For: Admin/Educate Injections, Medication Management RN For Eval/Treatment: Yes Physical Therapy For: Evalulation/Treatment Occupational Therapy For: Evaluation/Treatment Pt Meets Homebound Status: Unsteady balance w/ amb, POST DISCHARGE ORDERS: DIET AFTER DISCHARGE: ADA CERTIFICATION STATEMENT: Certification Statement: Certification Statement: Based on the above finding, I certify that this patient is confined to the home and needs intermittent long-term care, physical therapy and/or speech therapy, or continues to need occupational therapy.~ This patient is under my care, and I have initiated the establishment of the plan of care.~ This patient will be followed by myself or a community physician who will periodically review the plan of care. Home Meds Reported Medications Diphenhydramine Hcl (BENADRYL ALLERGY) 25 Mg Tablet, 25 MG PO PRN DAILY PRN for ALLERGIES, TAB 07/19/20 Calcium Carb/Magnesium Hydrox (Rolaids Chewable Tablet) 1 Each Tab.chew, 1 EACH PO PRN PRN for HEARTBURN / GAS, TAB.CHEW 07/19/20 Doxazosin Mesylate (CARDURA) 2 Mg Tablet, 2 MG PO DAILY for HTN, TAB 07/19/20 Levothyroxine Sodium (LEVOTHYROXINE SODIUM) 100 Mcg Tablet, 300 MCG PO DAILYAC for THYROID SUPPLEMENT, #30 TAB 0 Refills 07/19/20 Liraglutide (VICTOZA 3-HENRI) 0.6 Mg/0.1 Ml Pen.injctr, 1.8 MG SQ DAILY for DM, EACH 07/19/20 Insulin Glargine,Hum.rec.anlog (LANTUS SOLOSTAR) 100 Unit/1 Ml Insuln.pen, 25 UNIT SQ HS for DM, SYR 07/19/20 Discontinued Reported Medications Prednisone (PREDNISONE) 1 Mg Tablet, 4 MG PO DAILY for PREDNISONE TAPER, TAB 07/19/20 Losartan Potassium (LOSARTAN POTASSIUM) 50 Mg Tablet, 50 MG PO DAILY for HYPERTENSION, TAB 07/19/20 Atorvastatin Calcium (ATORVASTATIN CALCIUM) 10 Mg Tablet, 10 MG PO HS for FOR CHOLESTEROL, #30 TAB 0 Refills 07/19/20 JOESPH BIRMINGHAM MD Aug 05, 2020 11:50
--- NOTE | 2020-08-05 13:50 | PN ---
DATE: 08/05/2020 SUBJECTIVE: The patient is resting, slightly propped up in bed, in no apparent respiratory distress. He is awake, alert. On questioning him, he denied any complaints, states he had an uneventful night. PHYSICAL EXAMINATION: GENERAL: When I examined him, he looked pale, but no jaundice, cyanosis or thyromegaly. No jugular venous distention. No limb edema. VITAL SIGNS: His heart rate was 83, blood pressure was 167/99, temperature was 97.9, respiratory rate was 17 and oxygen saturation was 97% on room air. HEAD, EYES, EARS, NOSE AND THROAT: Normocephalic, atraumatic. NECK: Supple. HEART: Normal first and second heart sounds. No gallop, rub or murmur. CHEST: Clear to auscultation. No crepitation or rhonchi. ABDOMEN: Distended, soft, nontender, no guarding or rigidity. No organomegaly. All hernial orifice intact. Bowel sounds normal. NEUROLOGIC: He was awake, alert, responding appropriately. All cranial nerves intact. EXTREMITIES: He moves extremities without difficulty. He has multiple wounds on the dorsal aspect of both feet, covered with wound vacuum-assisted closure device. His left foot continued to be slightly more swollen. His intake was 1000, output was 850. LABORATORY DATA: His most recent white cell count was 8000, hemoglobin 9.5, hematocrit 28, MCV 95 and platelet count 335,000. His chemistry as of this morning showed a serum sodium 139, potassium 4.8, chloride 106, bicarbonate 27, anion gap of 6, BUN 19, creatinine 2.3. Estimated GFR was 29 mL per minute. His glucose was 106, calcium was 9.8. ASSESSMENT: Acute kidney injury, present on admission. His creatinine was up to 1.7, has improved and unfortunately, his kidney function has worsened with a creatinine rising to 2.6. Slowly improving today, the serum creatinine is down to 0.3. His losartan was discontinued and his hydralazine was cut down to 25 mg 3 times a day. The patient has methicillin-sensitive Staphylococcus bacteremia for which he is on IV nafcillin and daptomycin. Bilateral lower extremity cellulitis. He has also multiple abscesses on the dorsal aspect of both feet, status post incision and debridement. Wounds are covered with wound vacuum-assisted closure device. The patient has also left third toe chronic nonhealing diabetic toe ulcer, status post amputation; type 2 diabetes with diabetic neuropathy, poorly controlled. PLAN: To obviously continue with linezolid 600 mg twice a day. Continue with nafcillin 2 grams IV every 4 hours. Continue with DVT prophylaxis. Continue with pain management. GILL DR: Sarahy TID: [id number]
[2020-08-05 15:00] VITALS: BP 110/74
--- NOTE | 2020-08-05 15:40 | NUR ---
Wound Care Pt seen per wound care for wound vac dressing changes to the left and right foot. Patient is scheduled for discharge today, therefore we will place his approved home vac from [facility]. RN at bedside picturing and measuring all 4 wounds upon our arrival. Wounds cleansed, assessed, measured, and pictured. Skin prepped for wound vac placement, 1 piece of cancino foam placed into all 4 wound beds, foam tracked over drape up to R lateral lower leg and up the L lateral leg, and vac showing strong seal at -125 suction. Wound vac teaching provided by our wound care team, pt and pt's both v/u. pt tolerated well. Patient will f/u in [facility]. All supplies, vac carrying case left in room for patient to take home for HH. Bed lowered and call light in reach.
--- NOTE | 2020-08-05 15:44 | NUR ---
Pt. discharged to home with RUE picc line and bilat LE wound vacs in place, CDI. Pt and girlfriend verbalized understanding of discharge instructions
== END 2020-08-05 15:47 | disposition home health service (06) | DRG 853 ==
LOC: 6 SOUTH 00:40 → 4 NORTH 08-02 18:25
PROVIDERS: ADMIT Internal Medicine; ATTEND Internal Medicine
PROC: 0Y6U0Z1 Detachment at Left 3rd Toe, High, Open Approach (ICD-10-PCS; principal; 2020-07-21 12:00)
PROC: B24BZZ4 Ultrasonography of Heart with Aorta, Transesophageal (ICD-10-PCS; 2020-07-26)
PROC: 0KBV0ZZ Excision of Right Foot Muscle, Open Approach (ICD-10-PCS; 2020-07-27)
PROC: 0Y9B0ZZ Drainage of Left Lower Extremity, Open Approach (ICD-10-PCS; 2020-07-27)
PROC: 02HV33Z Insertion of Infusion Device into Superior Vena Cava, Percutaneous Approach (ICD-10-PCS; 2020-08-01)
PROC: B5181ZA Fluoroscopy of Superior Vena Cava using Low Osmolar Contrast, Guidance (ICD-10-PCS; 2020-08-01)
PROC: B548ZZA Ultrasonography of Superior Vena Cava, Guidance (ICD-10-PCS; 2020-08-01)
DX: A41.01 Sepsis due to Methicillin susceptible Staphylococcus aureus (principal); E43 Unspecified severe protein-calorie malnutrition; E87.1 Hypo-osmolality and hyponatremia; L02.611 Cutaneous abscess of right foot; L02.612 Cutaneous abscess of left foot; L03.115 Cellulitis of right lower limb; L97.409 Non-pressure chronic ulcer of unspecified heel and midfoot with unspecified severity; M86.9 Osteomyelitis, unspecified; N17.9 Acute kidney failure, unspecified; G93.40 Encephalopathy, unspecified; Z68.37 Body mass index [BMI] 37.0-37.9, adult; B96.89 Other specified bacterial agents as the cause of diseases classified elsewhere; E03.9 Hypothyroidism, unspecified; E11.22 Type 2 diabetes mellitus with diabetic chronic kidney disease; E11.42 Type 2 diabetes mellitus with diabetic polyneuropathy; E11.65 Type 2 diabetes mellitus with hyperglycemia; E66.9 Obesity, unspecified; E78.5 Hyperlipidemia, unspecified; E87.6 Hypokalemia; F17.200 Nicotine dependence, unspecified, uncomplicated; I12.9 Hypertensive chronic kidney disease with stage 1 through stage 4 chronic kidney disease, or unspecified chronic kidney disease; L97.519 Non-pressure chronic ulcer of other part of right foot with unspecified severity; L97.529 Non-pressure chronic ulcer of other part of left foot with unspecified severity; M19.079 Primary osteoarthritis, unspecified ankle and foot; N18.9 Chronic kidney disease, unspecified; R65.20 Severe sepsis without septic shock; R31.9 Hematuria, unspecified; B95.61 Methicillin susceptible Staphylococcus aureus infection as the cause of diseases classified elsewhere; Z20.822 Contact with and (suspected) exposure to COVID-19; Z79.899 Other long term (current) drug therapy; Z80.8 Family history of malignant neoplasm of other organs or systems; Z91.11 Patient's noncompliance with dietary regimen; Z91.19 Patient's noncompliance with other medical treatment and regimen
CPT/HCPCS: 36415; 36573; 73718; 76770; 77001; 80048; 80053; 81001; 82550; 82962; 83605; 84132; 84550; 85007; 85025; 85027; 85651; 86140; 87040; 87071; 87075; 87077; 87186; 87205; 87426; 88305; 88311; 93312; 94640; 94760; A4223; A4322; A4364; A4930; A6214; A6223; A6253; A6402; A6443; A6449; C1751; C1892; J0330; J0878; J0881; J1100; J1650; J1815; J2020; J2370; J2405; J2543; J2704; J3010; J3490; J7030; J7060; J7120; J7512; 73700-50; 97110-GO; G0378

== ENCOUNTER 2020-11-07 12:59 | Inpatient (IN) | payer BC ==
[~2020-11-07] VITALS: Ht 182.9 cm; Wt 114.5 kg
[~2020-11-07 12:59] MED LIST: ATOR10TA60 PO; CALC-515 PO; DIPH25TA64 PO; DOXA2TAB PO; INSU100I13 SQ; LEVO100T5 PO; LIRA0.6P2 SQ; LOSA-73 PO; METF10007 PO; PRED1TAB3 PO
[2020-11-07] MEDS ORDERED: VANCOMYCIN PER PHARMACY MC PRN (16:00)
[2020-11-07 16:13] LABS: BASO # 0.1 x10^3/uL (0.0-0.2); BASO % 1 % (0-3); EOS # 0.7 x10^3/uL (0.0-0.7); EOS % 10 % (0-3); HEMATOCRIT 34.6 % (39.0-53.0); HEMOGLOBIN 12.1 g/dL (13.0-17.5); LYMPH # 1.8 x10^3/uL (1.0-4.8); LYMPH % 23 % (24-48); MEAN CORPUSCULAR HEMOGLOBIN 32 pg (25-35); MEAN CORPUSCULAR HGB CONC 35 g/dL (31-37); MEAN CORPUSCULAR VOLUME 91 fL (79-100); MONO # 0.5 x10^3/uL (0.0-1.1); MONO % 6 % (0-9); NEUT # 4.7 x10^3/uL (1.8-7.7); NEUT % 60 % (31-73); PLATELET COUNT 279 x10^3/uL (140-400); RED BLOOD COUNT 3.81 x10^6/uL (4.30-5.70); WHITE BLOOD COUNT 7.8 x10^3/uL (4.0-11.0)
[2020-11-07] MEDS ORDERED: CEFEPIME HCL IV Push 2 GM VIAL. IVP ONE (16:15)
[2020-11-07 16:27] LABS: C-REACTIVE PROTEIN 8.3 mg/L (0-3.3); MAGNESIUM 1.4 mg/dL (1.8-2.4); PHOSPHORUS 3.5 mg/dL (2.6-4.7)
[2020-11-07] MEDS ORDERED: VANCOMYCIN 2 GM in IV NORMAL SALINE 500ML BAG 500 ML IV ONE (17:00)
--- NOTE | 2020-11-07 17:05 | RAD ---
Left foot AP lateral x-rays 2 views HISTORY: Cellulitis, osteomyelitis. COMPARISON: CT bilateral feet July 19, 2020 FINDINGS: Amputation of the third toe intermediate and distal phalanges with a small residual fragmen t at the base of the phalanx remaining, there is mild soft tissue swelling of the amputation stump. T here is permeative bone lysis throughout the second and third of the tarsals and lamellated periostit is as well bone lysis as at the base of the fourth and fifth metatarsals, there also appears to be de structive arthropathy of the tarsometatarsal joints of the midfoot and fragmentation. There is dorsal foot soft tissue swelling. No fracture evident. Osteoarthritis of the second MTP joint stable. IMPRESSION: Dorsal foot soft tissue swelling. Development of permeative bone lysis and lamellated per iostitis of the second and third metatarsals since prior imaging from June 2020, raising concern for c hronic osteomyelitis. There is also destructive arthropathy with fragmentation and bony sclerosis and some disorganization of the tarsal metatarsal joints of the midfoot most likely represent changes of osteomyelitis, progressive changes of neuropathic arthropathy less likely given the interval roll changer a 4 month since prior imaging. Electronically signed by: Rafy Alvarado MD (11/07/2020 5:02 PM) [facility]
[2020-11-07 17:42] LABS: CALCIUM 9.2 mg/dL (8.5-10.1); CREATININE 1.6 mg/dL (0.7-1.3); GFR 44.2
[2020-11-07 17:48] LABS: ALBUMIN 3.2 g/dL (3.4-5.0); ALBUMIN/GLOBULIN RATIO 0.7 (1.0-1.7); TOTAL BILIRUBIN 0.3 mg/dL (0.2-1.0); TOTAL PROTEIN 7.9 g/dL (6.4-8.2)
[2020-11-07] MEDS ORDERED: HYDROcodone/APAP 5/325MG 1 TAB TABLET PO ONE (18:00)
--- NOTE | 2020-11-07 18:09 | PDOC1 ---
History and Physical Date of Admission Date of Admission DATE: 11/07/20 TIME: 18:07 Identification/Chief Complaint Chief Complaint Left foot pain Source Source: Caregiver, Chart review, Patient History of Present Illness History of Present Illness Mr Harrington is a 60 year old male with PMHx DM2, HTN and diabetic neuropathy with prior bilateral foot surgeries who presents to the emergency department complaining of left foot pain and rash that started today when he woke up. Patient states his wounds were healing but his home health nurse noticed today there was a sudden onset of redness around all 4 wounds (3 on left foot, 1 on right). He does note the wound have occasionally gotten moist recently and he has been keeping them covered 17/09, only removing dressings to bathe, and tries his best to prevent soaking his feet. Patient reports he called Dr. Persaud's office for infectious disease and they recommended he come to the emergency department for evaluation. Previously was transferred from [place] with bialteral leg wounds and on 07/21/2020 underwent partial amputation of the left third toe with primary closure and I&D and packing of right dorsal foot abscess. On 07/27/2020 returned to OR for I&D abscesses x 3, left dorsal and lateral mid foot and debridement, full thickness of right dorsal foot wound Subsequently on 08/02/2020 returned to OR for excisional debridement of both feet including skin, subcutaneous tissue, and tendon of 3 wounds on left foot and 1 wound on right foot with wound VAC placement to both feet. Ultimately cultures grew MSSA 4/4 bottles positive in the blood from 07/18/2020 and after negative repeat cultures and negative BRYAN for vegetations on 07/26/2020 he had PICC placed for 8 weeks of outpatient nafcillin/cefazolin and he has been managed on p.o. Keflex since removal of his PICC. He notes he has had both ID and vascular surgery follow up outpatient and had MRI of left foot recently at the diagnostic imaging center (not currently available to me). Labs with WBC 7.8, Hb 12.1, platelets 279, ESR 63, CRP 8.3, albumin 3.2, alkaline phosphatase 135, ALT 31, AST 19, NA 140, K4, BUN 20, CR 1.6, glucose 112, phosphorus 3.5, magnesium 1.4, calcium 9.2 Left foot radiograph with dorsal foot soft tissue swelling and bone lysis and lamellated periostitis of the second and third metatarsals since prior imaging from June 2020, raising concern for chronic osteomyelitis, by radiology report. ED contacted ID and started on empiric cefepime and zyvox and diflucan x1 and admitted for further care. Past Medical History Cardiovascular: HTN, Hyperlipidemia CENTRAL NERVOUS SYSTEM: Periperal neuropathy Renal/: Chronic renal insuff Endocrine: Diabetes, Hypothyroidism Past Surgical History Past Surgical History Esophageal stricture that was dilated ~2018. He has underwent esophagogastroduodenoscopy as well as colonoscopy. 07/21/2020 underwent partial amputation of the left third toe with primary closure and I&D and packing of right dorsal foot abscess. 07/27/2020 returned to OR for I&D abscesses x 3, left dorsal and lateral mid foot and debridement, full thickness of right dorsal foot wound 08/02/2020 returned to OR for excisional debridement of both feet including skin, subcutaneous tissue, and tendon of 3 wounds on left foot and 1 wound on right foot with wound VAC placement to both feet. Past Surgical History: Tonsillectomy, Other Family History Family History Reviewed Has one brother in 1990 of AIDS. Another brother is still alive and has thyroid disease and diabetes Has one older and one younger sister, both alive and both have thyroid disease and diabetes. His father at age of 93 due to mouth cancer. His mother at the age of 98. SOCIAL HISTORY: He is , has 3 daughters and 1 son. He claimed that he has never smoked; however, he admitted to the ER physician at [facility] that he is a smoker and also smokes marijuana. He stated he does not drink any alcohol or use any drugs. 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 Social History Smoke: No ALCOHOL: rare Drugs: None Current Medications Current Medications Current Medications Vancomycin HCl (Vanco Per Pharmacy) 1 each PRN DAILY PRN [facility] SEE COMMENTS; Start 11/07/20 at 16:00; Status UNV Vancomycin HCl 2 gm/Sodium Chloride 500 ml @ 250 mls/hr 1X ONCE IV ; Start 11/07/20 at 17:00; Stop 11/07/20 at 18:59; Status Cancel Linezolid/Dextrose 300 ml @ 300 mls/hr Q12H IV ; Start 11/08/20 at 06:00 Cefepime HCl (Maxipime) 2 gm 1X ONCE IVP Last administered on 11/07/20at 16:28; Start 11/07/20 at 16:15; Stop 11/07/20 at 16:18; Status DC Linezolid/Dextrose 300 ml @ 300 mls/hr 1X ONCE IV Last administered on 11/07/20at 16:31; Start 11/07/20 at 16:30; Stop 11/07/20 at 17:29; Status DC Acetaminophen/ Hydrocodone Bitart (Lortab 5/325) 2 tab 1X ONCE PO Last administered on 11/07/20at 17:56; Start 11/07/20 at 18:00; Stop 11/07/20 at 18:01; Status DC Active Scripts Active Reported Benadryl Allergy (Diphenhydramine Hcl) 25 Mg Tablet 25 Mg PO PRN DAILY PRN Rolaids Chewable Tablet (Calcium Carb/Magnesium Hydrox) 1 Each Tab.chew 1 Each PO PRN PRN Cardura (Doxazosin Mesylate) 2 Mg Tablet 2 Mg PO DAILY Levothyroxine Sodium 100 Mcg Tablet 300 Mcg PO DAILYAC Victoza 3-Mundo (Liraglutide) 0.6 Mg/0.1 Ml Pen.injctr 1.8 Mg SQ DAILY Lantus Solostar (Insulin Glargine,Hum.rec.anlog) 100 Unit/1 Ml Insuln.pen 25 Unit SQ HS Allergies Allergies: Coded Allergies: No Known Drug Allergies (Unverified , 07/19/20) ROS General: YES: Fatigue, Malaise; No: Chills, Night Sweats, Appetite, Other PSYCHOLOGICAL ROS: No: Anxiety, Behavioral Disorder, Concentration difficultie, Decreased libido, Depression, Disorientation, Hallucinations, Hostility, Irritablity, Memory difficulties, Mood Swings, Obsessive thoughts, Physical abuse, Sexual abuse, Sleep disturbances, Suicidal ideation, Other Eyes: No Blurry vision, No Decreased vision, No Double vision, No Dry eyes, No Excessive tearing, No Eye Pain, No Itchy Eyes, No Loss of vision, No Photophobia, No Scotomata, No Uses contacts, No Uses glasses, No Other HEENT: No: Heacaches, Visual Changes, Hearing change, Nasal congestion, Nasal discharge, Oral lesions, Sinus pain, Sore Throat, Epistaxis, Sneezing, Snoring, Tinnitus, Vertigo, Vocal changes, Other ALLERGY AND IMMUNOLOGY: No: Hives, Insect Bite Sensitivity, Itchy/Watery Eyes, Nasal Congestion, Post Nasal Drip, Seasonal Allergies, Other Hematological and Lymphatic: No: Bleeding Problems, Blood Clots, Blood Transfusions, Brusing, Night Sweats, Pallor, Swollen Lymph Nodes, Other ENDOCRINE: No: Breast Changes, Galactorrhea, Hair Pattern Changes, Hot Flashes, Malaise/lethargy, Mood Swings, Palpitations, Polydipsia/polyuria, Skin Changes, Temperature Intolerance, Unexpected Weight Changes, Other Breast: No New/Changing Breast Lumps, No Nipple changes, No Nipple discharge, No Other Respiratory: No: Cough, Hemoptysis, Orthopnea, Pleuritic Pain, Shortness of breath, SOB with excertion, Sputum Changes, Stridor, Tachypnea, Wheezing, Other Cardiovascular: No Chest Pain, No Palpitations, No Orthopnea, No Paroxysmal Noc. Dyspnea, No Edema, No Lt Headedness, No Other Gastrointestinal: No Nausea, No Vomiting, No Abdominal Pain, No Diarrhea, No Constipation, No Melena, No Hematochezia, No Other Genitourinary: No Dysuria, No Frequency, No Incontinence, No Hematuria, No Retention, No Discharge, No Urgency, No Pain, No Flank Pain, No Other, No , No , No , No , No , No , No Musculoskeletal: Yes Gait Disturbance, Yes Joint Pain, Yes Joint Swelling; No Joint Stiffness, No Muscle Pain, No Muscular Weakness, No Pain In:, No Swelling In:, No Other Neurological: Yes Numbness/Tingling; No Behavorial Changes, No Bowel/Bladder ControlChng, No Confusion, No Dizzin ess, No Gait Disturbance, No Headaches, No Impaired Coord/balance, No Memory Loss, No Seizures, No Speech Problems, No Tremors, No Visual Changes, No Weakness, No Other Skin: Yes Rash, Yes Skin Lesion Changes; No Dry Skin, No Eczema, No Hair Changes, No Lumps, No Mole Changes, No Mottling, No Nail Changes, No Pruritus, No Other, No Acne Physical Exam General: Alert, Oriented X3, Cooperative, No acute distress HEENT: Atraumatic, PERRLA, EOMI, Mucous membr. moist/pink Lungs: Clear to auscultation, Normal air movement Heart: S1S2, RRR, no thrills, no rubs, no gallops, no murmurs Abdomen: Normal bowel sounds, Soft, No tenderness, No hepatosplenomegaly, No masses Rectal Exam: not examined Extremities: No clubbing, No cyanosis, No edema, Normal pulses Skin: Other (left lateral wound with packing, dorsal left foot wound with serous drainage, erythema, satellite lesions. Right foot wound with erythema and satellite lesions) Neuro: Normal gait, Normal speech, Strength at 5/5 X4 ext, Normal tone, Cranial nerves 3-12 NL, Reflexes 2+ Psych/Mental Status: Mental status NL, Mood NL Vitals Vitals Vital Signs Date Time Temp Pulse Resp B/P (MAP) Pulse Ox O2 Delivery O2 Flow Rate FiO2 11/07/20 14:41 97.8 87 20 167/91 (116) 99 Room Air 97.8 Labs Labs Laboratory Tests Test 11/07/20 15:40 White Blood Count 7.8 x10^3/uL (4.0-11.0) Red Blood Count 3.81 x10^6/uL (4.30-5.70) Hemoglobin 12.1 g/dL (13.0-17.5) Hematocrit 34.6 % (39.0-53.0) Mean Corpuscular Volume 91 fL (79-100) Mean Corpuscular Hemoglobin 32 pg (25-35) Mean Corpuscular Hemoglobin Concent 35 g/dL (31-37) Red Cell Distribution Width 13.0 % (11.5-14.5) Platelet Count 279 x10^3/uL (140-400) Neutrophils (%) (Auto) 60 % (31-73) Lymphocytes (%) (Auto) 23 % (24-48) Monocytes (%) (Auto) 6 % (0-9) Eosinophils (%) (Auto) 10 % (0-3) Basophils (%) (Auto) 1 % (0-3) Neutrophils # (Auto) 4.7 x10^3/uL (1.8-7.7) Lymphocytes # (Auto) 1.8 x10^3/uL (1.0-4.8) Monocytes # (Auto) 0.5 x10^3/uL (0.0-1.1) Eosinophils # (Auto) 0.7 x10^3/uL (0.0-0.7) Basophils # (Auto) 0.1 x10^3/uL (0.0-0.2) Erythrocyte Sedimentation Rate 63 (0-15) Sodium Level 140 mmol/L (136-145) Potassium Level 4.0 mmol/L (3.5-5.1) Chloride Level 102 mmol/L (98-107) Carbon Dioxide Level 29 mmol/L (21-32) Anion Gap 9 (6-14) Blood Urea Nitrogen 20 mg/dL (8-26) Creatinine 1.6 mg/dL (0.7-1.3) Estimated GFR (Cockcroft-Gault) 44.2 BUN/Creatinine Ratio 13 (6-20) Glucose Level 112 mg/dL (70-99) Calcium Level 9.2 mg/dL (8.5-10.1) Phosphorus Level 3.5 mg/dL (2.6-4.7) Magnesium Level 1.4 mg/dL (1.8-2.4) Total Bilirubin 0.3 mg/dL (0.2-1.0) Aspartate Amino Transf (AST/SGOT) 19 U/L (15-37) Alanine Aminotransferase (ALT/SGPT) 31 U/L (16-63) Alkaline Phosphatase 155 U/L (46-116) Creatine Kinase 115 U/L (39-308) Creatine Kinase MB (Mass) 2.5 ng/mL (0.0-3.6) Creatine Kinase MB Relative Index 2.2 % (0-4) C-Reactive Protein, Quantitative 8.3 mg/L (0-3.3) Total Protein 7.9 g/dL (6.4-8.2) Albumin 3.2 g/dL (3.4-5.0) Albumin/Globulin Ratio 0.7 (1.0-1.7) Laboratory Tests Test 11/07/20 15:40 White Blood Count 7.8 x10^3/uL (4.0-11.0) Red Blood Count 3.81 x10^6/uL (4.30-5.70) Hemoglobin 12.1 g/dL (13.0-17.5) Hematocrit 34.6 % (39.0-53.0) Mean Corpuscular Volume 91 fL (79-100) Mean Corpuscular Hemoglobin 32 pg (25-35) Mean Corpuscular Hemoglobin Concent 35 g/dL (31-37) Red Cell Distribution Width 13.0 % (11.5-14.5) Platelet Count 279 x10^3/uL (140-400) Neutrophils (%) (Auto) 60 % (31-73) Lymphocytes (%) (Auto) 23 % (24-48) Monocytes (%) (Auto) 6 % (0-9) Eosinophils (%) (Auto) 10 % (0-3) Basophils (%) (Auto) 1 % (0-3) Neutrophils # (Auto) 4.7 x10^3/uL (1.8-7.7) Lymphocytes # (Auto) 1.8 x10^3/uL (1.0-4.8) Monocytes # (Auto) 0.5 x10^3/uL (0.0-1.1) Eosinophils # (Auto) 0.7 x10^3/uL (0.0-0.7) Basophils # (Auto) 0.1 x10^3/uL (0.0-0.2) Erythrocyte Sedimentation Rate 63 (0-15) Sodium Level 140 mmol/L (136-145) Potassium Level 4.0 mmol/L (3.5-5.1) Chloride Level 102 mmol/L (98-107) Carbon Dioxide Level 29 mmol/L (21-32) Anion Gap 9 (6-14) Blood Urea Nitrogen 20 mg/dL (8-26) Creatinine 1.6 mg/dL (0.7-1.3) Estimated GFR (Cockcroft-Gault) 44.2 BUN/Creatinine Ratio 13 (6-20) Glucose Level 112 mg/dL (70-99) Calcium Level 9.2 mg/dL (8.5-10.1) Phosphorus Level 3.5 mg/dL (2.6-4.7) Magnesium Level 1.4 mg/dL (1.8-2.4) Total Bilirubin 0.3 mg/dL (0.2-1.0) Aspartate Amino Transf (AST/SGOT) 19 U/L (15-37) Alanine Aminotransferase (ALT/SGPT) 31 U/L (16-63) Alkaline Phosphatase 155 U/L (46-116) Creatine Kinase 115 U/L (39-308) Creatine Kinase MB (Mass) 2.5 ng/mL (0.0-3.6) Creatine Kinase MB Relative Index 2.2 % (0-4) C-Reactive Protein, Quantitative 8.3 mg/L (0-3.3) Total Protein 7.9 g/dL (6.4-8.2) Albumin 3.2 g/dL (3.4-5.0) Albumin/Globulin Ratio 0.7 (1.0-1.7) Images Images Left foot radiograph: Amputation of the third toe intermediate and distal phalanges with a small re sidual fragment at the base of the phalanx remaining, there is mild soft tissue swelling of the amputation stump. There is permeative bone lysis throughout the second and third of the tarsals and lamellated periostitis as well bone lysis as at the base of the fourth and fifth metatarsals, there also appears to be destructive arthropathy of the tarsometatarsal joints of the midfoot and fragmentation. There is dorsal foot soft tissue swelling. No fracture evident. Osteoarthritis of the second MTP joint stable. IMPRESSION: Dorsal foot soft tissue swelling. Development of permeative bone lysis and lamellated periostitis of the second and third metatarsals since prior imaging from June 2020, raising concern for chronic osteomyelitis. There is also destructive arthropathy with fragmentation and bony sclerosis and some disorganization of the tarsal metatarsal joints of the midfoot most likely represent changes of osteomyelitis, progressive changes of neuropathic arthropathy less likely given the interval mold changer a 4 month since prior imaging. VTE Prophylaxis Ordered VTE Prophylaxis Devices: Yes VTE Pharmacological Prophylaxi: Yes Assessment/Plan Assessment/Plan A/P Bilateral foot cellulitis - with history of multiple prior debridements and bacteremia the possibility of underlying osteomyelitis is concerning. ID consulted, cefepime, zyvox, diflucan Left foot radiograph abnormality - will obtain MRI performed at [facility]. Concern from radiology for chronic osteomyelitis. Given his prior complicated stay and tendon involvement with 3 prior surgeries and prior MSSA bacteremia, chronic osteo is a real possibility Type 2 diabetes mellitus - on victoza and lantus outpatient. He tells me his A1c is 5.1. Will [address] on sliding scale and lantus while inpatient Diabetic peripheral neuropathy - with foot involvement and prior wounds STEVE - baseline Cr was as low as 1 in the past year, though on prior discharge was as high as 2.3 previously, could very well have CKD. Will monitor renal function. Will check urine cr/microalbumin ratio as he may benefit from restarting low dose ARB to mitigate diabetic nephropathy Hypertension - previously on losartan as well as hydralazine. Losartan d/c'd due to STEVE. H/o methicillin-sensitive Staphylococcus aureus bacteremia - s/p senior living antibiotics, negative BRYAN in July 2020 Anemia - likely of chronic inflammation, will check iron studies Hypomagnesemia - will monitor given renal dysfunction FEN - ADA diet PPX - heparin FULL CODE Dispo - inpatient for above Justifications for Admission Other Justification SAMM RAMIREZ MD Nov 07, 2020 18:08
--- NOTE | 2020-11-07 18:24 | PHYS DOC ---
Past Medical History Past Surgical History: Other Additional Past Surgical Histo: TOE REMOVED,DEBREDING OF WOUNDS Smoking Status: Never Smoker Alcohol Use: Occasionally General Adult EDM: Chief Complaint: WOUND CHECK HPI: HPI: Patient is a 60 male presents to the emergency department complaining of left foot surgical site wound cellulitis that started today when he woke up. Patient reports he had abscesses that were surgically removed and repaired by a vascular surgeon this past June. Patient reports he was discharged home on IV antibiotics for 8 weeks, has since had his PICC line removed and has been on oral Keflex. Patient states his wounds were healing very well but noticed today there was a sudden onset of redness around each wound and fears he might be cellulitis. Patient reports he called Dr. Persaud's office for infectious disease and they recommended he come to the emergency department for evaluation. Review of Systems: Review of Systems: 14 body systems of review of systems have been reviewed. See HPI for pertinent positives and negative responses, otherwise all other systems are negative, nonpertinent or noncontributory. Constitutional: Negative except as outlined in HPI above. Skin: Negative except as outlined in HPI above. Eyes: Negative except as outlined in HPI above. HENT: Negative except as outlined in HPI above. Respiratory: Negative except as outlined in HPI above. Cardiovascular: Negative except as outlined in HPI above. GI: Negative except as outlined in HPI above. : Negative except as outlined in HPI above. Musculoskeletal: Negative except as outlined in HPI above. Integument: Negative except as outlined in HPI above. Neurologic: Negative except as outlined in HPI above. Endocrine: Negative except as outlined in HPI above. Lymphatic: Negative except as outlined in HPI above. Psychiatric: Negative except as outlined in HPI above. Heart Score: C/O Chest Pain: No Risk Factors: Risk Factors: DM, Current or recent (<one month) smoker, HTN, HLP, family hist ory of CAD, obesity. Risk Scores: Score 0 - 3: 2.5% MACE over next 6 weeks - Discharge Home Score 4 - 6: 20.3% MACE over next 6 weeks - Admit for Clinical Observation Score 7 - 10: 72.7% MACE over next 6 weeks - Early Invasive Strategies Current Medications: Current Medications Medications (Trade) Dose Ordered Sig/Xander Start Time Stop Time Status Last Admin Dose Admin Acetaminophen/ Hydrocodone Bitart (Lortab 5/325) 2 tab 1X ONCE 9/13/21 18:00 11/07/20 18:01 Cefepime HCl (Maxipime) 2 gm 1X ONCE 11/07/20 16:15 11/07/20 16:18 DC 11/07/20 16:28 2 GM Linezolid/Dextrose 300 ml @ 300 mls/hr 1X ONCE 11/07/20 16:30 11/07/20 17:29 DC 11/07/20 16:31 300 MLS/HR Vancomycin HCl (Vanco Per Pharmacy) 1 each PRN DAILY PRN 11/07/20 16:00 UNV Vancomycin HCl 2 gm/Sodium Chloride 500 ml @ 250 mls/hr 1X ONCE 11/07/20 17:00 11/07/20 18:59 Cancel Allergies: Allergies: Allergies Coded Allergies Type Severity Reaction Last Updated Verified No Known Drug Allergies 07/19/20 No Physical Exam: PE: Constitutional: Well developed, well nourished, no acute distress, non-toxic appearance. 60-year-old male in no apparent distress. HENT: Normocephalic, atraumatic. Eyes: Conjunctiva normal, no discharge. Neck: Normal range of motion, no stridor. Cardiovascular: No cyanosis appreciated, distal cap refill less than 2 seconds. Lungs & Thorax: Patient is in no respiratory distress, no audible adventitious lung sounds appreciated. Abdomen: Nontender, no abnormalities noted. Skin: Warm, dry, no erythema, no rash. See extremity note for focused skin examination Back: No tenderness, no deformities. Extremities: No tenderness, no cyanosis, no clubbing, ROM intact, no edema. Except for left foot, 3 diabetic skin ulcers with evidence of recent surgery well-healing scars, erythema around each surgical site with serous type weeping, no loss of sensation distally, distal cap refill less than 2 seconds, 1+ pedal pulse on the left, skin otherwise normal for race. Right lateral foot with similar erythematous skin ulcer without weeping, distal cap refill less than 2 seconds, no loss of sensation, 1+ pedal pulse. No loss of movement of toes bilaterally, Neurologic: Alert and oriented X 3, normal motor function, normal sensory function, no focal deficits noted. Psychologic: Affect normal, judgement normal, mood normal. Current Patient Data: Labs: Laboratory Tests Test 11/07/20 15:40 White Blood Count 7.8 x10^3/uL (4.0-11.0) Red Blood Count 3.81 x10^6/uL (4.30-5.70) L Hemoglobin 12.1 g/dL (13.0-17.5) L Hematocrit 34.6 % (39.0-53.0) L Mean Corpuscular Volume 91 fL (79-100) Mean Corpuscular Hemoglobin 32 pg (25-35) Mean Corpuscular Hemoglobin Concent 35 g/dL (31-37) Red Cell Distribution Width 13.0 % (11.5-14.5) Platelet Count 279 x10^3/uL (140-400) Neutrophils (%) (Auto) 60 % (31-73) Lymphocytes (%) (Auto) 23 % (24-48) L Monocytes (%) (Auto) 6 % (0-9) Eosinophils (%) (Auto) 10 % (0-3) H Basophils (%) (Auto) 1 % (0-3) Neutrophils # (Auto) 4.7 x10^3/uL (1.8-7.7) Lymphocytes # (Auto) 1.8 x10^3/uL (1.0-4.8) Monocytes # (Auto) 0.5 x10^3/uL (0.0-1.1) Eosinophils # (Auto) 0.7 x10^3/uL (0.0-0.7) Basophils # (Auto) 0.1 x10^3/uL (0.0-0.2) Erythrocyte Sedimentation Rate 63 (0-15) H Sodium Level 140 mmol/L (136-145) Potassium Level 4.0 mmol/L (3.5-5.1) Chloride Level 102 mmol/L (98-107) Carbon Dioxide Level 29 mmol/L (21-32) Anion Gap 9 (6-14) Blood Urea Nitrogen 20 mg/dL (8-26) Creatinine 1.6 mg/dL (0.7-1.3) H Estimated GFR (Cockcroft-Gault) 44.2 BUN/Creatinine Ratio 13 (6-20) Glucose Level 112 mg/dL (70-99) H Calcium Level 9.2 mg/dL (8.5-10.1) Phosphorus Level 3.5 mg/dL (2.6-4.7) Magnesium Level 1.4 mg/dL (1.8-2.4) L Total Bilirubin 0.3 mg/dL (0.2-1.0) Aspartate Amino Transferase (AST) 19 U/L (15-37) Alanine Aminotransferase (ALT) 31 U/L (16-63) Alkaline Phosphatase 155 U/L (46-116) H Creatine Kinase 115 U/L (39-308) Creatine Kinase MB (Mass) 2.5 ng/mL (0.0-3.6) Creatine Kinase MB Relative Index 2.2 % (0-4) C-Reactive Protein, Quantitative 8.3 mg/L (0-3.3) H Total Protein 7.9 g/dL (6.4-8.2) Albumin 3.2 g/dL (3.4-5.0) L Albumin/Globulin Ratio 0.7 (1.0-1.7) L Laboratory Tests 11/07/20 15:40 Laboratory Tests 11/07/20 15:40 Vital Signs: Vital Signs Date Time Temp Pulse Resp B/P (MAP) Pulse Ox O2 Delivery O2 Flow Rate FiO2 11/07/20 14:41 97.8 87 20 167/91 (116) 99 Room Air 97.8 EKG: EKG: [] Radiology/Procedures: Radiology/Procedures: PATIENT: DASHAWN GOMEZ ACCOUNT: [id number] : 1960 LOCATION: ER AGE: 60 SEX: M EXAM STATUS: REG ER ORD. PHYSICIAN: HAIDER CRANE DO REASON: cellulitis r/o osteo PROCEDURE: FOOT LEFT 2V Left foot AP lateral x-rays 2 views HISTORY: Cellulitis, osteomyelitis. COMPARISON: CT bilateral feet July 19, 2020 FINDINGS: Amputation of the third toe intermediate and distal phalanges with a small residual fragment at the base of the phalanx remaining, there is mild soft tissue swelling of the amputation stump. There is permeative bone lysis throughout the second and third of the tarsals and lamellated periostitis as well bone lysis as at the base of the fourth and fifth metatarsals, there also appears to be destructive arthropathy of the tarsometatarsal joints of the midfoot and fragmentation. There is dorsal foot soft tissue swelling. No fracture evident. Osteoarthritis of the second MTP joint stable. IMPRESSION: Dorsal foot soft tissue swelling. Development of permeative bone lysis and lamellated periostitis of the second and third metatarsals since prior imaging from June 2020, raising concern for chronic osteomyelitis. 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 Electronically signed by: Rafy Alvarado MD (11/07/2020 5:02 PM) [facility] [place] Course & Med Decision Making: Course & Med Decision Making Pertinent Labs and Imaging studies reviewed. (See chart for details) 60-year-old male, vital signs reviewed, presents emergency department concerning increased redness around recent surgical scars of his left foot. Physical examination concerning for contact dermatitis versus cellulitis versus other deep tissue infectious process of the left foot. Will order CBC, CMP, blood cultures x2, CRP, sed rate. X-ray of left foot. Will consult with infectious disease specialist related to patient's recent hospitalization and home therapy followed by Dr. Persaud. Discussed with patient will consult with Dr. Persaud and recommend admission related to failed home antibiotic therapy. ED attending Dr. Crane recommended vancomycin infusion. Spoke with infectious disease specialist Dr. Persaud who recommended DC vancomycin, in place of adding was Zyvox and cefepime antibiotics. X-ray concerning for new versus chronic osteomyelitis of the left foot, called and discussed patient case and ED work-up with inpatient management physician Dr. Shaikh who agrees patient's case [facility]omyelitis of the left foot. Dr. Shaikh recommended x-ray of right foot as well, this was ordered. Patient awaiting bed assignment from household appliance repairer. Adelina Disclaimer: Adelina Disclaimer: This electronic medical record was generated, in whole or in part, using a voice recognition dictation system. Departure Departure Impression: Primary Impression: Foot osteomyelitis, left Qualified Codes: M86.9 - Osteomyelitis, unspecified Disposition: 09 ADMITTED INPATIENT Admitting Physician: HIMS (Admit to Dr. Shaikh, Dr. Persaud infectious disease specialty consulted. [facility]) Condition: STABLE Referrals: JERONIMO KO MD (PCP) MICHAEL OSMAN APRN Nov 07, 2020 18:24
--- NOTE | 2020-11-07 19:25 | RAD ---
XR FOOT_RIGHT 3 VIEWS DATE: 11/07/2020 6:42 PM INDICATION: lateral foot ulcer COMPARISON: 07/18/2020. FINDINGS: Cortical indistinctness/irregularity at the base of the third metatarsal and the lateral cuneiform at the TMT joint, which appears new since 07/18/2020. Severe degenerative changes of the first MTP joint and involving the second metatarsal base and middl e cuneiform at the TMT joint, which appear similar to prior exams. IMPRESSION: Cortical indistinctness/irregularity at the base of the third metatarsal and the lateral cuneiform at the TMT joint, which appears new since 07/18/2020 and could represent osteomyelitis. MRI could be obt ained for further characterization. Electronically signed by: Adan Castro MD (11/07/2020 7:23 PM) [facility]
[2020-11-07] MEDS ORDERED: FLUCONAZOLE 200MG/100ML PREMIX 100 ML IV ONE (20:00)
[2020-11-07 21:00] VITALS: BP 177/86
[2020-11-07] MEDS ORDERED: fentaNYL PF VIAL 100 MCG/2 ML VIAL IVP PRN (21:00)
[2020-11-07] MEDS ORDERED: DEXTROSE 50% 25 GM / 50ML DISP.SYRIN. IV PRN (21:00)
[2020-11-07] MEDS ORDERED: ACETAMINOPHEN 325 MG TABLET. PO PRN (21:00)
[2020-11-07] MEDS ORDERED: HYDROcodone/APAP 5/325MG 1 TAB TABLET PO PRN (21:00)
[2020-11-07] MEDS ORDERED: ONDANSETRON PF 4 MG/2 ML VIAL. IVP PRN (21:00)
[2020-11-07] MEDS ORDERED: ZOLPIDEM 5 MG TABLET. PO PRN (21:00)
[2020-11-07] MEDS ORDERED: diphenhydrAMINE HCL 25 MG CAPSULE PO PRN (21:15)
[2020-11-07] MEDS ORDERED: INSULIN GLARGINE SYRINGE. SQ SCH (22:00)
[2020-11-07] MEDS: HEPARIN for SUB-Q USE 5,000 UNIT/ML VIAL. SQ SCH (22:20)
[2020-11-07 23:01] VITALS: BP 178/88
[2020-11-08 03:00] VITALS: BP 185/100
[2020-11-08] MEDS: HYDROcodone/APAP 5/325MG 1 TAB TABLET PO PRN ×2 (03:54→12:37)
[2020-11-08 04:15] LABS: BILIRUBIN,URINE NEGATIVE (NEG); CLARITY,URINE CLEAR; COLOR,URINE YELLOW; NITRITE,URINE NEGATIVE (NEG); PH,URINE 5.5 (<5.0-8.0); PROTEIN,URINE >=300 mg/dL (NEG-TRACE); UROBILINOGEN,URINE 0.2 mg/dL (0.2 mg/dL)
[2020-11-08 04:25] LABS: BACTERIA,URINE 0 /HPF (0-FEW); HYALINE CASTS, URINE OCCASIONAL /HPF; RBC,URINE OCC /HPF (0-2); WBC,URINE OCC /HPF (0-4)
[2020-11-08 04:39] LABS: BASO # 0.1 x10^3/uL (0.0-0.2); BASO % 1 % (0-3); EOS # 0.7 x10^3/uL (0.0-0.7); EOS % 9 % (0-3); HEMATOCRIT 33.5 % (39.0-53.0); HEMOGLOBIN 11.6 g/dL (13.0-17.5); LYMPH # 1.7 x10^3/uL (1.0-4.8); LYMPH % 20 % (24-48); MEAN CORPUSCULAR HEMOGLOBIN 31 pg (25-35); MEAN CORPUSCULAR HGB CONC 35 g/dL (31-37); MEAN CORPUSCULAR VOLUME 91 fL (79-100); MONO # 0.5 x10^3/uL (0.0-1.1); MONO % 6 % (0-9); NEUT # 5.5 x10^3/uL (1.8-7.7); NEUT % 64 % (31-73); PLATELET COUNT 253 x10^3/uL (140-400); RED BLOOD COUNT 3.68 x10^6/uL (4.30-5.70); RED CELL DISTRIBUTION WIDTH 12.7 % (11.5-14.5); WHITE BLOOD COUNT 8.6 x10^3/uL (4.0-11.0)
[2020-11-08 04:59] LABS: CALCIUM 9.1 mg/dL (8.5-10.1); CREATININE 1.5 mg/dL (0.7-1.3); GFR 47.6; POTASSIUM 3.9 mmol/L (3.5-5.1)
[2020-11-08] MEDS ORDERED: LEVOTHYROXINE 100 MCG TABLET PO SCH (06:00)
[2020-11-08] MEDS: HEPARIN for SUB-Q USE 5,000 UNIT/ML VIAL. SQ SCH ×2 (06:07→14:00)
[2020-11-08 07:00] VITALS: BP 184/103
[2020-11-08] MEDS: INSULIN LISPRO 300 UNITS/3 ML VIAL. SQ SCH ×2 (07:57→12:00)
[2020-11-08] MEDS ORDERED: LOSARTAN POTASSIUM 25 MG TABLET. PO SCH (09:00)
--- NOTE | 2020-11-08 09:11 | CONS ---
DATE OF CONSULTATION: 11/08/2020 REFERRING PHYSICIAN: Jhonny Shaikh MD REASON FOR CONSULTATION: Foot redness. HISTORY OF PRESENT ILLNESS: This is a 60-year-old gentleman who is well aware of his last admission and followups. The patient had MSSA in the blood, extensive MSSA foot infections bilaterally. The patient was treated with IV antibiotics for a prolonged period of time and then he is still on oral Keflex. The patient came in with redness of the left foot as was noticed by the home health, hence he came in. The patient denies any nausea, vomiting, diarrhea. Denies any trauma. He did notice some swelling of the leg. Denied any fever or chills. The patient has been admitted for possible cellulitis, possible contact dermatitis. PAST MEDICAL HISTORY: As I mentioned, MSSA bacteremia dated 07/18 and 07/20 and extensive bilateral foot abscesses, status post I and D done. The patient had been followed outpatient and in fact healed. He was feeling so nicely and finished IV, but still on oral Keflex. The patient also has diabetes mellitus with neuropathy, poor control; renal insufficiency; hypertension. SOCIAL HISTORY: Negative for smoking, alcohol, illicit drug use. ALLERGIES: No known drug allergies. CURRENT MEDICATIONS: Reviewed. REVIEW OF SYSTEMS: As in HPI. All other systems reviewed are negative. PHYSICAL EXAMINATION: GENERAL: Alert, oriented gentleman, not in distress. VITAL SIGNS: Stable, afebrile. HEENT: NAD. NECK: Supple, no JVP, no lymphadenopathy. LUNGS: Clear. HEART: S1, S2 regular. ABDOMEN: Soft, nontender, no organomegaly. EXTREMITIES: Bilateral mild pitting edema present. Right foot wound has healed completely. Left foot wound, two of them has some drainage with surrounding erythema. As my communication with ER physician, I agree with him, it looks like contact dermatitis. The patient denies using any ointment or anything new there. It is possible that, as further questioning him, he was too relaxed, watched the game with the friends, couple of beers, etc., sat too long and he started having some drainage with swelling and sat on it with a dressing. Hence, irritation with the redness. I do not see any signs of infection. NEUROLOGIC: The patient is alert, awake, and appropriate. No focal neurologic deficit. LABORATORY DATA: White count is normal. BUN and creatinine is 19 and 1.5, which has improved the best that it looks from before. COVID negative. IMPRESSION: 1. Left foot two wounds from prior surgery surrounding erythema. It is still contact dermatitis from the drainage and swelling and drainage sitting there with a Band-Aid on. He needs to have leg elevation. There are no other signs of infection or any other concern. 2. Diabetes. 3. Hypertension. 4. Methicillin-sensitive Staphylococcus aureus bacteremia, which was treated. 5. Bilateral feet abscesses, status post I and D. Recommend the patient can be discharged on p.o. Keflex back to leg elevation. As much as possible, he should walk, but should not sit and leg elevation higher than the heart, supportive care and he should have followup with us in about two weeks or so. Thank you very much, Dr. Shaikh, for giving me opportunity to participate in this patient's care. JENNIFER HOLM: Andie TID: [id number]
--- NOTE | 2020-11-08 10:14 | NUR ---
SW following. Discussed with RN, pt from home with family and [facility], room air, ada diet, rapid COVID-[address]. [address] Persaud, pt okay to discharge home. SW awaiting home health discharge orders. SW will continue to follow.
[2020-11-08 10:52] VITALS: BP 190/99
--- NOTE | 2020-11-08 11:07 | PDOC ---
[employer] PROGRESS NOTE Date of Service DOS: DATE: 11/08/20 TIME: 11:05 Chief Complaint Chief Complaint A/P Bilateral foot cellulitis - with history of multiple prior debridements and bacteremia the possibility of underlying osteomyelitis is concerning. ID consulted, cefepime, zyvox, diflucan Left foot radiograph abnormality - will obtain MRI performed at diagnostic imaging center. Concern from radiology for chronic osteomyelitis. Given his prior complicated stay and tendon involvement with 3 prior surgeries and prior MSSA bacteremia, chronic osteo is a real possibility Type 2 diabetes mellitus - on victoza and lantus outpatient. He tells me his A1c is 5.1. Will place on sliding scale and lantus while inpatient Diabetic peripheral neuropathy - with foot involvement and prior wounds STEVE possibly due to vasomotor nephropathy - baseline Cr was as low as 1 in the past year, though on prior discharge was as high as 2.3 previously, could very well have CKD. Will monitor renal function. Will check urine cr/microalbumin ratio as he may benefit from restarting low dose ARB to mitigate diabetic nephropathy Hypertension - previously on losartan as well as hydralazine. Losartan d/c'd due to STEVE. H/o methicillin-sensitive Staphylococcus aureus bacteremia - s/p [employer] antibiotics, negative BRYAN in July 2020 Anemia - likely of chronic inflammation, will check iron studies Hypomagnesemia - will monitor given renal dysfunction History of Present Illness History of Present Illness Mr Harrington is a 60 year old male with PMHx DM2, HTN and diabetic neuropathy with prior bilateral foot surgeries who presents to the emergency department complaining of left foot pain and rash that started today when he woke up. Patient states his wounds were healing but his home health nurse noticed today there was a sudden onset of redness around all 4 wounds (3 on left foot, 1 on right). He does note the wound have occasionally gotten moist recently and he has been keeping them covered 17/09, only removing dressings to bathe, and tries his best to prevent soaking his feet. Patient reports he called Dr. Persaud's office for infectious disease and they recommended he come to the emergency department for evaluation. Previously was transferred from [place] with bialteral leg wounds and on 07/21/2020 underwent partial amputation of the left third toe with primary closure and I&D and packing of right dorsal foot abscess. On 07/27/2020 returned to OR for I&D abscesses x 3, left dorsal and lateral mid foot and debridement, full thickness of right dorsal foot wound Subsequently on 08/02/2020 returned to OR for excisional debridement of both feet including skin, subcutaneous tissue, and tendon of 3 wounds on left foot and 1 wound on right foot with wound VAC placement to both feet. Ultimately cultures grew MSSA 4/4 bottles positive in the blood from 07/18/2020 and after negative repeat cultures and negative BRYAN for vegetations on 07/26/2020 he had PICC placed for 8 weeks of outpatient nafcillin/cefazolin and he has been managed on p.o. Keflex since removal of his PICC. He notes he has had both ID and vascular surgery follow up outpatient and had MRI of left foot recently at the diagnostic imaging center (not currently available to me). Labs with WBC 7.8, Hb 12.1, platelets 279, ESR 63, CRP 8.3, albumin 3.2, alkaline phosphatase 135, ALT 31, AST 19, NA 140, K4, BUN 20, CR 1.6, glucose 112, phosphorus 3.5, magnesium 1.4, calcium 9.2 Left foot radiograph with dorsal foot soft tissue swelling and bone lysis and lamellated periostitis of the second and third metatarsals since prior imaging from June 2020, raising concern for chronic osteomyelitis, by radiology report. ED contacted ID and started on empiric cefepime and zyvox and diflucan x1 and admitted for further care. 11/08/2020: Patient seen and evaluated. Afebrile, denies significant pain. Does note chronic pain to his left foot, of which he does have evaluation scheduled in November. He is well-known to our ID physicians for prior treatment of MSSA bacteremia. Erythema to the left foot is more consistent with contact dermatitis from the drainage. Discussed elevation of left foot above level of heart to help with swelling and drainage. Will discharge on Keflex with ID follow-up in 2 weeks. Greater than 30 minutes spent managing the discharge of this patient. Vitals/I&O Vitals/I&O: Vital Signs Date Time Temp Pulse Resp B/P (MAP) Pulse Ox O2 Delivery O2 Flow Rate FiO2 11/08/20 10:52 98.0 69 18 190/99 (129) 100 Room Air 98.0 I & O 9/11/07/20 11/08/20 15:00 23:00 07:00 Intake Total 120 ml 120 ml Output Total 825 ml Balance 120 ml -705 ml Physical Exam General: Alert, Oriented X3, Cooperative, No acute distress Heart: Regular rate Lungs: Clear Abdomen: Normal bowel sounds, Soft, No tenderness, No hepatosplenomegaly, No masses Extremities: No clubbing, No cyanosis, No edema, Normal pulses Skin: Other (left lateral wound with packing, dorsal left foot wound with serous drainage, erythema, satellite lesions. Right foot wound with erythema and satellite lesions) Labs Labs: Laboratory Tests Test 11/07/20 15:40 11/07/20 19:42 11/07/20 21:17 11/08/20 03:55 White Blood Count 7.8 x10^3/uL (4.0-11.0) Red Blood Count 3.81 x10^6/uL (4.30-5.70) Hemoglobin 12.1 g/dL (13.0-17.5) Hematocrit 34.6 % (39.0-53.0) Mean Corpuscular Volume 91 fL (79-100) Mean Corpuscular Hemoglobin 32 pg (25-35) Mean Corpuscular Hemoglobin Concent 35 g/dL (31-37) Red Cell Distribution Width 13.0 % (11.5-14.5) Platelet Count 279 x10^3/uL (140-400) Neutrophils (%) (Auto) 60 % (31-73) Lymphocytes (%) (Auto) 23 % (24-48) Monocytes (%) (Auto) 6 % (0-9) Eosinophils (%) (Auto) 10 % (0-3) Basophils (%) (Auto) 1 % (0-3) Neutrophils # (Auto) 4.7 x10^3/uL (1.8-7.7) Lymphocytes # (Auto) 1.8 x10^3/uL (1.0-4.8) Monocytes # (Auto) 0.5 x10^3/uL (0.0-1.1) Eosinophils # (Auto) 0.7 x10^3/uL (0.0-0.7) Basophils # (Auto) 0.1 x10^3/uL (0.0-0.2) Erythrocyte Sedimentation Rate 63 (0-15) Sodium Level 140 mmol/L (136-145) Potassium Level 4.0 mmol/L (3.5-5.1) Chloride Level 102 mmol/L (98-107) Carbon Dioxide Level 29 mmol/L (21-32) Anion Gap 9 (6-14) Blood Urea Nitrogen 20 mg/dL (8-26) Creatinine 1.6 mg/dL (0.7-1.3) Estimated GFR (Cockcroft-Gault) 44.2 BUN/Creatinine Ratio 13 (6-20) Glucose Level 112 mg/dL (70-99) Calcium Level 9.2 mg/dL (8.5-10.1) Phosphorus Level 3.5 mg/dL (2.6-4.7) Magnesium Level 1.4 mg/dL (1.8-2.4) Iron Level 82 ug/dL (65-175) Total Iron Binding Capacity 284 ug/dL (250-450) Iron Saturation 29 % (15-34) Total Bilirubin 0.3 mg/dL (0.2-1.0) Aspartate Amino Transf (AST/SGOT) 19 U/L (15-37) Alanine Aminotransferase (ALT/SGPT) 31 U/L (16-63) Alkaline Phosphatase 155 U/L (46-116) Creatine Kinase 115 U/L (39-308) Creatine Kinase MB (Mass) 2.5 ng/mL (0.0-3.6) Creatine Kinase MB Relative Index 2.2 % (0-4) C-Reactive Protein, Quantitative 8.3 mg/L (0-3.3) Total Protein 7.9 g/dL (6.4-8.2) Albumin 3.2 g/dL (3.4-5.0) Albumin/Globulin Ratio 0.7 (1.0-1.7) Thyroid Stimulating Hormone (TSH) 1.621 uIU/mL (0.358-3.74) SARS-CoV-2 RNA (NEHEMIAS) Invalid (Negative) SARS-CoV-2 Antigen (Rapid) Negative (NEGATIVE) Glucose (Fingerstick) 90 mg/dL (70-99) Urine Collection Type Unknown Urine Color Yellow Urine Clarity Clear Urine pH 5.5 (<5.0-8.0) Urine Specific [place] 1.010 (1.000-1.030) Urine Protein >=300 mg/dL (NEG-TRACE) Urine Glucose (UA) Negative mg/dL (NEG) Urine Ketones (Stick) Negative mg/dL (NEG) Urine Blood Negative (NEG) Urine Nitrite Negative (NEG) Urine Bilirubin Negative (NEG) Urine Urobilinogen Dipstick 0.2 mg/dL (0.2 mg/dL) Urine Leukocyte Esterase Negative (NEG) Urine RBC Occ /HPF (0-2) Urine WBC Occ /HPF (0-4) Urine Squamous Epithelial Cells Occ /LPF Urine Bacteria 0 /HPF (0-FEW) Urine Hyaline Casts Occasional /HPF Urine Mucus Slight /LPF Test 11/08/20 04:10 11/08/20 07:46 White Blood Count 8.6 x10^3/uL (4.0-11.0) Red Blood Count 3.68 x10^6/uL (4.30-5.70) Hemoglobin 11.6 g/dL (13.0-17.5) Hematocrit 33.5 % (39.0-53.0) Mean Corpuscular Volume 91 fL (79-100) Mean Corpuscular Hemoglobin 31 pg (25-35) Mean Corpuscular Hemoglobin Concent 35 g/dL (31-37) Red Cell Distribution Width 12.7 % (11.5-14.5) Platelet Count 253 x10^3/uL (140-400) Neutrophils (%) (Auto) 64 % (31-73) Lymphocytes (%) (Auto) 20 % (24-48) Monocytes (%) (Auto) 6 % (0-9) Eosinophils (%) (Auto) 9 % (0-3) Basophils (%) (Auto) 1 % (0-3) Neutrophils # (Auto) 5.5 x10^3/uL (1.8-7.7) Lymphocytes # (Auto) 1.7 x10^3/uL (1.0-4.8) Monocytes # (Auto) 0.5 x10^3/uL (0.0-1.1) Eosinophils # (Auto) 0.7 x10^3/uL (0.0-0.7) Basophils # (Auto) 0.1 x10^3/uL (0.0-0.2) Sodium Level 140 mmol/L (136-145) Potassium Level 3.9 mmol/L (3.5-5.1) Chloride Level 105 mmol/L (98-107) Carbon Dioxide Level 29 mmol/L (21-32) Anion Gap 6 (6-14) Blood Urea Nitrogen 19 mg/dL (8-26) Creatinine 1.5 mg/dL (0.7-1.3) Estimated GFR (Cockcroft-Gault) 47.6 Glucose Level 78 mg/dL (70-99) Calcium Level 9.1 mg/dL (8.5-10.1) Glucose (Fingerstick) 99 mg/dL (70-99) Assessment and Plan Assessmemt and Plan Problems Medical Problems: (1) Foot osteomyelitis, left Status: Acute Comment Review of Relevant I have reviewed the following items stefan (where applicable) has been applied. Medications: Current Medications Medications (Trade) Dose Ordered Sig/Xander Route PRN Reason Start Time Stop Time Status Last Admin Dose Admin Linezolid/Dextrose 300 ml @ 300 mls/hr Q12H IV 11/08/20 06:00 11/08/20 06:02 Cefepime HCl (Maxipime) 2 gm 1X ONCE IVP 11/07/20 16:15 11/07/20 16:18 DC 11/07/20 16:28 Linezolid/Dextrose 300 ml @ 300 mls/hr 1X ONCE IV 11/07/20 16:30 11/07/20 17:29 DC 11/07/20 16:31 Acetaminophen/ Hydrocodone Bitart (Lortab 5/325) 2 tab 1X ONCE PO 11/07/20 18:00 11/07/20 18:01 DC 11/07/20 17:56 Fluconazole/ Sodium Chloride 100 ml @ 100 mls/hr 1X ONCE IV 11/07/20 20:00 11/07/20 20:59 DC 11/07/20 21:03 Levothyroxine Sodium (Synthroid) 300 mcg DAILY06 PO 11/08/20 06:00 11/08/20 06:02 Fentanyl Citrate (Fentanyl 2ml Vial) 25 mcg PRN Q3HRS PRN IVP SEVERE PAIN 7-10 11/07/20 21:00 11/07/20 22:14 Heparin Sodium (Porcine) (Heparin Sodium) 5,000 unit Q8HRS SQ 11/07/20 22:00 11/08/20 06:07 Acetaminophen (Tylenol) 650 mg PRN Q6HRS PRN PO MILD PAIN / TEMP > 100.3'F 11/07/20 21:00 11/08/20 07:59 Acetaminophen/ Hydrocodone Bitart (Lortab 5/325) 2 tab PRN Q6HRS PRN PO MODERATE PAIN, SEVERE PAIN 11/07/20 21:00 11/08/20 03:54 Zolpidem Tartrate (Ambien) 5 mg PRN QHS PRN PO INSOMNIA 11/07/20 21:00 11/07/20 23:03 Losartan Potassium (Cozaar) 25 mg DAILY PO 11/08/20 09:00 11/08/20 07:55 Justifications for Admission Other Justification MARQUITA CRAIN MD Nov 08, 2020 11:07
[2020-11-08] MEDS ORDERED: DOXA4TAB3 PO (11:27)
[2020-11-08] MEDS ORDERED: LACTOBACILLUS RHAMNOSUS GG 1 CAPSULE. PO SCH (12:00)
[2020-11-08] MEDS ORDERED: DOXAZOSIN MESYLATE 4 MG TABLET. PO SCH (12:00)
--- NOTE | 2020-11-08 12:18 | PDOC3 ---
Discharge Summary Visit Information Date of Admission: Nov 07, 2020 Date of Discharge: Nov 08, 2020 Final Diagnosis Problems Medical Problems: (1) Foot osteomyelitis, left Status: Acute Brief Hospital Course Allergies Allergies Coded Allergies Type Severity Reaction Last Updated Verified No Known Drug Allergies 07/19/20 No Vital Signs Vital Signs Date Time Temp Pulse Resp B/P (MAP) Pulse Ox O2 Delivery O2 Flow Rate FiO2 11/08/20 10:52 98.0 69 18 190/99 (129) 100 Room Air 98.0 Lab Results Laboratory Tests Test 11/07/20 15:40 11/07/20 19:42 11/07/20 21:17 11/08/20 03:55 White Blood Count 7.8 x10^3/uL (4.0-11.0) Red Blood Count 3.81 x10^6/uL (4.30-5.70) Hemoglobin 12.1 g/dL (13.0-17.5) Hematocrit 34.6 % (39.0-53.0) Mean Corpuscular Volume 91 fL (79-100) Mean Corpuscular Hemoglobin 32 pg (25-35) Mean Corpuscular Hemoglobin Concent 35 g/dL (31-37) Red Cell Distribution Width 13.0 % (11.5-14.5) Platelet Count 279 x10^3/uL (140-400) Neutrophils (%) (Auto) 60 % (31-73) Lymphocytes (%) (Auto) 23 % (24-48) Monocytes (%) (Auto) 6 % (0-9) Eosinophils (%) (Auto) 10 % (0-3) Basophils (%) (Auto) 1 % (0-3) Neutrophils # (Auto) 4.7 x10^3/uL (1.8-7.7) Lymphocytes # (Auto) 1.8 x10^3/uL (1.0-4.8) Monocytes # (Auto) 0.5 x10^3/uL (0.0-1.1) Eosinophils # (Auto) 0.7 x10^3/uL (0.0-0.7) Basophils # (Auto) 0.1 x10^3/uL (0.0-0.2) Erythrocyte Sedimentation Rate 63 (0-15) Sodium Level 140 mmol/L (136-145) Potassium Level 4.0 mmol/L (3.5-5.1) Chloride Level 102 mmol/L (98-107) Carbon Dioxide Level 29 mmol/L (21-32) Anion Gap 9 (6-14) Blood Urea Nitrogen 20 mg/dL (8-26) Creatinine 1.6 mg/dL (0.7-1.3) Estimated GFR (Cockcroft-Gault) 44.2 BUN/Creatinine Ratio 13 (6-20) Glucose Level 112 mg/dL (70-99) Calcium Level 9.2 mg/dL (8.5-10.1) Phosphorus Level 3.5 mg/dL (2.6-4.7) Magnesium Level 1.4 mg/dL (1.8-2.4) Iron Level 82 ug/dL (65-175) Total Iron Binding Capacity 284 ug/dL (250-450) Iron Saturation 29 % (15-34) Total Bilirubin 0.3 mg/dL (0.2-1.0) Aspartate Amino Transf (AST/SGOT) 19 U/L (15-37) Alanine Aminotransferase (ALT/SGPT) 31 U/L (16-63) Alkaline Phosphatase 155 U/L (46-116) Creatine Kinase 115 U/L (39-308) Creatine Kinase MB (Mass) 2.5 ng/mL (0.0-3.6) Creatine Kinase MB Relative Index 2.2 % (0-4) C-Reactive Protein, Quantitative 8.3 mg/L (0-3.3) Total Protein 7.9 g/dL (6.4-8.2) Albumin 3.2 g/dL (3.4-5.0) Albumin/Globulin Ratio 0.7 (1.0-1.7) Thyroid Stimulating Hormone (TSH) 1.621 uIU/mL (0.358-3.74) SARS-CoV-2 RNA (NEHEMIAS) Invalid (Negative) SARS-CoV-2 Antigen (Rapid) Negative (NEGATIVE) Glucose (Fingerstick) 90 mg/dL (70-99) Urine Collection Type Unknown Urine Color Yellow Urine Clarity Clear Urine pH 5.5 (<5.0-8.0) Urine Specific [place] 1.010 (1.000-1.030) Urine Protein >=300 mg/dL (NEG-TRACE) Urine Glucose (UA) Negative mg/dL (NEG) Urine Ketones (Stick) Negative mg/dL (NEG) Urine Blood Negative (NEG) Urine Nitrite Negative (NEG) Urine Bilirubin Negative (NEG) Urine Urobilinogen Dipstick 0.2 mg/dL (0.2 mg/dL) Urine Leukocyte Esterase Negative (NEG) Urine RBC Occ /HPF (0-2) Urine WBC Occ /HPF (0-4) Urine Squamous Epithelial Cells Occ /LPF Urine Bacteria 0 /HPF (0-FEW) Urine Hyaline Casts Occasional /HPF Urine Mucus Slight /LPF Test 11/08/20 04:10 11/08/20 07:46 White Blood Count 8.6 x10^3/uL (4.0-11.0) Red Blood Count 3.68 x10^6/uL (4.30-5.70) Hemoglobin 11.6 g/dL (13.0-17.5) Hematocrit 33.5 % (39.0-53.0) Mean Corpuscular Volume 91 fL (79-100) Mean Corpuscular Hemoglobin 31 pg (25-35) Mean Corpuscular Hemoglobin Concent 35 g/dL (31-37) Red Cell Distribution Width 12.7 % (11.5-14.5) Platelet Count 253 x10^3/uL (140-400) Neutrophils (%) (Auto) 64 % (31-73) Lymphocytes (%) (Auto) 20 % (24-48) Monocytes (%) (Auto) 6 % (0-9) Eosinophils (%) (Auto) 9 % (0-3) Basophils (%) (Auto) 1 % (0-3) Neutrophils # (Auto) 5.5 x10^3/uL (1.8-7.7) Lymphocytes # (Auto) 1.7 x10^3/uL (1.0-4.8) Monocytes # (Auto) 0.5 x10^3/uL (0.0-1.1) Eosinophils # (Auto) 0.7 x10^3/uL (0.0-0.7) Basophils # (Auto) 0.1 x10^3/uL (0.0-0.2) Sodium Level 140 mmol/L (136-145) Potassium Level 3.9 mmol/L (3.5-5.1) Chloride Level 105 mmol/L (98-107) Carbon Dioxide Level 29 mmol/L (21-32) Anion Gap 6 (6-14) Blood Urea Nitrogen 19 mg/dL (8-26) Creatinine 1.5 mg/dL (0.7-1.3) Estimated GFR (Cockcroft-Gault) 47.6 Glucose Level 78 mg/dL (70-99) Calcium Level 9.1 mg/dL (8.5-10.1) Glucose (Fingerstick) 99 mg/dL (70-99) Laboratory Tests Test 11/07/20 15:40 11/07/20 19:42 11/07/20 21:17 11/08/20 03:55 White Blood Count 7.8 x10^3/uL (4.0-11.0) Red Blood Count 3.81 x10^6/uL (4.30-5.70) Hemoglobin 12.1 g/dL (13.0-17.5) Hematocrit 34.6 % (39.0-53.0) Mean Corpuscular Volume 91 fL (79-100) Mean Corpuscular Hemoglobin 32 pg (25-35) Mean Corpuscular Hemoglobin Concent 35 g/dL (31-37) Red Cell Distribution Width 13.0 % (11.5-14.5) Platelet Count 279 x10^3/uL (140-400) Neutrophils (%) (Auto) 60 % (31-73) Lymphocytes (%) (Auto) 23 % (24-48) Monocytes (%) (Auto) 6 % (0-9) Eosinophils (%) (Auto) 10 % (0-3) Basophils (%) (Auto) 1 % (0-3) Neutrophils # (Auto) 4.7 x10^3/uL (1.8-7.7) Lymphocytes # (Auto) 1.8 x10^3/uL (1.0-4.8) Monocytes # (Auto) 0.5 x10^3/uL (0.0-1.1) Eosinophils # (Auto) 0.7 x10^3/uL (0.0-0.7) Basophils # (Auto) 0.1 x10^3/uL (0.0-0.2) Erythrocyte Sedimentation Rate 63 (0-15) Sodium Level 140 mmol/L (136-145) Potassium Level 4.0 mmol/L (3.5-5.1) Chloride Level 102 mmol/L (98-107) Carbon Dioxide Level 29 mmol/L (21-32) Anion Gap 9 (6-14) Blood Urea Nitrogen 20 mg/dL (8-26) Creatinine 1.6 mg/dL (0.7-1.3) Estimated GFR (Cockcroft-Gault) 44.2 BUN/Creatinine Ratio 13 (6-20) Glucose Level 112 mg/dL (70-99) Calcium Level 9.2 mg/dL (8.5-10.1) Phosphorus Level 3.5 mg/dL (2.6-4.7) Magnesium Level 1.4 mg/dL (1.8-2.4) Iron Level 82 ug/dL (65-175) Total Iron Binding Capacity 284 ug/dL (250-450) Iron Saturation 29 % (15-34) Total Bilirubin 0.3 mg/dL (0.2-1.0) Aspartate Amino Transf (AST/SGOT) 19 U/L (15-37) Alanine Aminotransferase (ALT/SGPT) 31 U/L (16-63) Alkaline Phosphatase 155 U/L (46-116) Creatine Kinase 115 U/L (39-308) Creatine Kinase MB (Mass) 2.5 ng/mL (0.0-3.6) Creatine Kinase MB Relative Index 2.2 % (0-4) C-Reactive Protein, Quantitative 8.3 mg/L (0-3.3) Total Protein 7.9 g/dL (6.4-8.2) Albumin 3.2 g/dL (3.4-5.0) Albumin/Globulin Ratio 0.7 (1.0-1.7) Thyroid Stimulating Hormone (TSH) 1.621 uIU/mL (0.358-3.74) SARS-CoV-2 RNA (NEHEMIAS) Invalid (Negative) SARS-CoV-2 Antigen (Rapid) Negative (NEGATIVE) Glucose (Fingerstick) 90 mg/dL (70-99) Urine Collection Type Unknown Urine Color Yellow Urine Clarity Clear Urine pH 5.5 (<5.0-8.0) Urine Specific [place] 1.010 (1.000-1.030) Urine Protein >=300 mg/dL (NEG-TRACE) Urine Glucose (UA) Negative mg/dL (NEG) Urine Ketones (Stick) Negative mg/dL (NEG) Urine Blood Negative (NEG) Urine Nitrite Negative (NEG) Urine Bilirubin Negative (NEG) Urine Urobilinogen Dipstick 0.2 mg/dL (0.2 mg/dL) Urine Leukocyte Esterase Negative (NEG) Urine RBC Occ /HPF (0-2) Urine WBC Occ /HPF (0-4) Urine Squamous Epithelial Cells Occ /LPF Urine Bacteria 0 /HPF (0-FEW) Urine Hyaline Casts Occasional /HPF Urine Mucus Slight /LPF Test 11/08/20 04:10 11/08/20 07:46 White Blood Count 8.6 x10^3/uL (4.0-11.0) Red Blood Count 3.68 x10^6/uL (4.30-5.70) Hemoglobin 11.6 g/dL (13.0-17.5) Hematocrit 33.5 % (39.0-53.0) Mean Corpuscular Volume 91 fL (79-100) Mean Corpuscular Hemoglobin 31 pg (25-35) Mean Corpuscular Hemoglobin Concent 35 g/dL (31-37) Red Cell Distribution Width 12.7 % (11.5-14.5) Platelet Count 253 x10^3/uL (140-400) Neutrophils (%) (Auto) 64 % (31-73) Lymphocytes (%) (Auto) 20 % (24-48) Monocytes (%) (Auto) 6 % (0-9) Eosinophils (%) (Auto) 9 % (0-3) Basophils (%) (Auto) 1 % (0-3) Neutrophils # (Auto) 5.5 x10^3/uL (1.8-7.7) Lymphocytes # (Auto) 1.7 x10^3/uL (1.0-4.8) Monocytes # (Auto) 0.5 x10^3/uL (0.0-1.1) Eosinophils # (Auto) 0.7 x10^3/uL (0.0-0.7) Basophils # (Auto) 0.1 x10^3/uL (0.0-0.2) Sodium Level 140 mmol/L (136-145) Potassium Level 3.9 mmol/L (3.5-5.1) Chloride Level 105 mmol/L (98-107) Carbon Dioxide Level 29 mmol/L (21-32) Anion Gap 6 (6-14) Blood Urea Nitrogen 19 mg/dL (8-26) Creatinine 1.5 mg/dL (0.7-1.3) Estimated GFR (Cockcroft-Gault) 47.6 Glucose Level 78 mg/dL (70-99) Calcium Level 9.1 mg/dL (8.5-10.1) Glucose (Fingerstick) 99 mg/dL (70-99) Brief Hospital Course Mr Harrington is a 60 year old male with PMHx DM2, HTN and diabetic neuropathy with prior bilateral foot surgeries who presents to the emergency department complaining of left foot pain and rash that started today when he woke up. Patient states his wounds were healing but his home health nurse noticed today there was a sudden onset of redness around all 4 wounds (3 on left foot, 1 on right). He does note the wound have occasionally gotten moist recently and he has been keeping them covered 17/09, only removing dressings to bathe, and tries his best to prevent soaking his feet. Patient reports he called Dr. Persaud's office for infectious disease and they recommended he come to the emergency department for evaluation. Previously was transferred from [place] with bialteral leg wounds and on 07/21/2020 underwent partial amputation of the left third toe with primary closure and I&D and packing of right dorsal foot abscess. On 07/27/2020 returned to OR for I&D abscesses x 3, left dorsal and lateral mid foot and debridement, full thickness of right dorsal foot wound Subsequently on 08/02/2020 returned to OR for excisional debridement of both feet including skin, subcutaneous tissue, and tendon of 3 wounds on left foot and 1 wound on right foot with wound VAC placement to both feet. Ultimately cultures grew MSSA 4/4 bottles positive in the blood from 07/18/2020 and after negative repeat cultures and negative BRYAN for vegetations on 07/26/2020 he had PICC placed for 8 weeks of outpatient nafcillin/cefazolin and he has been managed on p.o. Keflex since removal of his PICC. He notes he has had both ID and vascular surgery follow up outpatient and had MRI of left foot recently at the diagnostic imaging center (not currently available to me). Labs with WBC 7.8, Hb 12.1, platelets 279, ESR 63, CRP 8.3, albumin 3.2, alkaline phosphatase 135, ALT 31, AST 19, NA 140, K4, BUN 20, CR 1.6, glucose 112, phosphorus 3.5, magnesium 1.4, calcium 9.2 Left foot radiograph with dorsal foot soft tissue swelling and bone lysis and lamellated periostitis of the second and third metatarsals since prior imaging from June 2020, raising concern for chronic osteomyelitis, by radiology report. ED contacted ID and started on empiric cefepime and zyvox and diflucan x1 and admitted for further care. 11/08/2020: Patient seen and evaluated. Afebrile, denies significant pain. Does note chronic pain to his left foot, of which he does have evaluation scheduled in November. He is well-known to our ID physicians for prior treatment of MSSA bacteremia. Erythema to the left foot is more consistent with contact dermatitis from the drainage. Discussed elevation of left foot above level of heart to help with swelling and drainage. Will discharge on Keflex with ID follow-up in 2 weeks. Greater than 30 minutes spent managing the discharge of this patient. Discharge Information Condition at Discharge: Stable Disposition/Orders: D/C to Home Scheduled Doxazosin Mesylate (Doxazosin Mesylate) 4 Mg Tablet, 1 TAB PO DAILY for htn, #30 Ref 5 (Reported) Entered as Reported by: PARVIZ PONCE on 11/08/201126 Last Action: Continued on 11/08/201137 by PARVIZ PONCE Insulin Glargine,Hum.rec.anlog (Lantus Solostar) 100 Unit/1 Ml Insuln.pen, 25 UNIT SQ HS for DM, (Reported) Entered as Reported by: SATURNINO DALEY on 07/19/20153 Last Action: Converted on 11/07/202100 by SAMM RAMIREZ MD Levothyroxine Sodium (Levothyroxine Sodium) 100 Mcg Tablet, 300 MCG PO DAILYAC for THYROID SUPPLEMENT, #30 Ref 0 (Reported) Entered as Reported by: SATURNINO DALEY on 07/19/20153 Last Action: Continued on 11/07/202100 by SAMM RAMIREZ MD Liraglutide (Victoza 3-Mundo) 0.6 Mg/0.1 Ml Pen.injctr, 1.8 MG SQ DAILY for DM, (Reported) Entered as Reported by: SATURNINO DALEY on 07/19/20153 Scheduled PRN Calcium Carb/Magnesium Hydrox (Rolaids Chewable Tablet) 1 Each Tab.chew, 1 EACH PO PRN PRN for HEARTBURN / GAS, (Reported) Entered as Reported by: SATURNINO DALEY on 07/19/20153 Diphenhydramine Hcl (Benadryl Allergy) 25 Mg Tablet, 25 MG PO PRN DAILY PRN for ALLERGIES, (Reported) Entered as Reported by: SATURNINO DALEY on 07/19/20153 Last Action: Converted on 11/07/202100 by SAMM RAMIREZ MD Discontinued Medications Doxazosin Mesylate (Cardura) 2 Mg Tablet, 2 MG PO DAILY for HTN, (Reported) Entered as Reported by: SATURNINO DALEY on 07/19/20153 Last Action: Discontinued on 11/08/201126 by PARVIZ PONCE Justicifation of Admission Dx: Justifications for Admission: Justification of Admission Dx: Yes MARQUITA CRAIN MD Nov 08, 2020 12:18
[2020-11-08] MEDS ORDERED: CEPH500C PO (12:21)
--- NOTE | 2020-11-08 12:38 | PDOC2 ---
CONSULT Date of Service Date of Service DATE: 11/08/20 TIME: 12:29 Reason for Consult Reason for Consult: Left foot wounds Referring Physician Referring Physician: Dr. Carlo Shaikh Identification/Chief Complaint Chief Complaint Edema left foot with drainage from wounds Source Source: Patient History of Present Illness Reason for Visit: This is a 60-year-old male who was advised by his home health nurse to seek evaluation for drainage from his left foot wounds. He was admitted last night with concern for possible osteomyelitis based on x-ray evaluation. He reports for the past few days having clear drainage of new onset from his left foot wounds. He has been applying a moist dressing to his wounds leaving this in place. He denies any fevers chills or malaise. He does have some foot pain on his lateral foot with ambulation that has been somewhat worse recently. He denies any history of DVT or recent travel. He has been inactive related to pain in his left foot when walking. Past Medical History Cardiovascular: HTN, Hyperlipidemia CENTRAL NERVOUS SYSTEM: Periperal neuropathy Renal/: Chronic renal insuff Endocrine: Diabetes, Hypothyroidism Past Surgical History Past Surgical History During June and July of this year he had multiple dbridements of ulcers on both of his feet Past Surgical History: Tonsillectomy, Other Family History Family History Negative for anesthetic problems Social History No (He used to chew tobacco many years ago, now uses CBD oil.) ALCOHOL: rare Drugs: None Current Problem List Problem List Problems Medical Problems: (1) Foot osteomyelitis, left Status: Acute Current Medications Current Medications Current Medications Vancomycin HCl (Vanco Per Pharmacy) 1 each PRN DAILY PRN MC SEE COMMENTS; Start 11/07/20 at 16:00; Status UNV Vancomycin HCl 2 gm/Sodium Chloride 500 ml @ 250 mls/hr 1X ONCE IV ; Start 11/07/20 at 17:00; Stop 11/07/20 at 18:59; Status Cancel Linezolid/Dextrose 300 ml @ 300 mls/hr Q12H IV Last administered on 11/08/20at 06:02; Start 11/08/20 at 06:00 Cefepime HCl (Maxipime) 2 gm 1X ONCE IVP Last administered on 11/07/20at 16:28; Start 11/07/20 at 16:15; Stop 11/07/20 at 16:18; Status DC Linezolid/Dextrose 300 ml @ 300 mls/hr 1X ONCE IV Last administered on 11/07/20at 16:31; Start 11/07/20 at 16:30; Stop 11/07/20 at 17:29; Status DC Acetaminophen/ Hydrocodone Bitart (Lortab 5/325) 2 tab 1X ONCE PO Last administered on 11/07/20at 17:56; Start 11/07/20 at 18:00; Stop 11/07/20 at 18:01; Status DC Fluconazole/ Sodium Chloride 100 ml @ 100 mls/hr 1X ONCE IV Last administered on 11/07/20at 21:03; Start 11/07/20 at 20:00; Stop 11/07/20 at 20:59; Status DC Levothyroxine Sodium (Synthroid) 300 mcg DAILY06 PO Last administered on 11/08/20at 06:02; Start 11/08/20 at 06:00 Diphenhydramine HCl (Benadryl) 25 mg PRN DAILY PRN PO ALLERGIES; Start 11/07/20 at 21:15 Insulin Glargine (Lantus Syringe) 12 unit QHS SQ ; Start 11/07/20 at 22:00 Insulin Human Lispro (HumaLOG) 0-7 UNITS TIDWMEALS SQ ; Start 11/08/20 at 08:00 Dextrose (Dextrose 50%-Water Syringe) 12.5 gm PRN Q15MIN PRN IV SEE COMMENTS; Start 11/07/20 at 21:00 Fentanyl Citrate (Fentanyl 2ml Vial) 25 mcg PRN Q3HRS PRN IVP SEVERE PAIN 7-10 Last administered on 11/07/20at 22:14; Start 11/07/20 at 21:00 Heparin Sodium (Porcine) (Heparin Sodium) 5,000 unit Q8HRS SQ Last administered on 11/08/20at 06:07; Start 11/07/20 at 22:00 Acetaminophen (Tylenol) 650 mg PRN Q6HRS PRN PO MILD PAIN / TEMP > 100.3'F Last administered on 11/08/20at 07:59; Start 11/07/20 at 21:00 Ondansetron HCl (Zofran) 4 mg PRN Q4HRS PRN IVP NAUSEA/VOMITING 1ST CHOICE; Start 11/07/20 at 21:00 Acetaminophen/ Hydrocodone Bitart (Lortab 5/325) 1 tab PRN Q6HRS PRN PO MILD PAIN 1-3; Start 11/07/20 at 21:00 Acetaminophen/ Hydrocodone Bitart (Lortab 5/325) 2 tab PRN Q6HRS PRN PO MODERATE PAIN, SEVERE PAIN Last administered on 11/08/20at 03:54; Start 11/07/20 at 21:00 Zolpidem Tartrate (Ambien) 5 mg PRN QHS PRN PO INSOMNIA Last administered on 11/07/20at 23:03; Start 11/07/20 at 21:00 Losartan Potassium (Cozaar) 25 mg DAILY PO Last administered on 11/08/20at 07:55; Start 11/08/20 at 09:00 Lactobacillus Rhamnosus (Culturelle) 1 cap BID PO ; Start 11/08/20 at 12:00 Doxazosin Mesylate (Cardura) 4 mg DAILY PO ; Start 11/08/20 at 12:00 Active Scripts Active Keflex (Cephalexin) 500 Mg Capsule 1 Cap PO QID 10 Days Reported Doxazosin Mesylate 4 Mg Tablet 1 Tab PO DAILY Benadryl Allergy (Diphenhydramine Hcl) 25 Mg Tablet 25 Mg PO PRN DAILY PRN Rolaids Chewable Tablet (Calcium Carb/Magnesium Hydrox) 1 Each Tab.chew 1 Each PO PRN PRN Levothyroxine Sodium 100 Mcg Tablet 300 Mcg PO DAILYAC Victoza 3-Mundo (Liraglutide) 0.6 Mg/0.1 Ml Pen.injctr 1.8 Mg SQ DAILY Lantus Solostar (Insulin Glargine,Hum.rec.anlog) 100 Unit/1 Ml Insuln.pen 25 Unit SQ HS Allergies Allergies: Coded Allergies: No Known Drug Allergies (Unverified , 07/19/20) ROS General: No: Chills, Night Sweats PSYCHOLOGICAL ROS: No: Disorientation Eyes: No Blurry vision, No Decreased vision HEENT: No: Heacaches, Visual Changes ALLERGY AND IMMUNOLOGY: No: Hives Hematological and Lymphatic: No: Blood Clots, Swollen Lymph Nodes ENDOCRINE: No: Hot Flashes Respiratory: No: Cough, Hemoptysis Cardiovascular: No Chest Pain, No Palpitations Gastrointestinal: No Nausea, No Vomiting, No Abdominal Pain Genitourinary: No Dysuria, No Frequency Musculoskeletal: Yes Joint Pain Neurological: No Behavorial Changes, No Dizziness Skin: Yes Skin Lesion Changes Physical Exam General: Alert, Oriented X3 HEENT: PERRLA, EOMI Lungs: Normal air movement Heart: Regular rate Abdomen: Soft, No tenderness, Other (Obese) Extremities: Other (2+ palpable dorsalis pedis pulses bilaterally, 2+ femoral pulses and popliteal pulses on the left) Skin: Other (On his right foot there is a well-healed scar on the dorsum. On his left foot on the dorsum there is excoriation surrounding a well-healed scar on the left lateral foot there is also some excoriation around surrounding well-healed scars. There is no tunneling of these ulcers and no expressible drainage. There is no concern for fluctuance or abscess) Neuro: Sensation intact Psych/Mental Status: Mental status NL, Mood NL MUSCULOSKELETAL: Other (He does have moderate edema of his left foot. He has some mild midfoot deformity on the left. He has a well-healed third toe amputation the left) Vitals VITALS Vital Signs Date Time Temp Pulse Resp B/P (MAP) Pulse Ox O2 Delivery O2 Flow Rate FiO2 11/08/20 10:52 98.0 69 18 190/99 (129) 100 Room Air 98.0 Labs Labs Laboratory Tests Test 11/07/20 15:40 11/07/20 19:42 11/07/20 21:17 11/08/20 03:55 White Blood Count 7.8 x10^3/uL (4.0-11.0) Red Blood Count 3.81 x10^6/uL (4.30-5.70) Hemoglobin 12.1 g/dL (13.0-17.5) Hematocrit 34.6 % (39.0-53.0) Mean Corpuscular Volume 91 fL (79-100) Mean Corpuscular Hemoglobin 32 pg (25-35) Mean Corpuscular Hemoglobin Concent 35 g/dL (31-37) Red Cell Distribution Width 13.0 % (11.5-14.5) Platelet Count 279 x10^3/uL (140-400) Neutrophils (%) (Auto) 60 % (31-73) Lymphocytes (%) (Auto) 23 % (24-48) Monocytes (%) (Auto) 6 % (0-9) Eosinophils (%) (Auto) 10 % (0-3) Basophils (%) (Auto) 1 % (0-3) Neutrophils # (Auto) 4.7 x10^3/uL (1.8-7.7) Lymphocytes # (Auto) 1.8 x10^3/uL (1.0-4.8) Monocytes # (Auto) 0.5 x10^3/uL (0.0-1.1) Eosinophils # (Auto) 0.7 x10^3/uL (0.0-0.7) Basophils # (Auto) 0.1 x10^3/uL (0.0-0.2) Erythrocyte Sedimentation Rate 63 (0-15) Sodium Level 140 mmol/L (136-145) Potassium Level 4.0 mmol/L (3.5-5.1) Chloride Level 102 mmol/L (98-107) Carbon Dioxide Level 29 mmol/L (21-32) Anion Gap 9 (6-14) Blood Urea Nitrogen 20 mg/dL (8-26) Creatinine 1.6 mg/dL (0.7-1.3) Estimated GFR (Cockcroft-Gault) 44.2 BUN/Creatinine Ratio 13 (6-20) Glucose Level 112 mg/dL (70-99) Calcium Level 9.2 mg/dL (8.5-10.1) Phosphorus Level 3.5 mg/dL (2.6-4.7) Magnesium Level 1.4 mg/dL (1.8-2.4) Iron Level 82 ug/dL (65-175) Total Iron Binding Capacity 284 ug/dL (250-450) Iron Saturation 29 % (15-34) Total Bilirubin 0.3 mg/dL (0.2-1.0) Aspartate Amino Transf (AST/SGOT) 19 U/L (15-37) Alanine Aminotransferase (ALT/SGPT) 31 U/L (16-63) Alkaline Phosphatase 155 U/L (46-116) Creatine Kinase 115 U/L (39-308) Creatine Kinase MB (Mass) 2.5 ng/mL (0.0-3.6) Creatine Kinase MB Relative Index 2.2 % (0-4) C-Reactive Protein, Quantitative 8.3 mg/L (0-3.3) Total Protein 7.9 g/dL (6.4-8.2) Albumin 3.2 g/dL (3.4-5.0) Albumin/Globulin Ratio 0.7 (1.0-1.7) Thyroid Stimulating Hormone (TSH) 1.621 uIU/mL (0.358-3.74) SARS-CoV-2 RNA (NEHEMIAS) Invalid (Negative) SARS-CoV-2 Antigen (Rapid) Negative (NEGATIVE) Glucose (Fingerstick) 90 mg/dL (70-99) Urine Collection Type Unknown Urine Color Yellow Urine Clarity Clear Urine pH 5.5 (<5.0-8.0) Urine Specific [place] 1.010 (1.000-1.030) Urine Protein >=300 mg/dL (NEG-TRACE) Urine Glucose (UA) Negative mg/dL (NEG) Urine Ketones (Stick) Negative mg/dL (NEG) Urine Blood Negative (NEG) Urine Nitrite Negative (NEG) Urine Bilirubin Negative (NEG) Urine Urobilinogen Dipstick 0.2 mg/dL (0.2 mg/dL) Urine Leukocyte Esterase Negative (NEG) Urine RBC Occ /HPF (0-2) Urine WBC Occ /HPF (0-4) Urine Squamous Epithelial Cells Occ /LPF Urine Bacteria 0 /HPF (0-FEW) Urine Hyaline Casts Occasional /HPF Urine Mucus Slight /LPF Test 11/08/20 04:10 11/08/20 07:46 11/08/20 12:25 White Blood Count 8.6 x10^3/uL (4.0-11.0) Red Blood Count 3.68 x10^6/uL (4.30-5.70) Hemoglobin 11.6 g/dL (13.0-17.5) Hematocrit 33.5 % (39.0-53.0) Mean Corpuscular Volume 91 fL (79-100) Mean Corpuscular Hemoglobin 31 pg (25-35) Mean Corpuscular Hemoglobin Concent 35 g/dL (31-37) Red Cell Distribution Width 12.7 % (11.5-14.5) Platelet Count 253 x10^3/uL (140-400) Neutrophils (%) (Auto) 64 % (31-73) Lymphocytes (%) (Auto) 20 % (24-48) Monocytes (%) (Auto) 6 % (0-9) Eosinophils (%) (Auto) 9 % (0-3) Basophils (%) (Auto) 1 % (0-3) Neutrophils # (Auto) 5.5 x10^3/uL (1.8-7.7) Lymphocytes # (Auto) 1.7 x10^3/uL (1.0-4.8) Monocytes # (Auto) 0.5 x10^3/uL (0.0-1.1) Eosinophils # (Auto) 0.7 x10^3/uL (0.0-0.7) Basophils # (Auto) 0.1 x10^3/uL (0.0-0.2) Sodium Level 140 mmol/L (136-145) Potassium Level 3.9 mmol/L (3.5-5.1) Chloride Level 105 mmol/L (98-107) Carbon Dioxide Level 29 mmol/L (21-32) Anion Gap 6 (6-14) Blood Urea Nitrogen 19 mg/dL (8-26) Creatinine 1.5 mg/dL (0.7-1.3) Estimated GFR (Cockcroft-Gault) 47.6 Glucose Level 78 mg/dL (70-99) Calcium Level 9.1 mg/dL (8.5-10.1) Glucose (Fingerstick) 99 mg/dL (70-99) 116 mg/dL (70-99) Laboratory Tests Test 11/07/20 15:40 11/07/20 19:42 11/07/20 21:17 11/08/20 03:55 White Blood Count 7.8 x10^3/uL (4.0-11.0) Red Blood Count 3.81 x10^6/uL (4.30-5.70) Hemoglobin 12.1 g/dL (13.0-17.5) Hematocrit 34.6 % (39.0-53.0) Mean Corpuscular Volume 91 fL (79-100) Mean Corpuscular Hemoglobin 32 pg (25-35) Mean Corpuscular Hemoglobin Concent 35 g/dL (31-37) Red Cell Distribution Width 13.0 % (11.5-14.5) Platelet Count 279 x10^3/uL (140-400) Neutrophils (%) (Auto) 60 % (31-73) Lymphocytes (%) (Auto) 23 % (24-48) Monocytes (%) (Auto) 6 % (0-9) Eosinophils (%) (Auto) 10 % (0-3) Basophils (%) (Auto) 1 % (0-3) Neutrophils # (Auto) 4.7 x10^3/uL (1.8-7.7) Lymphocytes # (Auto) 1.8 x10^3/uL (1.0-4.8) Monocytes # (Auto) 0.5 x10^3/uL (0.0-1.1) Eosinophils # (Auto) 0.7 x10^3/uL (0.0-0.7) Basophils # (Auto) 0.1 x10^3/uL (0.0-0.2) Erythrocyte Sedimentation Rate 63 (0-15) Sodium Level 140 mmol/L (136-145) Potassium Level 4.0 mmol/L (3.5-5.1) Chloride Level 102 mmol/L (98-107) Carbon Dioxide Level 29 mmol/L (21-32) Anion Gap 9 (6-14) Blood Urea Nitrogen 20 mg/dL (8-26) Creatinine 1.6 mg/dL (0.7-1.3) Estimated GFR (Cockcroft-Gault) 44.2 BUN/Creatinine Ratio 13 (6-20) Glucose Level 112 mg/dL (70-99) Calcium Level 9.2 mg/dL (8.5-10.1) Phosphorus Level 3.5 mg/dL (2.6-4.7) Magnesium Level 1.4 mg/dL (1.8-2.4) Iron Level 82 ug/dL (65-175) Total Iron Binding Capacity 284 ug/dL (250-450) Iron Saturation 29 % (15-34) Total Bilirubin 0.3 mg/dL (0.2-1.0) Aspartate Amino Transf (AST/SGOT) 19 U/L (15-37) Alanine Aminotransferase (ALT/SGPT) 31 U/L (16-63) Alkaline Phosphatase 155 U/L (46-116) Creatine Kinase 115 U/L (39-308) Creatine Kinase MB (Mass) 2.5 ng/mL (0.0-3.6) Creatine Kinase MB Relative Index 2.2 % (0-4) C-Reactive Protein, Quantitative 8.3 mg/L (0-3.3) Total Protein 7.9 g/dL (6.4-8.2) Albumin 3.2 g/dL (3.4-5.0) Albumin/Globulin Ratio 0.7 (1.0-1.7) Thyroid Stimulating Hormone (TSH) 1.621 uIU/mL (0.358-3.74) SARS-CoV-2 RNA (NEHEMIAS) Invalid (Negative) SARS-CoV-2 Antigen (Rapid) Negative (NEGATIVE) Glucose (Fingerstick) 90 mg/dL (70-99) Urine Collection Type Unknown Urine Color Yellow Urine Clarity Clear Urine pH 5.5 (<5.0-8.0) Urine Specific [place] 1.010 (1.000-1.030) Urine Protein >=300 mg/dL (NEG-TRACE) Urine Glucose (UA) Negative mg/dL (NEG) Urine Ketones (Stick) Negative mg/dL (NEG) Urine Blood Negative (NEG) Urine Nitrite Negative (NEG) Urine Bilirubin Negative (NEG) Urine Urobilinogen Dipstick 0.2 mg/dL (0.2 mg/dL) Urine Leukocyte Esterase Negative (NEG) Urine RBC Occ /HPF (0-2) Urine WBC Occ /HPF (0-4) Urine Squamous Epithelial Cells Occ /LPF Urine Bacteria 0 /HPF (0-FEW) Urine Hyaline Casts Occasional /HPF Urine Mucus Slight /LPF Test 11/08/20 04:10 11/08/20 07:46 11/08/20 12:25 White Blood Count 8.6 x10^3/uL (4.0-11.0) Red Blood Count 3.68 x10^6/uL (4.30-5.70) Hemoglobin 11.6 g/dL (13.0-17.5) Hematocrit 33.5 % (39.0-53.0) Mean Corpuscular Volume 91 fL (79-100) Mean Corpuscular Hemoglobin 31 pg (25-35) Mean Corpuscular Hemoglobin Concent 35 g/dL (31-37) Red Cell Distribution Width 12.7 % (11.5-14.5) Platelet Count 253 x10^3/uL (140-400) Neutrophils (%) (Auto) 64 % (31-73) Lymphocytes (%) (Auto) 20 % (24-48) Monocytes (%) (Auto) 6 % (0-9) Eosinophils (%) (Auto) 9 % (0-3) Basophils (%) (Auto) 1 % (0-3) Neutrophils # (Auto) 5.5 x10^3/uL (1.8-7.7) Lymphocytes # (Auto) 1.7 x10^3/uL (1.0-4.8) Monocytes # (Auto) 0.5 x10^3/uL (0.0-1.1) Eosinophils # (Auto) 0.7 x10^3/uL (0.0-0.7) Basophils # (Auto) 0.1 x10^3/uL (0.0-0.2) Sodium Level 140 mmol/L (136-145) Potassium Level 3.9 mmol/L (3.5-5.1) Chloride Level 105 mmol/L (98-107) Carbon Dioxide Level 29 mmol/L (21-32) Anion Gap 6 (6-14) Blood Urea Nitrogen 19 mg/dL (8-26) Creatinine 1.5 mg/dL (0.7-1.3) Estimated GFR (Cockcroft-Gault) 47.6 Glucose Level 78 mg/dL (70-99) Calcium Level 9.1 mg/dL (8.5-10.1) Glucose (Fingerstick) 99 mg/dL (70-99) 116 mg/dL (70-99) Images Images I was unable to review his x-ray images due to computer issues Assessment/Plan Assessment/Plan 1. superficial excoriations- moisture related dermatitis, left foot wounds x3 2. Diabetes mellitus 3. Left lower extremity edema-NOS He does have significant swelling of his left foot and his wounds have evidence of excoriation, I think this is primarily a problem of edema management and foot dependency. He has no evidence of arterial insufficiency with normal palpable pulses in both feet. Therefore a direct recommend dry dressings to be applied to the wounds with a goal of absorption and desiccation of the wounds. I would also recommend compression during the day at all times when the feet are down or he is walking to address his significant edema. Initially I would use Sebas wrap for compression once this is improved he can be fitted for graduated elastic compression stockings which be my preference. There is no evidence of tunneling on probing of the wounds or underlying osteomyelitis clinically, therefore I would not recommend antibiotic therapy for these wounds. I recommend that he elevate his legs at all times during the day when he is not ambulatory. I do not see any reason for further activity or bathing restrictions given that his wounds are essentially healed minus some minor excoriation. Additionally he would benefit from outpatient podiatric evaluation for diabetic shoes. I do recommend left lower extremity venous ultrasound to rule out a DVT given his recent inactivity and acute onset of left lower extremity swelling. CARLITA ESPARZA MD Nov 08, 2020 12:38
--- NOTE | 2020-11-08 14:06 | NUR ---
Wound/Ostomy Care Wound Type/Assessment: Wound consult for left foot DFU. Pt has red edematous dorsal foot around 3 healing surgical scars. Cleansed area, pictured and measured for discharge. Treatment Recommendations/Plan: Cleanse wounds, apply silver contact layer, ABD and kerlix. Change every 3 days and PRN for drainage. Education provided: WC POC and Pu prevention, pt verbalized understanding Offloading surface/device: comression stockings per vascular surgery Recommended Referrals/Tests: na Discharge Recommendations for dressings: see above
--- NOTE | 2020-11-08 14:37 | RAD ---
INDICATION: Reason: swelling - wounds / Spl. Instructions: / History: COMPARISON: None TECHNIQUE: Grayscale, color and doppler ultrasound images were obtained of the left lower extremity v enous vasculature. LEFT: No thrombus identified in the common femoral vein, femoral vein, popliteal vein or visualized calf ve ins. IMPRESSION: * No thrombus identified in deep venous system of the left lower extremity. Electronically signed by: Abdelrahman Sylvester MD (11/08/2020 2:34 PM) [id number]
[2020-11-08 15:00] VITALS: BP 182/99
--- NOTE | 2020-11-08 16:33 | NUR ---
Pt discharged home with self care. Discharge instructions and prescriptions discussed. Pt verbalized understanding. IV removed. Pt ambulated to entrance with RN and SO
[2020-11-09 00:12] LABS: CREAT RD UR 69.1 mg/dL (Not Estab.); MICROALB RD UR 1385.9 ug/mL (Not Estab.)
[2020-11-09 03:12] LABS: HEMOGLOBIN A1C 5.6 % (4.8-5.6)
== END 2020-11-08 16:35 | disposition home health service (06) | DRG 638 ==
LOC: ER 12:59 → 4 NORTH 18:15
PROVIDERS: ADMIT Internal Medicine; ATTEND Internal Medicine
DX: E11.69 Type 2 diabetes mellitus with other specified complication (principal); L03.116 Cellulitis of left lower limb; M86.8X7 Other osteomyelitis, ankle and foot; L03.115 Cellulitis of right lower limb; N17.9 Acute kidney failure, unspecified; D64.9 Anemia, unspecified; E03.9 Hypothyroidism, unspecified; E11.22 Type 2 diabetes mellitus with diabetic chronic kidney disease; E11.42 Type 2 diabetes mellitus with diabetic polyneuropathy; E78.5 Hyperlipidemia, unspecified; E83.42 Hypomagnesemia; F12.90 Cannabis use, unspecified, uncomplicated; F17.200 Nicotine dependence, unspecified, uncomplicated; G89.29 Other chronic pain; I12.9 Hypertensive chronic kidney disease with stage 1 through stage 4 chronic kidney disease, or unspecified chronic kidney disease; L25.9 Unspecified contact dermatitis, unspecified cause; M12.9 Arthropathy, unspecified; N18.9 Chronic kidney disease, unspecified; Z79.4 Long term (current) use of insulin; Z79.899 Other long term (current) drug therapy; Z80.8 Family history of malignant neoplasm of other organs or systems; Z83.3 Family history of diabetes mellitus; Z86.19 Personal history of other infectious and parasitic diseases
CPT/HCPCS: 36415; 73620; 73630; 80048; 80053; 81001; 82043; 82553; 82570; 82962; 83036; 83540; 83550; 83735; 84100; 84443; 85025; 85651; 86140; 87040; 87426; 93971; 96365; 96375; J0692; J1450; J1644; J1815; J2020; J3010; U0003; U0005; 99285-25; G0378